=== PATIENT | female | born 1940 | race Caucasian/White ===

== ENCOUNTER → 2019-01-25 | Outpatient (CLI) | payer MEDICARE ==
--- NOTE | 2019-01-25 13:11 | Diagnostic Imaging Report ---
INDICATION: Fall. TIME OF EXAM: 12:49 p.m. FINDINGS: Multiple views of the left shoulder demonstrate degenerative changes at the glenohumeral joint. Glenohumeral and acromioclavicular alignment is normal. Acromiohumeral space is normal. No fracture or dislocation is seen. IMPRESSION: Degenerative changes. No acute bony abnormality is detected. Dictated by: Dictated on workstation # [id number]
== END ==
LOC: RAD FS 12:42
PROVIDERS: ATTEND Nurse Practitioner
DX: S40.012A Contusion of left shoulder, initial encounter (principal); M24.512 Contracture, left shoulder; M19.012 Primary osteoarthritis, left shoulder; M75.122 Complete rotator cuff tear or rupture of left shoulder, not specified as traumatic; W19.XXXA Unspecified fall, initial encounter
CPT/HCPCS: 73030

== ENCOUNTER 2019-06-02 16:20 | Emergency (ER) | payer MEDICARE ==
[~2019-06-02] VITALS: Ht 162.6 cm; Wt 72.6 kg
--- OUTSIDE RECORDS SUMMARY | 2019-06-02 16:26 | XMS REPORT | Encounter Summary ---
Author Author [facility] Organization [facility] Address Unknown Phone Unavailable Care Team Providers Care Formula Technician Name Role Phone Gladys Matthews Unavailable Unavailable Jeff Palma MD PCP Encounter Details Care Team Description Date Type Department Wellington Helton DO [id number] [place] [address] [phone] 05/15/2019 Anesthesia [facility] [address] [facility] [id number] [place] [address] Anesthesia Record Responsible Anesthesiologist Anesthesia Start Time Anesthesia Stop Time Procedure Name Wellington Helton DO 05/15/19 1130 05/15/19 1141 CARDIOVERSION, EXTERNAL Date Time Event Comment 1108 AN Equip Check 2018 1130 Anes Start 1131 An Start Data 1131 Start Supplemental O2 1131 Anesthesia Ready 1138 Quick Note CV at 200J 1141 an stop data 1141 Handoff to RN I completed my SBAR handoff to the receiving nurse. 1141 An Stop 1253 Meds Name Total lidocaine (2%) 200 mg/10mL Injection 60 mg syringe propofol (DIPRIVAN) 200 mg/ 20 mL 40 mg injection (VIAL) sodium chloride 0.9 % infusion (500 100 mL mL bag) * Name O2 * No blood administrations on file. No LDAs on file. documented in this encounter Social History Date Tobacco Use Types Packs/Day Years Used Never Smoker Smokeless Tobacco: Never Used Drinks/Week oz/Week Comments Alcohol Use occasionally Yes Sex Assigned at Date Recorded Not on file Industry Job Start Date Occupation Not on file Not on file Not on file Travel End Travel History Travel Start No recent travel history available. documented as of this encounter Functional Status Date of Assessment Functional Status Response 02/22/2019 Does the patient have a hearing impairment: No 02/22/2019 Does the patient have a visual impairment: Yes documented as of this encounter OR Notes * Anesthesia Postprocedure Evaluation - Wellington Helton DO - 05/15/2019 12:53 PM CDT Post-Anesthesia Evaluation Name: Zee Fam : 1940 Age: 78 y.o. Sex : female Procedure Date: 05/15/2019 Procedure: * No procedures listed * Surgeon: * No surgeons listed * Post-Anesthesia Vitals BP: 121/52 (05/15 1207) Pulse: 48 (05/15 1207) Respirations: 23 PER MINUTE (05/15 1207) SpO2: 98 % (05/15 1207) O2 Delivery: None (Room Air) (05/15 1207) Post Anesthesia Evaluation Note Evaluation location: pre/post Patient participation: recovered; patient participated in evaluation Level of consciousness: alert Pain score: 3 Pain management: adequate Hydration: normovolemia Temperature: 36.0C - 38.4C Airway patency: adequate Perioperative Events Post-op nausea and vomiting: no PONV Postoperative Status Cardiovascular status: hemodynamically stable Respiratory status: spontaneous ventilation Perioperative Events Perioperative Event: No Emergency Case Activation: No * Anesthesia Preprocedure Evaluation - Tosin Mujica CRNA - 05/15/2019 11:10 AM CDT Anesthesia Pre-Procedure Evaluation Name: Zee Fam : 1940 Age: 78 y.o. Sex : female Procedure Date: Procedure: FARA/DCCV Physical Assessment Vital Signs (last filed in past 24 hours): Patient History No Known Allergies Current Medications Medication Directions albuterol (PROAIR HFA) 90 mcg/actuation inhaler Inhale two puffs by mouth into t he lungs every 6 hours as needed for Wheezing or Shortness of Breath. Shake well before use. allopurinol (ZYLOPRIM) 300 mg tablet Take 1 tablet by mouth daily. ALPRAZolam (XANAX) 0.25 mg tablet Take 0.25 mg by mouth at bedtime as needed for Anxiety. amiodarone (CORDARONE) 200 mg tablet Take one tablet by mouth daily. Take with f ood. amoxicillin/K clavulanate (AUGMENTIN) 875/125 mg tablet Take one tablet by mouth every 12 hours for 7 days. Take with food. busPIRone (BUSPAR) 5 mg tablet Take one tablet by mouth daily. ELIQUIS 5 mg tablet Take one tablet by mouth twice daily. ezetimibe (ZETIA) 10 mg tablet Take 1 Tab by mouth daily. furosemide (LASIX) 40 mg tablet Take one tablet by mouth every morning. loratadine (CLARITIN) 10 mg tablet Take 10 mg by mouth every morning. losartan-hydrochlorothiazide (HYZAAR) 100-25 mg tablet Take 1 tablet by mouth da abiodun. montelukast (SINGULAIR) 10 mg tablet Take 10 mg by mouth at bedtime daily. omeprazole DR(+) (PRILOSEC) 20 mg capsule Take 20 mg by mouth daily before break fast. potassium chloride SR (K-DUR) 10 mEq tablet Take one tablet by mouth daily. Take with a meal and a full glass of water. rosuvastatin (CRESTOR) 20 mg tablet Take 1 Tab by mouth daily. Review of Systems/Medical History Patient summary reviewed Nursing notes reviewed PONV Screening: Female gender and Non-smoker No history of anesthetic complications No family history of anesthetic complications Airway - negative Pulmonary Asthma (pt states was recently prescribed albuterol but has not started) No recent URI Shortness of breath Cardiovascular Recent diagnostic studies: ECG, echocardiogram and stress test 12/18/18 - 2-D + DOPPLER ECHOCARDIOGRAM 1. No regional wall motion abnormalities are seen. Overall LV systolic function appears normal. The estimated left ventricular ejection fraction is 60%. 2. Right ventricular contractility appears normal. 3. Moderate left atrial enlargement. 4. Moderate mitral valve regurgitation. Mild tricuspid valve regurgitation. 5. Aortic valve sclerosis without stenosis. 6. No pericardial effusion is seen. 08/31/16 - PV CAROTID ARTERY DUPLEX SCAN 1. Mild atheromatous plaque is seen in bilateral common and internal carotid art eries. 2. No hemodynamically significant (>50%) stenosis is seen in common and internal carotid arteries bilaterally 3. There is normal antegrade flow in both vertebral arteries. 4. No evidence of proximal subclavian stenosis. 08/31/16 - Procedure: GATED D-SPECT REGADENOSON THALLIUM MPI STRESS TEST SUMMARY/OPINION: This study is probably normal with no evidence of significan t myocardial ischemia. Left ventricular systolic function is normal. There are n o high risk prognostic indicators present. The pharmacologic ECG portion of the study is negative for ischemia. Resting and pharmacologic stress-mediated hyper tension is observed (178 mm Hg and 206 mm Hg systolic, respectively). There are no prior studies available for comparison. 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 Abdominal Findings: Comments: deferred Neurological Findings: Alert and oriented x 3 Constitutional findings: Negative Diagnostic Tests Hematology: Lab Results Component Value Date HGB 13.1 05/08/2019 HCT 40.3 05/08/2019 PLTCT 272 05/08/2019 WBC 7.9 05/08/2019 NEUT 80 05/08/2019 ANC 6.30 05/08/2019 ALC 0.80 05/08/2019 FER 9 05/08/2019 AMC 0.70 05/08/2019 EOSA 1 05/08/2019 ABC 0.00 05/08/2019 MCV 92.2 05/08/2019 MCH 29.9 05/08/2019 MCHC 32.5 05/08/2019 MPV 10.6 05/08/2019 RDW 15.5 05/08/2019 General Chemistry: Lab Results Component Value Date NA 136 05/08/2019 K 3.7 05/08/2019 CL 102 05/08/2019 CO2 24 05/08/2019 GAP 10 05/08/2019 BUN 16 05/08/2019 CR 1.08 05/08/2019 GLU 114 05/08/2019 CA 9.6 05/08/2019 ALBUMIN 3.7 05/08/2019 MG 2.4 04/27/2019 TOTBILI 1.0 05/08/2019 Coagulation: No results found for: PT, PTT, INR Anesthesia Plan ASA score: 3 Plan: MAC Induction method: intravenous NPO status: acceptable Informed Consent Anesthetic plan and risks discussed with patient. Use of blood products discussed with patient Plan discussed with: anesthesiologist and GARMENT TAG STRINGER. documented in this encounter Plan of Treatment Not on filedocumented as of this encounter Visit Diagnoses Not on filedocumented in this encounter Administered Medications Action Date Dose Rate Site Medication Order MAR Action 05/15/2019 11:35 AM CDT 60 mg lidocaine (PF) injection Given INTRA-PROCEDURE MED, Starting Tue05/15/19 at 1135, Until Tue05/15/19 at 1141, Anesthesia Intra-op 05/15/2019 11:37 AM CDT 20 mg propofol (DIPRIVAN) injection Given INTRA-PROCEDURE MED, Starting 05/15/19 at 1135, Until Tu05/15/19 at 1141, Anesthesia Intra-op 20 mg Given 05/15/2019 11:35 AM CDT 05/15/2019 11:09 AM CDT sodium chloride 0.9 % infusion Given - New INTRA-PROCEDURE MED(CONT), Starting Tue Bag 05/15/19 at 1109, Until Tue05/15/19 at 1141, Anesthesia Intra-op documented in this encounter
--- OUTSIDE RECORDS SUMMARY | 2019-06-02 16:26 | XMS REPORT | Clinical Summary ---
Author Author [facility] Organization [facility] Address Unknown Phone Unavailable Care Team Providers Care Director Of Event Marketing Name Role Phone Gladys Matthews Unavailable Unavailable Jeff Palma MD PCP Source Comments Some departments are not documenting in the electronic medical record. If you d o not see the information that you expected, contact Release of Information in [facility] Records Information Management department at [phone] for further assistan ce in locating additional records.[facility] Allergies No Known Allergies Medications End Date Status Medication Sig Dispensed Refills Start Date Active omeprazole DR(+) Take 20 mg by 0 (PRILOSEC) 20 mg capsule mouth daily before breakfast. Active montelukast (SINGULAIR) Take 10 mg by 0 10 mg tablet mouth at bedtime daily. Active rosuvastatin (CRESTOR) 20 Take 1 Tab by 0 mg tablet mouth daily. 6 Active ezetimibe (ZETIA) 10 mg Take 1 Tab by 90 Tab 1 tablet mouth daily. 6 Active ALPRAZolam (XANAX) 0.25 Take 0.25 mg 0 mg tablet by mouth at bedtime as needed for Anxiety. Active furosemide (LASIX) 40 mg Take one 90 tablet 3 tablet tablet by 9 mouth every morning. Active ELIQUIS 5 mg tablet Take one 60 tablet 6 tablet by 9 mouth twice daily. Active losartan-hydrochlorothiaz Take 1 tablet 3 christine (HYZAAR) 100-25 mg by mouth 9 tablet daily. Active allopurinol (ZYLOPRIM) Take 1 tablet 0 300 mg tablet by mouth 9 daily. Active potassium chloride SR Take one 90 tablet 3 (K-DUR) 10 mEq tablet by 9 tabletIndications: mouth daily. Hypokalemia Take with a meal and a full glass of water. Active albuterol (PROAIR HFA) 90 Inhale two 6.7 g 1 mcg/actuation inhaler puffs by 9 mouth into the lungs every 6 hours as needed for Wheezing or Shortness of Breath. Shake well before use. Active amiodarone (CORDARONE) Take two 180 tablet 0 200 mg tablet tablets by 9 mouth daily. Take with food. 05/15/2019 Discontinued busPIRone (BUSPAR) 5 mg Take one 30 tablet 1 tablet tablet by 9 mouth daily. 05/31/2019 Discontinued amiodarone (CORDARONE) Take one 90 tablet 1 200 mg tablet tablet by 9 mouth daily. Take with food. 05/14/2019 Discontinued metoprolol XL (TOPROL XL) Take one 180 tablet 1 25 mg extended release tablet by 9 tablet mouth twice daily. 05/15/2019 Discontinued loratadine (CLARITIN) 10 Take 10 mg by 0 mg tablet mouth every morning. 05/11/2019 Discontinued albuterol (PROAIR HFA) 90 Inhale two 1 Inhaler 11 mcg/actuation puffs by 9 inhalerIndications: Mild mouth into intermittent asthma the lungs without complication every 6 hours as needed for Wheezing or Shortness of Breath (cough). Shake well before use. 05/15/2019 amoxicillin/K clavulanate Take one 14 tablet 0 (AUGMENTIN) 875/125 mg tablet by 9 tablet mouth every 12 hours for 7 days. Take with food. 05/31/2019 Discontinued amiodarone (CORDARONE) TAKE 1 TABLET 90 tablet 1 200 mg tablet BY MOUTH ONCE 9 DAILY WITH FOOD Active Problems Problem Noted Date CKD (chronic kidney disease) stage 3, GFR 30-59 ml/min 05/04/2019 LPRD (laryngopharyngeal reflux disease) 04/27/2019 Overview: Plan: Continue omeprazole 20 mg daily Chronic fatigue 04/27/2019 Overview: Having worsening chronic fatigue. No systemic signs or symptoms. Is depressed. Physical exam normal. PLAN - check CBC, CMP, TSH, Vit D, B12 - offered medication for mood, declines for now - consider sleep study if above unremarkable \\ B12 deficiency 04/27/2019 Chronic cough 04/27/2019 Atrial fibrillation 01/12/2019 Overview: 1. 01/02 echo: No regional wall motion abnormalities are seen. Overall LV systolic function appears normal. The estimated left ventricular ejection fraction is 60%. 2. Right ventricular contractility appears normal. 3. Moderate left atrial enlargement. 4. Moderate mitral valve regurgitation. Mild tricuspid valve regurgitation. 5. Aortic valve sclerosis without stenosis. No pericardial effusion is seen. Plan: Continue follow-up with cardiology Continue Eliquis Continue beta-alyce L ast Assessment & Plan: Unfortunately, she remains in atrial fibrillation today. Mrs. Fam was initially quite surprised that she felt good and thought she was in sinus rhythm. We again discussed treatment options. I am unsure whether she has any symptoms associated with her atrial fibrillation. We discussed the fact that amiodarone has some side effects associated with long-term use. If she were to stay in AF, I would discontinue amiodarone. She has reluctantly agreed to undergo cardioversion once. We are going to keep her on the same dose of amiodarone for now. I would hold her beta-blockers prior to cardioversion. When she has been cardioverted, we can consider dropping her amiodarone dose to 100 mg a day. She is happy with this plan. Asthma 01/12/2019 Overview: controlled Plan: Continue Albuterol 2 puffs every 6 hours as needed Late onset Alzheimer's disease without behavioral disturbance 11/27/2018 Overview: Seen by Dr. Irvin Abnormal signs: Memory dysfunction and Executive dysfunction Localization: Bihemispheral, cortices and Mesial temporal structures Diagnosis: Alzheimer's disease Differential diagnosis: Inflammatory disorders, Vascular disorders, Metabolic disorders and Other degenerative causes Recommended starting Aricept if able to decrease Metoprolol. Continue follow-up with neurology 05/2019: Neuropsychological testing: Summary and Conclusions: The patient is an 78-year-old female previously diagnosed with Alzheimer's disease who was referred for neuropsychological evaluation to gauge level of cognitive functioning to assist in treatment planning. During the interview, the patient reported difficulty remembering appointments/details of appointments and occasional word substitution, but noted her peers have similar issues. Her daughter added that the patient has had problems with misplacing items. The patient reported rapid onset of cognitive symptoms shortly after her daughter's in February 2017 with stability over time. Her daughter reported gradual onset of symptoms about a year ago with gradual decline and indicated symptoms have been more prominent in the past 6 months. Performance on cognitive testing was indicative of grossly intact cognitive functioning and is not consistent with the presence of a neurodegenerative disorder. It is most likely that observed cognitive changes are related to high level of stress as well as normal age-related cognitive decline. Psychologically, the patient denied clinically relevant symptoms of anxiety and depression but did note elevated stress level. 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 She reports anxiety and feeling somewhat down and blue but took the Buspar for just a few days. She felt it helped but did not want to be "dependent" on anything. We discussed the toll that stress and anxiety can take on memory as well as untreated depression. We have tried Zoloft in the past and she would not take it but she did agree to restart the Buspar at 5 mg once a day. Recommended we get formal Neuropsychological testing to help with LTC planning. 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 She needs more assistance with writing the reports. Harder to keep up with the responsibility. She also has untreated anxiety and depression as well as ongoing grief from the loss of her a couple of years ago that could be contributing. Discussed a referral to [facility] and support. She may also be interested in some CBT with sebastián Raygoza. They were both in agreement with a referral. She also expressed some interest in hearing more about Research Studies. Was in agreement with a referral. Plan: Recommend we get the Neuropsychological testing to help with diagnosis and contribution from depression and anxiety. Continue the Buspar 5 mg once a day. Take every day at the same time daily. We will make a referral to the [facility]/SW support program and the Research program. Follow up after the Neuropsychological testing results have been completed and we can review the results as well as a medication check. Bruit 08/09/2016 Shortness of breath 08/09/2016 Essential hypertension 08/06/2016 Overview: 02/09/08 ECHO EF 55 % L ast Assessment & Plan: Blood pressure in the office today is low. She tells me that she is lightheaded when standing quickly. I am not sure if her hypotension is secondary to atrial arrhythmias or decreased intake. I have encouraged her to increase her fluid intake and eat regular meals. Mixed hyperlipidemia 08/06/[address] 08/06/2016 Overview: 08/31/16 PV carotid duplex mild plaque, none >50% 08/31/16 Regadenoson Thallium EF 73 % LVEDV 53 ml Encounters Care Team Description Date Type Specialty Alee Briscoe MD Medication Refill; Medication Refill 05/31/2019 Refill Cardiology Katie Pastor RN Lab Results W/medication Changes 05/16/2019 Telephone Cardiology Wellington Helton DO 05/15/2019 Anesthesia Cardiology Event Alee Briscoe MD 05/15/2019 Hospital Cardiology Encounter Britt Elizabeth, PhD Cognitive change (Primary Dx) 05/15/2019 Office Visit Neuropsychology Ana Maria Gary RN Medication Question 05/14/2019 Telephone Cardiology Gemma Lew RN Pre-Procedure Instructions (LVM for DCCV instructions for 05/15/2019) 05/14/2019 Telephone Cardiology Jeff Palma MD 05/11/2019 Refill Internal Medicine Dorothy Carpio APRN Results 05/10/2019 Telephone Internal Medicine Dorothy Carpio APRN Persistent atrial fibrillation (HCC) (Primary Dx); Confusion; Lethargy; Weakness; Acute low back pain, unspecified back pain laterality, with sciatica presence unspecified; Cystitis 05/08/2019 Office Visit Internal Medicine Linda Hogan half-way current use of amiodarone 05/08/2019 Orders Only Cardiology Alee Briscoe MD Persistent atrial fibrillation (HCC) (Primary Dx) 05/08/2019 Prep for Case Cardiology Katelynn Caballero RN 05/08/2019 Telephone Cardiology Belkis Abdi RN Lab Results 05/07/2019 Telephone Cardiology Belkis Abdi RN 05/07/2019 Telephone Cardiology Alee Briscoe MD 05/04/2019 Hospital Radiology Encounter Ayana Florian MD 05/04/2019 Anesthesia Cardiology Event Alee Briscoe MD 05/04/2019 Hospital Cardiology Encounter Haleigh Ignacio PA-C Cardiac Eval (H&P for DCCV) 05/04/2019 Office Visit Cardiology Giovanna Day RN Pre-Procedure Instructions (Transesophageal Echocardiogram) 05/03/2019 Telephone Cardiology Jeff Palma MD Hypokalemia (Primary Dx) 05/03/2019 Orders Only Internal Medicine Jeff Palma MD Chronic fatigue (Primary Dx); Persistent atrial fibrillation (HCC); Late onset Alzheimer's disease without behavioral disturbance; Mild intermittent asthma without complication; LPRD (laryngopharyngeal reflux disease); B12 deficiency; Chronic cough; Encounter for monitoring proton pump inhibitor therapy; Encounter for monitoring amiodarone therapy 04/27/2019 Office Visit Internal Medicine Geovanna Wren Precertification (Approval) 04/18/2019 Documentation Cardiology Belkis Abdi RN Medication Request 04/18/2019 Telephone Cardiology Alee Briscoe MD Persistent atrial fibrillation (HCC) (Primary Dx) 04/10/2019 Prep for Case Cardiology Geovanna Wren Precertification (Approval) 04/06/2019 Documentation Cardiology Alee Briscoe MD Cardiac Eval (2 month follow up) 03/26/2019 Office Visit Cardiology Alee Briscoe MD Persistent atrial fibrillation (HCC) (Primary Dx) 03/26/2019 Prep for Case Cardiology from Last 3 Months Immunizations Name Administration Dates Next Due Flu Vaccine=>65 YO 08/18/2016, 07/18/2015, 08/09/2014, 09/20/2013, High-Dose (PF) 10/30/2012 Pneumococcal Vaccine 09/13/2016 (23-[facility] Adult) Pneumococcal 05/02/2018 Vaccine(13-[facility] Peds/immunocompromised adult) Typhoid Vaccine, 01/12/2016 unspecified Family History Medical History Relation Name Comments Cancer Father Stroke Maternal Aunt Unknown to Patient Maternal Uncle Stroke Mother High Cholesterol Sister Relation Name Status Comments Father Maternal Aunt Maternal Uncle Mother Sister Alive Social History Date Tobacco Use Types Packs/Day Years Used Never Smoker Smokeless Tobacco: Never Used Tobacco Cessation: Counseling Given: No Drinks/Week oz/Week Comments Alcohol Use occasionally Yes Sex Assigned at Date Recorded Not on file Industry Job Start Date Occupation Not on file Not on file Not on file Travel End Travel History Travel Start No recent travel history available. Last Filed Vital Signs Reading Time Taken Comments Vital Sign 121/52 05/15/2019 12:07 PM CDT Blood Pressure 48 05/15/2019 12:07 PM CDT Pulse 36.8 C (98.2 F) 05/08/2019 1:25 PM CDT Temperature 16 04/27/2019 9:58 AM CDT Respiratory Rate 98% 05/15/2019 12:07 PM CDT Oxygen Saturation - - Inhaled Oxygen Concentration 73 kg (160 lb 15 oz) 05/15/2019 11:10 AM CDT Weight 162.6 cm (5' 4") 05/15/2019 11:10 AM CDT Height 27.62 05/15/2019 11:10 AM CDT Body Mass Index Plan of Treatment Health Maintenance Due Date Last Done Comments PHYSICAL (COMPREHENSIVE) 1945 EXAM OSTEOPOROSIS 2003 SCREENING/MONITORING INFLUENZA VACCINE 08/14/2019 08/18/2016, 07/18/2015, 08/09/2014, Additional history exists DTAP/TDAP VACCINES (1 - 04/27/2029 Postponed from 1956 Tdap) (Insurance/Financial) SHINGLES RECOMBINANT 04/27/2029 Postponed from 1988 VACCINE (1 of 2) (Insurance/Financial) PNEUMONIA (PCV13/PPSV23) Completed 05/02/2018, 09/13/2016 VACCINES Procedures Comments Procedure Name Priority Date/Time Associated Diagnosis CARDIOVERSION, EXTERNAL Routine 05/15/2019 Persistent atrial 11:46 AM CDT fibrillation (HCC) POC POTASSIUM 05/15/2019 11:28 AM CDT ECG-SCAN 05/15/2019 12:00 AM CDT ECG-SCAN 05/15/2019 12:00 AM CDT URINALYSIS, MICROSCOPIC Routine 05/08/2019 Confusion 2:37 PM CDT CULTURE-URINE Routine 05/08/2019 Confusion W/SENSITIVITY 2:37 PM CDT COMPREHENSIVE METABOLIC Routine 05/08/2019 Confusion PANEL 2:17 PM CDT Lethargy Weakness CBC AND DIFF Routine 05/08/2019 Confusion 2:17 PM CDT Lethargy Weakness ECG 12-LEAD Routine 05/08/2019 half-way current use of amiodarone CHEST 2 VIEWS Routine 05/04/2019 Persistent atrial 11:08 AM CDT fibrillation (HCC) 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 FARA W/O CONTRAST Routine 05/04/2019 Persistent atrial 10:04 AM CDT fibrillation (HCC) CARDIOVERSION, EXTERNAL Routine 05/04/2019 Persistent atrial 10:00 AM CDT fibrillation (HCC) POC POTASSIUM 05/04/2019 9:10 AM CDT ECG-SCAN 05/04/2019 12:00 AM CDT ECG-SCAN 05/04/2019 12:00 AM CDT ECG-SCAN 05/04/2019 12:00 AM CDT CBC AND DIFF Routine 04/27/2019 Persistent atrial 11:01 AM CDT fibrillation (HCC) COMPREHENSIVE METABOLIC Routine 04/27/2019 Persistent atrial PANEL 11:01 AM CDT fibrillation (HCC) THYROID STIMULATING Routine 04/27/2019 Persistent atrial HORMONE-TSH 11:01 AM CDT fibrillation (HCC) VITAMIN B12 Routine 04/27/2019 Encounter for monitoring 11:01 AM CDT proton pump inhibitor therapy B12 deficiency 25-OH VITAMIN D (D2 + D3) Routine 04/27/2019 Encounter for monitoring 11:01 AM CDT proton pump inhibitor therapy MAGNESIUM Routine 04/27/2019 Encounter for monitoring 11:01 AM CDT proton pump inhibitor therapy FREE T4 (FREE THYROXINE) Routine 04/27/2019 Encounter for monitoring ONLY 11:01 AM CDT amiodarone therapy ECG-SCAN 03/26/2019 12:00 AM CDT from Last 3 Months Results * CARDIOVERSION, EXTERNAL (05/15/2019 11:46 AM CDT) Specimen Narrative Performed At OTHER OUTSIDE LAB DATE OF PROCEDURE: 05/15/2019 PROCEDURES PERFORMED Direct current synchronized cardioversion (200 joules biphasic current with Medtronic LifePak 20e Biphasic Defibrillator). INDICATIONS The patient is a78 y.o. year old patient withsymptomatic atrial fibrillation. She has been on adequate anticoagulation since her last FARA/CV. ANESTHESIA MAC with propofol (supervised by Anesthesiology Staff) INFORMED CONSENT The planned procedure including conscious sedation was explained at length with patient. This included a detailed description of the procedure, procedure rationale, risks, benefits, & available alternatives. Ample time was allowed for feedback. Patient's questions were addressed and answered. Pt verbalized understanding and wished to proceed. Written informed consent was signed by the patient and was placed in the patient's chart as part of their permanent medical record. PROCEDURAL DETAILS Anesthesiology staff physician was present and supervised sedation & anesthesia.Heart rate, blood pressure, pulse oximetry, telemetry monitoring, and level of consciousness were monitored by myself, anesthesiology, and nursing staff. Cardioverter pads were placed with the anterior pad in the right parasternal position & the posterior pad in the left parasternal position. After adequate sedation, a synchronized 200 joules biphasic current was delivered to the patient with subsequent conversion to sinus rhythm.This was confirmed on 12 lead ECG. There were no procedural complications. Post-procedure, the patient was neurologically intact and hemodynamically stable. Aftercare and follow-up instructions were provided to the patient. CONCLUSIONS 1. Successful direct current cardioversion from symptomatic atrial fibrillation to sinus rhythm. Performing Organization Address City/State/Zipcode Phone Number OTHER OUTSIDE LAB * POC POTASSIUM (05/15/2019 11:28 AM CDT) Only the most recent of 2 results within the time period is included. Potassium-POC 3.4 (L) 3.5 - 5.1 MMOL/L [facility] Specimen Performing Organization Address City/State/Zipcode Phone Number [facility] [address] [place] [address] * ECG-SCAN (05/15/2019 12:00 AM CDT) Narrative Performed At Ordered by an unspecified provider. * ECG-SCAN (05/15/2019 12:00 AM CDT) Narrative Performed At Ordered by an unspecified provider. * URINALYSIS, MICROSCOPIC (05/08/2019 2:37 PM CDT) WBCs,UA PACKED 0 - 2 /HPF [facility] RBCs,UA 0-2 0 - 3 /HPF [facility] MucousUA TRACE [facility] Bacteria,UA MODERATE (A) NEG-NEG [facility] Squamous 2-5 0 - 5 [facility] Epithelial Cells Hyaline Cast 2-5 [facility] Specimen Urine - Urine Performing Organization Address City/State/Zipcode Phone Number [facility] [address] [place] [address] * CULTURE-URINE W/SENSITIVITY (05/08/2019 2:37 PM CDT) Battery Name URINE CULTURE [facility] Specimen URINE [facility] Description Special NONE [facility] Requests Culture >100,000 organisms/ml [facility] ESCHERICHIA COLI (A) Report Status FINAL [facility] 05/10/2019 Organism ID >100,000 organisms/ml [facility] ESCHERICHIA COLI Specimen Urine - Urine Antibiotic Method Susceptibility Organism Ampicillin SADIA (MCG/ML) INTERPRETATION <=4 SUSCEPTIBLE: Susceptible >100,000 organisms/ml escherichia coli Amoxicil/Clav Acid SADIA (MCG/ML) INTERPRETATION <=4/2 SUSCEPTIBLE: Susceptible >100,000 organisms/ml escherichia coli Levofloxacin SADIA (MCG/ML) INTERPRETATION <=1 SUSCEPTIBLE: Susceptible >100,000 organisms/ml escherichia coli Nitrofurantoin SADIA (MCG/ML) INTERPRETATION <=16 SUSCEPTIBLE: Susceptible >100,000 organisms/ml escherichia coli Gentamicin SADIA (MCG/ML) INTERPRETATION <=2 SUSCEPTIBLE: Susceptible >100,000 organisms/ml escherichia coli Trimethsulfa SADIA (MCG/ML) INTERPRETATION <=0.5/9.5 SUSCEPTIBLE: Susceptible >100,000 organisms/ml escherichia coli Piperacil/Tazobactam SADIA (MCG/ML) INTERPRETATION <=2/4 SUSCEPTIBLE: Susceptible >100,000 organisms/ml escherichia coli Tetracycline SADIA (MCG/ML) INTERPRETATION <=2 SUSCEPTIBLE: Susceptible >100,000 organisms/ml escherichia coli Cefepime SADIA (MCG/ML) INTERPRETATION <=1 SUSCEPTIBLE: Susceptible >100,000 organisms/ml escherichia coli Ertapenem SADIA (MCG/ML) INTERPRETATION <=0.25 SUSCEPTIBLE: Susceptible >100,000 organisms/ml escherichia coli Ceftriaxone SADIA (MCG/ML) INTERPRETATION <=1 SUSCEPTIBLE: Susceptible >100,000 organisms/ml escherichia coli Method SADIA (MCG/ML) INTERPRETATION SADIA (MCG/ML) INTERPRETATION >100,000 organisms/ml escherichia coli Performing Organization Address City/[facility]/Zipcode Phone Number [facility] [address] [place] [address] * CBC AND DIFF (05/08/2019 2:17 PM CDT) Only the most recent of 2 results within the time period is included. White Blood 7.9 4.5 - 11.0 K/UL [facility] Cells RBC 4.37 4.0 - 5.0 M/UL [facility] Hemoglobin 13.1 12.0 - 15.0 GM/DL [facility] Hematocrit 40.3 36 - 45 % [facility] MCV 92.2 80 - 100 FL [facility] MCH 29.9 26 - 34 PG [facility] MCHC 32.5 32.0 - 36.0 G/DL [facility] RDW 15.5 (H) 11 - 15 % [facility] Platelet Count 272 150 - 400 K/UL [facility] MPV 10.6 7 - 11 FL [facility] Neutrophils 80 (H) 41 - 77 % [facility] Lymphocytes 10 (L) 24 - 44 % [facility] Monocytes 9 4 - 12 % [facility] Eosinophils 1 0 - 5 % [facility] Basophils 0 0 - 2 % [facility] Absolute 6.30 1.8 - 7.0 K/UL [facility] Neutrophil Count Absolute Lymph 0.80 (L) 1.0 - 4.8 K/UL [facility] Count Absolute 0.70 0 - 0.80 K/UL [facility] Monocyte Count Absolute 0.10 0 - 0.45 K/UL [facility] Eosinophil Count Absolute 0.00 0 - 0.20 K/UL [facility] Basophil Count Specimen Blood Performing Organization Address City/[facility]/Zipcode Phone Number [facility] [address] [place] [address] * COMPREHENSIVE METABOLIC PANEL (05/08/2019 2:17 PM CDT) Only the most recent of 2 results within the time period is included. Sodium 136 (L) 137 - 147 MMOL/L [facility] Potassium 3.7 3.5 - 5.1 MMOL/L [facility] Chloride 102 98 - 110 MMOL/L [facility] Glucose 114 (H) 70 - 100 MG/DL [facility] Blood Urea 16 7 - 25 MG/DL [facility] Nitrogen Creatinine 1.08 (H) 0.4 - 1.00 MG/DL [facility] Calcium 9.6 8.5 - 10.6 MG/DL [facility] Total Protein 6.6 6.0 - 8.0 G/DL [facility] Total Bilirubin 1.0 0.3 - 1.2 MG/DL [facility] Albumin 3.7 3.5 - 5.0 G/DL [facility] Alk Phosphatase 66 25 - 110 U/L [facility] AST (SGOT) 12 7 - 40 U/L [facility] CO2 24 21 - 30 MMOL/L [facility] ALT (SGPT) 8 7 - 56 U/L [facility] Anion Gap 10 3 - 12 [facility] eGFR Non 49 (L) >60 mL/min [facility] Comment: [place] The eGFR is not validated for use in drug dosing adjustments.Continue to use estimated creatinine clearance per dosing reference text.Please contact the Clinical Pharmacist for questions. eGFR 59 (L) >60 mL/min [facility] [place] Comment: The eGFR is not validated for use in drug dosing adjustments.Continue to use estimated creatinine clearance per dosing reference text.Please contact the Clinical Pharmacist for questions. Specimen Blood Performing Organization Address City/State/Zipcode Phone Number [facility] [address] [place] [address] * ECG 12-LEAD (05/08/2019) Narrative Performed At Performing Organization Address City/State/Zipcode Phone Number [facility] CLINIC * CHEST 2 VIEWS (05/04/2019 11:08 AM CDT) Specimen Impressions Performed At No acute cardiopulmonary abnormality. [facility] Approved by Andrea Capps D.O. on 05/04/2019 11:42 AM By my electronic signature, I attest that I have personally reviewed the images for this examination and formulated the interpretations and opinions expressed in this report Finalized by Chauncey Hooker M.D. on 05/04/2019 11:50 AM. Dictated by Andrea Capps D.O. on 05/04/2019 11:25 AM. Narrative Performed At CHEST 2 VIEWS [facility] RES[facility] Clinical Indication: Female, 78 years old. Persistent atrial fibrillation. Amiodarone use Comparison: None Findings: The cardiac silhouette is within normal limits of size. There is no pulmonary vascular congestion. No pneumothorax, consolidating pneumonia or pleural effusion is identified. Surgical clips overlie the right axilla. Procedure Note Interface, Radiant Results - 05/04/2019 11:53 AM CDT CHEST 2 VIEWS Clinical Indication: Female, 78 years old. Persistent atrial fibrillation. Amiodarone use Comparison: None Findings: The cardiac silhouette is within normal limits of size. There is no pulmonary vascular congestion. No pneumothorax, consolidating pneumonia or pleural effusion is identified. Surgical clips overlie the right axilla. IMPRESSION No acute cardiopulmonary abnormality. Approved by Andrea Capps D.O. on 05/04/2019 11:42 AM By my electronic signature, I attest that I have personally reviewed the images for this examination and formulated the interpretations and opinions expressed in this report Finalized by Chauncey Hooker M.D. on 05/04/2019 11:50 AM. Dictated by Andrea Capps D.O. on 05/04/2019 11:25 AM. Performing Organization Address City/State/Zipcode Phone Number [facility] RAD RESULTS * TRANSESOPHAGEAL ECHOCARDIOGRAM (05/04/2019 10:04 AM CDT) BSA 1.84 m2 OTHER OUTSIDE LAB Referring Jeff Palma M.D. OTHER OUTSIDE Provider LAB CV ECHO DOUG Waite R.N. OTHER OUTSIDE PRIMARY PRODUCTS INSPECTORS LAB Cardiology Siemens [id number] OTHER OUTSIDE Ultrasound LAB Machine ECHO EF 65 % OTHER OUTSIDE LAB Specimen Narrative Performed At OTHER OUTSIDE LAB 1.Markedly dilated left atrium.No thrombus. 2.Markedly dilated right atrium.No thrombus. Performing Organization Address City/State/Zipcode Phone Number OTHER OUTSIDE LAB * CARDIOVERSION, EXTERNAL (05/04/2019 10:00 AM CDT) Specimen Narrative Performed At OTHER OUTSIDE LAB PROCEDURE NOTE Procedure:DC cardioversion. Indication:Persistent atrial fibrillation. Consent:Discussed procedure, including goals, risks, and alternative with patient and daughter.Signed consent form in chart. Anesthesia:MAC w/ IV propofol per Anesthesiology. Tricot Knitting Machine Operator:Pedro Marsh M.D. Findings:Chronically anticoagulated with apixaban but may have missed dose(s) within past 3 weeks.Transesophageal echocardiogram performed immediately before procedure confirmed absence of left and right atrial thrombus.Single, 125 J, synchronized, biphasic, DC shock delivered from left parasternal patch to right posterior patch.Sinus bradycardia restored with heart rate=50 and normal atrioventricular conduction. Frequent, premature atrial complexes. Complications:Transient hypotension post cardioversion treated with discontinuation of propofol, ephedrine 15 mg IV, and IV NS 700 ml wide open. Pedro Marsh M.D. [phone] Performing Organization Address [facility] Phone Number OTHER OUTSIDE LAB * ECG-SCAN (05/04/2019 12:00 AM CDT) Narrative Performed At Ordered by an unspecified provider. * ECG-SCAN (05/04/2019 12:00 AM CDT) Narrative Performed At Ordered by an unspecified provider. * ECG-SCAN (05/04/2019 12:00 AM CDT) Narrative Performed At Ordered by an unspecified provider. * 25-OH VITAMIN D (D2 + D3) (04/27/2019 11:01 AM CDT) Vitamin 15.8 (L) 30 - 80 NG/ML MAIN LAB D(25-OH)Total Specimen Blood Performing Organization Address [facility] Phone Number MAIN LAB [address] [place] [address] * THYROID STIMULATING HORMONE-TSH (04/27/2019 11:01 AM CDT) TSH 0.670 0.35 - 5.00 MCU/ML MAIN LAB Specimen Blood Performing Organization Address [facility] Phone Number MAIN LAB [address] [place] [address] * FREE T4 (FREE THYROXINE) ONLY (04/27/2019 11:01 AM CDT) T4-Free 1.6 0.6 - 1.6 NG/DL [facility] MAIN LAB Specimen Blood Performing Organization Address [facility] Phone Number MAIN LAB [address] [place] [address] * MAGNESIUM (04/27/2019 11:01 AM CDT) Magnesium 2.4 1.6 - 2.6 mg/dL MAIN LAB Specimen Blood Performing Organization Address City/[facility]/Zipcode Phone Number MAIN LAB [address] [place] [address] * VITAMIN B12 (04/27/2019 11:01 AM CDT) Vitamin B12 221 180 - 914 PG/ML MAIN LAB Specimen Blood Performing Organization Address City/[facility]/Zipcode Phone Number MAIN LAB [address] [place] [address] * ECG-SCAN (03/26/2019 12:00 AM CDT) Narrative Performed At Ordered by an unspecified provider. from Last 3 Months Insurance Type Payer Benefit Subscriber ID Effective Phone Address Plan / Dates Group Medicare MEDICARE MEDICARE xxxxxxxxxxx 2003-P PART A AND resent B Medicare BCBS LAURA BCBS xxxxxxxxxxxx 2015-P SUPPLEMENT resent Advance Directives Patient Tag Maker Explanation Type Date Recorded Advance 10/28/2018 1:39 PM Directive/DPOA Zee Fam [email or web address] Advance 04/15/2019 9:26 AM Directive/DPOA
--- OUTSIDE RECORDS SUMMARY | 2019-06-02 16:26 | XMS REPORT | Encounter Summary ---
Author Author [facility] Organization [facility] Address Unknown Phone Unavailable Care Team Providers Care Gallery Intern Name Role Phone Gladys Matthews Unavailable Unavailable Jeff Palma MD PCP Reason for Visit * Reason Comments Lab Results W/medication Changes Encounter Details Care Team Description Date Type Department Katie Pastor RN Lab Results W/medication Changes 05/16/2019 Telephone [facility] [address] [place] [address] Social History Date Tobacco Use Types Packs/Day [...] impairment: Yes documented as of this encounter Miscellaneous Notes * Telephone Encounter - Katie Pastor RN - 05/16/2019 3:43 PM CDT LMTC. Ludmila RN ----- Message from Alee Briscoe MD sent at 05/15/2019 6:52 PM CDT ----- Yes please, go to 20 ----- Message ----- From: Katie Pastor RN Sent: 05/15/2019 5:10 PM To: Alee Briscoe MD Do you want to increase K; she takes 10 meq daily. documented in this encounter Plan of Treatment Not on filedocumented as of this encounter Visit Diagnoses Not on filedocumented in this encounter
--- OUTSIDE RECORDS SUMMARY | 2019-06-02 16:26 | XMS REPORT | Encounter Summary ---
Author Author [facility] Organization [facility] Address Unknown Phone Unavailable Care Team Providers Care Spray Maker Name Role Phone Gladys Matthews Unavailable Unavailable Jeff Palma MD PCP Reason for Visit * Reason Comments Medication Refill Medication Refill Encounter Details Care Team Description Date Type Department Alee Briscoe MD [address] [facility] [place] [address] [phone] Medication Refill; Medication Refill 05/31/2019 Refill [facility] [address] [place] [address] [address] [place] [address] Social History Date Tobacco Use Types Packs/Day [...] as of this encounter Miscellaneous Notes * Addendum Note - Bill Caballero RN - 05/31/2019 5:04 PM CDT Addended by: BILL CABALLERO on: 05/31/2019 05:04 PM Modules accepted: Orders documented in this encounter Plan of Treatment Not on filedocumented as of this encounter Visit Diagnoses Not on filedocumented in this encounter
--- OUTSIDE RECORDS SUMMARY | 2019-06-02 16:27 | XMS REPORT | Encounter Summary ---
Author Author [facility] Organization [facility] Address Unknown Phone Unavailable Care Team Providers Care Green Energy Marketing Analyst Name Role Phone Gladys Matthews Unavailable Unavailable Jeff Palma MD PCP Reason for Visit * Reason Comments Medication Refill Encounter Details Care Team Description [place] [address] [place] [address] 05/11/2019 Refill [facility] [address] [place], [place] [address] Social History Date Tobacco Use Types Packs/Day [...] impairment: Yes documented as of this encounter Plan of Treatment Not on filedocumented as of this encounter Visit Diagnoses Not on filedocumented in this encounter
--- OUTSIDE RECORDS SUMMARY | 2019-06-02 16:27 | XMS REPORT | Encounter Summary ---
Author Author [facility] Organization [facility] Address Unknown Phone Unavailable Care Team Providers Care Supervisor Malted Milk Name Role Phone Gladys Matthews Unavailable Unavailable Jeff Palma MD PCP Encounter Details Care Team Description Date Type Department Belkis Abdi RN 05/07/2019 Telephone [facility] [address] [place] [address] Social History Date Tobacco Use Types Packs/Day [...] encounter Miscellaneous Notes * Telephone Encounter - Belkis Abdi RN - 05/07/2019 8:34 AM CDT Attempted to return call to pt/dtr. LVM recommending they contact PCP office. This does not sound cardiac in nature. She has a referral for neuropsych on 05/15 for late onset Alzheimers. She did have anesthesia on Tuesday for the DCCV and this could have exacerbated some confusi on, etc. FARA did not reveal clots and she is on Eliquis. If they do not call PCP I recommended ER for acute changes although they are edvin ewhat improving. * Telephone Encounter - Belkis Abdi RN - 05/07/2019 8:30 AM CDT ----- Message from Zee Fam sent at 05/06/2019 10:33 PM CDT ----- Regarding: Visit Follow-Up Question Contact: Mom (Eliana Fam) had her successful cardio conversion on Saturday May 04, 2019. S he came home with me to [place], and was fine the rest of the evening. We went o ut to eat & she took a short shopping trip to [place]. She was coherent and clear with no problems walking. Tuesday morning at 6am she woke me up moaning loudly the right side of her lower back (hip area & tailbone) were killing her. She stated she hadn't slept all night. She asked me for a Xanax to help her go to sleep. Mom was confused (having conversations with people who weren't in the room, talking incoherently about topics I didn't recognize, chilling off & on, moaning loudly that she was in extreme pain). I laid with her for two hours listening to her "talk constantly" but her eyes were closed. I rubbed some of my CBD oil on her hip & gave her 2 Tylenol. She finally fell peacefully asleep & slept through the day & night off and on, but the confusion was still on going when she woke and insisted I stay with her. Tuesday morning she woke up & was more clear, but still very shaky on her feet. The confusion was better but still present. I was able to get her up, showered & she walked downstairs with me, and spent most of the day sleeping. The confusion worsened again, chills, pain returned about 6pm when I took her upstairs to bed. Walking up the stairs wore her out. She says it feels like she has the flu, but she has no fever, or other symptoms of flu. She & I are very concerned about these symptoms. Please let us know how to proceed with her care. Thank you Hermila & Eliana Fam documented in this encounter Plan of Treatment Not on filedocumented as of this encounter Visit Diagnoses Not on filedocumented in this encounter
--- OUTSIDE RECORDS SUMMARY | 2019-06-02 16:27 | XMS REPORT | Encounter Summary ---
Author Author [facility] Organization [facility] Address Unknown Phone Unavailable Care Team Providers Care Windows Administrator Name Role Phone Gladys Matthews Unavailable Unavailable Jeff Palma MD PCP Encounter Details Care Team Description Date Type Department [facility] current use of amiodarone 05/08/2019 Orders Only [facility] [address] [place] [address] Social History Date Tobacco Use Types Packs/Day [...] Not on filedocumented as of this encounter Procedures Comments Procedure Name Priority Date/Time Associated Diagnosis ECG 12-LEAD Routine 05/08/2019 meterman current use of amiodarone documented in this encounter Results * ECG 12-LEAD (05/08/2019) Narrative Performed At Performing Organization Address City/State/Zipcode Phone Number [facility] documented in this encounter Visit Diagnoses Diagnosis meterman current use of amiodarone documented in this encounter
--- OUTSIDE RECORDS SUMMARY | 2019-06-02 16:27 | XMS REPORT | Encounter Summary ---
Author Author [facility] Organization [facility] Address Unknown Phone Unavailable Care Team Providers Care Vba Programmer Name Role Phone Gladys Matthews Unavailable Unavailable Jeff Palma MD PCP Reason for Visit * Reason Comments Results Encounter Details Care Team Description Date Type Department Dorothy Carpio APRN [address] [place] [address] Results 05/10/2019 Telephone [facility] [address] [place], [place] [address] Social History Date Tobacco Use Types Packs/Day [...] encounter Miscellaneous Notes * Telephone Encounter - Linda [facility] - 05/10/2019 1:57 PM CDT ----- Message from Dorothy Carpio APRN sent at 05/10/2019 12:13 PM CDT ----- Labs stable. Urine culture + for infection due to E. Coli. This should respond to the Augment in. Please follow up if not improving. [facility] but she has been staying with her daughter , called and advised Hermila of the lab results, she understood and will advise pattie perez documented in this encounter Plan of Treatment Not on filedocumented as of this encounter Visit Diagnoses Not on filedocumented in this encounter
--- OUTSIDE RECORDS SUMMARY | 2019-06-02 16:27 | XMS REPORT | Encounter Summary ---
Author Author [facility] Organization [facility] Address Unknown Phone Unavailable Care Team Providers Care Cpht Name Role Phone Gladys Matthews Unavailable Unavailable Jeff Palma MD PCP Encounter Details Care Team Description Date Type Department Bill Caballero RN 05/08/2019 Telephone [facility] [address] [facility] [place] [address] Social History Date Tobacco Use Types Packs/Day [...] Addendum Note - Bill Caballero RN - 05/08/2019 6:37 PM CDT Addended by: BILL CABALLERO on: 05/08/2019 06:37 PM Modules accepted: Orders * Telephone Encounter - Bill Caballero RN - 05/08/2019 6:18 PM CDT Followed up with BULK SYSTEM OPERATOR regarding OV with PCP. Increase Amio to 400mg daily. Decrease Eliquis to 2.5mg BID. DCCV. F/u a few weeks following DCCV. - if HR remains elevated, may need to restart Toprol. Plan to hold am of proce dure. Followed up with patient. Regarding recommendations. She was agreeable with the plan. * Telephone Encounter - Bill Caballero RN - 05/08/2019 12:47 PM CDT Per BULK SYSTEM OPERATOR: - Recommend to increase Amiodarone to 400mg daily - Decrease Eliquis to 2.5mg BID, due to age and Cr. Followed up with patient's daughter, Hermila. She reports that Hermila had to come home to help her mom. She reports that her D OE and weakness are worse today. Recommended for patient to go to the ER. Patient started crying in the backgrou nd. Spoke with patient. She reports that "about one hour" after getting OOB, she di dn't feel well. She felt very tired and her HR on her pulse ox was 140bpm. She is crying stating she "can't continue like this". She is hard to redirect d uring conversation. She reports PETERS, fatigue, weakness, shakiness and lightheaded after her shower. She reports a cough, but this is not new, she is taking an inhaler for it. She has not taken any Lasix since 05/05, because she did not have any since she was staying at her daughters. She does have some at home today, but felt too weak to take today. She denies CP, SOA at rest, Leg swelling, abdominal swelling. She has not weigh ed herself since her DCCV. Due to patient's symptoms, again recommended for patient to go to the nearest ER . Patient declined. Expressed concern that at her OV with PCP office today, th at nothing could be done for her AF today. Of note, she has not eaten anything today, but has had water to drink. She verbalizes understanding and states she would like to go to PCP office today as planned. Updated DYNAMIC BALANCER of assessment and concerns. (no medication changes updated in O2 at this time). * Telephone Encounter - Bill Caballero RN - 05/08/2019 7:55 AM CDT Followed up with patient. She reports yesterday that she felt like she was back in AF. This morning, her pulse is 88 - 100. Today, she reports she "feels good". She reports her mind is straight, she is n ot fatigued. She does not have any discomfort. She reports she feels close to normal. She states yesterday she did not feel very well. Per BULK SYSTEM OPERATOR note: We discussed the fact that amiodarone has some side effects associated with oysterman use. If she were to stay in AF, I would discontinue amiodarone. She has reluctantly agreed to undergo cardioversion once. We are going to keep her on t he same dose of amiodarone for now. I would hold her beta-blockers prior to car dioversion. When she has been cardioverted, we can consider dropping her amioda jannet dose to 100 mg a day. Followed up with patient regarding concerns of confusion and "flu-like" symptoms over the weekend. Patient reports she thinks it was related to the anesthesia. She has been feeling better the past two days. She has a f/u OV scheduled at PCP office today. Followed up with K, she is now taking her KCL regularly. Will route to [facility] for review. ----- Message ----- From: Zee Fam Sent: 05/07/2019 8:10 PM To: Cvm Nurse Triage [facility] Subject: Visit Follow-Up Question my heart rate went up today -117 according to my pulse monitor, & listening through my stethoscope I am no longer in regular rhythm. I am still up in [place] at my daughter's. Would it be possible for me to see you this week? Thank you Eliana Fam [phone] cell my daughter Osman cell [phone] documented in this encounter Plan of Treatment Order Schedule Name Type Priority Associated Diagnoses Expected: 05/08/2019 (Approximate), Expires: 05/08/2020 BASIC METABOLIC PANEL Lab Routine Persistent atrial fibrillation (HCC) Expected: 05/08/2019 (Approximate), Expires: 05/08/2020 MAGNESIUM Lab Routine Persistent atrial fibrillation (HCC) documented as of this encounter Visit Diagnoses Diagnosis Persistent atrial fibrillation (HCC) - Primary Atrial fibrillation documented in this encounter
--- OUTSIDE RECORDS SUMMARY | 2019-06-02 16:27 | XMS REPORT | Encounter Summary ---
Author Author [facility] Organization [facility] Address Unknown Phone Unavailable Care Team Providers Care Foam Dispenser Name Role Phone Gladys Matthews Unavailable Unavailable Jeff Palma MD PCP Encounter Details Care Team Description Date Type Department Alee Briscoe MD [address] [address] [phone] 05/15/2019 Hospital [facility] Encounter [facility] [address] [address] Social History Date Tobacco Use Types Packs/Day Years Used Never Smoker Smokeless Tobacco: Never Used Drinks/Week oz/Week Comments Alcohol Use occasionally Yes Sex Assigned at Date Recorded Not on file Industry Job Start Date Occupation Not on file Not on file Not on file Travel End Travel History Travel Start No recent travel history available. documented as of this encounter Last Filed Vital Signs Reading Time Taken Comments Vital Sign 121/52 05/15/2019 12:07 PM CDT Blood Pressure 48 05/15/2019 12:07 PM CDT Pulse - - Temperature - - Respiratory Rate 98% 05/15/2019 12:07 PM CDT Oxygen Saturation - - Inhaled Oxygen Concentration 73 kg (160 lb 15 oz) 05/15/2019 11:10 AM CDT Weight 162.6 cm (5' 4") 05/15/2019 11:10 AM CDT Height 27.62 05/15/2019 11:10 AM CDT Body Mass Index documented in this encounter Functional Status Date of Assessment Functional Status Response 02/22/2019 Does the patient have a hearing impairment: No 02/22/2019 Does the patient have a visual impairment: Yes documented as of this encounter Discharge Instructions * Patient Instructions* Swetha Lang RN - 05/15/2019 12:03 PM CDT CARDIOLOGY PROCEDURES POST SEDATION INSTRUCTIONS Patient Name: Zee Fam Date: 05/15/2019 Please follow the instructions listed below: 1. Resume diet as prescribed when gag reflex is present. This typically occurs within one hour. The following day you may experience a minor sore throat. 2. Please have someone accompany you, as YOU SHOULD NOT drive or operate machine ry for at least 12-24 hours following the procedure. There may be some residual effects from the sedatives during the procedure. Do not drive a vehicle for up to 24 hours after receiving sedation. Do not operate heavy or potentially harmful equipment Do not make legally binding decisions Do not drink alcohol for up to 24 hours Do not communicate through social media for 24 hours. 3. Other instructions: 4. If you have question or concerns about this procedure, please contact the Car diology office at , and ask to speak to one of the nurses. Current Medications List: albuterol (PROAIR HFA) 90 mcg/actuation inhaler Inhale two puffs by mouth in to the lungs every 6 hours as needed for Wheezing or Shortness of Breath. Shake well before use. allopurinol (ZYLOPRIM) 300 mg tablet Take 1 tablet by mouth daily. ALPRAZolam (XANAX) 0.25 mg tablet Take 0.25 mg by mouth at bedtime as needed for Anxiety. amiodarone (CORDARONE) 200 mg tablet Take one tablet by mouth daily. Take wi th food. amoxicillin/K clavulanate (AUGMENTIN) 875/125 mg tablet Take one tablet by m outh every 12 hours for 7 days. Take with food. ELIQUIS 5 mg tablet Take one tablet by mouth twice daily. ezetimibe (ZETIA) 10 mg tablet Take 1 Tab by mouth daily. furosemide (LASIX) 40 mg tablet Take one tablet by mouth every morning. losartan-hydrochlorothiazide (HYZAAR) 100-25 mg tablet Take 1 tablet by mout h daily. montelukast (SINGULAIR) 10 mg tablet Take 10 mg by mouth at bedtime daily. omeprazole DR(+) (PRILOSEC) 20 mg capsule Take 20 mg by mouth daily before b reakfast. potassium chloride SR (K-DUR) 10 mEq tablet Take one tablet by mouth daily. Take with a meal and a full glass of water. rosuvastatin (CRESTOR) 20 mg tablet Take 1 Tab by mouth daily. Instructions Given To: Patient and daughter Instructions Given By: Swetha Lang RN documented in this encounter Medications at Time of Discharge Start Date End Date Medication Sig Dispensed Refills 05/11/2019 albuterol (PROAIR HFA) 90 Inhale two 6.7 g 1 mcg/actuation inhaler puffs by mouth into the lungs every 6 hours as needed for Wheezing or Shortness of Breath. Shake well before use. 01/14/2019 allopurinol (ZYLOPRIM) Take 1 tablet 0 300 mg tablet by mouth daily. ALPRAZolam (XANAX) 0.25 Take 0.25 mg 0 mg tablet by mouth at bedtime as needed for Anxiety. 04/18/2019 ELIQUIS 5 mg tablet Take one 60 tablet 6 tablet by mouth twice daily. 09/02/2016 ezetimibe (ZETIA) 10 mg Take 1 Tab by 90 Tab 1 tablet mouth daily. 01/18/2019 furosemide (LASIX) 40 mg Take one 90 tablet 3 tablet tablet by mouth every morning. 04/18/2019 losartan-hydrochlorothiaz Take 1 tablet 3 christine (HYZAAR) 100-25 mg by mouth tablet daily. montelukast (SINGULAIR) Take 10 mg by 0 10 mg tablet mouth at bedtime daily. omeprazole DR(+) Take 20 mg by 0 (PRILOSEC) 20 mg capsule mouth daily before breakfast. 05/03/2019 potassium chloride SR Take one 90 tablet 3 (K-DUR) 10 mEq tablet by tabletIndications: mouth daily. Hypokalemia Take with a meal and a full glass of water. 08/09/2016 rosuvastatin (CRESTOR) 20 Take 1 Tab by 0 mg tablet mouth daily. 01/12/2019 05/31/2019 amiodarone (CORDARONE) Take one 90 tablet 1 200 mg tablet tablet by mouth daily. Take with food. documented as of this encounter Plan of Treatment Not on filedocumented as of this encounter Procedures Comments Procedure Name Priority Date/Time Associated Diagnosis CARDIOVERSION, EXTERNAL Routine 05/15/2019 Persistent atrial 11:46 AM CDT fibrillation (HCC) POC POTASSIUM 05/15/2019 11:28 AM CDT ECG-SCAN 05/15/2019 12:00 AM CDT ECG-SCAN 05/15/2019 12:00 AM CDT documented in this encounter Results * CARDIOVERSION, EXTERNAL (05/15/2019 11:46 AM [...] * POC POTASSIUM (05/15/2019 11:28 AM CDT) Potassium-POC 3.4 (L) 3.5 - 5.1 MMOL/L MAIN LAB Specimen Performing Organization Address City/State/Zipcode Phone Number MAIN LAB [address] [place] [address] * ECG-SCAN (05/15/2019 12:00 AM CDT) Narrative Performed At Ordered by an unspecified provider. * ECG-SCAN (05/15/2019 12:00 AM CDT) Narrative Performed At Ordered by an unspecified provider. documented in this encounter Visit Diagnoses Diagnosis Persistent atrial fibrillation (HCC) Atrial fibrillation documented in this encounter
--- OUTSIDE RECORDS SUMMARY | 2019-06-02 16:27 | XMS REPORT | Encounter Summary ---
Author Author [facility] Organization [facility] Address Unknown Phone Unavailable Care Team Providers Care Fork Lift Technician Name Role Phone Gladys Matthews Unavailable Unavailable Jeff Palma MD PCP Reason for Visit * Reason Comments Medication Question Encounter Details Care Team Description Date Type Department Ana Maria Gary RN Medication Question 05/14/2019 Telephone [facility] [address] [facility] [place] [address] Social History Date Tobacco Use Types Packs/Day [...] encounter Miscellaneous Notes * Telephone Encounter - Ana Maria Gary RN - 05/14/2019 1:54 PM CDT Patient calling asking to ask if she should restart Toprolol XL 25mg BID because "I was on it for years." Patient states her HR has been running 70-80s. She is scheduled for DCCV tomorrow. Patient advised to monitor HR regularly and to notify the office of HR >100 bpm. The patient stated understanding and is in agreement. * Telephone Encounter - Ana Maria Gary RN - 05/14/2019 1:44 PM CDT ----- Message from Alpa Trevino sent at 05/14/2019 1:02 PM CDT ----- Regarding: COMMANDING OFFICER MOTORIZED SQUAD-Asked for Maggie, Procedure questions Patient would like Maggie to call her back at [phone] documented in this encounter Plan of Treatment Not on filedocumented as of this encounter Visit Diagnoses Not on filedocumented in this encounter
--- OUTSIDE RECORDS SUMMARY | 2019-06-02 16:27 | XMS REPORT | Encounter Summary ---
Author Author [facility] Address Unknown Phone Unavailable Care Team Providers Care Medical Asst Name Role Phone Gladys Matthews Unavailable Unavailable Jeff Palma MD PCP Reason for Visit * Reason Comments Pre-Procedure LVM for DCCV instructions for 05/15/2019 Instructions Encounter Details Care Team Description Date Type Department Gemma Lew RN Pre-Procedure Instructions (LVM for DCCV instructions for 05/15/2019) 05/14/2019 Telephone [facility] [address] [address] Social History Date Tobacco Use Types Packs/Day [...] encounter Miscellaneous Notes * Telephone Encounter - Gemma Lew RN - 05/14/2019 11:10 AM CDT LVM for patient regarding DCCV for tomorrow 05/15/2019. Instructed patient to arri ve to the Cardiovascular Medicine clinic at 10:15a.m. Told her to bring a company truck driver and to have nothing to eat or drink after midnight except for any morning medic ations with a sip of water. Instructed patient to hold her diuretic medications. Left callback number for any further instructions or questions. documented in this encounter Plan of Treatment Not on filedocumented as of this encounter Visit Diagnoses Not on filedocumented in this encounter
--- OUTSIDE RECORDS SUMMARY | 2019-06-02 16:27 | XMS REPORT | Encounter Summary ---
Author Author [facility] Organization [facility] Address Unknown Phone Unavailable Care Team Providers Care Dial Brusher Name Role Phone Gladys Matthews Unavailable Unavailable Jeff Palma MD PCP Reason for Visit * Reason Comments Lab Results Encounter Details Care Team Description Date Type Department Belkis Abdi electric powerline examiner Results 05/07/2019 Telephone [facility] [address] [place] [address] Social History Date Tobacco Use Types Packs/Day [...] Encounter - Belkis Abdi RN - 05/07/2019 1:16 PM CDT Attempted to call pt regarding low K+ and see if she started her KCl last week a s instructed. No answer. LVM requesting CB to discuss results and follow up. VM also recommend ed getting repeat lab in 1-2 weeks max documented in this encounter Plan of Treatment Not on filedocumented as of this encounter Visit Diagnoses Not on filedocumented in this encounter
--- OUTSIDE RECORDS SUMMARY | 2019-06-02 16:27 | XMS REPORT | Encounter Summary ---
Author Author [facility] Organization [facility] Address Unknown Phone Unavailable Care Team Providers Care Rn Angiography Name Role Phone Gladys Matthews Unavailable Unavailable Jeff Palma MD PCP Reason for Visit * Reason Comments Dementia * Consult, Test & Treat (Routine) Referred By Contact Referred To Contact Status Reason Specialty Diagnoses / Procedures Samanta Barahona, [employer] CONSULTANT [address] [facility] [address] [facility] [address] [place] [address] Fwn Neuropsych Cl [address] [place] [address] No Auth Needed Specialty Services Neuropsychology Diagnoses Required Late onset Alzheimer's disease without behavioral disturbance Encounter Details Care Team Description Date Type Department Britt Elizabeth, PhD [address] [facility] [address] [facility] [address] [place] [address] Cognitive change (Primary Dx) 05/15/2019 Office Visit [facility] [address] [place] [address] Social History Date Tobacco Use Types Packs/Day [...] impairment: Yes documented as of this encounter Progress Notes * Mateo Swan - 05/15/2019 8:00 AM CDT Total Phytochemistry Professor time was 107 minutes. * Britt Elizabeth, PhD - 05/15/2019 8:00 AM CDT Neuropsychological Evaluation Name: Zee Fam Date of (age): 1940 (78 y.o.) Date of Service: 05/15/2019 Referring Provider: ELKE Eatno Reason for Referral: The patient is an 78-year-old female previously diagnosed w ith Alzheimer's disease who was referred for neuropsychological evaluation to kai elizondo of cognitive functioning to assist in treatment planning. Chief Complaint: Dementia Reported Symptoms: During the interview, the patient reported difficulty remembe ring appointments/details of appointments and occasional word substitution, but noted her peers have similar issues. Her daughter added that the patient has had problems with misplacing items. ADL/IADL: The patient and her daughter reported that the daughter took over augusta gement of finances and organization of medications when the patient was under a great deal of stress (no issues prior to that). The patient indicated no problem s in completing other tasks of daily living. Her daughter raised concern about s ome decisions such as hiring someone to help with cleaning and the number of amaya nts the patient purchases. Duration/Course: The patient reported rapid onset of cognitive symptoms shortly after her daughter's in February 2017 with stability over time. Her daughter reported gradual onset of symptoms about a year ago with gradual decline and ind icated symptoms have been more prominent in the past 6 months. Medical History: Medical diagnoses: Asthma 01/12/2019 Atrial fibrillation (HCC) 01/12/2019 CKD (chronic kidney disease) stage 3, GFR 30-59 ml/min (HCC) 05/04/2019 Hypertension Surgical History/Hospitalizations: The patient reported history of breast cancer in 1993 treated with radiation and lumpectomy, hysterectomy, and 2 colon resect ions. Psychological Functioning: The patient reported intermittent problems with anxie ty for much of her life and noted some depression follow the deaths of her husba nd in March 2015 and daughter in February 2017. She also reported moving around that time which further increased stress. Finally, she noted some current worry about her health. She indicated she has been seeing a therapist and taking Xanax prn (about once a week). She denied current or past suicidal ideation. Substance Use: denied history of substance use disorder Sleep: The patient reported sleeping 4-5 hours per night with 1 hour nap in the afternoon about 1/week but indicated this is not new and she feels rested. Family History Problem Relation Age of Onset Stroke Mother Cancer Father High Cholesterol Sister Stroke Maternal Aunt Unknown to Patient Maternal Uncle Relevant Studies: MMSE scores: September 2018 was , December 2018 was and February 2019 was . MRI brain from October 2018 reportedly showed mild white matter disease and age appropriate atrophy. Lab Results Component Value Date/Time NA 136 (L) 05/08/2019 02:17 PM K 3.7 05/08/2019 02:17 PM CL 102 05/08/2019 02:17 PM CO2 24 05/08/2019 02:17 PM GAP 10 05/08/2019 02:17 PM BUN 16 05/08/2019 02:17 PM CR 1.08 (H) 05/08/2019 02:17 PM GLU 114 (H) 05/08/2019 02:17 PM CA 9.6 05/08/2019 02:17 PM ALBUMIN 3.7 05/08/2019 02:17 PM TOTPROT 6.6 05/08/2019 02:17 PM ALKPHOS 66 05/08/2019 02:17 PM AST 12 05/08/2019 02:17 PM ALT 8 05/08/2019 02:17 PM TOTBILI 1.0 05/08/2019 02:17 PM GFR 49 (L) 05/08/2019 02:17 PM GFRAA 59 (L) 05/08/2019 02:17 PM Lab Results Component Value Date/Time TSH 0.670 04/27/2019 11:01 AM VITB12 221 04/27/2019 11:01 AM Medications: albuterol (PROAIR HFA) 90 mcg/actuation inhaler Inhale [...] tablet Take 1 Tab by mouth daily. 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 Grooming and dress was appropriate. Ambulation was grossly within normal limits. No abnormal movements were noted. The patient was alert. Speech was within norm al limits for volume, rate, and prosody. No problems with comprehension were not ed. Thought processes were grossly logical and goal directed. The patient was ab le to provide detailed information about history and presenting concern that was corroborated by her daughter and records. The patient was pleasant and cooperat heike. Affect was mood congruent. No abnormal behaviors were noted during testing that were thought to impact performance. Test List: Velez Depression Inventory - 2, Brief Visuospatial Memory Test - [facility] ed, Callibrated Ideational Fluency Assessment, CNNS [place] Naming Test, [place] Sleepiness Scale, Grooved Pegboard, Hamilton Adult Reading Test, Hamilton Verbal L earning Test - Revised, Judgement of Line Orientation, Modified [place] Card S orting Test, Performance Validity Testing, Cameron Osterrieth Complex Figure Test, [place] Perceptual Comparison Test, State Trait Anxiety Inventory, Omer Making Test, WAIS-III Digit Span, WMS-IV Logical Memory Test Results: Motor: The patient completed a measure of fine motor speed and coordination with performance being low average for the dominant left hand below expectations for the right hand. Cognitive: Performance vaility testing showed adequate engagement during the erika ting process. Performance on cognitive testing showed intact abilities in the a reas of visuospatial functioning, attention/working memory, processing speed, ex ecutive functioning, memory, and language abilities. Performance on one visual memory task was below expectations but this is attributed to normal intraindivid ual variability. Self-report Inventories: The patient completed self-report inventories related t o depression, anxiety, and excessive daytime sleepiness with all scores falling within normal limits. Summary and Conclusions: The patient is an 78-year-old female previously diagnosed with Alzheimer's disea se who was referred for neuropsychological evaluation to gauge level of cognitiv e functioning to assist in treatment planning. During the interview, the patient reported difficulty remembering appointments/details of appointments and occasi onal word substitution, but noted her peers have similar issues. Her daughter ad ded that the patient has had problems with misplacing items. The patient reporte d rapid onset of cognitive symptoms shortly after her daughter's in February 2017 with stability over time. Her daughter reported gradual onset of symptoms a bout a year ago with gradual decline and indicated symptoms have been more promi nent in the past 6 months. Performance on cognitive testing was indicative of grossly intact cognitive func tioning and is not consistent with the presence of a neurodegenerative disorder. It is most likely that observed cognitive changes are related to high level of stress as well as normal age-related cognitive decline. Psychologically, the pa olaf denied clinically relevant symptoms of anxiety and depression but did note elevated stress level. Recommendations: The patient is encouraged to continue to see her therapist as needed to aid i n managing stress. The following compensatory strategies may be useful if not already employed: using lists, a calendar, and other reminders to decrease reliance on memory, michael ing notes and checking with others to ensure that she has correctly identified t he main points when discussing important information, limiting distractions in t he environment while completing cognitively taxing tasks, breaking large tasks i nto smaller pieces, taking frequent breaks while working, and increasing organiz ation and structure both physically (e.g., having a specific place to put import ant items) and in daily routine. The patient is encouraged to engage in pleasant activities, particularly thos e involving physical exercise (as recommended by her physicians) and social comp onents as this has been linked with improved physical, emotional, and cognitive wellbeing. If further cognitive decline is noticed, a re-evaluation in 12-24 months may be useful. The current evaluation would serve as a baseline. Thank-you for the referral of this patient. Please contact me at for further information as needed. Documentation time: Total time for this evaluation included 107 minutes of neuro psychological test administration and scoring by internal medicine veterinary technician, two or more tests, any method; 26 minutes of neuropsychological test administration and scoring by neuropsychologist; 32 minutes of neuropsychologist time in interview/neurobehavi oral status examination, and 93 minutes of neuropsychological testing evaluation services by neuropsychologist time including integration patient data, interpre tation of standardized test results and clinical data, clinical decision-making, treatment planning and report and interactive feedback to the patient, family m ember(s) or caregiver(s). TEST RESULTS TABLE: (provided for professional use for interpretation, please see summary and im pressions sections) Grooved Pegboard+++ Raw T-score Percentile Dominant 139 40 16 Nondominant 193 31 3 MSVT Raw IR [address] 100 RAW MATERIAL PLANNER 100 PA 90 FR 55 SE[place]OUR Estimated IQ Raw=12 SS=94 34th percentile SOPHIA Raw=21 ss=10 50th percentile ROCFT+++ Raw T-score Percentile Copy 24.5 39 14 Time 218 52 58 WAIS-III Digit Span+++ Raw T-score Percentile Forward 5 39 14 Backward 5 52 58 RDS 9 TMT+++ Raw Score T-score Percentile A 37 56 73 B 124 44 27 Salthouse+++ Raw=45 T=41 18th percentile HVLT R+++ Raw Score T-score Percentile Trial 1 4 Trial 2 6 Trial 3 8 Total 18 37 10 Delay 8 49 46 Retention 100 60 84 Recognition Discrimination Index 8 36 8 WMS-IV Raw Score Scaled Score Percentile Logical Memory I 26 9 37 Logical Memory II 15 10 50 Logical Memory Recognition 20 - >75 BVMT R+++ Raw Score T-score Percentile Trial 1 2 Trial 2 2 Trial 3 3 Total 7 34 5 Delay 1 22 <1 Retention 33 22 <1 Recognition Discrimination Index 4 33 4 BNT 30 item+++ Raw=27 T=48 42nd percentile CIFA+++ Raw T-score Percentile Animals 11 35 7 Supermarket 16 37 10 S 11 42 21 P 7 35 7 M-WCST+++ Raw T-score Percentile Number of Categories 5 43 24 Perseverative Errors 2 50 50 Total Errors 9 44 27 Percentage Perseverative Errors 22 53 62 BDI 2 Raw=6 Minimal STAI Raw Percentile State 38 76 Trait 31 51 ESS Raw=7 Normal ++ corrected for age and education +++ corrected for age, education, gender, and race documented in this encounter Plan of Treatment Order Schedule Name Type Priority Associated Diagnoses Ordered: 02/22/2019 AMB REFERRAL TO Outpatient Routine Late onset Alzheimer's NEUROPSYCHOLOGY Referral disease without behavioral disturbance documented as of this encounter Visit Diagnoses Diagnosis Cognitive change - Primary Other signs and symptoms involving cognition documented in this encounter
--- OUTSIDE RECORDS SUMMARY | 2019-06-02 16:27 | XMS REPORT | Encounter Summary ---
Author Author [facility] Organization [facility] Address Unknown Phone Unavailable Care Team Providers Care Animal Damage Control Agent Name Role Phone Gladys Matthews Unavailable Unavailable Jeff Palma MD PCP Encounter Details Care Team Description Date Type Department Alee Briscoe MD [address] [place], [place] [id number] [place] [address] [phone] Persistent atrial fibrillation (HCC) (Primary Dx) 05/08/2019 Prep for Case [facility] [address] [place] [address] Social History Date Tobacco Use Types Packs/Day [...] Not on filedocumented as of this encounter Results * CARDIOVERSION, EXTERNAL (05/15/2019 [...] Address City/State/Zipcode Phone Number OTHER OUTSIDE LAB documented in this encounter Visit Diagnoses Diagnosis Persistent atrial fibrillation (HCC) - Primary Atrial fibrillation documented in this encounter
--- OUTSIDE RECORDS SUMMARY | 2019-06-02 16:27 | XMS REPORT | Encounter Summary ---
Author Author [facility] Organization [facility] Address Unknown Phone Unavailable Care Team Providers Care Quitline Counselor Name Role Phone Gladys Matthews Unavailable Unavailable Jeff Palma MD PCP Reason for Visit * Reason Comments Fatigue had cardio version on tuesday, on tuesday was in pain in right side and confused and talking to people who were not there, tuesday some confussion and fatigued, today more just very fatigued just does not feel right Encounter Details Care Team Description Date Type Department Dorothy Carpio APRN [address] [place] [address] Persistent atrial fibrillation (HCC) (Primary Dx); Confusion; Lethargy; Weakness; Acute low back pain, unspecified back pain laterality, with sciatica presence unspecified; Cystitis 05/08/2019 Office Visit The [facility] [address] [place] [address] Social History Date Tobacco Use [...] Signs Reading Time Taken Comments Vital Sign 141/75 05/08/2019 1:25 PM CDT Blood Pressure 118 05/08/2019 1:25 PM CDT Pulse 36.8 C (98.2 F) 05/08/2019 1:25 PM CDT Temperature - - Respiratory Rate 98% 05/08/2019 1:25 PM CDT Oxygen Saturation - - Inhaled Oxygen Concentration 73 kg (161 lb) 05/08/2019 1:25 PM CDT Weight 162.6 cm (5' 4") 05/08/2019 1:25 PM CDT Height 27.64 05/08/2019 1:25 PM CDT Body Mass Index documented in this encounter Functional Status Date of Assessment Functional Status Response 02/22/2019 Does the patient have a hearing impairment: No 02/22/2019 Does the patient have a visual impairment: Yes documented as of this encounter Progress Notes * Dorothy Carpio, BRANNON - 05/08/2019 1:30 PM CDT Date of Service: 05/08/2019 Zee Fam is a 78 y.o. female. : 1940 Subjective: History of Present Illness Chief Complaint Patient presents with Fatigue had cardio version on tuesday, on tuesday was in pain in right side and confus ed and talking to people who were not there, tuesday some confussion and fatigue d, today more just very fatigued just does not feel right Zee is here today for evaluation of confusion, PETERS and weakness. Recently unde rwent a cardioversion with Dr. Briscoe on Tuesday05/04/19. She was DC to her [facility] that evening in stable condition. She went to dinner and was able to do some shopping at [employer]. She woke up on Tuesday morning confused. She w as moaning and clenching her lower back and was hallucinating. Her daughter obse rved her closely for the next couple of days and the confusion and lethargy seem ed to get better. She was attributing her LBP to yard work she had done prior to her cardioversion. She denies abdominal pain, urinary frequency, urgency or dys uria. She has felt feverish, chills and "flu like". She spoke with crop nutrition scientist Maggie Caballero and passed along this information plus the fact she was more dyspn eic on exertion and thought she was back in AF. Based on Zee's complaints, JONATHAN Serrano encouraged to be seen in the ER but pt refused. Today in clinic she reports PETERS, fatigue, weakness, shakiness and feeling lightheaded. She has a chronic co ugh for which she uses an inhaler. She has not taken her lasix since 05/05/19- f eels too faint to take it. She feels less confused today. Right lower back just above her right SI joint is still hurting. Today she is very fatigued and "just doesn't feel right". She denies chest pain. Constitutional: energy level low. Weight stable. No fever. No chills. + Fatigu e and weakness. Eyes: No vision problems, no drainage. Ears/Nose/Mouth/Throat: No hearing difficulties. No congestion. No oral ulcer s. No sore throat. No difficulty swallowing. CV: No chest pain. + palpitations. Resp: No shortness of breath at rest. She is SOB with exertion. + Chronic cough. GI: No abdominal pain. Bowels normal, with no hematochezia or melena. : no dysuria. No urinary frequency. No significant incontinence. MS: +Right low back pain. SKIN: No rash. NEURO: No tingling, numbness, weakness, or other complaints. + MCI- questionabl e late onset alzheimer's. PSYCH: Mood fair, + depression- has always been very independent and now doesn't feel good. Lost and daughter within the last 4 years. + anxiety. Sleeps is okay. Objective: albuterol (PROAIR HFA) 90 mcg/actuation inhaler Inhale two puffs by mouth in to the lungs every 6 hours as needed for Wheezing or Shortness of Breath (cough) . Shake well before use. allopurinol (ZYLOPRIM) 300 [...] Take 1 tablet by mout h daily. metoprolol XL (TOPROL XL) 25 mg extended release tablet Take one tablet by m outh twice daily. montelukast (SINGULAIR) 10 mg tablet Take 10 mg by mouth at bedtime daily. omeprazole DR(+) (PRILOSEC) 20 mg capsule Take 20 mg by mouth daily before b reakfast. potassium chloride SR (K-DUR) 10 mEq tablet Take one tablet by mouth daily. Take with a meal and a full glass of water. rosuvastatin (CRESTOR) 20 mg tablet Take 1 Tab by mouth daily. Vitals: 05/08/19 1325 BP: 141/75 Pulse: 118 Temp: 36.8 C (98.2 F) TempSrc: Oral SpO2: 98% Weight: 73 kg (161 lb) Height: 162.6 cm (64") Body mass index is 27.64 kg/m. Constitutional: Alert, no distress. Eyes: PERRLA, EOMI. Conjunctiva are non-icteric and are no injected. CV: Heart exam shows tachy irregularly irregular rhythm rate 115-120 c/w AF, no murmur, no S3, no S4. Carotid pulses are 2/4 and equal bilat, with no carotid b ruits. Good radial pulses bilat.No significant LE edema. RESP: Lungs are clear to auscultation bilat, with no rales, rhonchi, or wheezing . GI: Normal bowel sounds. Abdomen is soft, nontender. No hepatosplenomegaly, no mass. MS: no joint swelling or erythema.Right low back pain to palpation just above th e right SI joint. SKIN: No rash. NEURO: CN's 2-12 intact; strength is equal bilat. A/Ox 4. PSYCH: Good eye contact, normal affect. LYMPH: No significant LAD in neck. Assessment and Plan: Zee was seen today for fatigue. Diagnoses and all orders for this visit: Persistent atrial fibrillation (HCC) - MN ECG ROUTINE ECG W/LEAST 12 LDS W/I&R Confusion - Cancel: URINALYSIS DIPSTICK; Future - CULTURE-URINE W/SENSITIVITY; Future - URINALYSIS, MICROSCOPIC; Future - CBC AND DIFF; Future - COMPREHENSIVE METABOLIC PANEL; Future - POC URINE DIPSTICK AUTO READ Lethargy - CBC AND DIFF; Future - COMPREHENSIVE METABOLIC PANEL; Future - POC URINE DIPSTICK AUTO READ Weakness - CBC AND DIFF; Future - COMPREHENSIVE METABOLIC PANEL; Future - POC URINE DIPSTICK AUTO READ Acute low back pain, unspecified back pain laterality, with sciatica presence un specified - Cancel: URINALYSIS DIPSTICK; Future - POC URINE DIPSTICK AUTO READ Cystitis Other orders - amoxicillin/K clavulanate (AUGMENTIN) 875/125 mg tablet; Take one tablet b y mouth every 12 hours for 7 days. Take with food. Acute cystitis. UA today + for leukocytes, nitrites, ketones, bilirubin, protein . Micro and C&S pending. Treat empirically with Augmentin 1 tab po bid x 7 days. Push fluids and rest. AF- she's back in AF. Rate is slightly elevated and I'm sure it's higher when sh e's exerting herself which increase her dizziness and dyspnea. Cardiology will b e in contact with patient regarding plan of care including instructions to incre ase her amiodarone to 400 mg. Follow up with PCP as previously scheduled or sooner if needed. Time spent: 55 min; greater than 50% of time was spent in counseling/coordinati on of care review of recent records, coordination of care with cardiology team- see above. documented in this encounter Plan of Treatment Date/Time Name Type Priority Associated Diagnoses 05/08/2019 POC URINE DIPSTICK AUTO Point of Care Routine Confusion READ Testing Lethargy Weakness Acute low back pain, unspecified back pain laterality, with sciatica presence unspecified Order Schedule Name Type Priority Associated Diagnoses Ordered: 05/08/2019 MN ECG ROUTINE ECG MN Charge Routine Persistent atrial W/LEAST 12 LDS W/I&R fibrillation (HCC) documented as of this encounter Procedures Comments Procedure Name Priority Date/Time Associated Diagnosis URINALYSIS, MICROSCOPIC Routine 05/08/2019 Confusion 2:37 PM CDT CULTURE-URINE Routine 05/08/2019 Confusion W/SENSITIVITY 2:37 PM CDT CBC AND DIFF Routine 05/08/2019 Confusion 2:17 PM CDT Lethargy Weakness COMPREHENSIVE METABOLIC Routine 05/08/2019 Confusion PANEL 2:17 PM CDT Lethargy Weakness documented in this encounter Results * URINALYSIS, MICROSCOPIC (05/08/2019 2:37 PM CDT) WBCs,UA PACKED 0 - 2 /HPF [facility] RBCs,UA 0-2 0 - 3 /HPF [facility] MucousUA TRACE [facility] Bacteria,UA MODERATE (A) NEG-NEG [facility] Squamous 2-5 0 - 5 [facility] Epithelial Cells Hyaline Cast 2-5 MAIN LAB Specimen Urine - Urine Performing Organization Address City/State/Zipcode Phone Number MAIN LAB [address] [place] [address] * CULTURE-URINE W/SENSITIVITY (05/08/2019 2:37 PM CDT) Battery Name URINE CULTURE [facility] Specimen URINE MAIN LAB Description Special NONE MAIN LAB Requests Culture >100,000 organisms/ml [facility] ESCHERICHIA COLI (A) Report Status FINAL MAIN LAB 05/10/2019 Organism ID >100,000 organisms/ml [facility] ESCHERICHIA COLI Specimen Urine - Urine [...] >100,000 organisms/ml escherichia coli Performing Organization Address [facility] Phone Number [facility] [address] [place] [address] * COMPREHENSIVE METABOLIC PANEL (05/08/2019 2:17 PM CDT) Sodium 136 (L) 137 - 147 MMOL/L [...] (L) >60 mL/min [facility] Comment: [place] The eGFR is not validated for use in drug dosing adjustments.Continue to use estimated creatinine clearance per dosing reference text.Please contact the Clinical Pharmacist for questions. eGFR 59 (L) >60 mL/min [facility] [place] Comment: The eGFR is not validated for use in drug dosing adjustments.Continue to use estimated creatinine clearance per dosing reference text.Please contact the Clinical Pharmacist for questions. Specimen Blood Performing Organization Address [facility]/Zipcode Phone Number [facility] [address] [place] [address] * CBC AND DIFF (05/08/2019 2:17 PM CDT) White Blood 7.9 4.5 - 11.0 K/UL [...] Basophil Count Specimen Blood Performing Organization Address City/State/Zipcode Phone Number [facility] [address] [place] [address] documented in this encounter Visit Diagnoses Diagnosis Persistent atrial fibrillation (HCC) - Primary Atrial fibrillation Confusion Unspecified psychosis Lethargy Other malaise and fatigue Weakness Other malaise and fatigue Acute low back pain, unspecified back pain laterality, with sciatica presence unspecified Cystitis Cystitis, unspecified documented in this encounter
--- OUTSIDE RECORDS SUMMARY | 2019-06-02 16:28 | XMS REPORT | Encounter Summary ---
Author Author [facility] Address Unknown Phone Unavailable Care Team Providers Care Stationary Plant Operators Name Role Phone Gladys Matthews Unavailable Unavailable Jeff Palma MD PCP Reason for Visit * Reason Comments Cardiac Eval H&P for DCCV Encounter Details Care Team Description Date Type Department Haleigh Ignacio PA-C [address] [facility] [place], [place] [id number] Cardiac Eval (H&P for DCCV) 05/04/2019 Office Visit [facility] [address] [facility] [place] [address] Social History Date Tobacco Use Types Packs/Day [...] Signs Reading Time Taken Comments Vital Sign 144/92 05/04/2019 8:30 AM CDT Blood Pressure 81 05/04/2019 8:30 AM CDT Pulse - - Temperature - - Respiratory Rate 97% 05/04/2019 8:30 AM CDT Oxygen Saturation - - Inhaled Oxygen Concentration 74.8 kg (165 lb) 05/04/2019 8:30 AM CDT Weight 162.6 cm (5' 4") 05/04/2019 8:30 AM CDT Height 28.32 05/04/2019 8:30 AM CDT Body Mass Index documented in this encounter Functional Status Date of Assessment Functional Status Response 02/22/2019 Does the patient have a hearing impairment: No 02/22/2019 Does the patient have a visual impairment: Yes documented as of this encounter Progress Notes * Haleigh Ignacio PA-C - 05/04/2019 8:30 AM CDT Date of Service: 05/04/2019 Zee Fam is a 78 y.o. female. HPI I had the pleasure of meeting Zee Fam today for an updated H&P prior to her FARA cardioversion on May 04, 2019. Zee is a 78-year-old female who is followed by Dr. Briscoe in the cardiology clinic with past medical history of hypertension, dyslipidemia, Alzheimer's dise ase, CKD stage III and persistent atrial fibrillation. Unfortunately she remain s in atrial fibrillation with controlled ventricular rate despite amiodarone. S he continues with Eliquis 5 mg twice daily. Her ischemic evaluation in August 2016 with a regadenoson myocardial perfusion stress test was negative for evidence of ischemia. Her latest echo Doppler in December 2018 showed overall normal LV function with an EF of 60%, no regional wall motion abnormality seen, moderate left atrial enl argement, moderate mitral valve regurgitation, mild tricuspid valve regurgitatio n, aortic valve sclerosis without stenosis. She was seen by her PCP on 04/27/19 with increased fatigue. Labs were obtained wi th low Vit. B 12 she was started on Vit B12. Her BMP showed a sodium of 142, potassium 3.2, BUN 43 and a creatinine 1.64. Sh arturo was given Rx for KCL 40 meq daily. She was in [place] 3 weeks ago after her [id number] at the massive h eart attack. She endorses missing 1 dose of her Eliquis. Vitals: 05/04/19 0830 BP: (!) 144/92 Pulse: 81 SpO2: 97% Weight: 74.8 kg (165 lb) Height: 1.626 m (5' 4") Body mass index is 28.32 kg/m. Past Medical History Patient Active Problem List Diagnosis Date Noted CKD (chronic kidney disease) stage 3, GFR 30-59 ml/min ([facility]) 05/04/2019 LPRD (laryngopharyngeal reflux disease) 04/27/2019 Chronic fatigue 04/27/2019 B12 deficiency 04/27/2019 Chronic cough 04/27/2019 Atrial fibrillation ([facility]) 01/12/2019. 01/02 echo: No regional wall motion abnormalities are seen. Overall LV syst olic function appears normal. The estimated left ventricular ejection fraction i s 60%. 2. Right ventricular contractility appears normal. 3. Moderate left atrial enlargement. 4. Moderate mitral valve regurgitation. Mild tricuspid valve regurgitation. 5. Aortic valve sclerosis without stenosis. No pericardial effusion is seen. Asthma 01/12/2019 Late onset Alzheimer's disease without behavioral disturbance 11/27/[address] Irvin Abnormal signs: Memory dysfunction and Executive dysfunction Localization: Bihemispheral, cortices and Mesial temporal structures Diagnosis: Alzheimer's disease Differential diagnosis: Inflammatory disorders, Vascular disorders, Metabolic di sorders and Other degenerative causes Recommended starting Aricept if able to decrease Metoprolol. Bruit 08/09/2016 Shortness of breath 08/09/2016 Essential hypertension 08/06/2016 02/09/08 ECHO EF 55 % Mixed hyperlipidemia 08/06/[address] 08/06/2016 08/31/16 PV carotid duplex mild plaque, none >50% 08/31/16 Regadenoson Thallium EF 73 % LVEDV 53 ml Review of Systems Constitution: Negative. HENT: Negative. Eyes: Negative. Cardiovascular: Positive for irregular heartbeat. Respiratory: Negative. Endocrine: Negative. Hematologic/Lymphatic: Negative. Skin: Negative. Musculoskeletal: Negative. Gastrointestinal: Negative. Genitourinary: Negative. Neurological: Negative. Psychiatric/Behavioral: The patient is nervous/anxious. Allergic/Immunologic: Negative. Physical Exam General Appearance: no acute distress Skin: warm & intact HEENT: unremarkable Neck Veins: neck veins are flat & not distended Carotid Arteries: no bruits Chest Inspection: chest is normal in appearance Auscultation/Percussion: lungs clear to auscultation, no rales, rhonchi, or whee zing Cardiac Rhythm: regular rhythm & normal rate Cardiac Auscultation: Normal S1 & S2, no S3 or S4, no rub Murmurs: no cardiac murmurs Extremities: no lower extremity edema; 2+ symmetric distal pulses Abdominal Exam: soft, non-tender, no masses, bowel sounds normal Liver & Spleen: no organomegaly Neurologic Exam: oriented to time, place and person; no focal neurologic deficit s Psychiatric: Normal mood and affect. Behavior is normal. Judgment and thought c ontent normal. Cardiovascular Studies Preliminary ECG shows atrial fibrillation with controlled rate of 81. No signif icant ST changes or T wave inversions. Borderline QT interval of 502 ms. Problems Addressed Today Encounter Diagnoses Name Primary? 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 Persistent atrial fibrillation, on amiodarone and oral anticoagulation. 2. Essential hypertension 3. CKD 4. Hypokalemia. She remains n.p.o. for her transesophageal echocardiogram and cardioversion toda y. I discuss the risk and benefits regarding FARA with potential perforation, b leeding and benefits of excluding thrombus prior to her DCCV. She has agreed to proceed. We will up to obtain a [id number]-iq-[id number] potassium since her level on the was 3.2. She does not recall if she picked up her potassium supplements p er from her PCP. She will follow-up with Dr. Briscoe in the electrophysiology clinic for continu ed rhythm management. Thank you for allowing me to participate in Sarwat's care. Please feel free to c ontact me if I can be of further assistance. Haleigh Ignacio PA-c Current Medications (including today's revisions) albuterol (PROAIR HFA) 90 mcg/actuation inhaler Inhale [...] by mouth daily. Take wi th food. busPIRone (BUSPAR) 5 mg tablet Take [...] tablet Take 1 Tab by mouth daily. documented in this encounter Miscellaneous Notes * Addendum Note - Jaida Robles RN - 05/04/2019 8:30 AM CDT Addended by: JAIDA ROBLES on: 05/29/2019 12:27 PM Modules accepted: Orders documented in this encounter Plan of Treatment Order Schedule Name Type Priority Associated Diagnoses Ordered: 05/04/2019 ECG 12-LEAD ECG Routine Persistent atrial fibrillation (HCC) Ordered: 05/29/2019 ECG 12-LEAD ECG Routine Persistent atrial fibrillation (HCC) documented as of this encounter Procedures Comments Procedure Name Priority Date/Time Associated Diagnosis POC POTASSIUM 05/04/2019 9:10 AM CDT ECG-SCAN 05/04/2019 12:00 AM CDT ECG-SCAN 05/04/2019 12:00 AM CDT documented in this encounter Results * POC POTASSIUM (05/04/2019 9:10 AM CDT) Potassium-POC 3.3 (L) 3.5 - 5.1 MMOL/L [facility] Specimen Performing Organization Address City/State/Zipcode Phone Number MAIN LAB [address] [place] [address] * ECG-SCAN (05/04/2019 12:00 AM CDT) Narrative Performed At Ordered by an unspecified provider. * ECG-SCAN (05/04/2019 12:00 AM CDT) Narrative Performed At Ordered by an unspecified provider. 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
--- OUTSIDE RECORDS SUMMARY | 2019-06-02 16:28 | XMS REPORT | Encounter Summary ---
Author Author [facility] Organization [facility] Address Unknown Phone Unavailable Care Team Providers Care Industrial Real Estate Agent Name Role Phone Gladys Matthews Unavailable Unavailable Jeff Palma MD PCP Encounter Details Care Team Description Date [place] [address] [place], [place] [id number] Hypokalemia (Primary Dx) 05/03/2019 Orders Only [facility] [address] [place], [place] [address] Social History Date Tobacco Use Types Packs/Day [...] as of this encounter Progress Notes * Margie Grayson LPN - 05/03/2019 12:52 PM CDT Orders placed per result note. documented in this encounter Plan of Treatment Order Schedule Name Type Priority Associated Diagnoses Expected: 06/02/2019 (Approximate), Expires: 05/03/2020 BASIC METABOLIC PANEL Lab Routine Hypokalemia documented as of this encounter Visit Diagnoses Diagnosis Hypokalemia - Primary Hypopotassemia documented in this encounter
--- OUTSIDE RECORDS SUMMARY | 2019-06-02 16:28 | XMS REPORT | Encounter Summary ---
Author Author [facility] Organization [facility] Address Unknown Phone Unavailable Care Team Providers Care Escalator Constructor Name Role Phone Gladys Matthews Unavailable Unavailable Jeff Palma MD PCP Encounter Details Care Team Description Date Type Department Alee Briscoe MD [address] [facility] [address] [place] [address] [phone] 05/04/2019 Hospital [facility] Encounter [facility] [address] [id number] Social History Date Tobacco Use Types Packs/Day [...] impairment: Yes documented as of this encounter Medications at Time of Discharge Start Date End Date Medication Sig Dispensed Refills 01/14/2019 allopurinol (ZYLOPRIM) Take 1 tablet 0 [...] Tab by 0 mg tablet mouth daily. 04/27/2019 05/11/2019 albuterol (PROAIR HFA) 90 Inhale two 1 Inhaler 11 mcg/actuation puffs by inhalerIndications: Mild mouth into intermittent asthma the lungs without complication every 6 hours as needed for Wheezing or Shortness of Breath (cough). Shake well before use. 01/12/2019 05/31/2019 amiodarone (CORDARONE) Take one 90 tablet 1 200 mg tablet tablet by mouth daily. Take with food. 11/24/2018 05/15/2019 busPIRone (BUSPAR) 5 mg Take one 30 tablet 1 tablet tablet by mouth daily. 05/15/2019 loratadine (CLARITIN) 10 Take 10 mg by 0 mg tablet mouth every morning. 01/12/2019 05/14/2019 metoprolol XL (TOPROL XL) Take one 180 tablet 1 25 mg extended release tablet by tablet mouth twice daily. 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
--- OUTSIDE RECORDS SUMMARY | 2019-06-02 16:28 | XMS REPORT | Encounter Summary ---
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 Name Role Phone Gladys Matthews Unavailable Unavailable Jeff Palma MD PCP Encounter Details Care Team Description Date Type Department Ayana Florian MD [id number] [place] [address] [phone] 05/04/2019 Anesthesia [facility] [address] [facility] [id number] [place] [address] Anesthesia Record Responsible Anesthesiologist Anesthesia Start Time Anesthesia Stop Time Procedure Name Ayana Florian MD 05/04/19 0922 05/04/19 1006 TRANSESOPHAGEAL ECHOCARDIOGRAM Date Time Event Comment 915 AN Equip Check 2018 920 0922 Anes Start 0923 Start Supplemental O2 0927 Anesthesia Ready 0952 Cardioversionar Synchronized cardioversion at 125J, Sinus bradycardia av 1006 an stop data 1006 Handoff to RN I completed my SBAR handoff to the receiving nurse. 1006 An Stop Meds Name Total lidocaine (2%) 200 mg/10mL Injection 100 mg syringe propofol (DIPRIVAN) 200 mg/ 20 mL 115 mg injection (VIAL) propofol (DIPRIVAN) infusion 141.37 mg ePHEDrine 50 mg/mL 50 mg in sodium 15 mg chloride PF 0.9% 5 mL IV syringe sodium chloride 0.9 % infusion (500 500 mL mL bag) * Name O2 * [...] OR Notes * Anesthesia Postprocedure Evaluation - Ayana Florian MD - 05/04/2019 10:20 AM CDT Post-Anesthesia Evaluation Name: Zee Fam : 1940 Age: 78 y.o. Sex : female Procedure Date: 05/04/2019 Procedure: * No procedures listed * Surgeon: * No surgeons listed * Post-Anesthesia Vitals BP: 111/54 (05/04 1019) Pulse: 61 (05/04 1019) Respirations: 15 PER MINUTE (05/04 101) SpO2: 96 % (05/04 1019) O2 Delivery: None (Room Air) (05/04 101) Height: 162.6 cm (64") (05/04 1004) Post Anesthesia Evaluation Note Evaluation location: Pre/Post Patient participation: recovered; patient participated in evaluation Level of consciousness: alert Pain score: 0 Pain management: adequate Hydration: normovolemia Temperature: 36.0C - 38.4C Airway patency: adequate Perioperative Events Post-op nausea and vomiting: no PONV Postoperative Status Cardiovascular status: hemodynamically stable Respiratory status: spontaneous ventilation Follow-up needed: none Perioperative Events Perioperative Event: No Emergency Case Activation: No * Anesthesia Preprocedure Evaluation - Ayana Florian MD - 05/04/2019 8:55 AM CDT Anesthesia Pre-Procedure Evaluation Name: Zee Fam : 1940 Age: 78 y.o. Sex : female Procedure Date: Procedure: FARA/DCCV Physical Assessment Vital Signs (last filed in past 24 hours): BP: 136/79 (05/04 859) Pulse: 77 (05/04 859) Respirations: 18 PER MINUTE (05/04 859) SpO2: 100 % (05/04 859) O2 Delivery: None (Room Air) (05/04 859) Height: 162.6 cm (64") (05/04 852) Weight: 74.8 kg (165 lb) (05/04 852) Patient History No Known Allergies Current Medications Medication Directions albuterol (PROAIR HFA) 90 mcg/actuation inhaler Inhale two puffs by mouth into t he lungs every 6 hours as needed for Wheezing or Shortness of Breath (cough). Sh christy well before use. allopurinol (ZYLOPRIM) 300 mg tablet Take 1 tablet by mouth daily. ALPRAZolam (XANAX) 0.25 mg tablet Take 0.25 mg by mouth at bedtime as needed for Anxiety. amiodarone (CORDARONE) 200 mg tablet Take one tablet by mouth daily. Take with f ood. busPIRone (BUSPAR) 5 mg tablet Take one [...] Take 1 tablet by mouth da abiodun. metoprolol XL (TOPROL XL) 25 mg extended release tablet Take one tablet by mouth twice daily. montelukast (SINGULAIR) 10 mg tablet [...] Hematology: Lab Results Component Value Date HGB 12.9 04/27/2019 HCT 39.5 04/27/2019 PLTCT 213 04/27/2019 WBC 5.5 04/27/2019 NEUT 61 04/27/2019 ANC 3.40 04/27/2019 ALC 1.50 04/27/2019 FER 8 04/27/2019 AMC 0.40 04/27/2019 EOSA 3 04/27/2019 ABC 0.10 04/27/2019 MCV 92.6 04/27/2019 MCH 30.1 04/27/2019 MCHC 32.5 04/27/2019 MPV 10.4 04/27/2019 RDW 15.1 04/27/2019 General Chemistry: Lab Results Component Value Date NA 142 04/27/2019 K 3.2 04/27/2019 CL 103 04/27/2019 CO2 30 04/27/2019 GAP 9 04/27/2019 BUN 43 04/27/2019 CR 1.64 04/27/2019 GLU 129 04/27/2019 CA 9.8 04/27/2019 ALBUMIN 4.1 04/27/2019 MG 2.4 04/27/2019 TOTBILI 0.5 04/27/2019 Coagulation: No results found for: PT, PTT, INR Anesthesia Plan ASA score: 3 Plan: MAC Induction method: intravenous NPO status: acceptable Informed Consent Anesthetic plan and risks discussed with patient. Plan discussed with: anesthesiologist and SECONDARY TEACHER. documented in this encounter Plan of Treatment Not on filedocumented as of this encounter Visit Diagnoses Not on filedocumented in this encounter Administered Medications Action Date Dose Rate Site Medication Order MAR Action 05/04/2019 10:01 AM CDT 5 mg ePHEDrine 50 mg/mL 50 mg in sodium Bolus chloride PF 0.9% 5 mL IV syringe 5 mL, INTRA-PROCEDURE MED(CONT), Starting Tue05/04/19 at 0957, Until Tue05/04/19 at 1006, Anesthesia Intra-op 10 mg Given - New Bag 05/04/2019 9:57 AM CDT 05/04/2019 9:24 AM CDT 100 mg lidocaine (PF) injection Given INTRA-PROCEDURE MED, Starting Tue05/04/19 at 0924, Until Tue05/04/19 at 1006, Anesthesia Intra-op 05/04/2019 9:42 AM CDT 70 mcg/kg/min 31.4 mL/hr propofol (DIPRIVAN) infusion Dose/Rate 20 mL, Intravenous, INTRA-PROCEDURE Change MED(CONT), Starting Tue05/04/19 at 0928, Until Tue05/04/19 at 1006, Anesthesia Intra-op 60 mcg/kg/min 26.9 mL/hr Dose/Rate Change 05/04/2019 9:35 AM CDT 80 mcg/kg/min 35.9 mL/hr Given - New Bag 05/04/2019 9:28 AM CDT 05/04/2019 9:50 AM CDT 30 mg propofol (DIPRIVAN) injection Given INTRA-PROCEDURE MED, Starting Tue05/04/19 at 0928, Until Tue05/04/19 at 1006, Anesthesia Intra-op 15 mg Given 05/04/2019 9:46 AM CDT 10 mg Given 05/04/2019 9:43 AM CDT 05/04/2019 10:01 AM CDT sodium chloride 0.9 % infusion Given - New INTRA-PROCEDURE MED(CONT), Starting Tue Bag 05/04/19 at 0923, Until Tue05/04/19 at 1006, Anesthesia Intra-op Given - New Bag 05/04/2019 9:23 AM CDT documented in this encounter
--- OUTSIDE RECORDS SUMMARY | 2019-06-02 16:28 | XMS REPORT | Encounter Summary ---
Author Author [facility] Organization [facility] Address Unknown Phone Unavailable Care Team Providers Care Scanning Clerk Name Role Phone Gladys Matthews Unavailable Unavailable Jeff Palma MD PCP Reason for Visit * Reason Comments Pre-Procedure Transesophageal Echocardiogram Instructions Encounter Details Care Team Description Date Type Department Giovanna Day RN Pre-Procedure Instructions (Transesophageal Echocardiogram) 05/03/2019 Telephone The [facility] [address] [place] [address] Social History Date Tobacco Use Types [...] impairment: Yes documented as of this encounter Patient Instructions * Patient Instructions* Giovanna Day RN - 05/03/2019 2:29 PM CDT This is a reminder that you have a scheduled FARA/DCCV on 05/04/19 at 10:00. Please remember to not eat or drink after midnight except for sips of water ONLY with morning medications which should include all heart medications such as: bl ood pressure medications, antiarrhythmic and blood thinners if you normally take those in the morning. Please do not take any diuretics or vitamins. Additionall y, please do not consume any mints or cough drops the day of your procedure. Please arrive 45 minutes before your appointment time in order to be prepared fo r the procedure. You must have a gravel truck driver present or available to escort you home. If you have any questions please feel free to contact your [facility] ([facility]) pr rae nurses at [phone]. documented in this encounter Plan of Treatment Not on filedocumented as of this encounter Visit Diagnoses Not on filedocumented in this encounter
--- OUTSIDE RECORDS SUMMARY | 2019-06-02 16:28 | XMS REPORT | Encounter Summary ---
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 Name Role Phone Gladys Matthews Unavailable Unavailable Jeff Palma MD PCP Reason for Visit * Reason Comments Establish Care Encounter Details Care Team Description [place] [address] [place] [address] Chronic fatigue (Primary Dx); Persistent atrial fibrillation (HCC); Late onset Alzheimer's disease without behavioral disturbance; Mild intermittent asthma without complication; LPRD (laryngopharyngeal reflux disease); B12 deficiency; Chronic cough; Encounter for monitoring proton pump inhibitor therapy; Encounter for monitoring amiodarone therapy 04/27/2019 Office Visit The [facility] [address] [facility] [address] [place] [address] Social History Date Tobacco Use [...] Signs Reading Time Taken Comments Vital Sign 120/80 04/27/2019 9:58 AM CDT Blood Pressure 58 04/27/2019 9:58 AM CDT Pulse 36.4 C (97.5 F) 04/27/2019 9:58 AM CDT Temperature 16 04/27/2019 9:58 AM CDT Respiratory Rate 96% 04/27/2019 9:58 AM CDT Oxygen Saturation - - Inhaled Oxygen Concentration 74.5 kg (164 lb 3.2 oz) 04/27/2019 9:58 AM CDT Weight 160 cm (5' 3") 04/27/2019 9:58 AM CDT Height 29.09 04/27/2019 9:58 AM CDT Body Mass Index documented in this encounter Functional Status Date of Assessment Functional Status Response 02/22/2019 Does the patient have a hearing impairment: No 02/22/2019 Does the patient have a visual impairment: Yes documented as of this encounter Patient Instructions * Patient Instructions* Jeff Palma MD - 04/27/2019 10:15 AM CDT Thank you for coming to see us today. We will contact you with testing results via phone or via Nimbuzz if you signed up for this. If you have issues logging into your SNRLabshart, please look at last page of jacinta perea; otherwise please deactivate account if not using Please Have all records sent to my office. Please fill out forms at front end web designer to reque st records from PCP and each non-[facility] specialist. USE albuterol 2 puffs every 6 hours as needed Let me know if you want to try something for mood If you would like to see our dietitian for FREE, please schedule at front end web designer o r call office to schedule If you would like to see our social media marketing specialist (Mirlande) for FREE, please schedule at front end web designer or call office to schedule Please schedule appointment at front end web designer to come back in 6 months for annual w ellness/physical and as needed. --If you desire, please call to make lab appointment or have us send orders to l ab to your choice for follow up labs up to 7 days prior to upcoming appointment so we can discuss results during appointment --For your physical, you may come up to 7 days prior to your physical for fastin g labs or please ask my nurse to fax labs to lab of your choice. Please call for lab appointment beforehand if coming to my office for labs --For your physical, if you are on Medicare, you may do your health risk assessm ent on [employer] 1 week ahead of time to expediate visit. Please call my nurse, Margie, between appointments with any issues - at or [phone] (press option 4, then option 2) Please call my nurse if you are having any issues scheduling your appointment . Please let nurse know or message me on Nimbuzz if any results are unclear; FOR REFILLS Please call my nurse, Glen, at or message on MyCh art on weekdays and at least 3 days prior to running out of prescription (5 days for controlled substances) If I am not available to see you, can schedule appoittment with COLEEN De La Cruz Also, [facility] has 5 Urgent Cares - Conspire/urgentcare. Please try to arrive early for your appointments to help facilitate your visi t IF you are late to your appointment, we reserve the right to ask you to brandon edule your appointment or wait in fairness to the other patients scheduled that day. NOTE: MyChart messages sent or phone calls on weekends, on holidays and after 4PM on week, will NOT be seen until the following business day. If you have an urgent matter outside of business hours, please ask for the on-call physician by calling If you had to wait on me today, my sincerest apologies. My goal in every clini c is to run right on time; however, on occasion, I get behind in clinic due to u nexpected issues with patients. Take care! Dr. Gaitan documented in this encounter Progress Notes * Jeff Palma MD - 04/27/2019 10:15 AM CDT Blood counts normal Vitamin D level low. Start taking vitamin D3 2000 IUs daily gokk-ovo-brjehkw Vitamin B12 level low. Start taking vitamin B12/cyanocobalamin 1000 mcg daily o onm-ooz-opkvcek Thyroid levels normal Potassium levels low. Recommend taking KCL 40 meq daily kidney function shows elevation in creatinine. Do not have levels to compare w hether this is new or not. At this point await records from previous PCP. Make sure to keep well-hydrated Recheck BMP in 1 month I released results, interpretation, and recommendations on [employer]. Can you please order KCl 40 mEq daily, #90, 1 refill and BMP to be drawn in 1 mo nth DX hypokalemia? Thanks * Jeff Palma MD - 04/27/2019 10:15 AM CDT Date of Service: 04/27/2019 Zee Fam is a 78 y.o. female. : 1940 Subjective: History of Present Illness 78 y.o. female with history of Alzheimer's, A. fib, HTN, HLD, asthma, GERD Has history of Alzheimer's. Symptoms are controlled. Follows with neurology. Co mpliant with medication. Has history of A. fib. Follows cardiology. No chest pain or shortness of breat h palpitations or lightheadedness. On Eliquis for anticoagulation. compliant wi th his medications. No abnormal bleeding Has history of hypertension. Blood pressures at home are normal. Is compliant with medication. No lightheadedness dizziness. Has history of hyperlipidemia. Is compliant with statin. No muscle aches muscl e weakness on statin. We did discuss her mood. Has just been depressed over her health issues as she has generally been healthy as of late. No thoughts of hurting self or others. Appetite is fair. Concentration okay. Is more sluggish. Medical History: Diagnosis Date Asthma 01/12/2019 Atrial fibrillation (HCC) 01/12/2019 CKD (chronic kidney disease) stage 3, GFR 30-59 ml/min ([facility]) 05/04/2019 No past surgical history on file. Family History Problem Relation Age of Onset Stroke Mother Cancer Father High Cholesterol Sister Stroke Maternal Aunt Unknown to Patient Maternal Uncle Social History Socioeconomic History Marital status: Spouse name: Not on file Number of children: Not on file Years of education: Not on file Highest education level: Not on file Occupational History Not on file Tobacco Use Smoking status: Never Smoker Smokeless tobacco: Never Used Substance and Sexual Activity Alcohol use: Yes Comment: occasionally Drug use: No Sexual activity: Not on file Other Topics Concern Not on file Social History Narrative Not on file Review of Systems Constitution: Positive for malaise/fatigue. Negative for chills and fever. Cardiovascular: Negative for chest pain, dyspnea on exertion, irregular heartbea t, near-syncope, palpitations and syncope. Respiratory: Negative for cough, shortness of breath and wheezing. Musculoskeletal: Negative for muscle weakness and myalgias. Gastrointestinal: Negative for abdominal pain, constipation and diarrhea. Neurological: Negative for dizziness, headaches and light-headedness. Psychiatric/Behavioral: Positive for depression. Negative for altered mental sta tus, suicidal ideas and thoughts of violence. The patient does not have insomnia . Objective: albuterol (PROAIR HFA) 90 mcg/actuation inhaler [...] Take 1 Tab by mouth daily. Vitals: 04/27/19 0958 BP: 120/80 Pulse: 58 Resp: 16 Temp: 36.4 C (97.5 F) TempSrc: Oral SpO2: 96% Weight: 74.5 kg (164 lb 3.2 oz) Height: 160 cm (63") Body mass index is 29.09 kg/m. Physical Exam Constitutional: She is oriented to person, place, and time. She appears well-dev eloped and well-nourished. HENT: Head: Normocephalic and atraumatic. Neck: Normal range of motion. Neck supple. No thyromegaly present. Cardiovascular: Normal rate, regular rhythm and normal heart sounds. Exam reveal s no gallop and no friction rub. No murmur heard. Pulmonary/Chest: Effort normal and breath sounds normal. No respiratory distress . She has no wheezes. She has no rales. Abdominal: Soft. Bowel sounds are normal. There is no tenderness. Neurological: She is alert and oriented to person, place, and time. Psychiatric: Her speech is normal and behavior is normal. Thought content normal . She exhibits a depressed mood. She expresses no homicidal and no suicidal idea tion. She expresses no suicidal plans and no homicidal plans. Nursing note and vitals reviewed. Assessment and Plan: Problem Lprd (Laryngopharyngeal Reflux Disease) Plan: Continue omeprazole 20 mg daily Chronic Fatigue Having worsening chronic fatigue. No systemic signs or symptoms. Is depressed. Physical exam normal. PLAN - check CBC, CMP, TSH, Vit D, B12 - offered medication for mood, declines for now - consider sleep study if above unremarkable \\ Atrial Fibrillation (Hcc) 1. 01/02 echo: No regional wall motion abnormalities are seen. Overall LV systo lic function appears normal. The estimated left ventricular ejection fraction is 60%. 2. Right ventricular contractility appears normal. 3. Moderate left atrial enlargement. 4. Moderate mitral valve regurgitation. Mild tricuspid valve regurgitation. 5. Aortic valve sclerosis without stenosis. No pericardial effusion is seen. Plan: Continue follow-up with cardiology Continue Eliquis Continue beta-alyce Asthma controlled Plan: Continue Albuterol 2 puffs every 6 hours as needed Late Onset Alzheimer's Disease Without Behavioral Disturbance Seen by Dr. Irvin Abnormal signs: Memory dysfunction and Executive dysfunction Localization: Bihemispheral, cortices and Mesial temporal structures Diagnosis: Alzheimer's disease Differential diagnosis: Inflammatory disorders, Vascular disorders, Metabolic di sorders and Other degenerative causes Recommended starting Aricept if able to decrease Metoprolol. Continue follow-up with neurology RTC in 6 months for CPX and PRN and as previously scheduled Patient to call if symptoms not improving or if plan of care not working Future Appointments Date Time Provider Department Center 05/15/2019 8:00 AM Spresser, Britt D, PhD NEUROPS Neurology 05/15/2019 11:00 AM [facility] 06/07/2019 8:30 AM Samanta Barahona APRN-MARINE [employer]REMAN FWNEURO Neurology 06/12/2019 1:00 PM Alee Briscoe MD CVMCLOP [facility]VM [facility] 10/30/2019 10:30 AM [facility] Jeff Gaitan MD Internal Medicine, Primary Care Pager: [phone] __ Zee Fam was seen today for establish care. Diagnoses and all orders for this visit: Chronic fatigue Persistent atrial fibrillation (HCC) - CBC AND DIFF; Future; Expected date: 04/27/2019 - COMPREHENSIVE METABOLIC PANEL; Future; Expected date: 04/27/2019 - THYROID STIMULATING HORMONE-TSH; Future; Expected date: 04/27/2019 - THYROID STIMULATING HORMONE-TSH - COMPREHENSIVE METABOLIC PANEL - CBC AND DIFF Late onset Alzheimer's disease without behavioral disturbance Mild intermittent asthma without complication - Discontinue: albuterol (PROAIR HFA) 90 mcg/actuation inhaler; Inhale two p uffs by mouth into the lungs every 6 hours as needed for Wheezing or Shortness o f Breath (cough). Shake well before use. LPRD (laryngopharyngeal reflux disease) B12 deficiency - VITAMIN B12; Future; Expected date: 04/27/2019 - VITAMIN B12 Chronic cough Encounter for monitoring proton pump inhibitor therapy - VITAMIN B12; Future; Expected date: 04/27/2019 - 25-OH VITAMIN D (D2 + D3); Future; Expected date: 04/27/2019 - MAGNESIUM; Future; Expected date: 04/27/2019 - MAGNESIUM - 25-OH VITAMIN D (D2 + D3) - VITAMIN B12 Encounter for monitoring amiodarone therapy - FREE T4 (FREE THYROXINE) ONLY; Future; Expected date: 04/27/2019 - FREE T4 (FREE THYROXINE) ONLY Patient Instructions Thank you for coming to see us today. We will contact you with testing results via phone or via Nimbuzz if you signed up for this. If you have issues logging into your SNRLabshart, please look at last page of jacinta perea; otherwise please deactivate account if not using Please Have all records sent to my office. Please fill out forms at front end web designer to reque st records from PCP and each non-[facility] specialist. USE albuterol 2 puffs every 6 hours as needed Let me know if you want to try something for mood If you would like to see our dietitian for FREE, please schedule at front end web designer o r call office to schedule If you would like to see our social media marketing specialist (Mirlande) for FREE, please schedule at front end web designer or call office to schedule Please schedule appointment at front end web designer to come back in 6 months for annual w ellness/physical and as needed. --If you desire, please call to make lab appointment or have us send orders to cami feldman to your choice for follow up labs up to 7 days prior to upcoming appointment so we can discuss results during appointment --For your physical, you may come up to 7 days prior to your physical for fastin g labs or please ask my nurse to fax labs to lab of your choice. Please call for lab appointment beforehand if coming to my office for labs --For your physical, if you are on Medicare, you may do your health risk assessm ent on [employer] 1 week ahead of time to expediate visit. Please call my nurse, Margie, between appointments with any issues - at or [phone] (press option 4, then option 2) Please call my nurse if you are having any issues scheduling your appointment . Please let nurse know or message me on Nimbuzz if any results are unclear; FOR REFILLS Please call my nurse, Glen, at or message on [employer] art on weekdays and at least 3 days prior to running out of prescription (5 days for controlled substances) If I am not available to see you, can schedule appoittment with COLEEN De La Cruz Also, [facility] has 5 Urgent Cares - Conspire/urgentcare. Please try to arrive early for your appointments to help facilitate your visi t IF you are late to your appointment, we reserve the right to ask you to brandon edule your appointment or wait in fairness to the other patients scheduled that day. NOTE: Loop Trolleyhart messages sent or phone calls on weekends, on holidays and after 4PM on weekdays, will NOT be seen until the following business day. If you have an urgent matter outside of business hours, please ask for the on-call physician by calling If you had to wait on me today, my sincerest apologies. My goal in every clini c is to run right on time; however, on occasion, I get behind in clinic due to u nexpected issues with patients. Take care! Dr. Gaitan documented in this encounter Plan of Treatment Not on filedocumented as of this encounter Procedures Comments Procedure Name Priority Date/Time Associated Diagnosis 25-OH VITAMIN D (D2 + D3) Routine 04/27/2019 Encounter for monitoring 11:01 AM CDT proton pump inhibitor therapy CBC AND DIFF Routine 04/27/2019 Persistent atrial 11:01 AM CDT fibrillation (HCC) THYROID STIMULATING Routine 04/27/2019 Persistent atrial HORMONE-TSH 11:01 AM CDT fibrillation (HCC) FREE T4 (FREE THYROXINE) Routine 04/27/2019 Encounter for monitoring ONLY 11:01 AM CDT amiodarone therapy MAGNESIUM Routine 04/27/2019 Encounter for monitoring 11:01 AM CDT proton pump inhibitor therapy VITAMIN B12 Routine 04/27/2019 Encounter for monitoring 11:01 AM CDT proton pump inhibitor therapy B12 deficiency COMPREHENSIVE METABOLIC Routine 04/27/2019 Persistent atrial PANEL 11:01 AM CDT fibrillation (HCC) documented in this encounter Results * FREE T4 (FREE THYROXINE) ONLY (04/27/2019 11:01 AM CDT) T4-Free 1.6 0.6 - 1.6 NG/DL [facility] Specimen Blood Performing Organization Address City/State/Zipcode Phone Number [facility] [address] [place] [address] * MAGNESIUM (04/27/2019 11:01 AM CDT) Magnesium 2.4 1.6 - 2.6 mg/dL [facility] Specimen Blood Performing Organization Address [facility] Phone Number [facility] [address] [place] [address] * 25-OH VITAMIN D (D2 + D3) (04/27/2019 11:01 AM CDT) Vitamin 15.8 (L) 30 - 80 NG/ML [facility] D(25-OH)Total Specimen Blood Performing Organization Address [facility] Phone Number [facility] [address] [place] [address] * VITAMIN B12 (04/27/2019 11:01 AM CDT) Vitamin B12 221 180 - 914 PG/ML [facility] Specimen Blood Performing Organization Address [facility] Phone Number [facility] [address] [place] [address] * THYROID STIMULATING HORMONE-TSH (04/27/2019 11:01 AM CDT) TSH 0.670 0.35 - 5.00 MCU/ML [facility] Specimen Blood Performing Organization Address [facility] Phone Number [facility] [address] [place] [address] * COMPREHENSIVE METABOLIC PANEL (04/27/2019 11:01 AM CDT) Sodium 142 137 - 147 MMOL/L [facility] Potassium 3.2 (L) 3.5 - 5.1 MMOL/L [facility] Chloride 103 98 - 110 MMOL/L [facility] Glucose 129 (H) 70 - 100 MG/DL [facility] Blood Urea 43 (H) 7 - 25 MG/DL [facility] Nitrogen Creatinine 1.64 (H) 0.4 - 1.00 MG/DL [facility] Calcium 9.8 8.5 - 10.6 MG/DL [facility] Total Protein 6.5 6.0 - 8.0 G/DL [facility] Total Bilirubin 0.5 0.3 - 1.2 MG/DL [facility] Albumin 4.1 3.5 - 5.0 G/DL [facility] Alk Phosphatase 69 25 - 110 U/L [facility] AST (SGOT) 17 7 - 40 U/L [facility] CO2 30 21 - 30 MMOL/L [facility] ALT (SGPT) 12 7 - 56 U/L [facility] Anion Gap 9 3 - 12 [facility] eGFR Non 30 (L) >60 mL/min [facility] Comment: [place] The eGFR is not validated for use in drug dosing adjustments.Continue to use estimated creatinine clearance per dosing reference text.Please contact the Clinical Pharmacist for questions. eGFR 36 (L) >60 mL/min [facility] [place] Comment: The eGFR is not validated for use in drug dosing adjustments.Continue to use estimated creatinine clearance per dosing reference text.Please contact the Clinical Pharmacist for questions. Specimen Blood Performing Organization Address City/State/Zipcode Phone Number [facility] [address] [place] [address] * CBC AND DIFF (04/27/2019 11:01 AM CDT) White Blood 5.5 4.5 - 11.0 K/UL [facility] Cells RBC 4.27 4.0 - 5.0 M/UL [facility] Hemoglobin 12.9 12.0 - 15.0 GM/DL [facility] Hematocrit 39.5 36 - 45 % [facility] MCV 92.6 80 - 100 FL [facility] MCH 30.1 26 - 34 PG [facility] MCHC 32.5 32.0 - 36.0 G/DL [facility] RDW 15.1 (H) 11 - 15 % [facility] Platelet Count 213 150 - 400 K/UL [facility] MPV 10.4 7 - 11 FL [facility] Neutrophils 61 41 - 77 % [facility] Lymphocytes 27 24 - 44 % [facility] Monocytes 8 4 - 12 % [facility] Eosinophils 3 0 - 5 % [facility] Basophils 1 0 - 2 % [facility] Absolute 3.40 1.8 - 7.0 K/UL [facility] Neutrophil Count Absolute Lymph 1.50 1.0 - 4.8 K/UL [facility] Count Absolute 0.40 0 - 0.80 K/UL [facility] Monocyte Count Absolute 0.10 0 - 0.45 K/UL [facility] Eosinophil Count Absolute 0.10 0 - 0.20 K/UL [facility] Basophil Count Specimen Blood Performing Organization Address City/State/Zipcode Phone Number [facility] [address] [place] [address] documented in this encounter Visit Diagnoses Diagnosis Chronic fatigue - Primary Other malaise and fatigue Persistent atrial fibrillation (HCC) Atrial fibrillation Late onset Alzheimer's disease without behavioral disturbance Mild intermittent asthma without complication Unspecified asthma LPRD (laryngopharyngeal reflux disease) Other diseases of larynx B12 deficiency Other B-complex deficiencies Chronic cough Cough Encounter for monitoring proton pump inhibitor therapy Encounter for therapeutic drug monitoring Encounter for monitoring amiodarone therapy Encounter for therapeutic drug monitoring documented in this encounter
--- OUTSIDE RECORDS SUMMARY | 2019-06-02 16:28 | XMS REPORT | Encounter Summary ---
Author Author [facility] Organization [facility] Address Unknown Phone Unavailable Care Team Providers Care Construction Equipment Mechanic Helper Name Role Phone Gladys Matthews Unavailable Unavailable Grabiel Suresh MD PCP Reason for Visit * Reason Comments Precertification Approval Encounter Details Care Team Description Date Type Department Geovanna Wren Precertification (Approval) 04/18/2019 Documentation The [facility] [address] [facility] [place] [address] Social History Date Tobacco Use Types Packs/Day [...] as of this encounter Progress Notes * Geovanna Wren - 04/18/2019 2:44 PM CDT Medicare (Primary) No pre-certification is required documented in this encounter Plan of Treatment Not on filedocumented as of this encounter Visit Diagnoses Not on filedocumented in this encounter
--- OUTSIDE RECORDS SUMMARY | 2019-06-02 16:28 | XMS REPORT | Encounter Summary ---
Author Author [facility] Organization [facility] Address Unknown Phone Unavailable Care Team Providers Care Hat Brim And Crown Laminating Operator Name Role Phone ByronGladys Unavailable Unavailable Jeff Palma MD PCP Reason for Referral * Test (Routine) Referred By Contact Referred To Contact Status Reason Specialty Diagnoses / Procedures Alee Briscoe MD [address] [place] [id number] [facility] [address] [place] [id number] No Auth Needed Cardiology Diagnoses Persistent atrial fibrillation (HCC) P rocedures TRANSESOPHAGEAL ECHOCARDIOGRAM [place] ECHO TRANSESOPHAG R-T 2D W/PRB IMG ACQUISJ I&R * Test (Routine) Referred By Contact Referred To Contact Status Reason Specialty Diagnoses / Procedures Alee Briscoe MD [address] [place] [id number] [facility] [address] [place] [id number] No Auth Needed Cardiology Diagnoses Persistent atrial fibrillation (HCC) P rocedures TRANSESOPHAGEAL ECHOCARDIOGRAM MN ECHO TRANSESOPHAG R-T 2D W/PRB IMG ACQUISJ I&R Reason for Visit * Test (Routine) Referred By Contact Referred To Contact Status Reason Specialty Diagnoses / Procedures Alee Briscoe MD [address] [place] [address] Cvm g [facility] [address] [address] No Auth Needed Cardiology Diagnoses Persistent atrial fibrillation (HCC) P rocedures TRANSESOPHAGEAL ECHOCARDIOGRAM MN ECHO TRANSESOPHAG R-T 2D W/PRB IMG ACQUISJ I&R Encounter Details Care Team Description Date Type Department Alee Briscoe MD [address] [address] [phone] 05/04/2019 [facility] [address] [address] Social History Date Tobacco Use Types Packs/Day [...] Signs Reading Time Taken Comments Vital Sign 111/54 05/04/2019 10:19 AM CDT Blood Pressure 61 05/04/2019 10:19 AM CDT Pulse - - Temperature - - Respiratory Rate 96% 05/04/2019 10:19 AM CDT Oxygen Saturation - - Inhaled Oxygen Concentration 74.8 kg (164 lb 14.5 oz) 05/04/2019 10:04 AM CDT Weight 162.6 cm (5' 4") 05/04/2019 10:04 AM CDT Height 28.31 05/04/2019 10:04 AM CDT Body Mass Index documented in this encounter Functional Status Date of Assessment Functional Status Response 02/22/2019 Does the patient have a hearing impairment: No 02/22/2019 Does the patient have a visual impairment: Yes documented as of this encounter Discharge Instructions * Patient Instructions* Ravindra Knapp RN - 05/04/2019 10:21 AM CDT CARDIOLOGY PROCEDURES POST SEDATION INSTRUCTIONS Patient Name: Zee Fam Date: 05/04/2019 Please follow the instructions listed below: 1. [...] through social media for 24 hours. 3. If you have question or concerns about [...] Tab by mouth daily. Instructions Given To: patient and daughter Instructions Given By: Ravindra Kanpp RN documented in this encounter Medications at [...] twice daily. documented as of this encounter Progress Notes * Ravindra Knapp RN - 05/04/2019 8:57 AM CDT Pre-Operative Assessment for FARA or Cardioversion Date of Service: 05/04/2019 Zee Fam is a 78 y.o. y.o. female. : 1940 Procedure to be performed: FARA and Cardioversion Expected Procedure Date: 05/04/19 Indication: a-fib Patient appears alert and oriented: Yes NPO: for greater than 8 hours Inpatient IV status: None Isolation status: None Last FARA date: None Last Cardioversion date: None Anticoagulation Results Anticoagulant: apixaban (Eliquis) Missed dose: Yes Last MAC INR Flow Sheet Entry: Last recorded Lab results: No results found for: INR No results found for: PTT Allergies No Known Allergies Vitals Estimated body mass index is 28.32 kg/m as calculated from the following: Height as of this encounter: 1.626 m (5' 4"). Weight as of this encounter: 74.8 kg (165 lb). Diagnostic Tests White Blood Cells Date Value Ref Range Status 04/27/2019 5.5 4.5 - 11.0 K/UL Final Hemoglobin Date Value Ref Range Status 04/27/2019 12.9 12.0 - 15.0 GM/DL Final Hematocrit Date Value Ref Range Status 04/27/2019 39.5 36 - 45 % Final Platelet Count Date Value Ref Range Status 04/27/2019 213 150 - 400 K/UL Final Sodium Date Value Ref Range Status 04/27/2019 142 137 - 147 MMOL/L Final Potassium Date Value Ref Range Status 04/27/2019 3.2 (L) 3.5 - 5.1 MMOL/L Final Magnesium Date Value Ref Range Status 04/27/2019 2.4 1.6 - 2.6 mg/dL Final Blood Urea Nitrogen Date Value Ref Range Status 04/27/2019 43 (H) 7 - 25 MG/DL Final Creatinine Date Value Ref Range Status 04/27/2019 1.64 (H) 0.4 - 1.00 MG/DL Final Glucose Date Value Ref Range Status 04/27/2019 129 (H) 70 - 100 MG/DL Final Blood Cultures Resulted Micro Last 72 Hrs No results found Echo procedures within the past 30 days: No results found. Device Information on File No results found for: GENERATOR, EPDEVTYP Current Medications Current Outpatient Medications on File Prior to Encounter Medication Sig Dispense Refill albuterol (PROAIR HFA) 90 mcg/actuation inhaler Inhale two puffs by mouth in to the lungs every 6 hours as needed for Wheezing or Shortness of Breath (cough) . Shake well before use. 1 Inhaler 11 allopurinol (ZYLOPRIM) 300 mg tablet Take 1 tablet by mouth daily. ALPRAZolam (XANAX) 0.25 mg tablet Take 0.25 mg by mouth at bedtime as needed for Anxiety. amiodarone (CORDARONE) 200 mg tablet Take one tablet by mouth daily. Take wi th food. 90 tablet 1 busPIRone (BUSPAR) 5 mg tablet Take one tablet by mouth daily. 30 tablet 1 ELIQUIS 5 mg tablet Take one tablet by mouth twice daily. 60 tablet 6 ezetimibe (ZETIA) 10 mg tablet Take 1 Tab by mouth daily. 90 Tab 1 furosemide (LASIX) 40 mg tablet Take one tablet by mouth every morning. 90 t ablet 3 loratadine (CLARITIN) 10 mg tablet Take 10 mg by mouth every morning. losartan-hydrochlorothiazide (HYZAAR) 100-25 mg tablet Take 1 tablet by mout h daily. 3 metoprolol XL (TOPROL XL) 25 mg extended release tablet Take one tablet by m outh twice daily. 180 tablet 1 montelukast (SINGULAIR) 10 mg tablet Take 10 mg by mouth at bedtime daily. omeprazole DR(+) (PRILOSEC) 20 mg capsule Take 20 mg by mouth daily before b reakfast. potassium chloride SR (K-DUR) 10 mEq tablet Take one tablet by mouth daily. Take with a meal and a full glass of water. 90 tablet 3 rosuvastatin (CRESTOR) 20 mg tablet Take 1 Tab by mouth daily. No current facility-administered medications on file prior to encounter. Past Medical History Medical History: Diagnosis Date Asthma 01/12/2019 Atrial fibrillation (HCC) 01/12/2019 Past Surgical History No past surgical history on file. Social History Social History Tobacco Use Smoking status: Never Smoker Smokeless tobacco: Never Used Substance Use Topics Alcohol use: Yes Comment: occasionally Drug use: No Additional Comments: None Probe Assessment (only for FARA procedures): Positive for: GERD and Hx. Chest surgery/radiation Sedation Assessment: Positive for: COPD / Asthma and ETOH social drinker * Ravindra Knapp RN - 05/04/2019 8:57 AM CDT Care Plan Care Category & Patient Outcome Goal Met Treatment/ Interventions Plan of the Day RN Name Cardiovascular Hemodynamic stability and adequate peripheral perfusion. Yes Refer to patient's chart. Monitor VS per sedation standard. Monitor ECG continu ously. Assess/maintain IV patency. Ravindra Knapp RN Respiratory Patent airway, ease of respiration, and adequate oxygenation. Yes Refer to patient's chart. Maintain open airway. Assess respirations. Monitor O2 saturations. Titrate O2 to keep sat>=95% or baseline. Ravindra Knapp RN Psychological/Emotional/Spiritual [place] with procedure with support in place. Spiritual needs are addressed. Yes Refer to patient's chart. Provide adequate and thorough instructions. Provide a caring and supportive environment. Communicate patients concerns with othe r members of the health team. Ravindra Knapp RN Pain Patients pain goal met. Yes Refer to patient's chart. Prepare patient for potentially uncomfortable procedu re. Observe for verbal/nonverbal complaints of pain. Assess pain. Provide com fort measures. Ravindra Knapp RN Safety/Fall Risk Free from injury, security maintained. Yes High Risk Refer to patient's chart. Follow nursing standard of practice for high risks fall patients. Ravindra Knapp RN Knowledge Base Verbalize understanding of procedure/information provided. Yes Refer to patient's chart. Describe the procedure along with what symptoms to ex pect. Evaluate patients understanding of procedure. Encourage patient to as k questions. Provide additional information as needed. Ravindra Knapp RN documented in this encounter H&P Notes * Pedro Marsh MD - 05/04/2019 9:25 AM CDT Pre-Operative Assessment for FARA or Cardioversion Date of Service: 05/04/2019 Zee Fam is a 78 y.o. y.o. female. : 1940 History and Physical Exam I reviewed H&P from 05/04/2019 . No changes noted. Assessment I reviewed: nurse pre-procedure assessment (including past medical history, allergies, med ications, labs) I assessed the patient's airways and noted: no abnormalities mallampati: I (soft palate, uvula, fauces, tonsillar pillars visible) I requested Anesthesia consult I discussed risks and alternatives of this type of sedation and the procedure with the patient with family/significant other Physical Status Classification ([place] [employer]esthesiologists): ASA III (A patient with a severe systemic disease that limits activity, but is n ot incapacitating) Sedation/Medication Plan Sedation plan per Anesthesiology documented in this encounter Plan of Treatment Not on filedocumented as of this encounter Procedures Comments Procedure Name Priority Date/Time Associated Diagnosis FARA W/O CONTRAST Routine 05/04/2019 Persistent atrial 10:04 AM CDT fibrillation (HCC) CARDIOVERSION, EXTERNAL Routine 05/04/2019 Persistent atrial 10:00 AM CDT fibrillation (HCC) ECG-SCAN 05/04/2019 12:00 AM CDT documented in this encounter Results * TRANSESOPHAGEAL ECHOCARDIOGRAM (05/04/2019 10:04 AM CDT) BSA 1.84 m2 OTHER OUTSIDE LAB Referring Jeff Palma M.D. OTHER OUTSIDE Provider LAB CV ECHO DOUG Waite R.N. OTHER OUTSIDE DICER OPERATOR LAB Cardiology Siemens [id number] OTHER OUTSIDE Ultrasound LAB Machine ECHO EF [...] chart. Anesthesia:MAC w/ IV propofol per Anesthesiology. Director Executive Communications:Pedro Marsh M.D. Findings:Chronically anticoagulated with apixaban but [...] 700 ml wide open. Pedro Marsh M.D. [phone] Performing Organization Address City/State/Zipcode Phone Number OTHER OUTSIDE LAB * ECG-SCAN (05/04/2019 12:00 AM CDT) Narrative Performed At Ordered by an unspecified provider. documented in this encounter Visit Diagnoses Diagnosis Persistent atrial fibrillation (HCC) Atrial fibrillation documented in this encounter
--- OUTSIDE RECORDS SUMMARY | 2019-06-02 16:29 | XMS REPORT | Encounter Summary ---
Author Author [facility] Organization [facility] Address Unknown Phone Unavailable Care Team Providers Care Claims Coordinator Name Role Phone Gladys Matthews Unavailable Unavailable Grabiel Suresh MD PCP Reason for Visit * Reason Comments Medication Change Request Encounter Details Care Team Description Date Type Department Sade Fitzpatrick RN Medication Change Request 01/24/2019 Telephone [facility] [address] [place], [place] [address] Social History Date Tobacco Use Types Packs/Day [...] Status Date of Assessment Functional Status Response 11/24/2018 Does the patient have a hearing impairment: No 11/24/2018 Does the patient have a visual impairment: Yes documented as of this encounter Miscellaneous Notes * Telephone Encounter - Sade Fitzpatrick RN - 01/24/2019 11:55 AM CDT Regarding: FW: Prescription Question Contact: Lets see if she can get [id number] / HCTZ 25. Might check with the pharmacy to see if they have it and if not see what they recommend. ----- Message ----- From: Sade Fitzpatrick RN Sent: 01/24/2019 9:33 AM To: Georgina Vazquez MD Subject: FW: Prescription Question Alternative prescription? Thanks ----- Message ----- From: Sade Fitzpatrick RN Sent: 01/24/2019 8:50 AM To: Sade Fitzpatrick, RN Subject: FW: Prescription Question ----- Message ----- From: Zee Fam Sent: 01/23/2019 10:39 PM To: Wolf Nurse Balbir Zapata Subject: Prescription Question ----- Message from Benny Mychart, Generic sent at 01/23/2019 10:39 PM CDT ----- My pharmacy notified me that one of my hypertension medications is no longer robert ilable for me to take, because there is a recall on the medication--Olestartan-H ydroChlorothiazide 40-25. Please send my replacement prescription to the [facility] in [place]. Thank you, Eliana Fam documented in this encounter Plan of Treatment Not on filedocumented as of this encounter Visit Diagnoses Not on filedocumented in this encounter
--- OUTSIDE RECORDS SUMMARY | 2019-06-02 16:29 | XMS REPORT | Encounter Summary ---
Author Author [facility] Organization [facility] Address Unknown Phone Unavailable Care Team Providers Care Cash Accounting Clerk Name Role Phone Gladys Matthews Unavailable Unavailable Grabiel Suresh MD PCP Reason for Visit * Reason Comments Results PFTs Encounter Details Care Team Description Date Type Department Alpa Trevino Results (PFTs) 01/16/2019 Telephone [facility] [address] [place] [address] Social History Date Tobacco Use [...] encounter Miscellaneous Notes * Telephone Encounter - Alpa Trevino - 01/16/2019 11:44 AM OUTGOING INSPECTOR Left message on secure voicemail with instructions for pt to call back re: resul ts of PFTs. ----- Message from Belkis Abdi RN sent at 01/16/2019 9:22 AM OUTGOING INSPECTOR ----- Regarding: Can you let pt know PFT normal? Thank you! ----- Message ----- From: Alee Briscoe MD Sent: 01/15/2019 3:48 PM To: Belkis Abdi RN Let her know PFT's normal, thanks. OING INSPECTOR documented in this encounter Plan of Treatment Not on filedocumented as of this encounter Visit Diagnoses Not on filedocumented in this encounter
--- OUTSIDE RECORDS SUMMARY | 2019-06-02 16:29 | XMS REPORT | Encounter Summary ---
Author Author [facility] Organization [facility] Address Unknown Phone Unavailable Care Team Providers Care Shore Working Supervisor Name Role Phone Gladys Matthews Unavailable Unavailable Grabiel Suresh MD PCP Reason for Referral * Consult, Test & Treat (Routine) Referred By Contact Referred To Contact Status Reason Specialty Diagnoses / Procedures Samanta Barahona APRN-NP [address] [place] [address] [facility] Neurology [address] [phone] Closed Specialty Services Neurology Diagnoses Required Late onset Alzheimer's disease without behavioral disturbance Scheduling Instructions Fax Order to [phone], Research Dept. * Consult, Test & Treat (Routine) Referred By Contact Referred To Contact Status Reason Specialty Diagnoses / Procedures Samanta Barahona APRN-NP [address] [place] [address] [facility] Neuropsych Cl [address] [place] [address] No Auth Needed Specialty Services Neuropsychology Diagnoses Required Late onset Alzheimer's disease without behavioral disturbance Reason for Visit * Reason Comments Memory Loss Follow up Encounter Details Care Team Description Date Type Department Samanta Barahona APRN-NP [address] [place] [address] [phone] Late onset Alzheimer's disease without behavioral disturbance (Primary Dx) 02/22/2019 Office Visit [facility] [address] [facility] [address] [place] [phone] Social History Date Tobacco Use Types Packs/Day [...] Signs Reading Time Taken Comments Vital Sign 117/80 02/22/2019 8:42 AM CDT Blood Pressure 73 02/22/2019 8:42 AM CDT Pulse - - Temperature - - Respiratory Rate - - Oxygen Saturation - - Inhaled Oxygen Concentration 75.3 kg (166 lb) 02/22/2019 8:42 AM CDT Weight - - Height 29.41 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 Continue the Buspar 5 mg once a day. Take every day at the same time daily. We will make a referral to the [facility]/SW support program and the Research pr rosario. Follow up after the Neuropsychological testing results have been completed and w e can review the results as well as a medication check. documented in this encounter Progress Notes * Samanta Barahona APRN-NP - 02/22/2019 8:30 AM CDT Date of Service: 02/22/2019 Subjective: Zee Fam is a 78 y.o. female. History is given by her daughter. History of Present Illness Since her last visit on 11/24/18 her memory has had a slight decline. Her anxiety and behavior can still be a challenge. Her daughter now dose most of her bookkeeping. 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 Her vocabulary is wor se. Her daughter is taking more and more responsibility for her but she does no t seem to recognize it. She used the Buspar for a couple of days. She said it h elped but did not want to be dependent on something so she stopped it. We have t ried Aricept in the past, it made her feel bad, she had some bradycardia and is now being treated for Atrial Fib so does not want to retry anything like that. She is doing PT in [place] for deconditioning. She had a fall in the yard and could not get up and her PCP recommended PT. She thinks it is helping. Plans to start going to the gym to get more exercise.She has been very sedentary over the winter. Her daughter visits about once a week and helps set up her medications. She is still driving and they are not too concerned about that. She is able to d derek to to visit her daughter. She does some activities with friends. She does have a bit more anxiety, especially at night or if she is out of her no rmal, familiar routine. Daughter does report some caregiver stress and has been in contact with Samanta CARREON for some support. They also both see a counselor and this help a little. Review of Systems Constitutional: Positive for activity change. HENT: Negative. Eyes: Negative. Respiratory: Negative. Cardiovascular: Afib, recently seen by Cardiology Gastrointestinal: Negative. Genitourinary: Negative. Musculoskeletal: Negative. Neurological: Negative. Psychiatric/Behavioral: Positive for behavioral problems, confusion, decreased c oncentration, dysphoric mood and sleep disturbance (hours of sleep may vary. Sle eps about 6 hrs a night. ). Negative for hallucinations. The patient is nervous/ anxious. Objective: albuterol (PROAIR HFA) 90 mcg/actuation inhaler Inhale 2 Puffs by mouth into the lungs every 6 hours as needed for Wheezing or Shortness of Breath. Shake we ll before use. ALPRAZolam (XANAX) 0.25 mg tablet Take 0.25 mg by mouth at bedtime as needed for Anxiety. amiodarone (CORDARONE) 200 mg tablet Take one tablet by mouth daily. Take wi th food. busPIRone (BUSPAR) 5 mg tablet Take one tablet by mouth daily. ELIQUIS 5 mg tablet Take 5 mg by mouth twice daily. ezetimibe (ZETIA) 10 mg tablet Take 1 Tab by mouth daily. furosemide (LASIX) 40 mg tablet Take one tablet by mouth every morning. loratadine (CLARITIN) 10 mg tablet Take 10 mg by mouth every morning. losartan-hydrochlorothiazide (HYZAAR) 100-25 mg tablet Take one tablet by mo uth every morning. metoprolol XL (TOPROL XL) 25 mg extended release tablet Take one tablet by m outh twice daily. montelukast (SINGULAIR) 10 mg tablet Take 10 mg by mouth at bedtime daily. omeprazole DR(+) (PRILOSEC) 20 mg capsule Take 20 mg by mouth daily before b reakfast. rosuvastatin (CRESTOR) 20 mg tablet Take 1 Tab by mouth daily. Vitals: 02/22/19 0842 BP: 117/80 Pulse: 73 Weight: 75.3 kg (166 lb) Body mass index is 29.41 kg/m. Physical Exam I have personally reviewed the medication list and am making recommendations as listed in the plan below. Her daughter helps manages medication at home for Zee Fam. The following medications have been identified as potential high risk medication s: Xanax, she rarely uses. Neurological and Physical Examination: Mental status: She scored 9/10 on MMSE for orientation. Alert, oriented to na me, pleasant, cooperative, well-dressed and groomed. She is in no apparent distr ess. She names and repeats well. She has good insight into her cognitive deficit s. She gets tearful at times. Missed 1 for date and 1 on delayed recall. Cranial nerves: Pupils are equal and reactive to light. Extraocular movements are full. Tongue and palate are midline. All other cranial nerves intact. Motor: 5/5 strength in the upper and lower extremities with no cogwheel rigidit y. Reflexes: Reflexes are 2 in the arms and at the knees. Coordination: No dysmetria on [id number]-ji-[id number] testing. Gait: Normal casual gait with normal arm swing, stride length and turns. Neurobehavioral Testing: Mini-Mental Status Examination: (At last visit, the MMSE score was 28/30. ) PHQ Depression Scale: PHQ-2 Score: 1 (02/22/2019 8:45 AM) . See below for any recommendations. Dementia Stage: CDR=Mild Assessment and Plan: Problem Late Onset Alzheimer's Disease Without Behavioral Disturbance Seen by Dr. Irvin Abnormal signs: Memory dysfunction and Executive dysfunction Localization: Bihemispheral, cortices and Mesial temporal structures Diagnosis: Alzheimer's disease Differential diagnosis: Inflammatory disorders, Vascular disorders, Metabolic di sorders and Other degenerative causes Recommended starting Aricept if able to decrease Metoprolol. 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 She reports anxiety and feeling so mewhat down and blue but took the Buspar for just a few days. She felt it helped but did not want to be "dependent" on anything. We discussed the toll that stre ss and anxiety can take on memory as well as untreated depression. We have tried Zoloft in the past and she would not take it but she did agree to restart the B uspar at 5 mg once a day. Recommended we get formal Neuropsychological testing to help with LTC planning. 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 Harder to keep up with the responsibility. She also has untreated anxie ty and depression as well as ongoing grief [...] Neuropsychological testing to help with diagnosis and contr ibution from depression and anxiety. Continue the Buspar 5 mg once a day. Take every day at the same time daily. We will make a referral to the [facility]/SW support program and the Research pr rosario. Follow up after the Neuropsychological testing results have been completed and w e can review the results as well as a medication check. Total Visit time: 50 minutes Counseling time: 35 minutes Regarding: Care planning, medications, test results and disease progression documented in this encounter Plan of Treatment Order Schedule Name Type Priority Associated Diagnoses Ordered: 02/22/2019 AMB REFERRAL TO Outpatient Routine Late onset Alzheimer's NEUROPSYCHOLOGY Referral disease without behavioral disturbance Ordered: 02/22/2019 AMB REFERRAL TO [facility] Outpatient Routine Late onset Alzheimer's RESEARCH Referral disease without behavioral disturbance documented as of this encounter Visit Diagnoses Diagnosis Late onset Alzheimer's disease without behavioral disturbance - Primary * Assessment & Plan Note - Samanta Barahona APRN-NP - 02/22/2019 3:33 PM CDT Associated Problem(s): Late onset Alzheimer's disease without behavioral disturb ance Since the last visit she has had a slight change in 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 She reports anxiety and feeling so mewhat down and blue but took the Buspar for just a few days. She felt it helped but did not want to be "dependent" on anything. We discussed the toll that stre ss and anxiety can take on memory as well as untreated depression. We have tried Zoloft in the past and she would not take it but she did agree to restart the B uspar at 5 mg once a day. Recommended we get formal Neuropsychological testing to help with LTC planning. 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 Harder to keep up with the responsibility. She also has untreated anxie ty and depression as well as ongoing grief [...] Neuropsychological testing to help with diagnosis and contr ibution from depression and anxiety. Continue the Buspar 5 mg once a day. Take every day at the same time daily. We will make a referral to the [facility]/SW support program and the Research pr rosario. Follow up after the Neuropsychological testing results have been completed and w e can review the results as well as a medication check. documented in this encounter
--- OUTSIDE RECORDS SUMMARY | 2019-06-02 16:29 | XMS REPORT | Encounter Summary ---
Author Author [facility] Organization 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 Name Role Phone Gladys Matthews Unavailable Unavailable Grabiel Suresh MD PCP Reason for Referral * Consult, Test & Treat (Routine) Referred By Contact Referred To Contact Status Reason Specialty Diagnoses / Procedures Alee Briscoe MD [address] [place] [address] New Request Procedures REQUEST FOR CARDIOLOGY APPOINTMENT Reason for Visit * Reason Comments Cardiac Eval 2 month follow up * Consult, Test & Treat (Routine) Referred By Contact Referred To Contact Status Reason Specialty Diagnoses / Procedures Alee Briscoe MD [address] [place] [id number] New Request Procedures REQUEST FOR CARDIOLOGY APPOINTMENT Encounter Details Care Team Description Date Type Department Alee Briscoe MD [address] [place] [id number] Cardiac Eval (2 month follow up) 03/26/2019 Office Visit [facility] [address] [id number] Social History Date Tobacco Use Types Packs/Day [...] Signs Reading Time Taken Comments Vital Sign 118/60 03/26/2019 10:32 AM CDT Blood Pressure 76 03/26/2019 10:32 AM CDT Pulse - - Temperature - - Respiratory Rate - - Oxygen Saturation - - Inhaled Oxygen Concentration 74.2 kg (163 lb 9.6 oz) 03/26/2019 10:32 AM CDT Weight 160 cm (5' 3") 03/26/2019 10:32 AM CDT Height 28.98 03/26/2019 10:32 AM CDT Body Mass Index documented in this encounter Functional Status Date of Assessment Functional Status Response 02/22/2019 Does the patient have a hearing impairment: No 02/22/2019 Does the patient have a visual impairment: Yes documented as of this encounter Patient Instructions * Patient Instructions* Belkis Abdi RN - 03/26/2019 10:30 AM CDT Cardioversion scheduled on 04/11 at 11 AM - my chart sent with instructions Please schedule an appointment with Dr. Briscoe in 8 weeks . To schedule an appointment call [phone]. In order to provide you the best care possible we ask that you follow up as ana glasgow: For non-urgent questions please contact us through your [employer] account. For all medication refills please contact your pharmacy or send a request [facility]. For all questions that may need to be addressed urgently please call the nursing triage voicemail at [phone] Tuesday - Tuesday 8-5 only. Please leave a detai led message with your name, date of , and reason for your call. Please allow ~ 10 business days for the results of any testing to be reviewed. Natalie rasmussen call our office if you have not heard from a nurse within this time frame. documented in this encounter Progress Notes * Alee Briscoe MD - 03/26/2019 10:30 AM CDT Date of Service: 03/26/2019 Zee Fam is a 78 y.o. female. HPI Zee Fam presents to my office today in electrophysiology follow-up for histo ry of atrial arrhythmias. As you know, she is an unfortunate 78-year-old female with a past medical history of hypertension, hyperlipidemia, late onset Alzheim er's disease, and persistent atrial fibrillation who was last seen in the office by me 2 months ago. At that time, the patient was still getting used to the fa ct that she was having atrial fibrillation. She was quite tearful in the office . I had cared for her who also had A. fib before he with a stroke. We discussed treatment options and she did not want to go forward with a cardioversion. Therefore, she was started on low-dose amiodarone. Zee returns to my office today accompanied by her daughter. She tells me that she is feeling good. She does not believe that she is in atrial fibrillation a nymore. Unfortunately, her twelve-lead EKG shows persistent A. fib with a somew hat controlled heart rate in the mid 70s. When I told Zee this, she was quite crushed. She was tearful in the office that the arrhythmia remained. Patient denies any chest pain, shortness of breath, dizziness, or syncope. Vitals: 03/26/19 1032 BP: 118/60 Pulse: 76 Weight: 74.2 kg (163 lb 9.6 oz) Height: 1.6 m (5' 3") Body mass index is 28.98 kg/m. Past Medical History Patient Active Problem List Diagnosis Date Noted Atrial fibrillation (HCC) 01/12/201901/02 echo: No regional wall motion abnormalities are [...] Negative. Eyes: Negative. Cardiovascular: Positive for irregular heartbeat and palpitations. Respiratory: Positive for cough and shortness of breath. Endocrine: Negative. Hematologic/Lymphatic: Negative. Skin: Positive for itching. Musculoskeletal: Positive for arthritis, falls, gout and joint pain. Gastrointestinal: Positive for change in bowel habit and bowel incontinence. Genitourinary: Negative. Neurological: Negative. Psychiatric/Behavioral: Positive for depression and memory loss. The patient is nervous/anxious. Allergic/Immunologic: Positive for environmental allergies. Physical Exam GEN: well developed, well nourished, in no acute distress HEENT: unremarkable, no JVD CHEST: clear to auscultation bilaterally CV: Irregularly irreg rhythm, nml rate; nml S1 & S2, no S3 or S4; no rub; no murmurs ABD: soft, nontender, non-distended, positive bowel sounds EXT: no clubbing, cyanosis, or edema, 1+ distal pulses NEURO: alert and oriented x3, no focal deficits Cardiovascular Studies 12 lead EKG: Atrial fibrillation, ventricular rate 76 bpm, QTc 491 msec Problems Addressed Today Encounter Diagnoses Name Primary? Persistent atrial fibrillation (HCC) Yes Assessment and Plan Atrial fibrillation (HCC) Unfortunately, she remains in atrial fibrillation today. Mrs. Fam was initial ly quite surprised that she felt good and thought she was in sinus rhythm. We again discussed treatment options. I am unsure whether she has any symptoms associated with her atrial fibrillation. 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 If she were to stay in AF, I would discontinue amiodarone. She has reluctantly agreed to undergo cardiove rsion once. We are going to keep her on the same dose of amiodarone for now. I would hold her beta-blockers prior to cardioversion. When she has been cardiov erted, we can consider dropping her amiodarone dose to 100 mg a day. She is hap py with this plan. We will keep you up to date with results of procedures as they occur. Current Medications (including today's revisions) albuterol (PROAIR [...] Take 10 mg by mouth every morning. metoprolol XL (TOPROL XL) 25 mg extended release tablet Take one tablet by m outh twice daily. montelukast (SINGULAIR) 10 mg tablet Take 10 mg by mouth at bedtime daily. omeprazole DR(+) (PRILOSEC) 20 mg capsule Take 20 mg by mouth daily before b reakfast. rosuvastatin (CRESTOR) 20 mg tablet Take 1 Tab by mouth daily. documented in this encounter Plan of Treatment Order Schedule Name Type Priority Associated Diagnoses Ordered: 03/26/2019 ECG 12-LEAD ECG Routine Persistent atrial fibrillation (HCC) documented as of this encounter Procedures Comments Procedure Name Priority Date/Time Associated Diagnosis ECG-SCAN 03/26/2019 12:00 AM CDT documented in this encounter Results * ECG-SCAN (03/26/2019 12:00 AM CDT) Narrative Performed At Ordered by an unspecified provider. documented in this encounter Visit Diagnoses Diagnosis Persistent atrial fibrillation (HCC) - Primary Atrial fibrillation * Assessment & Plan Note - Alee Briscoe MD - 03/26/2019 2:52 PM CDT Associated Problem(s): Atrial fibrillation (HCC) Unfortunately, she remains in atrial fibrillation today. Mrs. Fam was initial ly quite surprised that she felt good and thought she was in sinus rhythm. We again discussed treatment options. I am unsure whether she has any symptoms associated with her atrial fibrillation. 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 If she were to stay in AF, I would discontinue amiodarone. She has reluctantly agreed to undergo cardiove rsion once. We are going to keep her on the same dose of amiodarone for now. I would hold her beta-blockers prior to cardioversion. When she has been cardiov erted, we can consider dropping her amiodarone dose to 100 mg a day. She is hap py with this plan. documented in this encounter
--- OUTSIDE RECORDS SUMMARY | 2019-06-02 16:29 | XMS REPORT | Encounter Summary ---
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
--- OUTSIDE RECORDS SUMMARY | 2019-06-02 16:29 | XMS REPORT | Encounter Summary ---
Author Author [facility] Organization [facility] Address Unknown Phone Unavailable Care Team Providers Care Clinical Study Manager Name Role Phone Gladys Matthews Unavailable Unavailable Grabiel Suresh MD PCP Jeff Palma MD PCP Encounter Details Care Team Description Date Type Department Alee Briscoe MD [address] [facility] [place], [place] [id number] Persistent atrial fibrillation (HCC) (Primary Dx) 03/26/[address] [facility] [address] [employer] [place] [address] Social History Date Tobacco Use Types Packs/Day [...] of this encounter Results * CARDIOVERSION, EXTERNAL (05/04/2019 10:00 AM CDT) Specimen Narrative Performed At OTHER OUTSIDE LAB PROCEDURE NOTE Procedure:DC cardioversion. Indication:Persistent atrial fibrillation. Consent:Discussed procedure, including goals, risks, and alternative with patient and daughter.Signed consent form in chart. Anesthesia:MAC w/ IV propofol per Anesthesiology. Cotton Farmer:Pedro Marsh M.D. Findings:Chronically anticoagulated with apixaban but [...] 700 ml wide open. Pedro Marsh M.D. [phone] [facility] Organization Address City/State/Zipcode Phone Number OTHER OUTSIDE LAB documented in this encounter Visit Diagnoses Diagnosis Persistent atrial fibrillation (HCC) - Primary Atrial fibrillation documented in this encounter
--- OUTSIDE RECORDS SUMMARY | 2019-06-02 16:29 | XMS REPORT | Encounter Summary ---
Author Author [facility] Organization [facility] Address Unknown Phone Unavailable Care Team Providers Care Physician Interventional Cardiologist Name Role Phone Gladys Matthews Unavailable Unavailable Grabiel Suresh MD PCP Jeff Palma MD PCP Reason for Referral * Test (Routine) Referred By Contact Referred To Contact Status Reason Specialty Diagnoses / Procedures Alee Briscoe MD [address] [address] [facility] [address] [address] No Auth Needed Cardiology Diagnoses Persistent atrial fibrillation (HCC) P rocedures TRANSESOPHAGEAL ECHOCARDIOGRAM CT ECHO TRANSESOPHAG R-T 2D W/PRB IMG ACQUISJ I&R Encounter Details Care Team Description Date Type Department Alee Briscoe MD [address] [address] [phone] Persistent atrial fibrillation (HCC) (Primary Dx) 04/10/2019 Prep for Case [facility] [address] [place] [address] Social History Date Tobacco Use Types Packs/Day [...] filedocumented as of this encounter Results * TRANSESOPHAGEAL ECHOCARDIOGRAM (05/04/2019 10:04 AM CDT) BSA 1.84 m2 OTHER OUTSIDE LAB Referring Jeff Palma M.D. OTHER OUTSIDE Provider LAB CV ECHO DOUG Waite R.N. OTHER OUTSIDE JAVA LEAD ENGINEER LAB Cardiology [employer] [id number] OTHER OUTSIDE Ultrasound LAB Machine ECHO EF [...]
--- OUTSIDE RECORDS SUMMARY | 2019-06-02 16:29 | XMS REPORT | Encounter Summary ---
Author Author [facility] Organization [facility] Address Unknown Phone Unavailable Care Team Providers Care Rewinder Operator Helper Name Role Phone Gladys Matthews Unavailable Unavailable Grabiel Suresh MD PCP Reason for Referral * Consult, Test & Treat (Routine) Referred By Contact Referred To Contact Status Reason Specialty Diagnoses / Procedures Alee Briscoe MD [address] [place] [id number] New Request Procedures REQUEST FOR CARDIOLOGY APPOINTMENT * (Routine) Referred By Contact Referred To Contact Status Reason Specialty Diagnoses / Procedures Georgina Vazquez MD [address] [place] [address] [id number] New Request Procedures REQUEST FOR CARDIOLOGY APPOINTMENT Reason for Visit * Reason Comments Atrial fibrillation Referred by [facility] New To Provider * (Routine) Referred By Contact Referred To Contact Status Reason Specialty Diagnoses / Procedures Georgina Vazquez MD [address] [place] [address] [id number] New Request Procedures REQUEST FOR CARDIOLOGY APPOINTMENT Encounter Details Care Team Description Date Type Department Georgina Vazquez MD [address] [place] [address]015 [phone] Alee Briscoe MD [address] [place] [address] [id number] [phone] Atrial fibrillation (Referred by [facility] ); New To Provider 01/12/2019 Office Visit [facility] [address] [place] [address] Social History Date Tobacco Use Types Packs/Day [...] Signs Reading Time Taken Comments Vital Sign 82/58 01/12/2019 1:59 PM SLAG EXPANDER Blood Pressure 90 01/12/2019 1:59 PM SLAG EXPANDER Pulse - - Temperature - - Respiratory Rate - - Oxygen Saturation - - Inhaled Oxygen Concentration 74.6 kg (164 lb 8 oz) 01/12/2019 1:59 PM SLAG EXPANDER Weight 160 cm (5' 3") 01/12/2019 1:59 PM SLAG EXPANDER Height 29.14 01/12/2019 1:59 PM SLAG EXPANDER Body Mass Index documented in this encounter Functional Status Date of Assessment Functional Status Response 11/24/2018 Does the patient have a hearing impairment: No 11/24/2018 Does the patient have a visual impairment: Yes documented as of this encounter Patient Instructions * Patient Instructions* Katelynn Caballero RN - 01/12/2019 2:00 PM SLAG EXPANDER Your PFT are scheduled for 01/15 at 1100 at . - If you need to reschedule this appointment, please call [phone] Please start Amiodarone 200mg daily. - You will decrease your Metoprolol XL to 25mg twice daily. Please obtain an EKG in two weeks (order provided) Please schedule an appointment with Dr. Briscoe in 6 weeks. To schedule an appointment call [phone]. In order to provide you the best care possible we ask that you follow up as ana glasgow: For non-urgent questions please contact us through your [employer] account. For all medication refills please contact your pharmacy or send a request arielle Sanz. For all questions that may need to be addressed urgently please call the nursing triage voicemail at [phone] Tuesday - Tuesday 8-5 only. Please leave a detai led message with your name, date of , and reason for your call. Please allow ~ 10 business days for the results of any testing to be reviewed. Natalie rasmussen call our office if you have not heard from a nurse within this time frame. EXPANDER documented in this encounter Progress Notes * Alee Briscoe MD - 01/12/2019 2:00 PM SLAG EXPANDER Date of Service: 01/12/2019 Zee Fam is a 78 y.o. female. HPI Zee Fam presents to my office today in initial electrophysiology evaluation for atrial arrhythmias. As you know, she is an unfortunate 78-year-old female w ith a past medical history of hypertension, hyperlipidemia, newly diagnosed late onset Alzheimer's disease, and newly diagnosed atrial fibrillation who is in my office today in initial evaluation. Patient is previously been seen by my srini eague Dr. Georgina Vazquez. Dr. Vazquez last saw Mrs. Fam in the office in of this year. At that time, he noted her newly diagnosed persistent atrial fi brillation. He asked her to follow-up with electrophysiology. Zee is in my office today accompanied by her daughter. She is quite tearful i n the office. Apparently, I cared for her before his untimely 4 y ears ago. He underwent atrial fibrillation ablation and pacemaker implant by me . Zee tells me that she has been under a lot of stress over the last 4 years. Her in 2014 and approximately 1 year later, her older daughter di ed of a heart arrhythmia problem. In retrospect, she believes that she has had atrial fibrillation for about 4-5 years. She would feel her heart beat irregula rly and start and stutter. She was not necessarily surprised that she was in at rial fibrillation. She is also had some episodes of near syncope that lasts jus t a few seconds and then go away on its own. She was initially told that she wa s in atrial fibrillation but was reluctant to accept this diagnosis. She saw Dr Rashawn Vazquez in the office who reassured her that this was atrial fibrillation. Th e patient was started on anticoagulation and her medications were adjusted. Mrs. Fam is also been diagnosed with late onset Alzheimer's. She was initiall y prescribed Aricept but self discontinued it after she noted her heart rate was slow. She does not believe that she has Alzheimer's disease. In terms of her atrial arrhythmias, Mrs. Fam complains of some nonspecific fat igue and lightheadedness. Her daughter tells me that Zee used to be fairly ac tive but now just sits around all day. Zee believes she might be short of naeem ath on exertion. Again, she is tearful in the office stating she cannot believe that she has atrial fibrillation. She is here today to discuss treatment optio ns. Vitals: 01/12/19 1359 BP: (!) 82/58 Pulse: 90 Weight: 74.6 kg (164 lb 8 oz) Height: 1.6 m (5' 3") Body mass index is 29.14 kg/m. Past Medical History Patient Active Problem List Diagnosis Date Noted Atrial fibrillation (HCC) 01/12/2019. 01/02 echo: No regional wall motion [...] HENT: Negative. Eyes: Negative. Cardiovascular: Positive for dyspnea on exertion, irregular heartbeat and near-s yncope. Respiratory: Positive for shortness of breath. Endocrine: Negative. Hematologic/Lymphatic: Negative. Skin: Negative. Musculoskeletal: Positive for arthritis and gout. Gastrointestinal: Negative. Genitourinary: Negative. Neurological: Positive for excessive daytime sleepiness and loss of balance. Psychiatric/Behavioral: Positive for depression and memory loss. The patient has insomnia. Allergic/Immunologic: Negative. Physical Exam General Appearance: well developed, well nourished in no acute distress Skin: warm, moist, no ulcers HEENT: extraocular movements intact, oropharynx clear Neck Veins: neck veins are flat, neck veins are not distended Carotid Arteries: normal carotid upstroke bilaterally, no bruits Chest Inspection: chest is normal in appearance Auscultation/Percussion: lungs clear to auscultation, no rales, rhonchi, or whee zing Cardiac Rhythm: regular rhythm and normal rate Cardiac Auscultation: Normal S1 & S2, no S3 or S4, no rub Murmurs: no cardiac murmurs Extremities: no lower extremity edema; 2+ symmetric distal pulses Abdominal Exam: soft, non-tender, no masses, bowel sounds normal Liver & Spleen: no organomegaly Neurologic Exam: neurological assessment grossly intact Cardiovascular Studies 12 lead EKG: Atrial fibrillation, ventricular rate 90 bpm, QT 392 msec Problems Addressed Today Encounter Diagnoses Name Primary? Atrial fibrillation, unspecified type (HCC) Yes long-term current use of amiodarone Asthma, unspecified asthma severity, unspecified whether complicated, unspec ified whether persistent Essential hypertension Late onset Alzheimer's disease without behavioral disturbance Assessment and Plan Atrial fibrillation (HCC) She is currently in atrial fibrillation with a controlled ventricular response. Mrs. Fam is tearful in the office today telling me she cannot believe that she is in A. fib. I am not quite sure what brought on this strong emotional react ion other than the fact that both her and daughter had A. fib before the y . We talked about options for further treatment. We discussed cardioversion versu s keeping her in atrial fibrillation and concentrating on rate control. I am st ill not sure whether she is symptomatic with her A. fib. Mrs. Fam is very aga inst cardioversion. In her opinion, it never works. We talked about starting h er on an antiarrhythmic medication that might convert her back to sinus rhythm. After long discussion, I have decided to initiate amiodarone 200 mg a day. We will decrease her metoprolol to 25 mg twice daily. I would like to see how she does over the next few weeks. We will repeated EKG to see if she converted. Mr paris Fam is happy with this plan. She would like to be on antiarrhythmics at [facility] a few months before making a decision as to whether she would like to go for love with cardioversion. She tells me she has been taking her anticoagulants faithfully over the last tue. Therefore, we will start her amiodarone today. I strongly advised her not to miss any eliquis doses. Essential hypertension Blood pressure in the office today is low. She tells me that she is lightheaded when standing quickly. I am not sure if her hypotension is secondary to atrial arrhythmias or decreased intake. I have encouraged her to increase her fluid i ntake and eat regular meals. Late onset Alzheimer's disease without behavioral disturbance She has been diagnosed with Alzheimer's disease which is quite troubling for Eliana barakat. She is tearful in the office and tells me she will not take medications for this disorder. She believes that it is causing significant bradycardia. I enc ouraged her to discuss this further with her primary care doctor. I believe there is a significant anxiety/depression component to her symptoms. We briefly discussed the idea of her speaking with a counselor. I told her that if she did not have a change in her nonspecific symptoms with resumption of sin us rhythm, then this is most likely depression. I have asked the patient to follow up with me in 6 weeks. Current Medications (including today's revisions) albuterol (PROAIR HFA) 90 mcg/actuation inhaler Inhale 2 Puffs by mouth into the lungs every 6 hours as needed for Wheezing or Shortness of Breath. Shake we ll before use. ALPRAZolam (XANAX) 0.25 mg tablet Take 0.25 mg by mouth at bedtime as needed for Anxiety. amiodarone (CORDARONE) 200 mg tablet Take one tablet by mouth daily. Take th food. busPIRone (BUSPAR) 5 mg tablet Take one tablet by mouth daily. ELIQUIS 5 mg tablet Take 5 mg by mouth twice daily. ezetimibe (ZETIA) 10 mg tablet Take 1 Tab by mouth daily. furosemide (LASIX) 40 mg tablet Take 40 mg by mouth every morning. loratadine (CLARITIN) 10 mg tablet Take 10 mg by mouth every morning. metoprolol XL (TOPROL XL) 25 mg extended release tablet Take one tablet by m outh twice daily. montelukast (SINGULAIR) 10 mg tablet Take 10 mg by mouth at bedtime daily. olmesartan(+) (BENICAR) 40 mg tablet Take 40 mg by mouth daily. omeprazole DR(+) (PRILOSEC) 20 mg capsule Take 20 mg by mouth daily before b reakfast. rosuvastatin (CRESTOR) 20 mg tablet Take 1 Tab by mouth daily. EXPANDER documented in this encounter Plan of Treatment Order Schedule Name Type Priority Associated Diagnoses Ordered: 01/12/2019 ECG 12-LEAD ECG Routine vermin exterminator current use of amiodarone Ordered: 01/12/2019 PFT COMPLETE PULM PFT Routine Atrial fibrillation, FUNCTION unspecified type (HCC) documented as of this encounter Procedures Comments Procedure Name Priority Date/Time Associated Diagnosis ECG-SCAN 01/12/2019 12:00 AM SLAG EXPANDER ECG/QRS Routine 01/12/2019 documented in this encounter Results * ECG 12-LEAD (05/08/2019) Narrative Performed At Performing Organization Address City/State/Zipcode Phone Number IN CLINIC * ECG-SCAN (01/12/2019 12:00 AM SLAG EXPANDER) Narrative Performed At Ordered by an unspecified provider. * ECG/QRS (01/12/2019) QRS DURATION 82 OTHER OUTSIDE LAB Performing Organization Address City/State/Zipcode Phone Number OTHER OUTSIDE LAB documented in this encounter Visit Diagnoses Diagnosis Atrial fibrillation, unspecified type (HCC) - Primary vermin exterminator current use of amiodarone Asthma, unspecified asthma severity, unspecified whether complicated, unspecified whether persistent Essential hypertension Unspecified essential hypertension Late onset Alzheimer's disease without behavioral disturbance * Assessment & Plan Note - Alee Briscoe MD - 01/12/2019 3:58 PM SLAG EXPANDER Associated Problem(s): Late onset Alzheimer's disease without behavioral disturb martye She has been diagnosed with Alzheimer's disease which is quite troubling for Pat sy. She is tearful in the office and tells me she will not take medications for this disorder. She believes that it is causing significant bradycardia. I enc ouraged her to discuss this further with her primary care doctor. EXPANDER * Assessment & Plan Note - Alee Briscoe MD - 01/12/2019 3:57 PM SLAG EXPANDER Associated Problem(s): Essential hypertension Blood pressure in the office today is low. She tells me that she is lightheaded when standing quickly. I am not sure if her hypotension is secondary to atrial arrhythmias or decreased intake. I have encouraged her to increase her fluid i ntake and eat regular meals. EXPANDER * Assessment & Plan Note - Alee Briscoe MD - 01/12/2019 3:54 PM SLAG EXPANDER Associated Problem(s): Atrial fibrillation (HCC) She is currently in atrial fibrillation with a controlled ventricular response. Mrs. Fam is tearful in the office today telling me she cannot believe that she is in A. fib. I am not quite sure what brought on this strong emotional react ion other than the fact that both her and daughter had A. fib before the y . We talked about options for further treatment. We discussed cardioversion versu s keeping her in atrial fibrillation and concentrating on rate control. I am st ill not sure whether she is symptomatic with her A. fib. Mrs. Fma is very aga inst cardioversion. In her opinion, it never works. We talked about starting h er on an antiarrhythmic medication that might convert her back to sinus rhythm. After long discussion, I have decided to initiate amiodarone 200 mg a day. We will decrease her metoprolol to 25 mg twice daily. I would like to see how she does over the next few weeks. We will repeated EKG to see if she converted. Mr paris Fam is happy with this plan. She would like to be on antiarrhythmics at [facility] a few months before making a decision as to whether she would like to go for love with cardioversion. She tells me she has been taking her anticoagulants faithfully over the last tue. Therefore, we will start her amiodarone today. I strongly advised her not to miss any eliquis doses. EXPANDER documented in this encounter
--- OUTSIDE RECORDS SUMMARY | 2019-06-02 16:29 | XMS REPORT | Encounter Summary ---
Author Author [facility] Organization [facility] Address Unknown Phone Unavailable Care Team Providers Care Carpet Installer Helper Name Role Phone Gladys Matthews Unavailable Unavailable Grabiel Suresh MD PCP Encounter Details Care Team Description Date Type Department Alee Briscoe MD [address] [place], [place] [address] [place] [address] [phone] 01/15/2019 Hospital [facility] [address] [facility] [address] [place] [address] Social History Date Tobacco Use Types Packs/Day [...] mouth at bedtime as needed for Anxiety. 09/02/2016 ezetimibe (ZETIA) 10 mg Take 1 Tab by 90 Tab 1 tablet mouth daily. montelukast (SINGULAIR) Take 10 mg by 0 10 mg tablet mouth at bedtime daily. omeprazole DR(+) Take 20 mg by 0 (PRILOSEC) 20 mg capsule mouth daily before breakfast. 08/09/2016 rosuvastatin (CRESTOR) 20 Take 1 Tab by 0 mg tablet mouth daily. 04/27/2019 albuterol (PROAIR HFA) 90 Inhale 2 0 mcg/actuation inhaler Puffs by mouth into the lungs every 6 hours as needed for Wheezing or Shortness of Breath. Shake well before use. 01/12/2019 05/31/2019 amiodarone (CORDARONE) Take one 90 tablet 1 200 mg tablet tablet by mouth daily. Take with food. 11/24/2018 05/15/2019 busPIRone (BUSPAR) 5 mg Take one 30 tablet 1 tablet tablet by mouth daily. 11/23/2018 04/18/2019 ELIQUIS 5 mg tablet Take 5 mg by 0 mouth twice daily. 01/18/2019 furosemide (LASIX) 40 mg Take 40 mg by 0 tablet mouth every morning. 03/26/2019 loratadine (CLARITIN) 10 Take 10 mg by 0 mg tablet mouth every morning. 01/12/2019 05/14/2019 metoprolol XL (TOPROL XL) Take one 180 tablet 1 25 mg extended release tablet by tablet mouth twice daily. 01/24/2019 olmesartan(+) (BENICAR) Take 40 mg by 0 40 mg tablet mouth daily. documented as of this encounter Plan of Treatment Not on filedocumented as of this encounter Procedures Comments Procedure Name Priority Date/Time Associated Diagnosis PFT COMPLETE PULM Routine 01/15/2019 Atrial fibrillation, FUNCTION 11:40 AM EQUINE BREEDER unspecified type (HCC) documented in this encounter Results * PFT COMPLETE PULM FUNCTION (01/15/2019 11:40 AM EQUINE BREEDER) FVC-Pre 2.30 L [facility] FVC-%Pred-pre 102 % [facility] FEV1-Pre 1.85 L [facility] FEV1-%Pred-Pre 111 % [facility] FEV1/FVC-Pre 80 % [facility] [id number] 64 % [facility] [id number] 1.66 L/sec [facility] PIO3123-%Pred-P 134 % [facility] re RVPleth-Pre 2.32 L [facility] RVPleth-%Pred-P 103 % [facility] re TLCPleth-Pre 4.61 L [facility] TLCPleth-%Pred- 100 % [facility] Pre DLCOunc-Pre 14.68 ml/min/mmHg [facility] DLCOunc-%Pred-P 80 % [facility] re DLCOunc-#SD -0.932 ml/min/mmHg [facility] DLVA-Pred 4.27 ml/min/mmHg/L [facility] DLVA-Pre 3.89 ml/min/mmHg/L [facility] DLVA-%Pred-Pre 91 % [facility] DLVA-SD 0.80 ml/min/mmHg/L [facility] DLVA-LLN 2.67 ml/min/mmHg/L [facility] DLVA-ULN 5.87 ml/min/mmHg/L [facility] DLVA-#SD -0.478 ml/min/mmHg/L [facility] [id number] 79 % [facility] Specimen Narrative Performed At Performing Organization Address City/State/Zipcode Phone Number [facility] [address] [place] [address] documented in this encounter Visit Diagnoses Diagnosis Atrial fibrillation, unspecified type (HCC) - Primary documented in this encounter
--- OUTSIDE RECORDS SUMMARY | 2019-06-02 16:29 | XMS REPORT | Encounter Summary ---
Author Author [facility] Organization [facility] Address Unknown Phone Unavailable Care Team Providers Care Operations Business Partner Name Role Phone Gladys Matthews Unavailable Unavailable Grabiel Suresh MD PCP Reason for Visit * Reason Comments Medication Request Encounter Details Care Team Description Date Type Department Belkis Abdi RN Medication Request 04/18/2019 Telephone [facility] [address] [place] [address] Social History Date Tobacco Use Types Packs/Day [...] Telephone Encounter - Belkis Abdi RN - 04/18/2019 11:58 AM CDT Returned call to patient to verify what pharmacy to send to. I have sent to [facility] per her request and instructed her to go pick it up and take it RONNY today a nd get the second dose in today as well. If she were to miss any doses we would need to possibly reschedule her procedure if she did not want a FARA. Pt verbalized understanding. 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 Said that she went to fill her blood thinner and no refills. Did not say what pharmacy and no ph # or on caller ED. VM from patient on triage line at 11am. Said that this is Urgent request as she is out of her Eliquis 5mg, needs to take one this am. Said that Dr. Rodriguez will not fill. Call back at # [phone]. documented in this encounter Plan of Treatment Not on filedocumented as of this encounter Visit Diagnoses Not on filedocumented in this encounter
--- OUTSIDE RECORDS SUMMARY | 2019-06-02 16:29 | XMS REPORT | Encounter Summary ---
Author Author [facility] Organization [facility] Address Unknown Phone Unavailable Care Team Providers Care Tank Operator Name Role Phone Gladys Matthews Unavailable Unavailable Grabiel Suresh MD PCP Reason for Visit * Reason Comments Precertification Approval Encounter Details Care Team Description Date Type Department Geovanna Wren Precertification (Approval) 04/06/2019 Documentation [facility] [address] [facility] [place] [address] Social History Date Tobacco Use Types Packs/Day [...] encounter Progress Notes * Geovanna Wren - 04/06/2019 8:54 AM CDT Medicare (PrimarY0 No pre-certification is required documented in this encounter Plan of Treatment Not on filedocumented as of this encounter Visit Diagnoses Not on filedocumented in this encounter
--- OUTSIDE RECORDS SUMMARY | 2019-06-02 16:30 | XMS REPORT | Encounter Summary ---
Author Author [facility] Organization [facility] Address Unknown Phone Unavailable Care Team Providers Care Business Process Associate Name Role Phone Gladys Matthews Unavailable Unavailable Grabiel Suresh MD PCP Encounter Details Care Team Description Date Type Department Sidra Raygoza LSCSW 12/15/2018 Patient [facility] [address] [facility] [address] [facility] [address] [place] [phone] Social History Date Tobacco Use Types [...]
--- OUTSIDE RECORDS SUMMARY | 2019-06-02 16:30 | XMS REPORT | Encounter Summary ---
Author Author [facility] Organization [facility] Address Unknown Phone Unavailable Care Team Providers Care Customer Relations Consultant Name Role Phone Gladys Matthews Unavailable Unavailable Grabiel Suresh MD PCP Encounter Details Care Team Description Date Type Department Sidra Raygoza LSCSW 12/14/2018 Patient [facility] [address] [facility] [address] [facility] [address] [place] [phone] Social History Date Tobacco Use Types [...]
--- OUTSIDE RECORDS SUMMARY | 2019-06-02 16:30 | XMS REPORT | Encounter Summary ---
Author Author [facility] Organization [facility] Address Unknown Phone Unavailable Care Team Providers Care Geothermal Plant Manager Name Role Phone Gladys Matthews Unavailable Unavailable Grabiel Suersh MD PCP Reason for Visit * Reason Comments Memory Loss Encounter Details Care Team Description Date Type Department Sidra Raygoza LSCSW 12/20/[address] [place] [phone] Social History Date Tobacco Use Types [...] as of this encounter Progress Notes * Sidra Raygoza LSCSW - 12/20/2018 11:59 PM IRRIGATION SYSTEM INSTALLER Talked with daughter. Describes current stressors. Zee lives alone, moving f rom her 'dream home' to the [facility] June 2018. Multiple losses in recent ye ars including traumatic of in 2014, sudden of daughter in in addition to move in 2018 and diagnosis. Some family still lives in [place] including a brother and sister and there are friends that she regularly se es. Zee doesn't cook - typically orders out. Hermila reports that Zee does accept diagnosis. Had been aware something was "wrong with my brain". Has lost 4 cell phones and several wallets in last year. They utilize [employer] for remind ers. Hermila is looking ahead and concerned about her getting lost. Discussed dallin hnology options for wandering risk reduction. Zee also has a computer systems manager that she trusts. Daughter goes down 1x a month to help. 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 Described as a person that always had to have things her way - would not let things go. Had never irma ed alone prior to of . Regularly sees a therapist in [place] to work on grief issues. Discussed support groups - including those for individuals in early stage. Tonya birmingham indicates her mother would be interested. Daughter will talk with Zee a nd schedule time to meet and discuss early stage resources. Next Steps: 1) Meet with Zee at time she is in town. 2) Send daughter support group list and technology information sheet. Time: 4:00 to 4:51pm 51 minutes. GATION SYSTEM INSTALLER documented in this encounter Plan of Treatment Not on filedocumented as of this encounter Visit Diagnoses Not on filedocumented in this encounter
--- OUTSIDE RECORDS SUMMARY | 2019-06-02 16:30 | XMS REPORT | Encounter Summary ---
Author Author [facility] Organization [facility] Address Unknown Phone Unavailable Care Team Providers Care Value Advisor Name Role Phone Gladys Matthews Unavailable Unavailable Cleo May MD PCP Reason for Referral * Test (Routine) Referred By Contact Referred To Contact Status Reason Specialty Diagnoses / Procedures Georgina Vazquez MD [address] [place] [id number] [facility] Echo/Pv [address] [place] [address] No Auth Needed Cardiology Diagnoses Shortness of breath Essential hypertension Abnormal screening cardiac CT Atrial fibrillation, unspecified type (HCC) P rocedures 2-D + DOPPLER ECHOCARDIOGRAM DE ECHO TTHRC R-T 2D W/WOM-MODE COMPL SPEC&COLR D * (Routine) Referred By Contact Referred To Contact Status Reason Specialty Diagnoses / Procedures Georgina Vazquez MD [address] [place] [id number] New Request Procedures REQUEST FOR CARDIOLOGY APPOINTMENT Reason for Visit * Reason Comments Cardiac Eval NEW ON SET A-FIB Encounter Details Care Team Description Date Type Department Georgina Vazquez MD [address] [place] [address] [phone] Cardiac Eval (NEW ON SET A-FIB) 12/11/2018 Office Visit [facility] [address] [place], [place] [id number] Social History Date Tobacco Use Types Packs/Day [...] Signs Reading Time Taken Comments Vital Sign 90/60 12/11/2018 1:37 PM USER EXPERIENCE ARCHITECT Blood Pressure 99 12/11/2018 1:37 PM USER EXPERIENCE ARCHITECT Pulse - - Temperature - - Respiratory Rate 98% 12/11/2018 1:37 PM USER EXPERIENCE ARCHITECT Oxygen Saturation - - Inhaled Oxygen Concentration 74.7 kg (164 lb 11.2 oz) 12/11/2018 1:37 PM USER EXPERIENCE ARCHITECT Weight 160 cm (5' 3") 12/11/2018 1:37 PM USER EXPERIENCE ARCHITECT Height 29.18 12/11/2018 1:37 PM USER EXPERIENCE ARCHITECT Body Mass Index documented in this encounter Functional Status Date of Assessment Functional Status Response 11/24/2018 Does the patient have a hearing impairment: No 11/24/2018 Does the patient have a visual impairment: Yes documented as of this encounter Patient Instructions * Patient Instructions* Sade Fitzpatrick RN - 12/11/2018 1:30 PM USER EXPERIENCE ARCHITECT Increase your metoprolol to 50 mg twice daily EXPERIENCE ARCHITECT documented in this encounter Progress Notes * Georgina Vazquez MD - 12/11/2018 1:30 PM USER EXPERIENCE ARCHITECT Date of Service: 12/11/2018 Zee Fam is a 77 y.o. female. HPI I saw Zee Fam today along with her daughter. Zee is now 77 years of age. We have seen her over the last 2 or 3 years because of a high calcium score and a bad family history of heart disease, but her tests have all been okay. Duke lopez she has been found to be in atrial fibrillation and she has probably had edvin e intermittent bouts over the years, but she has now been on Eliquis 5 mg twice a day for about a month. She has also had an evaluation for memory issues and s he is felt to have early Alzheimer's at this point, although she really seems to function pretty well. She is not having any chest pain and her breathing is okay. She has had no sync opal episodes. She is tolerating her current medicines well. ([id number]) Vitals: 12/11/18 1337 BP: 90/60 Pulse: 99 SpO2: 98% Weight: 74.7 kg (164 lb 11.2 oz) Height: 1.6 m (5' 3") Body mass index is 29.18 kg/m. Past Medical History Patient Active Problem List Diagnosis Date Noted Late onset Alzheimer's disease without behavioral disturbance [...] ml Review of Systems Constitution: Negative. HENT: Positive for hearing loss. Eyes: Negative. Cardiovascular: Positive for irregular heartbeat and palpitations. Respiratory: Positive for cough. Endocrine: Negative. Skin: Negative. Musculoskeletal: Positive for joint pain. Gastrointestinal: Negative. Genitourinary: Negative. Neurological: Negative. Psychiatric/Behavioral: Positive for memory loss. The patient is nervous/anxious . Allergic/Immunologic: Negative. All other systems reviewed and are negative. Physical Exam General Appearance: no acute distress Skin: warm, moist, no ulcers HEENT: EOMI, mucus membranes moist and intact Neck Veins: neck veins are flat, neck veins are not distended Carotid Arteries: normal carotid upstroke bilaterally, no bruits Chest Inspection: chest is normal in appearance Auscultation/Percussion: lungs clear to auscultation, no rales, rhonchi, or whee zing Cardiac Rhythm: irregular rhythm and normal rate Cardiac Auscultation: Normal S1 & S2, no S3 or S4, no rub Murmurs: no cardiac murmurs Extremities: no lower extremity edema; 2+ symmetric distal pulses Abdominal Exam: soft, non-tender, no masses, bowel sounds normal Liver & Spleen: no organomegaly Neurologic Exam: neurological assessment grossly intact Cardiovascular Studies Problems Addressed Today Encounter Diagnoses Name Primary? Atrial fibrillation, unspecified type (HCC) Yes Shortness of breath Essential hypertension Abnormal screening cardiac CT Assessment and Plan Her blood pressure is actually a little low at 90/60. Her pulse rate is irregul ar at about 99. Her O2 saturation is 98% on room air. Her weight is down to 16 4 pounds, and she has lost almost 80 pounds with the aid of [employer]. Ky morris has reached her goal weight at this point. Our plan is to have her stop her Norvasc. I want her to see Dr. Briscoe who woodruff s done an ablation on her in the past for atrial fibrillation. Then we are going to be sure she continues on the Toprol-XL 50 mg twice a day. Then whe n she is back to see Dr. Briscoe, I want to get an echo Doppler study. It may be best to just leave her in atrial fibrillation and control her rate, although I want to see what Dr. Briscoe's thoughts would be. I did not hear a carotid b ruit today, although we have heard one in the past. She has had her carotids ch ecked and there has been no significant disease present. ([id number]) Current Medications (including today's revisions) albuterol (PROAIR HFA) 90 mcg/actuation inhaler Inhale 2 Puffs by mouth into the lungs every 6 hours as needed for Wheezing or Shortness of Breath. Shake we ll before use. ALPRAZolam (XANAX) 0.25 mg tablet Take 0.25 mg by mouth at bedtime as needed for Anxiety. aspirin 81 mg chewable tablet Chew 81 mg by mouth daily. Take with food. busPIRone (BUSPAR) 5 mg tablet Take one tablet by mouth daily. docusate (COLACE) 100 mg capsule Take 100 mg by mouth twice daily. ELIQUIS 5 mg tablet Take 5 mg by mouth twice daily. ezetimibe (ZETIA) 10 mg tablet Take 1 Tab by mouth daily. furosemide (LASIX) 40 mg tablet Take 40 mg by mouth every morning. loratadine (CLARITIN) 10 mg tablet Take 10 mg by mouth every morning. metoprolol XL (TOPROL XL) 50 mg extended release tablet Take one tablet by m outh twice daily. montelukast (SINGULAIR) 10 mg tablet Take 10 mg by mouth at bedtime daily. olmesartan(+) (BENICAR) 40 mg tablet Take 40 mg by mouth daily. omeprazole DR(+) (PRILOSEC) 20 mg capsule Take 20 mg by mouth daily before b reakfast. rosuvastatin (CRESTOR) 20 mg tablet Take 1 Tab by mouth daily. EXPERIENCE ARCHITECT documented in this encounter Plan of Treatment Order Schedule Name Type Priority Associated Diagnoses Ordered: 12/11/2018 ECG 12-LEAD ECG Routine Shortness of breath Essential hypertension Abnormal screening cardiac CT documented as of this encounter Procedures Comments Procedure Name Priority Date/Time Associated Diagnosis ECG-SCAN 12/11/2018 12:00 AM USER EXPERIENCE ARCHITECT ECG/QRS Routine 12/11/2018 documented in this encounter Results * 2-D + DOPPLER ECHOCARDIOGRAM (12/18/2018 2:15 PM USER EXPERIENCE ARCHITECT) LVOT diameter 2.13 cm OTHER OUTSIDE LAB IVS 1.0 0.6 - 0.9 cm OTHER OUTSIDE LAB LVIDD 3.89 3.8 - 5.2 cm OTHER OUTSIDE LAB LVIDS 2.61 2.2 - 3.5 cm OTHER OUTSIDE LAB PW 0.9 0.6 - 0.9 cm OTHER OUTSIDE LAB TDI e' 0.11 m/s OTHER OUTSIDE LAB LVOT peak glen 0.70 m/s OTHER OUTSIDE LAB LVOT peak VTI 14.30 cm OTHER OUTSIDE LAB Right 2.61 1.9 - 3.5 cm OTHER OUTSIDE Ventricular Mid LAB Diameter LA size 5.63 2.7 - 3.8 cm OTHER OUTSIDE LAB LA volume 76.33 22 - 52 mL OTHER OUTSIDE LAB Right Atrial 9.91 <18 cm2 OTHER OUTSIDE Area LAB Right Atrial 4.75 2.2 - 2.8 cm OTHER OUTSIDE Major Dimension LAB and a peak 5.50 mmHg OTHER OUTSIDE gradient of LAB AV peak 1.17 m/s OTHER OUTSIDE velocity LAB Mr max glen 4.08 m/s OTHER OUTSIDE LAB MV Peak E Glen 1.27 m/s OTHER OUTSIDE PW LAB Right 2.66 2.5 - 4.1 cm OTHER OUTSIDE Ventricular LAB Basal Diameter Right Heart 2.13 >1.7 cm OTHER OUTSIDE Systolic Mmode LAB TAPSE Sinus 3.02 2.7 - 3.3 cm OTHER OUTSIDE LAB BSA 1.82 m2 OTHER OUTSIDE LAB Referring DR. CLEO MAY OTHER OUTSIDE Provider LAB FS 32.90 28 - 44 % OTHER OUTSIDE LAB EF 55.94 % OTHER OUTSIDE LAB LV mass 113.12 66 - 150 g OTHER OUTSIDE LAB RWT 0.46 <=0.42 OTHER OUTSIDE LAB AV index 0.60 OTHER OUTSIDE ([place]) LAB MV 74.88 % OTHER OUTSIDE regurgitation LAB fraction MV vena 0.32 cm OTHER OUTSIDE contracta LAB LVOT area 3.56 cm2 OTHER OUTSIDE LAB LVOT stroke 50.95 cm3 OTHER OUTSIDE volume LAB E/E' ratio 11.55 OTHER OUTSIDE LAB MV Comp SV 48.49 cm3 OTHER OUTSIDE LAB MV Comp 2.1 cm OTHER OUTSIDE diameter LAB MV Comp area 3.46 cm2 OTHER OUTSIDE LAB MV Comp VTI 14 cm OTHER OUTSIDE LAB MV Incomp 3.2 cm OTHER OUTSIDE diameter LAB MV Incomp area 8.04 cm2 OTHER OUTSIDE LAB MV Incomp VTI 24 cm OTHER OUTSIDE LAB MV Incomp SV 193.02 cm3 OTHER OUTSIDE LAB MV regurgitant 144.53 cc OTHER OUTSIDE volume LAB Left Atrium 41.94 16 - 34 OTHER OUTSIDE Index LAB Cardiology Siemens [id number] OTHER OUTSIDE Ultrasound LAB Machine Left Ventricle 62.15 44 - 88 g/m2 OTHER OUTSIDE Mass Index LAB Vn Nyquist 0.34 m/s OTHER OUTSIDE LAB Radius 0.6 cm OTHER OUTSIDE LAB TV rest 25 mmHg OTHER OUTSIDE pulmonary LAB artery pressure Right Heart 0.101 m/s OTHER OUTSIDE Systolic TDI S' LAB MR LEANNE RIVERA 0.19 cm2 OTHER OUTSIDE LAB ECHO EF 60 % OTHER OUTSIDE LAB Specimen Narrative Performed At OTHER OUTSIDE LAB 1. No regional wall motion abnormalities are seen. Overall LV systolic function appears normal. The estimated left ventricular ejection fraction is 60%. 2. Right ventricular contractility appears normal. 3. Moderate left atrial enlargement. 4. Moderate mitral valve regurgitation.Mild tricuspid valve regurgitation. 5. Aortic valve sclerosis without stenosis. 6. No pericardial effusion is seen. Performing Organization Address City/State/Zipcode Phone Number OTHER OUTSIDE LAB * ECG-SCAN (12/11/2018 12:00 AM USER EXPERIENCE ARCHITECT) Narrative Performed At Ordered by an unspecified provider. * ECG/QRS (12/11/2018) QRS DURATION 82 OTHER OUTSIDE LAB Performing Organization Address City/State/Zipcode Phone Number OTHER OUTSIDE LAB documented in this encounter Visit Diagnoses Diagnosis Atrial fibrillation, unspecified type (HCC) - Primary Shortness of breath Essential hypertension Unspecified essential hypertension Abnormal screening cardiac CT Nonspecific (abnormal) findings on radiological and other examination of other intrathoracic organs documented in this encounter
--- OUTSIDE RECORDS SUMMARY | 2019-06-02 16:30 | XMS REPORT | Encounter Summary ---
Author Author [facility] Organization [facility] Address Unknown Phone Unavailable Care Team Providers Care Bilingual Speech Therapist Name Role Phone Gladys Matthews Unavailable Unavailable Grabiel Suresh MD PCP Reason for Visit * Reason Comments Echo Results Encounter Details Care Team Description Date Type Department Sade Fitzpatrick RN Echo Results 12/18/2018 Telephone The [facility] [address] [place], [place] [address] Social History Date Tobacco Use Types Packs/Day [...] Telephone Encounter - Sade Fitzpatrick RN - 12/19/2018 10:18 AM RDA Patient given results and recommendations below. * Telephone Encounter - Sade Fitzpatrick RN - 12/18/2018 3:21 PM RDA Left message on machine to call back for results * Telephone Encounter - Sade Fitzpatrick RN - 12/18/2018 3:19 PM RDA ----- Message from Georgina Vazquez MD sent at 12/18/2018 3:01 PM RDA ----- Can you let her know her echo is ok.heart muscle good. There is moderate mitral leakage but not bad enough to consider surgery. Stay on same program til she see s Briscoe. ----- Message ----- From: Jordi Grigsby MD Sent: 12/18/2018 2:46 PM To: Georgina Vazquez MD documented in this encounter Plan of Treatment Not on filedocumented as of this encounter Visit Diagnoses Not on filedocumented in this encounter
--- OUTSIDE RECORDS SUMMARY | 2019-06-02 16:30 | XMS REPORT | Encounter Summary ---
Author Author [facility] Organization [facility] Address Unknown Phone Unavailable Care Team Providers Care Valve Fitter Name Role Phone Gladys Matthews Unavailable Unavailable Grabiel Suresh MD PCP Reason for Visit * Reason Comments Appointment Request New onset atrial fib Encounter Details Care Team Description Date Type Department Swetha Leroy RN Appointment Request (New onset atrial fib) 12/13/2018 Telephone [facility] [address] [facility] [address] [place] [address] Social History Date Tobacco Use [...] encounter Miscellaneous Notes * Telephone Encounter - Swetha Leroy RN - 12/13/2018 9:33 AM SUPERVISOR BLOOMING MILL Patient called yesterday with same issue she is calling about today. Message se nt to nurse with yesterday's call. She is upset that she has not gotten a call back. She saw [facility] on Tuesday. Diagnosed with new-onset atrial fib and was instr ucted to see EP physician. She did not look at appointment date until she got h ome and it was for 2 months out. She understood that K wanted her seen RONNY a nd she is concerned. She would like a call back today at . [employer]ISOR BLOOMING MILL documented in this encounter Plan of Treatment Not on filedocumented as of this encounter Visit Diagnoses Not on filedocumented in this encounter
--- OUTSIDE RECORDS SUMMARY | 2019-06-02 16:30 | XMS REPORT ---
Author Author CLEO MAY Organization [facility] Address [address] [facility] [place] [address] Care Team Providers Care Underwear Hemmer Name Role Phone CLEO MAY Unavailable PROBLEMS Type Condition ICD9-CM Code [id number] Code Onset Dates Condition Status SNOMED Code Problem DDD (degenerative disc disease), lumbar M51.36 May, 0 82413621 Problem Left sided sciatica M54.32 May, 0 50181958 Problem B12 deficiency E53.8 Aug, 0 81380634 Problem Type 2 diabetes mellitus without complication E11.9 Jul, 0 905145067 Problem Personal history of malignant neoplasm of breast Z85.3 0 086243797 Problem Essential hypertension I10 0 84899370 Problem Pure hypercholesterolemia E78.00 0 178147103 Problem Trochanteric bursitis, left hip M70.62 May, 0 [id number] Problem Trochanteric bursitis, left hip 726.5 May, 0 [id number] Problem Inguinal hernia without mention of obstruction or gangrene, unilateral or unspecified, (not specified as recurrent) K40.90 0 857623387 Problem Left sided sciatica 724.3 May, 0 47482591 Problem Paroxysmal atrial fibrillation I48.0 Active 460940021 Problem Spondylolisthesis at L4-L5 level M43.16 May, 0 177587988 Problem Dementia in other diseases classified elsewhere without behavioral disturbance F02.80 Active 725233049 Problem 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 Jul, 0 12220307 Problem Reactive depression (situational) 300.4 04 Jul, 2015 0 35146452 Problem Alzheimer''s disease with late onset G30.1 Active 82429228 Problem Gait instability R26.81 Active 979569533 Problem Type 2 diabetes mellitus without complication, without long-term current use of insulin E11.9 Active 256284618 ALLERGIES Substance Reaction Event Type Date Status [facility] unknown Drug Allergy Jan, Active ENCOUNTERS Encounter Location Date [facility] [address] [address] Feb, [facility] [address] [address] Jan, [facility] [address] [address] Jan, Paroxysmal atrial fibrillation I48.0 ; B12 deficiency E53.8 and Essential hypertension I10 [facility] [address] [address] Jan, Paroxysmal atrial fibrillation I48.0 ; B12 deficiency E53.8 ; Essential hypertension I10 ; Pure hypercholesterolemia E78.00 ; Alzheimer''s disease with late onset G30.1 ; Dementia in other diseases classified elsewhere without behavioral disturbance F02.80 ; Type 2 diabetes mellitus without complication, without long-term current use of insulin E11.9 and Gait instability R26.81 [place] [address] [place] [address] Nov, [place] [address] [place] [id number] [place] [address] Oct, [place] [address] [place] [id number] [place] [phone] Sep, [facility] [address] [place] [address] Aug, [place] [address] [place] [id number] [place] [phone] Aug, [place] [address] [place] [phone] Jan, IMMUNIZATIONS No Known Immunizations SOCIAL HISTORY Never Assessed REASON FOR VISIT Establish Care PLAN OF CARE Activity Details Follow Up 3 Months Reason:fu with labs prior VITAL SIGNS Height 64.33213651365520 in 2019-01-22 Weight 170lb lbs 2019-01-22 BMI 29.16 kg/m2 2019-01-22 Blood pressure systolic 130 mmHg 2019-01-22 Blood pressure diastolic 72 mmHg 2019-01-22 MEDICATIONS Medication Instructions Dosage Frequency Start Date End Date Duration Status Albuterol Sulfate Hfa 90 McG/Actuation Aerosol Inhaler Jan, Active Amiodarone HCl 200 MG Orally Once a day 1 tablet 24h 30 day(s) Active Crestor 20 MG Orally Once a day 1 tablet 24h 30 day(s) Active Zetia 10 MG Orally Once a day 1 tablet 24h 30 day(s) Active BusPIRone HCl 5 MG Orally Three times a day 1 tablet 8h Active Symbicort 160-4.5 MCG/ACT Inhalation Twice a day 2 puffs 12h Active Mobic 15 MG Orally Once a day 1 tablet 24h 30 day(s) Active Omeprazole 20 MG Orally Once a day 1 capsule 24h 30 day(s) Active Allopurinol 300 MG Orally Once a day 1 tablet 24h 30 day(s) Active Eliquis 5 MG as directed Active Lasix 40 MG Orally Once a day 1 tablet 24h 30 day(s) Active Sertraline HCl 25 MG Oct, Active Psyllium Fiber 0.52 GM Orally Three times a day 2 capsules with 8 ounces of liquid 8h 30 day(s) Active Donepezil HCl 5 MG Sep, Active Albuterol Sulfate HFA 108 (90 Base) MCG/ACT Inhalation every 6 hrs 2 puffs as needed 6h Active Benicar 40 MG Orally Once a day 1 tablet 24h 30 day(s) Active Olmesartan 40 Mg-Hydrochlorothiazide 25 Mg Tablet Sep, Active Toprol XL 25 MG Orally 2 times a day 1 tablet 12h 30 day(s) Active Betamethasone Sod Phos & Acet 6 (3-3) MG/ML Jun, Active Xanax 0.25 MG Orally at bedtime 1 tablet Active Singulair 10 MG Orally Once a day 1 tablet 24h 30 day(s) Active RESULTS No Results PROCEDURES Procedure Date Ordered Result Body Site [facility] VISIT NEW PATIENT January 22, 2019 INSTRUCTIONS MEDICATIONS ADMINISTERED No Known Medications MEDICAL (GENERAL) HISTORY Type Description Date Medical History malignant neoplasm of breast Medical History trochanteric bursitis, left hip Medical History spondylolisthesis at l4-l5 level Medical History degenerative disc diseae, lumbar Medical History late onset of alzheimers Medical History Type 2 diabetes mellitus Medical History Hypertension Medical History Hypercholesteremia Medical History B12 deficiency Medical History Reactive depression Medical History Left sided sciatica Surgical History breast cancer Surgical History colon resection x2 Surgical History cardiac cath Surgical History hysterectomy Hospitalization History surgeries
--- OUTSIDE RECORDS SUMMARY | 2019-06-02 16:30 | XMS REPORT | Encounter Summary ---
Author Author [facility] Organization [facility] Address Unknown Phone Unavailable Care Team Providers Care Field Software Engineer Name Role Phone ByronGladys Unavailable Unavailable Cleo May MD PCP Reason for Referral * Test (Routine) Referred By Contact Referred To Contact Status Reason Specialty Diagnoses / Procedures Georgina Vazquez MD [address] [place] [id number] [facility] [facility]/Pv [address] [place] [address] No Auth Needed Cardiology Diagnoses Shortness of breath Essential hypertension Abnormal screening cardiac CT Atrial fibrillation, unspecified type (HCC) P rocedures 2-D + DOPPLER ECHOCARDIOGRAM DE ECHO TTHRC R-T 2D W/WOM-MODE COMPL SPEC&COLR D * Test (Routine) Referred By Contact Referred To Contact Status Reason Specialty Diagnoses / Procedures Georgina Vazquez MD [address] [place] [id number] [facility] [address] [place] [address] No Auth Needed Cardiology Diagnoses Shortness of breath Essential hypertension Abnormal screening cardiac CT Atrial fibrillation, unspecified type (HCC) P rocedures 2-D + DOPPLER ECHOCARDIOGRAM DE ECHO TTHRC R-T 2D W/WOM-MODE COMPL SPEC&COLR D Reason for Visit * Test (Routine) Referred By Contact Referred To Contact Status Reason Specialty Diagnoses / Procedures Georgina Vazquez MD [address] [address] [facility] [address] [place] [address] No Auth Needed Cardiology Diagnoses Shortness of breath Essential hypertension Abnormal screening cardiac CT Atrial fibrillation, unspecified type (HCC) P rocedures 2-D + DOPPLER ECHOCARDIOGRAM DE ECHO TTHRC R-T 2D W/WOM-MODE COMPL SPEC&COLR D Encounter Details Care Team Description Date Type Department Georgina Vazquez MD [address] [address] [phone] 12/18/2018 [facility] [address] [place] [address] Social History Date Tobacco Use Types Packs/Day [...] Signs Reading Time Taken Comments Vital Sign 132/81 12/18/2018 2:16 PM ENGINE CLEANER Blood Pressure - - Pulse - - Temperature - - Respiratory Rate - - Oxygen Saturation - - Inhaled Oxygen Concentration 74.4 kg (164 lb) 12/18/2018 2:16 PM ENGINE CLEANER Weight 160 cm (5' 3") 12/18/2018 2:16 PM ENGINE CLEANER Height 29.05 12/18/2018 2:16 PM ENGINE CLEANER Body Mass Index documented in this encounter Functional Status Date of Assessment Functional Status Response 11/24/2018 Does the patient have a hearing impairment: No 11/24/2018 Does the patient have a visual impairment: Yes documented as of this encounter Medications at Time of Discharge Start Date End Date Medication Sig Dispensed Refills ALPRAZolam (XANAX) 0.25 Take 0.25 mg 0 [...] of Breath. Shake well before use. 01/12/2019 aspirin 81 mg chewable Chew 81 mg by 0 tablet mouth daily. Take with food. 11/24/2018 05/15/2019 busPIRone (BUSPAR) 5 mg Take one 30 tablet 1 tablet tablet by mouth daily. 01/12/2019 docusate (COLACE) 100 mg Take 100 mg 0 capsule by mouth twice daily. 11/23/2018 04/18/2019 ELIQUIS 5 mg tablet Take 5 mg by 0 mouth twice daily. 01/18/2019 furosemide (LASIX) 40 mg Take 40 mg by 0 tablet mouth every morning. 03/26/2019 loratadine (CLARITIN) 10 Take 10 mg by 0 mg tablet mouth every morning. 12/11/2018 01/12/2019 metoprolol XL (TOPROL XL) Take one 180 tablet 3 50 mg extended release tablet by tablet mouth twice daily. 01/24/2019 olmesartan(+) (BENICAR) Take 40 mg by 0 40 mg tablet mouth daily. documented as of this encounter Plan of Treatment Not on filedocumented as of this encounter Procedures Comments Procedure Name Priority Date/Time Associated Diagnosis 2-D + DOPPLER Routine 12/18/2018 Shortness of breath ECHOCARDIOGRAM 2:15 PM ENGINE CLEANER Essential hypertension Abnormal screening cardiac CT Atrial fibrillation, unspecified type (HCC) documented in this encounter Results * 2-D + DOPPLER ECHOCARDIOGRAM (12/18/2018 2:15 PM ENGINE CLEANER) LVOT diameter 2.13 cm OTHER OUTSIDE LAB [...] OUTSIDE LAB AV index 0.60 OTHER OUTSIDE ([place]) LAB MV 74.88 % OTHER OUTSIDE regurgitation [...] 34 OTHER OUTSIDE Index LAB Cardiology Siemens [id number] OTHER OUTSIDE Ultrasound LAB Machine Left Ventricle [...] documented in this encounter Visit Diagnoses Diagnosis Shortness of breath Essential hypertension Unspecified essential hypertension Abnormal screening cardiac CT Nonspecific (abnormal) findings on radiological and other examination of other intrathoracic organs Atrial fibrillation, unspecified type (HCC) documented in this encounter
--- OUTSIDE RECORDS SUMMARY | 2019-06-02 16:31 | XMS REPORT | Continuity of Care Document ---
Author Organization Unknown Address Unknown Allergies There is no data. Medications There is no data. Problems Date Dx Coded Attending Type Code Diagnosis Diagnosed By 06/04/2015 PACO, BOBAN N Ot 272.0 06/04/2015 PACO, BOBAN N Ot 311 06/04/2015 PACO, BOBAN N Ot 356.9 06/04/2015 PACO, BOBAN N Ot 401.9 06/04/2015 PACO, BOBAN N Ot V13.89 06/04/2015 PACO, BOBAN N Ot V58.69 06/04/2015 PACO, BOBAN N Ot V67.1 06/12/2015 PACO, BOBAN N Ot 272.0 06/12/2015 PACO, BOBAN N Ot 311 06/12/2015 PACO, BOBAN N Ot 356.9 06/12/2015 PACO, BOBAN N Ot 401.9 06/12/2015 PACO, BOBAN N Ot V13.89 06/12/2015 PACO, BOBAN N Ot V58.69 06/12/2015 PACO, BOBAN N Ot V67.1 05/11/2016 Ot 786.2 COUGH 05/11/2016 Ot V10.3 HX OF BREAST MALIGNANCY 05/11/2016 Ot V58.66 LONG-TERM (CURRENT) USE OF ASPIRIN 05/11/2016 Ot V58.69 OTH MED,LT,CURRENT USE 05/11/2016 Ot V67.1 RADIOTHERAPY FOLLOW- UP 05/11/2016 Ot 311 DEPRESSIVE DISORDER NEC 05/11/2016 Ot 782.3 EDEMA 05/11/2016 Ot 785.1 PALPITATIONS 05/11/2016 Ot V10.3 HX OF BREAST MALIGNANCY 05/11/2016 Ot V15.88 HISTORY OF FALL 05/11/2016 Ot V58.69 OTH MED,LT,CURRENT USE 05/11/2016 Ot V67.1 RADIOTHERAPY FOLLOW- UP 05/11/2016 Ot 250.00 DIAB KAYLEIGH WO COMPL, TYPE II OR UNSPEC TY 05/11/2016 Ot 311 DEPRESSIVE DISORDER NEC 05/11/2016 Ot 356.9 IDIO PERIPH NEURPTHY NOS 05/11/2016 Ot V10.3 HX OF BREAST MALIGNANCY 05/11/2016 Ot V58.66 LONG-TERM (CURRENT) USE OF ASPIRIN 05/11/2016 Ot V58.69 OTH MED,LT,CURRENT USE 05/11/2016 Ot V67.1 RADIOTHERAPY FOLLOW- UP 05/11/2016 Ot V10.3 HX OF BREAST MALIGNANCY 05/11/2016 Ot V67.1 RADIOTHERAPY FOLLOW- UP 05/11/2016 PACOANGELA N Ot 311 DEPRESSIVE DISORDER NEC 05/11/2016 PACO ANGELA N Ot 356.9 IDIO PERIPH NEURPTHY NOS 05/11/2016 PACOANGELA Ot 786.2 COUGH 05/11/2016 PACOANGELA N Ot V13.89 PERSONAL HISTORY OF OTHER SPECIFIED DISE 05/11/2016 PACOANGELA N Ot V58.66 LONG-TERM (CURRENT) USE OF ASPIRIN 05/11/2016 PACOANGELA N Ot V58.69 OTH MED,LT,CURRENT USE 05/11/2016 PACOANGELA N Ot V67.1 RADIOTHERAPY FOLLOW-UP 05/11/2016 ANGELA ANTONIO N Ot V10.3 HX OF BREAST MALIGNANCY 05/11/2016 ANGELA ANTONIO N Ot V58.66 LONG-TERM (CURRENT) USE OF ASPIRIN 05/11/2016 PACO MAXIMOJAIRO N Ot V58.69 OTH MED,LT,CURRENT USE 05/11/2016 ANGELA ANTONIO N Ot V67.1 RADIOTHERAPY FOLLOW-UP 05/11/2016 ANGELA ANTONIO N Ot 272.0 PURE HYPERCHOLESTEROLEM 05/11/2016 ANGELA ANTONIO N Ot 311 DEPRESSIVE DISORDER NEC 05/11/2016 PACOANGELA N Ot 356.9 IDIO PERIPH NEURPTHY NOS 05/11/2016 ANGELA ANTONIO N Ot 401.9 HYPERTENSION NOS 05/11/2016 PACO BOBJAIRO N Ot V13.89 PERSONAL HISTORY OF OTHER SPECIFIED DISE 05/11/2016 PACOANGELA N Ot V58.69 OTH MED,LT,CURRENT USE 05/11/2016 ANGELA ANTONIO N Ot V67.1 RADIOTHERAPY FOLLOW-UP 06/02/2016 ANGELA ANTONIO Danny Ot 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9 IDIO PERIPH NEURPTHY NOS 01/25/2019 PACO MAXIMOJAIRO Danny Ot 401.9 HYPERTENSION NOS 01/25/2019 ANGELA ANTONIO Danny Ot V13.89 PERSONAL HISTORY OF OTHER SPECIFIED DISE 01/25/2019 ANGELA ANTONIO Danny Ot V58.69 OTH MED,LT,CURRENT USE 01/25/2019 ANGELA ANTONIO Danny Ot V67.1 RADIOTHERAPY FOLLOW-UP 01/25/2019 ANGELA ANTONIO Danny Ot 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 01/26/2019 STEVE MORRIS Ot M19.012 PRIMARY OSTEOARTHRITIS, LEFT SHOULDER 01/26/2019 STEVE MORRIS Ot M24.512 CONTRACTURE, LEFT SHOULDER 01/26/2019 STEVE MORRIS Ot M75.122 COMPLETE ROTATR-CUFF TEAR/RUPTR OF LEFT 01/26/2019 STEVE MORRIS Ot S40.012A CONTUSION OF LEFT SHOULDER, INITIAL ENCO 01/26/2019 STEVE MORRIS Ot W19.XXXA UNSPECIFIED FALL, INITIAL ENCOUNTER 02/19/2019 STEVE MORRIS Ot M19.012 PRIMARY OSTEOARTHRITIS, LEFT SHOULDER 02/19/2019 STEVE MORRIS Ot M24.512 CONTRACTURE, LEFT SHOULDER 02/19/2019 STEVE MORRIS Ot M75.122 COMPLETE ROTATR-CUFF TEAR/RUPTR OF LEFT 02/19/2019 STEVE MORRIS Ot S40.012A CONTUSION OF LEFT SHOULDER, INITIAL ENCO 02/19/2019 STEVE MORRIS Ot W19.XXXA UNSPECIFIED FALL, INITIAL ENCOUNTER 03/12/2019 STEVE MORRIS Ot M19.012 PRIMARY OSTEOARTHRITIS, LEFT SHOULDER 03/12/2019 STEVE MORRIS Ot M24.512 CONTRACTURE, LEFT SHOULDER 03/12/2019 ALEXANDRA STEVE SAUCEDA Ot M75.122 COMPLETE ROTATR-CUFF TEAR/RUPTR OF LEFT 03/12/2019 STEVE MORRIS Ot S40.012A CONTUSION OF LEFT SHOULDER, INITIAL ENCO 03/12/2019 STEVE MORRIS Ot W19.XXXA UNSPECIFIED FALL, INITIAL ENCOUNTER 03/15/2019 STEVE MORRIS Ot M19.012 PRIMARY OSTEOARTHRITIS, LEFT SHOULDER 03/15/2019 STEVE MORRIS Ot M24.512 CONTRACTURE, LEFT SHOULDER 03/15/2019 STEVE MORRIS Ot M75.122 COMPLETE ROTATR-CUFF TEAR/RUPTR OF LEFT 03/15/2019 STEVE MORRIS Ot S40.012A CONTUSION OF LEFT SHOULDER, INITIAL ENCO 03/15/2019 STEVE MORRIS Ot W19.XXXA UNSPECIFIED FALL, INITIAL ENCOUNTER Procedures There is no data. Results Test Result Range VITAMIN B12 - 01/31/19 08:59 VITAMIN B12 409 pg/mL 200-1100 LIPID PANEL - 01/31/19 08:59 CHOLESTEROL, TOTAL 165 mg/dL <200 HDL CHOLESTEROL 55 mg/dL >50 TRIGLYCERIDES 115 mg/dL <150 LDL-CHOLESTEROL 89 mg/dL (calc) NRG CHOL/HDLC RATIO 3.0 (calc) <5.0 NON HDL CHOLESTEROL 110 mg/dL (calc) <130 MICROALBUMIN/CREATININE RATIO, URINE - 01/31/19 08:59 CREATININE, RANDOM URINE 34 mg/dL 20-275 MICROALBUMIN 1.2 mg/dL See Note: MICROALBUMIN/CREATININE RATIO, RANDOM URINE 35 mcg/mg creat <30 CMP - 01/31/19 08:59 GLUCOSE 111 mg/dL 65-99 UREA NITROGEN (BUN) 15 mg/dL 7-25 CREATININE 1.00 mg/dL 0.60-0.88 eGFR NON-AFR. [facility] 53 mL/min/1.73m2 > OR=60 eGFR 62 mL/min/1.73m2 > OR=60 BUN/CREATININE RATIO 15 (calc) 6-22 SODIUM 143 mmol/L 135-146 POTASSIUM 3.7 mmol/L 3.5-5.3 CHLORIDE 106 mmol/L 98-110 CARBON DIOXIDE 31 mmol/L 20-32 CALCIUM 9.2 mg/dL 8.6-10.4 PROTEIN, TOTAL 5.9 g/dL 6.1-8.1 ALBUMIN 4.0 g/dL 3.6-5.1 GLOBULIN 1.9 g/dL (calc) 1.9-3.7 ALBUMIN/GLOBULIN RATIO 2.1 (calc) 1.0-2.5 BILIRUBIN, TOTAL 0.7 mg/dL 0.2-1.2 ALKALINE PHOSPHATASE 79 U/L 33-130 AST 11 U/L 10-35 ALT 9 U/L 6-29 CBC - 01/31/19 08:59 WHITE BLOOD CELL COUNT 6.3 Thousand/uL 3.8-10.8 RED BLOOD CELL COUNT 4.14 Million/uL 3.80-5.10 HEMOGLOBIN 12.3 g/dL 11.7-15.5 HEMATOCRIT 38.8 % 35.0-45.0 MCV 93.7 fL 80.0-100.0 MCH 29.7 pg 27.0-33.0 MCHC 31.7 g/dL 32.0-36.0 RDW 13.1 % 11.0-15.0 PLATELET COUNT 284 Thousand/uL 140-400 MPV 10.7 fL 7.5-12.5 ABSOLUTE NEUTROPHILS 4612 cells/uL 4365-5924 ABSOLUTE LYMPHOCYTES 1065 cells/uL 850-3900 ABSOLUTE MONOCYTES 485 cells/uL 200-950 ABSOLUTE EOSINOPHILS 88 cells/uL 15-500 ABSOLUTE BASOPHILS 50 cells/uL 0-200 NEUTROPHILS 73.2 % NRG LYMPHOCYTES 16.9 % NRG MONOCYTES 7.7 % NRG EOSINOPHILS 1.4 % NRG BASOPHILS 0.8 % NRG Encounters ACCT No. Visit Date/Time Discharge Status Pt. Type Provider Facility Loc./Unit Complaint [id number] 01/31/2019 09:40:00 01/31/2019 23:59:59 [facility] Outpatient [facility] [id number] 01/31/2019 09:40:00 Document Registration [id number] 01/25/2019 12:42:00 01/25/2019 23:59:59 CLS Outpatient STEVE MORRIS SOHAIL [facility] ICD-718.41;AOU38-K76.512;GIZ82-T37.122;ICD-906.3 [id number] 12/19/2018 12:00:00 12/19/2018 23:59:59 CLS Preadmit STEVE RANDALL MD Via [facility] HTN [id number] 06/07/2017 15:37:00 06/07/2017 23:59:59 CLS Preadmit AGNELA ANTONIO [facility] [id number] 06/01/2016 10:40:00 06/01/2016 23:59:59 CLS Outpatient PACO BOBAN N [facility] [id number] 05/13/2015 10:40:00 05/13/2015 23:59:59 CLS Outpatient PACO BOBAN N [facility] [id number] 06/04/2014 11:07:00 06/04/2014 23:59:59 CLS Outpatient PACO BOBAN N [facility] [id number] 05/22/2013 11:09:00 05/22/2013 23:59:59 CLS Outpatient PACO BOBAN N [facility] [id number] 12/26/2012 14:14:00 Document Registration [id number] 08/15/2012 14:28:00 Document Registration [id number] 06/13/2012 13:41:00 Document Registration [id number] 05/04/2011 15:24:00 Document Registration
--- NOTE | 2019-06-02 16:41 | ED Head Injury ---
General Chief Complaint: Trauma EMS/Air Arrival Activat Stated Complaint: FALL/HIT HEAD/ON BLOOD THINNERS Nursing Triage Note: SEE TRAUMA ASSESSMENT Source: patient Exam Limitations: no limitations History of Present Illness Date Seen by Provider: Jun 02, 2019 Time Seen by Provider: 16:38 Initial Comments To ER by private vehicle with reports of a fall at [place] [place], struck the right side of her forehead. No loss of consciousness, no nausea no confusion no neck pain. She does have a localized headache over the area of contusion which is the right lateral eyebrow. Tetanus is not been updated and there is a small laceration to the site. She believes has been over 5 years since she's had a tetanus shot. She also reports that she is on Eliquis for atrial fibrillation Location Injury Occurred: [place] Occurred: just prior to arrival Severity: moderate Location: frontal Method of Injury: direct blow, fell Loss of Consciousness: no loss of consciousness Associated Systoms: Headaches; No Nausea/Vomiting Allergies and Home Medications Allergies Coded Allergies: No Known Drug Allergies (Unverified , 06/02/19) Patient Home Medication List Home Medication List Reviewed: Yes Review of Systems Review of Systems Constitutional: see HPI Eyes: No Symptoms Reported Ears, Nose, Mouth, Throat: no symptoms reported Respiratory: no symptoms reported Cardiovascular: no symptoms reported Genitourinary: no symptoms reported Musculoskeletal: no symptoms reported Skin: no symptoms reported Psychiatric/Neurological: See HPI, Headache Endocrine: No Symptoms Reported Hematologic/Lymphatic: No Symptoms Reported Past Dcmgwbo-Wpwhrv-Bsnfgf Hx Patient Social History Alcohol Use: Denies Use Recreational Drug Use: No Smoking Status: Never a Smoker Recent Foreign Travel: No Contact w/Someone Who Travel: No Recent Infectious Disease Expo: No Physical Abuse: No Sexual Abuse: No Mistreated: No Fear: No Past Medical History Surgeries: Yes (CARDIAC ABLATION, COLON RESECTION) Adenoidectomy, Appendectomy, Breast, Hysterectomy, Tonsillectomy Respiratory: No Cardiac: Yes Atrial Fibrillation Neurological: No Genitourinary: No Gastrointestinal: No Musculoskeletal: No Endocrine: Yes Diabetes, Non-Insulin dep HEENT: No Cancer: Yes Breast Psychosocial: Yes Anxiety Integumentary: No Physical Exam Vital Signs Vital Signs - First Documented 06/02/19 16:26 Temp 96.2 Pulse 63 Resp 18 B/P (MAP) 200/87 (124) Pulse Ox 99 O2 Delivery Room Air Capillary Refill : Less Than 3 Seconds Height, Weight, BMI Height: 5'4.00" Weight: 160lbs. oz. 72.982508jc; BMI Method:Stated General Appearance: WD/WN, no apparent distress HEENT: PERRL/EOMI, normal ENT inspection, TMs normal, other (there is a hematoma to the lateral aspect of the right eyebrow with an associated 0.5 cm laceration with no active bleeding) Neck: non-tender, full range of motion; No tender lateral, No tender midline Respiratory: no respiratory distress, no accessory muscle use Progress/Results/Core Measures Results/Orders My Orders Orders - AIDAN ROSALES APRN Ct Head/Cervical Spine Wo (06/02/19 16:22) Vital Signs/I&O 06/02/19 06/02/19 16:26 16:41 Temp 96.2 96.2 Pulse 63 63 Resp 18 18 B/P (MAP) 200/87 (124) 200/87 (124) Pulse Ox 99 99 O2 Delivery Room Air Blood Pressure Mean: 124 Diagnostic Imaging Diagonstic Imaging: CT Comments NAME: DUY ROB [facility] REC#: [id number] PT STATUS: REG ER : 1940 PHYSICIAN: AIDAN ROSALES APRN ADMIT DATE: 06/02/19/ER Draft Date of Exam:06/02/19 CT HEAD/CERVICAL SPINE WO PROCEDURE: CT head and CT cervical spine without contrast. TECHNIQUE: Multiple contiguous axial images were obtained through the brain and cervical spine without the use of intravenous contrast. Sagittal and coronal reformations through the cervical spine were then performed. Auto Exposure Controls were utilized during the CT exam to meet ALARA standards for radiation dose reduction. INDICATION: Traumatic head/neck injury sustained during fall. Patient hit right side of forehead. COMPARISON: None FINDINGS - CT BRAIN: BRAIN: No parenchymal hemorrhage, midline shift or mass effect. Fitzpatrick-white matter differentiation is intact. No acute infarct. No white matter lesions. Ventricles, sulci and basilar cisterns are normal. EXTRA-AXIAL SPACES: No subdural or epidural collections. ORBITS AND PARANASAL SINUSES: Visualized orbits and globes are intact. Visualized paranasal sinuses and mastoid air cells are clear. CALVARIUM AND SOFT TISSUES: The calvarium is intact. No fractures or suspicious bony lesions. The extracranial soft tissues are unremarkable. FINDINGS - CT CERVICAL SPINE: SPINE: No fracture. No acute osseous abnormalities. There is normal cervical lordosis. No subluxation. There is mild multilevel degenerative loss of disc height with endplate osteophytes. No locked or perched facet. SOFT TISSUES AND LUNG APICES: No prevertebral soft tissue abnormality is demonstrated. There is suggestion of a 2.0 x 1.8 cm low-attenuation nodule in the left thyroid lobe. Clear lung apices. IMPRESSION: - CT BRAIN: No acute intracranial pathology. IMPRESSION: - CT CERVICAL SPINE: 1. Mild degenerative change of the cervical spine, without evidence of acute fracture or subluxation. 2. Low-attenuation left thyroid lobe nodule. This can be further evaluated with dedicated thyroid ultrasound on a nonemergent basis, as clinically indicated. Dictated on workstation # [id number] Dict: 06/02/19 1657 Trans: 06/02/19 1704 KB [id number] Interpreted by: ALYSSA UMANA DO Electronically signed by: Departure Communication (Admissions) NAME: DUY ROB [facility] REC#: [id number] PT STATUS: REG ER : 1940 PHYSICIAN: AIDAN ROSALES APRN ADMIT DATE: 06/02/19/ER Draft Date of Exam:06/02/19 CT HEAD/CERVICAL SPINE WO PROCEDURE: CT head and CT cervical spine without contrast. TECHNIQUE: Multiple contiguous axial images were obtained through the brain and cervical spine without the use of intravenous contrast. Sagittal and coronal reformations through the cervical spine were then performed. Auto Exposure Controls were utilized during the CT exam to meet ALARA standards for radiation dose reduction. INDICATION: Traumatic head/neck injury sustained during fall. Patient hit right side of forehead. COMPARISON: None FINDINGS - CT BRAIN: BRAIN: No parenchymal hemorrhage, midline shift or mass effect. Fitzpatrick-white matter differentiation is intact. No acute infarct. No white matter lesions. Ventricles, sulci and basilar cisterns are normal. EXTRA-AXIAL SPACES: No subdural or epidural collections. ORBITS AND PARANASAL SINUSES: Visualized orbits and globes are intact. Visualized paranasal sinuses and mastoid air cells are clear. CALVARIUM AND SOFT TISSUES: The calvarium is intact. No fractures or suspicious bony lesions. The extracranial soft tissues are unremarkable. FINDINGS - CT CERVICAL SPINE: SPINE: No fracture. No acute osseous abnormalities. There is normal cervical lordosis. No subluxation. There is mild multilevel degenerative loss of disc height with endplate osteophytes. No locked or perched facet. SOFT TISSUES AND LUNG APICES: No prevertebral soft tissue abnormality is demonstrated. There is suggestion of a 2.0 x 1.8 cm low-attenuation nodule in the left thyroid lobe. Clear lung apices. IMPRESSION: - CT BRAIN: No acute intracranial pathology. IMPRESSION: - CT CERVICAL SPINE: 1. Mild degenerative change of the cervical spine, without evidence of acute fracture or subluxation. 2. Low-attenuation left thyroid lobe nodule. This can be further evaluated with dedicated thyroid ultrasound on a nonemergent basis, as clinically indicated. Dictated on workstation # [id number] Dict: 06/02/19 1657 Trans: 06/02/19 1704 KB [id number] Interpreted by: ALYSSA UMANA DO Electronically signed by: Impression Primary Impression: Forehead contusion Qualified Codes: S00.83XA - Contusion of other part of head, initial encounter Disposition: 01 HOME, SELF-CARE Condition: Stable Departure-Patient Inst. Decision time for Depature: 17:07 Referrals: NO,LOCAL PHYSICIAN (PCP/Family) Primary Care Physician Patient Instructions: Head Injury Observation (DC) Add. Discharge Instructions: 1. Follow-up with your primary care doctor to evaluate the thyroid nodule 2. Return to ER for any concerns such as vomiting, severe headache, confusion or any other concerning symptoms. This would warrant a repeat CT scan. All discharge instructions reviewed with patient and/or family. Voiced understanding. AIDAN ROSALES APRN Jun 02, 2019 16:40
[2019-06-02] MEDS ORDERED: LOSA1TAB23 (16:48)
[2019-06-02] MEDS ORDERED: APIX5TAB (16:48)
[2019-06-02] MEDS ORDERED: MELO15TA39 (16:48)
[2019-06-02] MEDS ORDERED: AMIO200T4 (16:48)
[2019-06-02] MEDS ORDERED: ALBUTEROL (16:48)
[2019-06-02] MEDS ORDERED: ALLO300T2 (16:48)
--- NOTE | 2019-06-02 17:04 | Diagnostic Imaging Report ---
PROCEDURE: CT head and CT cervical spine without contrast. TECHNIQUE: Multiple contiguous axial images were obtained through the brain and cervical spine without the use of intravenous contrast. Sagittal and coronal reformations through the cervical spine were then performed. Auto Exposure Controls were utilized during the CT exam to meet ALARA standards for radiation dose reduction. INDICATION: Traumatic head/neck injury sustained during fall. Patient hit right side of forehead. COMPARISON: None FINDINGS - CT BRAIN: BRAIN: No parenchymal hemorrhage, midline shift or mass effect. Fitzpatrick-white matter differentiation is intact. No acute infarct. No white matter lesions. Ventricles, sulci and basilar cisterns are normal. EXTRA-AXIAL SPACES: No subdural or epidural collections. ORBITS AND PARANASAL SINUSES: Visualized orbits and globes are intact. Visualized paranasal sinuses and mastoid air cells are clear. CALVARIUM AND SOFT TISSUES: The calvarium is intact. No fractures or suspicious bony lesions. The extracranial soft tissues are unremarkable. FINDINGS - CT CERVICAL SPINE: SPINE: No fracture. No acute osseous abnormalities. There is normal cervical lordosis. No subluxation. There is mild multilevel degenerative loss of disc height with endplate osteophytes. No locked or perched facet. SOFT TISSUES AND LUNG APICES: No prevertebral soft tissue abnormality is demonstrated. There is suggestion of a 2.0 x 1.8 cm low-attenuation nodule in the left thyroid lobe. Clear lung apices. IMPRESSION: - CT BRAIN: No acute intracranial pathology. IMPRESSION: - CT CERVICAL SPINE: Mild degenerative change of the cervical spine, without evidence of acute fracture or subluxation. Low-attenuation left thyroid lobe nodule. This can be further evaluated with dedicated thyroid ultrasound on a nonemergent basis, as clinically indicated. Dictated by: Dictated on workstation # [id number]
[2019-06-02] MEDS ORDERED: TETANUS,DIPTH,PERTUSS P/F (BOOSTRIX) 0.5 ML VIAL IM ONE (17:30)
[2019-06-02 17:46] VITALS: BP 154/80
== END 2019-06-02 17:46 | disposition home or self-care (01) ==
LOC: EDUNIT# 16:20 → ER 16:21
DX: S01.111A Laceration without foreign body of right eyelid and periocular area, initial encounter (principal); S00.83XA Contusion of other part of head, initial encounter; I48.91 Unspecified atrial fibrillation; E11.9 Type 2 diabetes mellitus without complications; F41.9 Anxiety disorder, unspecified; Z85.3 Personal history of malignant neoplasm of breast; Z79.01 Long term (current) use of anticoagulants; Z90.49 Acquired absence of other specified parts of digestive tract; Z90.710 Acquired absence of both cervix and uterus; Z90.89 Acquired absence of other organs; W01.198A Fall on same level from slipping, tripping and stumbling with subsequent striking against other object, initial encounter; Y92.009 Unspecified place in unspecified non-institutional (private) residence as the place of occurrence of the external cause
CPT/HCPCS: 70450; 72125; 90471; 90715

== ENCOUNTER 2019-07-30 07:44 | Emergency (ER) | payer MEDICARE ==
[~2019-07-30] VITALS: Ht 162.6 cm; Wt 69.1 kg
[~2019-07-30 07:44] MED LIST: ALBUTEROL; ALLO300T2; AMIO200T4; APIX5TAB; LOSA1TAB23; MELO15TA39
--- NOTE | 2019-07-30 08:34 | Diagnostic Imaging Report ---
PROCEDURE: CT head and CT cervical spine without contrast. TECHNIQUE: Multiple contiguous axial images were obtained through the brain and cervical spine without the use of intravenous contrast. Sagittal and coronal reformations through the cervical spine were then performed. Auto Exposure Controls were utilized during the CT exam to meet ALARA standards for radiation dose reduction. INDICATION: Fall, hitting the back of the head. COMPARISON: 06/02/2019. FINDINGS: CT HEAD: The ventricles and sulci are stable in appearance. No sulcal effacement or midline shift is detected. No acute intra-axial or extra-axial hemorrhage is detected. The cisterns are patent. The visualized paranasal sinuses are clear. IMPRESSION: No acute intracranial process is detected. CT CERVICAL SPINE: The curvature and alignment of the cervical spine are normal. No fracture or subluxation is seen. There is generalized degenerative disc disease with variable disc space narrowing and marginal spurring. The prevertebral tissues are normal. The odontoid is intact. The previously noted low attenuation left thyroid nodule is similar to the prior exam. IMPRESSION: No acute bony abnormality is detected. Dictated by: Dictated on workstation # [id number]
[2019-07-30] MEDS ORDERED: HYDROcodone/APAP 5 MG/325 MG (LORTAB) TAB ONE (08:38)
--- NOTE | 2019-07-30 08:40 | NUR ---
Notified Dr Hightower of pt c/o headache.
[2019-07-30] MEDS ORDERED: HYDR-4226 PO (08:44)
[2019-07-30] MEDS ORDERED: ONDA4TAB11 PO (08:44)
--- NOTE | 2019-07-30 08:44 | ED General ---
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 She denies LOC, dizziness, vision changes, etc. She reports a headache rated 3/10, states she is taking an anticoagulant. Nursing Sepsis Screen: No Definite Risk History of Present Illness Date Seen by Provider: Jul 30, 2019 Time Seen by Provider: 08:41 Initial Comments Patient presenting to the emergency department for evaluation of head injury status post mechanical fall. She says she picked her dog up and the dog was slipping out of her hands and she somehow stumbled backwards and hit her head on the frame of her bed. She says she is having a slight headache but denies any neck chest abdomen back or other extremity pain and denies any unilateral weakness numbness or tingling. Chief initially said the headache wasn't bad but it became slightly worse and is asking for something for pain. She does not need anything for nausea. She is on Eliquis for atrial fibrillation. There is no open wounds or abrasions and she is in no obvious distress with normal vital signs. Allergies and Home Medications Allergies Coded Allergies: amiodarone (Verified Adverse Reaction, Intermediate, TREMORS, 07/30/19) Patient Home Medication List Home Medication List Reviewed: Yes Review of Systems Review of Systems Constitutional: no symptoms reported EENTM: no symptoms reported Respiratory: no symptoms reported Cardiovascular: no symptoms reported Gastrointestinal: no symptoms reported Musculoskeletal: no symptoms reported Skin: no symptoms reported Psychiatric/Neurological: Headache All Other Systems Reviewed Negative Unless Noted: Yes Past Gtmigju-Duyofb-Rfbxzw Hx Patient Social History Recent Foreign Travel: No Contact w/Someone Who Travel: No Recent Infectious Disease Expo: No Past Medical History Surgeries: Yes (CARDIAC ABLATION, COLON RESECTION) Adenoidectomy, Appendectomy, Breast, Hysterectomy, Tonsillectomy Respiratory: No Cardiac: Yes Atrial Fibrillation Neurological: No Genitourinary: No Gastrointestinal: No Musculoskeletal: No Endocrine: Yes Diabetes, Non-Insulin dep HEENT: No Cancer: Yes Breast Psychosocial: Yes Anxiety Integumentary: No Physical Exam Vital Signs Vital Signs - First Documented 07/30/19 08:14 Temp 37.1 Pulse 59 Resp 18 B/P (MAP) 198/62 (107) Pulse Ox 99 O2 Delivery Room Air Capillary Refill : Less Than 3 Seconds Height, Weight, BMI Height: 5'4.00" Weight: 160lbs. oz. 72.059969iw; 26.00 BMI Method:Stated General Appearance: No Apparent Distress, WD/WN Eyes: Bilateral Eye PERRL, Bilateral Eye EOMI HEENT: PERRL/EOMI Neck: Non Tender, Supple Respiratory: Lungs Clear, No Respiratory Distress Cardiovascular: Regular Rate, Rhythm Gastrointestinal: Non Tender, Soft Extremity: Normal Capillary Refill, Normal Inspection Neurologic/Psychiatric: Alert, Oriented x3 Progress/Results/Core Measures Suspected Sepsis Recent Fever Within 48 Hours: No Infection Criteria Present: None New/Unexplained Altered Menta: No Sepsis Screen: No Definite Risk SIRS Temperature: Pulse: 59 Respiratory Rate: 18 Blood Pressure 198 /62 Mean: 107 Results/Orders My Orders Orders - AGUEDA MCDOWELL DO Ct Head/Cervical Spine Wo (07/30/19 08:04) Vital Signs/I&O 07/30/19 08:14 Temp 37.1 Pulse 59 Resp 18 B/P (MAP) 198/62 (107) Pulse Ox 99 O2 Delivery Room Air Capillary Refill : Less Than 3 Seconds Blood Pressure Mean: 107 Progress Note : Progress Note Patient with negative imaging and normal neurologic exam and her pain is controlled. She'll be discharged in stable condition told to follow primary care provider within 2 days and come back to the ED sooner with worsening pain neurologic changes or other general concerns. Patient aware and agreeable with plan for discharge and verbalized understanding of the need for follow-up and strict ED return precautions discussed as above. Departure Impression Primary Impression: CHI (closed head injury) Disposition: 01 HOME, SELF-CARE Condition: Stable Departure-Patient Inst. Referrals: CLEO MAY MD (PCP/Family) Primary Care Physician Patient Instructions: Concussion in Adults Scripts Ondansetron (Ondansetron Odt) 4 Mg Tab.rapdis 4 MG PO Q6H PRN for NAUSEA/VOMITING-1ST LINE, #10 TAB Prov: AGUEDA MCDOWELL DO 07/30/19 Hydrocodone/Acetaminophen ([place] 5-325 Tablet) 1 Each Tablet 1 TAB PO Q6H for Pain MDD 10 TABS for 7 Days, #10 TAB Prov: AGUEDA MCDOWELL DO 07/30/19 AGUEDA MCDOWELL DO Jul 30, 2019 08:44
[2019-07-30] MEDS ORDERED: HYDROcodone/APAP 5 MG/325 MG (LORTAB) TAB PO ONE (08:45)
[2019-07-30] MEDS ORDERED: ACETAMINOPHEN 500 MG TAB (TYLENOL) PO ONE (09:00)
[2019-07-30 09:05] VITALS: BP 190/61
== END 2019-07-30 09:06 | disposition home or self-care (01) ==
LOC: EDUNIT# 07:44 → ER FS 07:45
DX: S09.90XA Unspecified injury of head, initial encounter (principal); I48.91 Unspecified atrial fibrillation; E11.9 Type 2 diabetes mellitus without complications; F41.9 Anxiety disorder, unspecified; Z85.3 Personal history of malignant neoplasm of breast; Z79.01 Long term (current) use of anticoagulants; Z88.8 Allergy status to other drugs, medicaments and biological substances; Z90.49 Acquired absence of other specified parts of digestive tract; Z90.710 Acquired absence of both cervix and uterus; Z90.89 Acquired absence of other organs; W01.198A Fall on same level from slipping, tripping and stumbling with subsequent striking against other object, initial encounter
CPT/HCPCS: 70450; 72125

== ENCOUNTER 2019-11-21 16:17 | Emergency (ER) | payer MEDICARE ==
[~2019-11-21] VITALS: Ht 162.5 cm; Wt 64.5 kg
[~2019-11-21 16:17] MED LIST changes: +HYDR-4226 PO; +ONDA4TAB11 PO
--- NOTE | 2019-11-21 16:28 | ED General ---
General Stated Complaint: FLU LIKE SYMPTOMS History of Present Illness Date Seen by Provider: Nov 21, 2019 Time Seen by Provider: 16:28 Initial Comments Patient presenting to emergency department for evaluation of multiple symptoms including cough congestion and shortness of breath generalized weakness and fatigue. Cough is mostly nonproductive and she denies any fevers and chills however she was febrile here at 100.4. She says the shortness of breath is mostly when she is up walking around. She has a history of asthma and has been using her inhaler without much improvement. Patient has been unable to get around and reportedly family has been staying with her as she has been extremely weak. She denies any specific pain nausea vomiting diarrhea or other systemic symptoms. She appears not feel well but is nontoxic with normal vital signs Except hypertension noted. Allergies and Home Medications Allergies Coded Allergies: amiodarone (Verified Adverse Reaction, Intermediate, TREMORS, 07/30/19) Home Medications Hydrocodone/Acetaminophen 1 Each Tablet, 1 TAB PO Q6H Prescribed by: AGUEDA MCDOWELL on 07/30/19 0844 Ondansetron 4 Mg Tab.rapdis, 4 MG PO Q6H PRN for NAUSEA/VOMITING-1ST LINE Prescribed by: AGUEDA MCDOWELL on 07/30/19 0844 Patient Home Medication List Home Medication List Reviewed: Yes Review of Systems Review of Systems Constitutional: dizziness, weakness EENTM: nose congestion Respiratory: cough, short of breath Cardiovascular: no symptoms reported Gastrointestinal: no symptoms reported Genitourinary: no symptoms reported Musculoskeletal: no symptoms reported Skin: no symptoms reported Psychiatric/Neurological: No Symptoms Reported All Other Systems Reviewed Negative Unless Noted: Yes Past Zccmqse-Icsfwz-Pjzshj Hx Patient Social History 2nd Hand Smoke Exposure: No Recent Foreign Travel: No Contact w/Someone Who Travel: No Recent Hopitalizations: No Seasonal Allergies Seasonal Allergies: No Past Medical History Surgeries: Yes (CARDIAC ABLATION, COLON RESECTION) Adenoidectomy, Appendectomy, Breast, Hysterectomy, Tonsillectomy Respiratory: No Cardiac: Yes Atrial Fibrillation, Hypertension Neurological: No Genitourinary: No Gastrointestinal: Yes Diverticulosis Musculoskeletal: No Endocrine: Yes Diabetes, Non-Insulin dep HEENT: No Cancer: Yes Breast Psychosocial: Yes Anxiety Integumentary: No Physical Exam Vital Signs Vital Signs - First Documented 11/21/19 16:25 Temp 38.0 Pulse 83 Resp 21 B/P (MAP) 213/82 (125) Pulse Ox 95 O2 Delivery Room Air Capillary Refill : Height, Weight, BMI Height: 5'4.00" Weight: 160lbs. oz. 72.499358nn; 26.00 BMI Method:Stated General Appearance: No Apparent Distress, WD/WN HEENT: PERRL/EOMI Neck: Supple Respiratory: Decreased Breath Sounds, Wheezing Cardiovascular: Regular Rate, Rhythm Gastrointestinal: Non Tender, Soft Back: Normal Inspection Extremity: Normal Capillary Refill, No Pedal Edema Neurologic/Psychiatric: Alert, Oriented x3 Skin: Warm/Dry Focused Exam Lactate Level 11/21/19 16:35: Lactic Acid Level 1.42 Lactic Acid Level Laboratory Tests Test 11/21/19 16:35 Lactic Acid Level 1.42 MMOL/L (0.50-2.00) Progress/Results/Core Measures Suspected Sepsis SIRS Temperature: Pulse: Respiratory Rate: Laboratory Tests 11/21/19 16:35: White Blood Count 5.5 Blood Pressure / Mean: 11/21/19 16:35: Lactic Acid Level 1.42 Laboratory Tests 11/21/19 16:35: Creatinine 0.84, INR Comment 1.4, Platelet Count 159, Total Bilirubin 1.4H Results/Orders Lab Results Laboratory Tests Test 11/21/19 16:35 Range/Units White Blood Count 5.5 4.3-11.0 10^3/uL Red Blood Count 4.93 4.35-5.85 10^6/uL Hemoglobin 13.9 11.5-16.0 G/DL Hematocrit 43 35-52 % Mean Corpuscular Volume 87 80-99 FL Mean Corpuscular Hemoglobin 28 25-34 PG Mean Corpuscular Hemoglobin Concent 33 32-36 G/DL Red Cell Distribution Width 15.0 H 10.0-14.5 % Platelet Count 159 130-400 10^3/uL Mean Platelet Volume 11.6 H 7.4-10.4 FL Neutrophils (%) (Auto) 69 42-75 % Lymphocytes (%) (Auto) 17 12-44 % Monocytes (%) (Auto) 12 0-12 % Eosinophils (%) (Auto) 1 0-10 % Basophils (%) (Auto) 1 0-10 % Neutrophils # (Auto) 3.8 1.8-7.8 X 10^3 Lymphocytes # (Auto) 1.0 1.0-4.0 X 10^3 Monocytes # (Auto) 0.7 0.0-1.0 X 10^3 Eosinophils # (Auto) 0.0 0.0-0.3 10^3/uL Basophils # (Auto) 0.0 0.0-0.1 10^3/uL Prothrombin Time 17.3 H 12.2-14.7 SEC INR Comment 1.4 0.8-1.4 Activated Partial Thromboplast Time 34 24-35 SEC Sodium Level 136 135-145 MMOL/L Potassium Level 3.8 3.6-5.0 MMOL/L Chloride Level 98 98-107 MMOL/L Carbon Dioxide Level 23 21-32 MMOL/L Anion Gap 15 H 5-14 MMOL/L Blood Urea Nitrogen 11 7-18 MG/DL Creatinine 0.84 0.60-1.30 MG/DL Estimat Glomerular Filtration Rate > 60 BUN/Creatinine Ratio 13 Glucose Level 106 H 70-105 MG/DL Lactic Acid Level 1.42 0.50-2.00 MMOL/L Calcium Level 9.1 8.5-10.1 MG/DL Corrected Calcium 9.0 8.5-10.1 MG/DL Magnesium Level 1.6 1.6-2.4 MG/DL Total Bilirubin 1.4 H 0.1-1.0 MG/DL Aspartate Amino Transf (AST/SGOT) 18 5-34 U/L Alanine Aminotransferase (ALT/SGPT) 9 0-55 U/L Alkaline Phosphatase 98 40-136 U/L Troponin I < 0.30 <0.30 NG/ML Pro-B-Type Natriuretic Peptide 3838.0 H <75.0 PG/ML Total Protein 6.7 6.4-8.2 GM/DL Albumin 4.1 3.2-4.5 GM/DL Micro Results Microbiology 11/21/19 Influenza Types A,B Antigen (SADIA) - Final, Complete My Orders Orders - AGUEDA MCDOWELL DO Cbc With Automated Diff (11/21/19 16:35) Comprehensive Metabolic Panel (11/21/19 16:35) Blood Culture (11/21/19 16:35) Lactic Acid Analyzer (11/21/19 16:35) Magnesium (11/21/19 16:35) Influenza A And B Antigens (11/21/19 16:35) Probnp Fs (11/21/19 16:35) Troponin I Fs (11/21/19 16:35) Ua Culture If Indicated (11/21/19 16:35) Chest 1 View Ap/Pa Only (11/21/19 16:35) Ekg Tracing (11/21/19 16:35) Partial Thromboplastin Time (11/21/19 16:35) Protime With Inr (11/21/19 16:35) Ns Iv 1000 Ml (Sodium Chloride 0.9%) (11/21/19 16:45) Albuterol/Ipra Inhalation Soln (Duoneb I (11/21/19 16:45) Methylprednisolone Sod Succ (Solu-Medrol (11/21/19 16:45) Svn Small Volume Nebulizer (11/21/19 16:35) Medications Given in ED Current Medications Medications Dose Ordered Sig/Sandra Route Start Time Stop Time Status Last Admin Dose Admin Albuterol/ Ipratropium 3 ml ONCE ONCE INH 11/21/19 16:45 11/21/19 16:46 DC 11/21/19 17:01 3 ML Methylprednisolone Sodium Succinate 125 mg ONCE ONCE IVP 11/21/19 16:45 11/21/19 16:46 DC 11/21/19 17:01 125 MG Vital Signs/I&O 11/21/19 11/21/19 16:25 16:48 Temp 38.0 Pulse 83 Resp 21 B/P (MAP) 213/82 (125) Pulse Ox 95 O2 Delivery Room Air Room Air Capillary Refill : Progress Note : Progress Note Patient with symptoms most likely indicative of a upper respiratory infection with bronchospasm. Will check chest x-ray flu swab a sick labs treat with DuoNeb and Solu-Medrol IV fluids and reassess. Patient says that her breathing is better after the above treatment. Her brother who is present with patient feels that she is too ill to go home. I discussed with patient and brother her results and disposition planning. Patient says that she does not want to be admitted to the hospital. Based off workup she has no signs of pneumonia influenza and her CBC and BMP are completely normal however her BNP is elevated I have no prior comparison. I do not see any signs of overt CHF as she has no peripheral edema in her chest x-ray shows no pulmonary edema however she does have cardiomegaly and venous congestion. I told them that I could admit her for her upper respiratory infection and have her further treated at [facility]. Patient refused stating that she did not want to go the hospital and she is feeling better. Patient will be discharged in stable condition with normal vital signs. I will prescribe her Zithromax Tessalon and prednisone and told her to use her albuterol every 4 hours. Patient and brother aware and agreeable with plan for discharge and verbalized understanding of the need for short-term follow-up and strict ED return precautions discussed including worsening pain shortness of breath or other general concerns. Departure Impression Primary Impression: Upper respiratory infection Qualified Codes: J06.9 - Acute upper respiratory infection, unspecified Additional Impressions: Cough Fever Wheezing Elevated brain natriuretic peptide (BNP) level Disposition: 01 HOME, SELF-CARE Condition: Stable Departure-Patient Inst. Referrals: CLEO MAY MD (PCP/Family) Primary Care Physician Patient Instructions: Viral Upper Respiratory Infection, Adult (DC) Add. Discharge Instructions: Albuterol every 4 hours. Drink plenty of fluids. Follow with PCP in 2 days and come back with any new or worsening symptoms. Thank you! Scripts Azithromycin (Zithromax) 250 Mg Tablet 250 MG PO UD, #6 TAB TAKE 2 TABLETS TODAY, THEN TAKE 1 TABLET DAILY FOR 4 MORE DAYS Prov: AGUEDA MCDOWELL DO 11/21/19 Benzonatate (TESSALON PERLES) 100 Mg Capsule 100 MG PO TID PRN for COUGH, #14 CAP Prov: AGUEDA MCDOWELL DO 11/21/19 Prednisone (Prednisone) 20 Mg Tab 40 MG PO DAILY, #8 TAB 0 Refills Prov: AGUEDA MCDOWELL DO 11/21/19 AGUEDA MCDOWELL DO Nov 21, 2019 16:28
[2019-11-21] MEDS ORDERED: methylPREDNISolone 125 MG (Solu-MEDROL) VIAL IVP ONE (16:45)
[2019-11-21] MEDS ORDERED: RT-ALBUTEROL/IPRATROPIUM 3 ML (DUONEB) VIAL INH ONE (16:45)
[2019-11-21] MEDS ORDERED: NS IV 1000 ML 1,000 ML IV SCH (16:45)
[2019-11-21 16:51] LABS: HEMATOCRIT 43 % (35-52); HEMOGLOBIN 13.9 G/DL (11.5-16.0); LYMPHOCYTES % (AUTO) 17 % (12-44); MEAN CORPUSCULAR HEMOGLOBIN 28 PG (25-34); MEAN CORPUSCULAR HGB CONC 33 G/DL (32-36); MEAN CORPUSCULAR VOLUME 87 FL (80-99); MEAN PLATELET VOLUME 11.6 FL (7.4-10.4); MONOCYTES % (AUTO) 12 % (0-12); NEUTROPHILS % (AUTO) 69 % (42-75); PLATELET COUNT 159 10^3/uL (130-400); WHITE BLOOD COUNT 5.5 10^3/uL (4.3-11.0)
[2019-11-21 16:52] LABS: BASOPHILS % (AUTO) 1 % (0-10); EOSINOPHILS % (AUTO) 1 % (0-10); MONOCYTES # (AUTO) 0.7 X 10^3 (0.0-1.0); NEUTROPHILS # (AUTO) 3.8 X 10^3 (1.8-7.8)
--- NOTE | 2019-11-21 17:03 | Diagnostic Imaging Report ---
INDICATION: Cough and weakness. EXAMINATION: Single view of the chest was obtained. COMPARISON: No prior examination available for comparison. FINDINGS: There is cardiomegaly. There is minimal venous congestion. Mediastinum is unremarkable. There is no pleural effusion, pneumothorax or pneumonia. IMPRESSION: Cardiomegaly and minimal central pulmonary venous congestion. Dictated by: Dictated on workstation # [id number]
[2019-11-21 17:12] LABS: INR 1.4 (0.8-1.4); PROTHROMBIN TIME PATIENT 17.3 SEC (12.2-14.7)
[2019-11-21 17:21] LABS: CHLORIDE 98 MMOL/L (98-107); POTASSIUM 3.8 MMOL/L (3.6-5.0); SODIUM 136 MMOL/L (135-145)
[2019-11-21 17:22] LABS: ALANINE AMINOTRANSFERASE 9 U/L (0-55); ALBUMIN 4.1 GM/DL (3.2-4.5); ALKALINE PHOSPHATASE 98 U/L (40-136); BILIRUBIN,TOTAL 1.4 MG/DL (0.1-1.0); BUN/CREATININE RATIO 13; CALCIUM 9.1 MG/DL (8.5-10.1); CARBON DIOXIDE 23 MMOL/L (21-32); CREATININE SERUM 0.84 MG/DL (0.60-1.30); GFR ESTIMATED > 60; GLUCOSE 106 MG/DL (70-105); MAGNESIUM 1.6 MG/DL (1.6-2.4); TOTAL PROTEIN 6.7 GM/DL (6.4-8.2)
[2019-11-21] MEDS ORDERED: AZIT250T PO (17:35)
[2019-11-21] MEDS ORDERED: BENZ100C18 PO (17:35)
[2019-11-21] MEDS ORDERED: PRD20T PO (17:35)
[2019-11-21] MEDS ORDERED: ALBU2.5V4 INH (17:43)
[2019-11-21] MEDS ORDERED: RT-ALBUINH IH (17:43)
[2019-11-21 17:45] VITALS: BP 187/95
== END 2019-11-21 17:45 | disposition home or self-care (01) ==
LOC: EDUNIT# 16:17 → ER FS 16:18
DX: J06.9 Acute upper respiratory infection, unspecified (principal); R79.89 Other specified abnormal findings of blood chemistry; J45.909 Unspecified asthma, uncomplicated; I10 Essential (primary) hypertension; I48.91 Unspecified atrial fibrillation; E11.9 Type 2 diabetes mellitus without complications; F41.9 Anxiety disorder, unspecified; Z85.3 Personal history of malignant neoplasm of breast; Z87.19 Personal history of other diseases of the digestive system; Z88.8 Allergy status to other drugs, medicaments and biological substances; Z90.49 Acquired absence of other specified parts of digestive tract; Z90.89 Acquired absence of other organs; Z90.710 Acquired absence of both cervix and uterus
CPT/HCPCS: 36415; 71045; 80053; 83605; 83735; 83880; 84484; 85025; 85610; 85730; 87040; 87804; 93005; 96361; 96374

== ENCOUNTER 2020-05-28 08:12 | Emergency (ER) | payer MEDICARE ==
[~2020-05-28] VITALS: Ht 160 cm; Wt 59.5 kg
[~2020-05-28 08:12] MED LIST changes: +ALBU2.5V4 INH; +AZIT250T PO; +BENZ100C18 PO; +PRD20T PO; +RT-ALBUINH IH
--- NOTE | 2020-05-28 08:30 | NUR ---
To waiting to room to speak with pt's ride and discuss the no visitor policy of the waiting room. Pt requests RN to have friend call her dgt Hermila in [place] and update her of in ER but doing fine. Pt wants to go to dgt's house eventually this week and stay till her new upcoming cardiology appt at [facility] early in the week.
--- OUTSIDE RECORDS SUMMARY | 2020-05-28 08:31 | XMS REPORT | Encounter Summary ---
Author Author [facility] Organization [facility] Address Unknown Phone Unavailable Care Team Providers Care Nursing Home Manager Name Role Phone Gladys Matthews Unavailable Unavailable Jeff Palma MD PCP Reason for Visit * Reason Comments Results Encounter Details Care Team Description [place] [id number] [place], [place] [id number] Results 11/29/2019 Telephone Internal Medicine [id number] [facility] [address] [place], [place] [id number] Social History Date Tobacco Use Types Packs/Day Years Used Never Smoker Smokeless Tobacco: Never Used Drinks/Week oz/Week Comments Alcohol Use occasionally Yes Sex Assigned at Date Recorded Female Industry Job Start Date Occupation Not on file Not on file Not on file Travel End Travel History Travel Start No recent travel history available. documented as of this encounter Functional Status Date of Assessment Functional Status Response 10/01/2019 Does the patient have a hearing impairment: No 10/01/2019 Does the patient have a visual impairment: Yes 10/01/2019 Does the patient have impaired ambulation: No 10/01/2019 Does the patient have an activity of daily living No (ADL) impairment: 10/01/2019 Does the patient have an instrumental activity of No daily living (IADL) impairment: Date of Assessment Cognitive Status Response 10/01/2019 Does the patient have a cognitive impairment: No documented as of this encounter Miscellaneous Notes * Telephone Encounter - Ofelia Medrano RN - 11/29/2019 3:53 PM 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 She returned call from [place] and stated she wanted to sta rt oral meds and complete B12 injections but does not want to start prolia injec tions. Patient was called back and m left requesting pharmacy to call medicati on into. Will await call back. S RIBBON MACHINE OPERATOR documented in this encounter Plan of Treatment Not on filedocumented as of this encounter Goals Goal Patient Associated Recent Progress Patient-Stat Aut hor Goal Type Problems ed? GOAL General No Tammie Causey, RN Note: Cont to live in my condo documented as of this encounter Visit Diagnoses Not on filedocumented in this encounter
--- OUTSIDE RECORDS SUMMARY | 2020-05-28 08:31 | XMS REPORT | Encounter Summary ---
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 Electrical Prospecting Name Role Phone Gladys Matthews Unavailable Unavailable Jeff Palma MD PCP Encounter Details Care Team Description [place] [id number] [place] [address] MGUS (monoclonal gammopathy of unknown s ignificance) (Primary Dx); Anemia, unspecified type; CKD (chronic kidney disease) stage 3, GFR 30-59 ml/min ([facility]) 04/03/2020 Orders Only Internal Medicine [address] [place], [place] [id number] Social History Date Tobacco Use Types Packs/Day Years Used Never Smoker Smokeless Tobacco: Never Used Drinks/Week oz/Week Comments Alcohol Use occasionally Yes Sex Assigned at Date Recorded Female Industry Job Start Date Occupation Not on file Not on file Not on file Travel End Travel History Travel Start No recent travel history available. Date Recorded COVID-19 Exposure Response 04/03/2020 10:03 AM CDT In the last month, have you been in contact with No / Unsure someone who was confirmed or suspected to have Coronavirus / COVID-19? documented as of this encounter Functional Status [...] impairment: No documented as of this encounter Plan of Treatment Order Schedule Name Type Priority Associated Diag noses Ordered: 04/03/2020 IRON + BINDING CAPACITY + Lab Specimen MGUS (monoclonal %SAT+ FERRITIN in Lab gammopathy of unkno wn significance) Anemia, unspecified type CKD (chronic kidney disease) stage 3, GFR 30-59 ml/min (HCC) Ordered: 04/03/2020 ELECTROPHORESIS-SERUM Lab Specimen MGUS (mo noclonal PROTEIN in Lab gammopathy of unkno wn significance) Anemia, unspecified type CKD (chronic kidney disease) stage 3, GFR 30-59 ml/min (HCC) Ordered: 04/03/2020 IMMUNOFIXATION, SERUM Lab Specimen MGUS (mo noclonal (IFES) in Lab gammopathy of unkno wn significance) Anemia, unspecified type CKD (chronic kidney disease) stage 3, GFR 30-59 ml/min (HCC) Ordered: 04/03/2020 FOLATE, SERUM Lab Specimen MGUS (monoclona l in Lab gammopathy of unknown significance) Anemia, unspecified type CKD (chronic kidney disease) stage 3, GFR 30-59 ml/min (HCC) Ordered: 04/03/2020 PARATHYROID HORMONE Lab Specimen MGUS (mono clonal in Lab gammopathy of unknown significance) Anemia, unspecified type CKD (chronic kidney disease) stage 3, GFR 30-59 ml/min (HCC) documented as of this encounter Goals Goal Patient Associated Recent Progress Patient-Stat Aut hor Goal Type Problems ed? GOAL General No Tammie Causey, RN Note: Cont to live in my condo documented as of this encounter Visit Diagnoses Diagnosis MGUS (monoclonal gammopathy of unknown significance) Monoclonal paraproteinemia Anemia, unspecified type CKD (chronic kidney disease) stage 3, G FR 30-59 ml/min (HCC) Chronic kidney disease, Stage III (mode rate) documented in this encounter
--- OUTSIDE RECORDS SUMMARY | 2020-05-28 08:31 | XMS REPORT | Clinical Summary ---
Author Author [facility] Organization [facility] Address Unknown Phone Unavailable Care Team Providers Care Rubber Curer Name Role Phone Gladys Matthews Unavailable Unavailable Jeff Palma MD PCP Source Comments Some departments are not documenting in the electronic medical record. If you d o not see the information that you expected, contact Release of Information in [facility] Health Information Management department at [phone] for further assistan ce in locating additional records.[facility] Allergies Comments Active Allergy Reactions Severity Noted Date Loss of appetite ,swollen fingers , Loss of appetite ,swollen fingers, tremors, loss of balance, toxic type reactions per family Amiodarone SEE COMMENTS High 06/22/2019 Edema Amlodipine EDEMA Medium 05/02/2013 Medications End Date Status Medication Sig Dispensed Refills Start Date Active albuterol (VENTOLIN HFA) Inhale two 6.7 g 3 0 90 mcg/actuation inhaler puffs by 9 mouth into the lungs every 6 hours as needed for Wheezing or Shortness of Breath. Shake well before use. Active fish oil- omega 3-DHA/EPA Take 1 0 300/1,000 mg capsule capsule by mouth daily. Active Syringe with Needle To be used 30 each 0 (Disp) 3 mL 25 gauge x 1" with B12 0 syrgIndications: B12 injections deficiency administered every 2 weeks. Active cyanocobalamin (RUBRAMIN) Inject 1 mL 3 mL 1 1,000 mcg/mL injection into the 0 muscle every 14 days. Active vitamins, B complex as directed 0 (VITAMINS B COMPLEX) tab Active omeprazole DR (PRILOSEC) 0 20 mg capsule 0 Active losartan (COZAAR) 50 mg Take one 90 tablet 1 tablet tablet by 0 mouth daily. Active SYMBICORT 160-4.5 Inhale two 30.6 g 11 04/03/20 2 mcg/actuation inhalation puffs by 0 mouth into the lungs twice daily. Active citalopram (CELEXA) 20 mg Take one 90 tablet 1 tablet tablet by 0 mouth every morning. Active furosemide (LASIX) 40 mg TAKE 1 TABLET 90 tablet 1 tablet BY MOUTH ONCE 0 DAILY IN THE MORNING Active ALPRAZolam (XANAX) 0.25 Take one 45 tablet 2 mg tablet tablet to two 0 tablets by mouth daily as needed for Anxiety. 05/19/2020 Discontinued (Reorder) ALPRAZolam (XANAX) 0.25 Take one-half 30 tablet 2 mg tablet tablet to one 0 tablet by mouth daily as needed for Anxiety. Active Problems Problem Noted Date MGUS (monoclonal gammopathy of unknown significance) 09/30/2019 Overview: 09/05/2019 CBC unremarkable with hemogl obin 14, W5.6, platelets 279, differential normal, B12 289 normal, se d rate 3 low, C-reactive protein 0.84 normal, CMP mostly normal with cre atinine 1.07, calcium 9.9 normal, transaminases and alk phos normal, TSH slightly low at 0.30, serum kappa light chain 2.55 slightly elevated abov e ULN of 1.94, lambda light chain normal 2, serum kappa lambda light kodak n ratio 1.28 normal, vitamin D 14.3 low, serum protein electrophoresis with an M protein of 0.08, serum immunofixation positive for lambda ligh t chain 10/01/2019 first [facility] oncology visit explained to patient what monoclonal proteins and also what immunoglobulins are. Doubt that patient has underlying neoplastic disor emeka but to be careful since patient has had weight loss that is partially u nexplained will check urine protein electrophoresis, urine immunofixation e lectro pheresis, urine free light chain ratio and skeletal survey and bet a-2 microglobulin. Also will check quantitative IgG, IgA, IgM. Will talk with patient what test results. Of unrevealing may consider CT chest abdom en pelvis to look for lymphadenopathy or cancer causing extre me fatigue and weight loss. If symptoms persist and these tests are un revealing may consider bone marrow biopsy though since patient's hemoglobi n, white count and differential platelet counts are normal this is not really likely to be an explanation for difficulties. If we do a bone yosef ow biopsy we will need to check amyloid stains. 10/01/2019 urine immunofixation-no para protein seen, beta-2 light chain 5.2 elevated, quantitative IgG 753 very low end of normal, IgA 130 normal, IgM 37 1.1 normal, 10/02/2019 [facility] skeletal survey. No foca l lesions. No fractures. Mild diffuse osteoporosis. Grade 1 degenera tive spondylolisthesis at L4-L5 and L5-S1 with facet osteoarthritis lower l umbar spine. Diffuse idiopathic skeletal hyperostosis. Marked C5-C6 di sc degeneration. 10/09/2019 Please tell the daughter the patient that the test look good. She should have repeat serum protein letter pheresis and serum free light chain ratio test probably in 6 months. If this test significantly increases over time she should probably see us again. She did have her family doctor due to severe comfortable or I can see her in 6 months with those test in a week ahead of time. L et me know what she would like to do. At this time I think your knee ve ry little chance we would find anything significant on a bone marrow b iopsy. If she wishes to proceed with this we could but I would probably lean away from that. This most likely represents a MGUS. There is a very small but real chance this could progress in the future. I doubt that it well. Let me know when she wishes to see me again or have her family doctor see her.,,,, pt wishes to come back in 6 months to see Heme/on c 04/18/2020 reviewed recent lab including those from [facility]. She had elevation of both serum kappa serum sherwood bda light chains but the ratio was normal. Our repeat here shows that the y are back to normal range. It might been related to her hospitalizati on. Patient will see us again in about 1 year with repeat serum and urin e paraproteins including free light chains and protein electrophoresis and immunofixation. She will call if questions. L ast Assessment & Plan: Monitored today and my assessment is th at the current treatment is appropriate. Intraductal carcinoma in situ of right breast 2018 Last Assessment & Plan: s/p lumpectomy Unexplained weight loss 09/05/2019 Overview: Up-to-date on cancer screening. See work-up for fatigue, muscle weaknes s positive for MGUS. Hematology did not think causing issues CT chest abdomen pelvis unremarkable ex cept for small renal lesion Plan: Treat depression Continue to monitor MGUS Continue to follow renal lesion L ast Assessment & Plan: She continues to have weight loss despi te regular meals. Mrs. Fam tells me that she simply has no appetite. Sh arturo is going to be undergoing CT of the chest and abdomen later today for f urther work-up. She does have a history of MGUS. Tremor of both hands 09/05/2019 Overview: With activity/extension Plan: Get thyroid studies, B12 Refer to neurology L ast Assessment & Plan: Her tremors have improved significantly . Her biggest complaint to me today is some gait instability. She does not know if it is due to muscle weakness from weight loss. We are j carlos g to keep her off of amiodarone for now. I would expect any effects from a miodarone would be out of her system in the next month. Parkinson disease 09/05/2019 Overview: Does have muscle weakness, fatigue, I s pent weight loss. Negative/normal CBC, CMP, TSH, ESR, CRP , EDA, CPK, anti-Oswmya 1, SCL 70 antibody. SPEP and immunofixation cons istent with MGUS. Hematology did not think contributing 04/03/2020 -seen by neurology, diagnosed with lower body parkinsonism Plan Continue follow-up with neurology Reactive depression 07/25/2019 Overview: Secondary to health problems, recent lo ss of and daughter 10/30/2019 -feels "weird" on 10 mg julian y but she does not take it regularly. Would prefer to be on 5 mg daily 04/03/2020 -was started on citalopram in stead of Lexapro while in [place]. Plan: Increase citalopram to 20 mg daily L ast Assessment & Plan: Her mood is overall better today. Eliana has been started on low-dose Lexapro and admits that it is helping. She is not crying as much. I encouraged her to continue her medications. Symptomatic bradycardia 06/21/2019 CKD (chronic kidney disease) stage 3, GFR 30-59 ml/mi n 05/04/2019 Overview: Plan: -Avoid nephrotoxins and renally dose me dications -Keep adequately hydrated LPRD (laryngopharyngeal reflux disease) 04/27/2019 Overview: Plan: Continue omeprazole 20 mg daily Chronic fatigue 04/27/2019 Overview: Having worsening chronic fatigue. No sy stemic signs or symptoms. Is depressed. Physical exam normal. 09/05/2019 -getting worse with unexplai randolph weight loss and tremors and muscle weakness. Depression partially treated 11/02/2019 -negative/normal CBC, CMP, c hest x-ray, a.m. cortisol. Work-up positive for MGUS Plan: Get CT AP and chest Replace vitamin D Replace vitamin B12 -Work-up muscle weakness \\ B12 deficiency 04/27/2019 Overview: Levels did not improve with oral replac ement Status post injections Check levels Atrial fibrillation 01/12/2019 Overview: 1. 01/02 echo: No regional wall motion abnormalities are seen. Overall LV systolic function appears normal. The e stimated left ventricular ejection fraction is 60%. 2. Right ventricular contractility appe ars normal. 3. Moderate left atrial enlargement. 4. Moderate mitral valve regurgitation. Mild tricuspid valve regurgitation. 5. Aortic valve sclerosis without steno sis. No pericardial effusion is seen. Plan: Continue follow-up with cardiology L ast Assessment & Plan: She has maintained sinus rhythm off of amiodarone. Mrs. Fam really does not want to start another antiarrhythmi c drug, particularly because of her previous experiences with other antiarr hythmic medications. I think this is reasonable. If she does have recurr ence of her atrial arrhythmias, then we could consider starting her on fleca inide. She remains on anticoagulation. She re ports a history of falls in the past. We talked about the relative ris ks of anticoagulation including the risk of bleeding with falls. Mrs. Martinez hansen tells me she is very careful and will not fall again. I asked her to ca ll me if she has any other falls. At that time, we will revisit the optio n of watchman and anticoagulation. Asthma 01/12/2019 Overview: controlled Plan: Continue Albuterol 2 puffs every 6 hour s as needed Continue Singulair 10 mg daily Start Symbicort 160 4.5 MCG 2 puffs twice daily Bruit 08/09/2016 Shortness of breath 08/09/2016 Essential hypertension 08/06/2016 Overview: Formatting of this note might be differ ent from the original. 02/09/08 ECHO EF 55 % Hypertension Management: Medication adherent: all of the time Treatment goal: 130/80 Outside blood pressures being performed : Yes BP Readings from Last 3 Encounters: 04/03/20 132/61 11/29/19 118/74 10/30/19 145/43 She denies significant light-headedness . Imp: Hypertension controlled Plan: Discussed hypertension and reviewed charmaine ls. Limit salt to 1.5-2 g daily DC metoprolol Resume losartan 50 mg daily Last Assessment & Plan: Her blood pressure in the office today is mildly elevated. She thinks it's due to stress. We are going to continu e to monitor this closely. Mixed hyperlipidemia 08/06/2016 Overview: Formatting of this note might be differ ent from the original. Hyperlipidemia Management LDL goal < 90. Diet adherence:most of the time Medication adherence:On none Side effects to medications? No Lab Results Component Value Date/Time CHOL 210 (H) 10/30/2019 11:51 AM TRIG 116 10/30/2019 11:51 AM HDL 52 10/30/2019 11:51 AM LDL 147 (H) 10/30/2019 11:51 AM VLDL 23 10/30/2019 11:51 AM NONHDLCHOL 158 10/30/2019 11:51 AM ALT 8 04/03/2020 10:12 AM CK 22 09/08/2019 10:07 AM VITD25 46.6 04/03/2020 10:12 AM Imp: Hyperlipidemia good Plan: Discussed labs and reviewed goals for L DL, HDL, triglycerides. Discussed exercise management and diet with emphasis on vegetables, fruit and lean meat. 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 Irvin Abnormal signs: Memory dysfunction and Executive dysfunction Localization: Bihemispheral, cortices a nd Mesial temporal structures Diagnosis: Alzheimer's disease Differential diagnosis: Inflammatory di sorders, Vascular disorders, Metabolic disorders and Other degenerat heike causes Recommended starting Aricept if able to decrease Metoprolol. Continue follow-up with neurology 05/2019: Neuropsychological testing: Summary and Conclusions: The patient is an 78-year-old female pr eviously diagnosed with Alzheimer's disease who was referred for neuropsych ological evaluation to gauge level of cognitive functioning to assist in t reatment planning. During the interview, the patient reported difficu lty remembering appointments/details of appointments and occasional word sub stitution, but noted her peers have similar issues. Her daughter added that the patient has had problems with misplacing items. The patient reported rapid onset of cognitive symptoms shortly after her daughter's in [place] 2017 with stability over time. Her daughter reported gradual onset of symptoms about a year ago with gradual decline and indicated symptoms have been more prominent in the past 6 months. Performance on cognitive testing was in dicative of grossly intact cognitive functioning and is not consistent with the presence of a neurodegenerative disorder. It is most likely that obser jerrell cognitive changes are related to high level of stress as well as normal age-related cognitive decline. Psychologically, the patient denied cli nically relevant symptoms of anxiety and depression but did note elevated st ress level. 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 She reports anxiety and feeling somewhat down and blue but took the Buspar for just a few days. She felt it helped but did not want to be " dependent" on anything. We discussed the toll that stress and anxiety can ta ke on memory as well as untreated depression. We have tried Zoloft in the past and she would not take it but she did agree to restart the Buspar at 5 mg once a day. Recommended we get formal Neuropsycholo gical testing to help with LTC planning. 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 She needs more assistance with writing the reports. Ramos rder to keep up with the responsibility. She also has untreated anxiety and depression as well as ongoing grief from the loss of her husb and a couple of years ago that could be contributing. Discussed a referral to [facility] and [facility] support. She may also be interested in some CBT with sebastián Jacobs kishor. They were both in agreement with a referral. She also expressed some interest in hea ring more about Research Studies. Was in agreement with a referral. Plan: Recommend we get the Neuropsychological testing to help with diagnosis and contribution from depression and anxiet y. Continue the Buspar 5 mg once a day. Ta ke every day at the same time daily. We will make a referral to the Junior ce/SW support program and the Research program. Follow up after the Neuropsychological testing results have been completed and we can review the results as well a s a medication check. 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; Mixed hyperlipidemia; Essential hypertension; Atrial fibrillation, unspecified type (HCC); Mild intermittent asthma without complication; B12 deficiency; CKD (chronic kidney disease) stage 3, GFR 30-59 ml/min (HCC); Reactive depression; MGUS (monoclonal gammopathy of unknown significance); Parkinsonism, unspecified Parkinsonism type (HCC); LPRD (laryngopharyngeal reflux disease); Unexplained weight loss; Parkinson disease (HCC) 04/03/2020 Office Visit Internal Medicine Jeff Palma MD 04/03/2020 Hospital Lab Encounter Jeff Palma MD MGUS (monoclonal gammopathy of unknown s ignificance) (Primary Dx); Anemia, unspecified type; CKD (chronic kidney disease) stage 3, GFR 30-59 ml/min (HCC) 04/03/2020 Orders Only Internal Medicine 04/03/2020 Travel Sidra Raygoza LSMitra 03/07/2020 Clinical Neurology Support from Last 3 Months Immunizations Name Administration Dates Next Due Flu Vaccine =>65 YO 10/30/2019, 08/09/2018, 03/2016, 07/18/2015, High-Dose (PF) 08/09/2014, 09/20/2013, , 11/30/2011, 08/14/2010, 11/13/2009, 07/31/2009 Flu vaccine, inj 08/09/2018 unspecified (Historical) Pneumococcal Vaccine 12/27/2019, 09/13/2016 (23-[facility] Adult) Pneumococcal 05/02/2018 Vaccine(13-[facility] Peds/immunocompromised adult) Td Vaccine 01/12/2016, 11/14/2002 Tdap Vaccine 06/02/2019 Typhoid Vaccine, 01/12/2016 unspecified Family History Medical History Relation Name Comments Tremor Brother Tremor Daughter Cancer Father Stroke Maternal Aunt Unknown to Patient Maternal Uncle Stroke Mother High Cholesterol Sister Relation Name Status Comments Brother Daughter Father Maternal Aunt Maternal Uncle Mother Sister Alive Social History Date Tobacco Use Types Packs/Day Years Used Never Smoker Smokeless Tobacco: Never Used Tobacco Cessation: Counseling Given: No Drinks/Week oz/Week Comments Alcohol Use occasionally Yes Sex Assigned at Date Recorded Female 04/17/2020 2:00 PM CDT Industry Job Start Date Occupation Not on file Not on file Not on file Travel End Travel History Travel Start No recent travel history available. Last Filed Vital Signs Reading Time Taken Comments Vital Sign 132/61 04/03/2020 11:30 AM CDT Blood Pressure 73 04/03/2020 11:30 AM CDT Pulse 36.3 C (97.4 F) 04/18/2020 8:44 AM CDT per pt at home Temperature 16 04/03/2020 11:30 AM CDT Respiratory Rate 100% 04/03/2020 11:30 AM CDT Oxygen Saturation - - Inhaled Oxygen Concentration 59.6 kg (131 lb 8 oz) 04/18/2020 8:44 AM CDT per pt at home Weight 162.6 cm (5' 4") 04/18/2020 8:44 AM CDT Height 22.57 04/18/2020 8:44 AM CDT Body Mass Index Plan of Treatment Health Maintenance Due Date Last Done Comments INFLUENZA VACCINE 08/14/2020 10/30/2019, 08/09/2018, 08/09/2018, Additional history exists MEDICARE ANNUAL WELLNESS 10/30/2020 10/30/2019, VISIT 10/30/2019 PHYSICAL (COMPREHENSIVE) 10/30/2020 10/30/2019 EXAM SHINGLES RECOMBINANT 04/27/2029 Postponed from (Insurance/Financial) VACCINE (1 of 2) DTAP/TDAP VACCINES (2 - 06/02/2029 06/02/2019, Td) 01/12/2016, 11/14/2002 OSTEOPOROSIS Completed 10/30/2019 SCREENING/MONITORING PNEUMONIA (PPSV23) Completed 12/27/2019, VACCINE 05/02/2018, 09/13/2016 Goals Goal Patient Associated Recent Progress Patient-Stat Aut hor Goal Type Problems ed? GOAL General No Tammie Causey RN Note: Cont to live in my condo Procedures Comments Procedure Name Priority Date/Time Associated Diag nosis HC KAPPA QNT FLC(KLFLC) Routine 04/03/2020 MGUS ( monoclonal 10:32 AM CDT gammopathy of unknown significance) HC ELECTROPHORESIS-SERUM Routine 04/03/2020 MGUS (monoclonal 10:32 AM CDT gammopathy of unknown significance) HC *FREE T4 (REFLEX) Routine 04/03/2020 Essential hypertension 10:12 AM CDT HC URIC ACID Add on 04/03/2020 CKD (chronic ki dney 10:12 AM CDT disease) stage 3, GFR 30-59 ml/min (HCC) HC PTH Add on 04/03/2020 MGUS (monoclona l 10:12 AM CDT gammopathy of unknown significance) 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) CKD (chronic kidney disease) stage 3, GFR 30-59 ml/min (HCC) HC IRON BINDING CAPACITY Add on 04/03/2020 MGUS (monoclonal + %SAT 10:12 AM CDT gammopathy of unkno wn significance) Anemia, unspecified CKD (chronic kidney disease) stage 3, GFR 30-59 ml/min (HCC) HC IMMUNO FIX SERUM Add on 04/03/2020 MGUS (mono clonal (IFES) 10:12 AM CDT gammopathy of unkno wn significance) Anemia, unspecified CKD (chronic kidney disease) stage 3, GFR 30-59 ml/min (HCC) HC FOLATE, SERUM Add on 04/03/2020 MGUS (monoclo nal 10:12 AM CDT gammopathy of unknown significance) Anemia, unspecified CKD (chronic kidney disease) stage 3, GFR 30-59 ml/min (HCC) HC COMPREHENSIVE Routine 04/03/2020 Essential hyp ertension METABOLIC PANEL 10:12 AM CDT HC CBC W/ AUTOMATED DIFF Routine 04/03/2020 Essen tial hypertension 10:12 AM CDT HC VITAMIN B12 Routine 04/03/2020 B12 deficiency 10:12 AM CDT HC TSH SCREEN Routine 04/03/2020 Essential hyper tension 10:12 AM CDT HC 25-OH VITAMIN D Routine 04/03/2020 CKD (chroni c kidney 10:12 AM CDT disease) stage 3, GFR 30-59 ml/min (HCC) from Last 3 Months Results * KAPPA/LAMBDA FREE LIGHT CHAINS (04/03/2020 10:32 AM CDT) [place], FLC 2.67 (H) 0.33 - 1.94 MG/DL [facility] Lambda, FLC 1.97 0.57 - 2.63 MG/DL [facility] [place]/Lambda 1.36 0.26 - 1.65 [facility] FLC Specimen Blood Performing Organization Address [facility]/State[facility] one Number [facility] [address] [place] [address] * ELECTROPHORESIS-SERUM PROTEIN (04/03/2020 10:32 AM CDT) Total 5.4 (L) 6.0 - 8.0 G/DL [facility] Protein-SEP Albumin % 66.2 48 - 68 % [facility] Alpha 1 % 4.7 2 - 6 % [facility] Alpha 2 % 9.7 5 - 15 % [facility] Beta %,Serum 8.7 (L) 9 - 17 % [facility] Gamma % 10.7 9 - 21 % [facility] Interpretation HYPOGAMMAGLOBULINEMIA [facility] - SEP Pathologist INTERPRETED BY JAVI DUDLEY M.D. [facility] Signature By the PATH SIGNATURE ABOVE , I attest that I have personally formulated the final interpretation expressed in this report and that the above diagnosis is based upon my examination of the slides and/or other material indicated in this report. Specimen Blood Performing Organization Address [facility] one Number [facility] [address] [place] [address] * IRON + BINDING CAPACITY + %SAT+ FERRITIN (04/03/2020 10:12 AM CDT) Iron 79 50 - 160 MCG/DL [facility] Iron 253 (L) 270 - 380 MCG/DL [facility] Binding-TIBC % Saturation 31 28 - 42 % [facility] Ferritin 56 10 - 200 NG/ML [facility] Specimen Performing Organization [facility] one Number [facility] [address] [place] [address] * FREE T4-FREE THYROXINE (04/03/2020 10:12 AM CDT) T4-Free 1.2 0.6 - 1.6 NG/DL [facility] Specimen Performing Organization [facility] one Number [facility] [address] [place] [address] * TSH WITH FREE T4 REFLEX (04/03/2020 10:12 AM CDT) TSH 0.33 (L) 0.35 - 5.00 MCU/ML [facility] Specimen Blood Performing Organization [facility] one Number [facility] [address] [place] [address] * PARATHYROID HORMONE (04/03/2020 10:12 AM CDT) PTH Hormone 25.5 10 - 65 PG/ML [facility] Specimen Performing Organization [facility] one Number [facility] [address] [place] [address] * IMMUNOFIXATION, SERUM (IFES) (04/03/2020 10:12 AM CDT) Immuno NO PARAPROTEIN SEEN [facility] Fix-Serum Pathologist INTERPRETED BY JAVI DUDLEY M.D. [facility] Signature By the PATH SIGNATURE ABOVE , I attest that I have personally formulated the final interpretation expressed in this report and that the above diagnosis is based upon my examination of the slides and/or other material indicated in this report. Specimen Performing Organization [facility]/Zipcode Ph one Number MAIN LAB [address] [place] [address] * 25-OH VITAMIN D (D2 + D3) (04/03/2020 10:12 AM CDT) Pathologist [facility] Vitamin 46.6 30 - 80 NG/ML MAIN LAB D(25-OH)Total Specimen Blood Performing Organization Address [facility] Ph one Number MAIN LAB [address] [place] [address] * CBC AND DIFF (04/03/2020 10:12 AM CDT) [facility] White Blood 3.6 (L) 4.5 - 11.0 K/UL [facility] [place] RBC 3.71 (L) 4.0 - 5.0 M/UL [facility] [place] Hemoglobin 11.5 (L) 12.0 - 15.0 GM/DL [facility] [place] Hematocrit 35.6 (L) 36 - 45 % [facility] [place] MCV 96.1 80 - 100 FL [facility] [place] MCH 31.0 26 - 34 PG [facility] [place] MCHC 32.3 32.0 - 36.0 G/DL [facility] [place] RDW 16.5 (H) 11 - 15 % [facility] [place] Platelet Count 185 150 - 400 K/UL [facility] [place] MPV 8.5 7 - 11 FL [facility] [place] Neutrophils 57 41 - 77 % [facility] [place] Lymphocytes 28 24 - 44 % [facility] [place] Monocytes 10 4 - 12 % [facility] [place] Eosinophils 4 0 - 5 % [facility] [place] Basophils 1 0 - 2 % [facility] [place] Absolute 2.10 1.8 - 7.0 K/UL [facility] Neutrophil [place] Count Absolute Lymph 1.00 1.0 - 4.8 K/UL [facility] Count [place] Absolute 0.40 0 - 0.80 K/UL [facility] Monocyte Count [place] Absolute 0.20 0 - 0.45 K/UL [facility] Eosinophil [place] Count Absolute 0.00 0 - 0.20 K/UL [facility] Basophil Count [place] Specimen Blood Performing Organization Address [facility] Ph one Number [facility] [place] [address] [place] [address] * URIC ACID (04/03/2020 10:12 AM CDT) Uric Acid 3.1 2.0 - 7.0 MG/DL [facility] MAIN LAB Specimen Performing Organization Address [facility] Ph one Number [facility] MAIN LAB [address] [place] [address] * FOLATE, SERUM (04/03/2020 10:12 AM CDT) Serum Folate >22.3Comment: NOTE NEW >3.9 NG/ML [facility] MAIN LAB REFERENCE RANGES Specimen Performing Organization Address [facility] Ph one Number [facility] MAIN LAB [address] [place] [address] * VITAMIN B12 (04/03/2020 10:12 AM CDT) Vitamin B12 701 180 - 914 PG/ML [facility] MAIN LAB Specimen Blood Performing Organization Address [facility] one Number [facility]U MAIN LAB [address] [place] [address] * COMPREHENSIVE METABOLIC PANEL (04/03/2020 10:12 AM CDT) Sodium 142 137 - 147 MMOL/L [facility] MAIN LAB Potassium 3.6 3.5 - 5.1 MMOL/L [facility] MAIN LAB Chloride 106 98 - 110 MMOL/L [facility] MAIN LAB Glucose 131 (H) 70 - 100 MG/DL [facility] MAIN LAB Blood Urea 26 (H) 7 - 25 MG/DL [facility] MAIN LAB Nitrogen Creatinine 1.23 (H) 0.4 - 1.00 MG/DL [facility] MAIN LAB Calcium 9.4 8.5 - 10.6 MG/DL [facility] MAIN LAB Total Protein 5.7 (L) 6.0 - 8.0 G/DL [facility] MAIN LAB Total Bilirubin 0.6 0.3 - 1.2 MG/DL [facility] MAIN LAB Albumin 3.7 3.5 - 5.0 G/DL [facility] MAIN LAB Alk Phosphatase 52 25 - 110 U/L [facility] MAIN LAB AST (SGOT) 14 7 - 40 U/L [facility] MAIN LAB CO2 30 21 - 30 MMOL/L [facility] MAIN LAB ALT (SGPT) 8 7 - 56 U/L [facility] MAIN LAB Anion Gap 6 3 - 12 [facility] MAIN LAB eGFR Non 42 (L) >60 mL/min [facility] MAIN LAB Comment: [place] The eGFR is not validated f or use in drug dosing adjustments. Continue to use estimated creatinine clearance per dosing reference text. Please contact the Clinical Pharmacist for questions. eGFR 51 (L) >60 mL/min [facility] MAIN LAB [place] Comment: The eGFR is not validated for use in drug dosing adjustments. Continue to use estimated creatinine clearance per dosing reference text. Please contact the Clinical Pharmacist for questions. Specimen Blood Performing Organization Address City/State/Zipcode Ph one Number [facility] MAIN LAB [address] [place] [address] from Last 3 Months Insurance Type Payer Benefit Subscriber ID Effective Phone Address Plan / Dates Group Medicare MEDICARE MEDICARE xxxxxxxxxxx 2003-P PART A AND resent B Medicare BCBS LAURA BCBS xxxxxxxxxxxx 2015-P SUPPLEMENT resent [id number] [facility] amily (Home) ERNESTO Garcia [phone] Advance Directives Patient Tax Services Professional Explanation Type Date Recorded Zee [email or web address] Advance 04/15/2019 9:26 AM Directive/DPOA Date Inactivated Comments Code Status Date Activated 06/22/2019 5:53 PM Full Code 06/21/2019 7:00 PM Provider has discussed Code Status Yes w/Patient or Family?
--- OUTSIDE RECORDS SUMMARY | 2020-05-28 08:31 | XMS REPORT | Encounter Summary ---
Author Author [facility] Organization [facility] Address Unknown Phone Unavailable Care Team Providers Care Ophthalmologist Retina Specialist Name Role Phone Gladys Matthews Unavailable Unavailable Jeff Palma MD PCP Encounter Details Care Team Description Date Type Department 04/03/2020 Travel Social History Date Tobacco Use Types Packs/Day [...]
--- OUTSIDE RECORDS SUMMARY | 2020-05-28 08:31 | XMS REPORT | Encounter Summary ---
Author Author [facility] Organization [facility] Address Unknown Phone Unavailable Care Team Providers Care Home Extension Agent Name Role Phone Gladys Matthews Unavailable Unavailable Jeff Palma MD PCP Reason for Visit * Reason Comments Medication Refill Encounter Details Care Team Description [place] [address] [place], [place] [id number] 12/12/2019 Refill Internal Medicine [address] [facility] [address] [place], [place] [address] Social History Date Tobacco Use Types Packs/Day [...]
--- OUTSIDE RECORDS SUMMARY | 2020-05-28 08:31 | XMS REPORT | Encounter Summary ---
Author Author [facility] Organization [facility] Address Unknown Phone Unavailable Care Team Providers Care [employer] [place] Name Role Phone Gladys Matthews Unavailable Unavailable Jeff Palma MD PCP Encounter Details Care Team Description [place] [address] [address] 04/03/2020 [facility] [address] [place] [address] Social History Date Tobacco Use Types Packs/Day [...] impairment: No documented as of this encounter Medications at Time of Discharge Start Date End Date Medication Sig Dispensed Refills 06/05/2019 albuterol (VENTOLIN HFA) Inhale two 6.7 g 3 90 mcg/actuation inhaler puffs by mouth into the lungs every 6 hours as needed for Wheezing or Shortness of Breath. Shake well before use. 04/03/2020 citalopram (CELEXA) 20 mg Take one 90 tablet 1 tablet tablet by mouth every morning. 12/12/2019 cyanocobalamin (RUBRAMIN) Inject 1 mL 3 mL 1 1,000 mcg/mL injection into the muscle every 14 days. fish oil- omega 3-DHA/EPA Take 1 0 300/1,000 mg capsule capsule by mouth daily. 04/03/2020 losartan (COZAAR) 50 mg Take one 90 tablet 1 tablet tablet by mouth daily. 03/07/[address] (PRILOSEC) 0 20 mg capsule 04/03/2020 SYMBICORT 160-4.5 Inhale two 30.6 g 11 mcg/actuation inhalation puffs by mouth into the lungs twice daily. 12/04/2019 Syringe with Needle To be used 30 each 0 (Disp) 3 mL 25 gauge x 1" with B12 syrgIndications: B12 injections deficiency administered every 2 weeks. vitamins, B complex as directed 0 (VITAMINS B COMPLEX) tab 04/03/2020 04/06/2020 allopurinoL (ZYLOPRIM) Take one 3 tablet 0 300 mg tablet tablet by mouth daily for 3 days. 04/03/2020 05/19/2020 ALPRAZolam (XANAX) 0.25 Take one-half 30 tablet 2 mg tablet tablet to one tablet by mouth daily as needed for Anxiety. 04/03/2020 04/06/2020 apixaban (ELIQUIS) 2.5 mg Take one 6 tablet 0 tablet tablet by mouth twice daily for 3 days. 04/03/2020 04/06/2020 carbidopa/levodopa Take two 18 tablet 0 (SINEMET) 25/100 mg tablets by tabletIndications: mouth three Parkinsonism, unspecified times daily Parkinsonism type (HCC) for 3 days. 04/03/2020 04/06/2020 donepeziL (ARICEPT) 5 mg Take one 3 tablet 0 tablet tablet by mouth at bedtime daily for 3 days. 04/03/2020 04/06/2020 ezetimibe (ZETIA) 10 mg Take one 3 tablet 0 tablet tablet by mouth daily for 3 days. 04/03/2020 04/06/2020 furosemide (LASIX) 40 mg Take one 3 tablet 0 tablet tablet by mouth every morning for 3 days. 04/03/2020 04/06/2020 montelukast (SINGULAIR) Take one 3 tablet 0 10 mg tablet tablet by mouth at bedtime daily for 3 days. 04/03/2020 04/06/2020 rosuvastatin (CRESTOR) 20 Take one 3 tablet 0 mg tablet tablet by mouth daily for 3 days. documented as of this encounter Progress Notes * Jeff Palma MD - 04/03/2020 10:00 AM CDT Blood counts with slight anemia but nothing terribly concerning Iron studies and folate levels are normal Uric acid normal Immunofixation normal Electrolytes are normal Blood sugar is normal for nonfasting state Kidney function is stable Liver function tests are normal Thyroid function testing is stable with low TSH but normal free T4. Can continu e to monitor Vitamin D level is now normal. Can take vitamin D3 1000 IUs daily [id number] ter to maintain B12 level looks good. Start taking cyanocobalamin 1000 mcg daily [id number] er I released results, interpretation, and recommendations [facility] documented in this encounter Plan of Treatment Not on filedocumented as of this encounter Goals Goal Patient Associated Recent Progress Patient-Stat Aut hor Goal Type Problems ed? GOAL General No Tammie Causey, JONATHAN Note: Cont to live in my condo documented as of this encounter Procedures Comments Procedure Name Priority Date/Time Associated Diag nosis HC KAPPA QNT FLC(KLFLC) Routine 04/03/2020 MGUS ( monoclonal 10:32 AM CDT gammopathy of unknown significance) HC ELECTROPHORESIS-SERUM Routine 04/03/2020 MGUS (monoclonal 10:32 AM CDT gammopathy of unknown significance) HC IRON BINDING CAPACITY Add on 04/03/2020 MGUS (monoclonal + %SAT 10:12 AM CDT gammopathy of unkno wn significance) Anemia, unspecified CKD (chronic kidney disease) stage 3, GFR 30-59 ml/min ([facility]) HC *FREE T4 (REFLEX) Routine 04/03/2020 Essential hypertension 10:12 AM CDT HC TSH SCREEN Routine 04/03/2020 Essential hyper tension 10:12 AM CDT HC PTH Add on 04/03/2020 MGUS (monoclona [...] stage 3, GFR 30-59 ml/min (HCC) HC 25-OH VITAMIN D Routine 04/03/2020 CKD (chroni c kidney 10:12 AM CDT disease) stage 3, GFR 30-59 ml/min (HCC) HC CBC W/ AUTOMATED DIFF Routine 04/03/2020 Essen tial hypertension 10:12 AM CDT HC URIC ACID Add on 04/03/2020 CKD (chronic ki dney 10:12 AM CDT disease) stage 3, GFR 30-59 ml/min (HCC) HC FOLATE, SERUM Add on 04/03/2020 MGUS (monoclo nal 10:12 AM CDT gammopathy of unknown significance) Anemia, unspecified CKD (chronic kidney disease) stage 3, GFR 30-59 ml/min (HCC) HC VITAMIN B12 Routine 04/03/2020 B12 deficiency 10:12 AM CDT HC COMPREHENSIVE Routine 04/03/2020 Essential hyp ertension METABOLIC PANEL 10:12 AM CDT documented in this encounter Results * KAPPA/LAMBDA FREE LIGHT CHAINS (04/03/2020 10:32 AM CDT) [place], FLC 2.67 (H) 0.33 - 1.94 MG/DL [facility] MAIN LAB Lambda, FLC 1.97 0.57 - 2.63 MG/DL [facility] MAIN LAB [place]/Lambda 1.36 0.26 - 1.65 [facility] MAIN LAB FLC Specimen Blood Performing Organization Address [facility] Ph one Number MAIN LAB [address] [place] [address] * ELECTROPHORESIS-SERUM PROTEIN (04/03/2020 10:32 AM CDT) [...] Gamma % 10.7 9 - 21 % MAIN LAB Interpretation HYPOGAMMAGLOBULINEMIA [facility] MAIN LAB - SEP Pathologist INTERPRETED BY JAVI DUDLEY M.D. [facility] Signature By the PATH SIGNATURE ABOVE , I attest that I have personally formulated the final interpretation expressed in this report and that the above diagnosis is based upon my examination of the slides and/or other material indicated in this report. Specimen Blood Performing Organization Address [facility] Ph one Number MAIN LAB [address] [place] [address] * FREE T4-FREE THYROXINE (04/03/2020 10:12 AM CDT) T4-Free 1.2 0.6 - 1.6 NG/DL MAIN LAB Specimen Performing Organization Address [facility] Ph one Number MAIN LAB [address] [place] [address] * URIC ACID (04/03/2020 10:12 AM CDT) Uric Acid 3.1 2.0 - 7.0 MG/DL MAIN LAB Specimen Performing Organization Address [facility] Ph one Number MAIN LAB [address] [place] [address] * PARATHYROID HORMONE (04/03/2020 10:12 AM CDT) PTH Hormone 25.5 10 - 65 PG/ML [facility] MAIN LAB Specimen Performing Organization Address [facility] Ph one Number MAIN LAB [address] [place] [address] * IRON + BINDING CAPACITY + %SAT+ FERRITIN (04/03/2020 10:12 AM CDT) Pathologist [facility] Iron 79 50 - 160 MCG/DL MAIN LAB Iron 253 (L) 270 - 380 MCG/DL MAIN LAB Binding-TIBC % Saturation 31 28 - 42 % MAIN LAB Ferritin 56 10 - 200 NG/ML MAIN LAB Specimen Performing Organization Address [facility] Ph one Number MAIN LAB [address] [place] [address] * IMMUNOFIXATION, SERUM (IFES) (04/03/2020 10:12 AM CDT) Immuno NO PARAPROTEIN SEEN MAIN LAB Fix-Serum Pathologist INTERPRETED BY JAVI DUDLEY M.D. [facility] LAB Signature By the PATH SIGNATURE ABOVE , I attest that I have personally formulated the final interpretation expressed in this report and that the above diagnosis is based upon my examination of the slides and/or other material indicated in this report. Specimen Performing Organization Address [facility] one Number MAIN LAB [address] [place] [address] * FOLATE, SERUM (04/03/2020 10:12 AM CDT) [facility] Serum Folate >22.3Comment: NOTE NEW >3.9 NG/ML [facility] MAIN LAB REFERENCE RANGES Specimen Performing Organization Address [facility] one Number MAIN LAB [address] [place] [address] * COMPREHENSIVE METABOLIC PANEL (04/03/2020 10:12 AM CDT) [facility] Sodium 142 137 - 147 MMOL/L MAIN LAB Potassium 3.6 3.5 - 5.1 MMOL/L MAIN LAB Chloride 106 98 - 110 [...] (L) >60 mL/min [facility] MAIN LAB Comment: [place] The eGFR is not validated f or use in drug dosing adjustments. Continue to use estimated creatinine clearance per dosing reference text. Please contact the Clinical Pharmacist for questions. eGFR 51 (L) >60 mL/min [facility] MAIN LAB [place] Comment: The eGFR is not validated for use in drug dosing adjustments. Continue to use estimated creatinine clearance per dosing reference text. Please contact the Clinical Pharmacist for questions. Specimen Blood Performing Organization Address City/State/Zipcode Ph one Number MAIN LAB [address] [place] [address] * CBC AND DIFF (04/03/2020 10:12 AM CDT) White Blood 3.6 (L) 4.5 - 11.0 K/UL [facility] LAB Cells [place] RBC 3.71 (L) 4.0 - 5.0 M/UL [facility] Hemoglobin 11.5 (L) 12.0 - 15.0 GM/DL [facility] Hematocrit 35.6 (L) 36 - 45 % [facility] [place] MCV 96.1 80 - 100 FL [facility] MCH 31.0 26 - 34 PG [facility] [place] MCHC 32.3 32.0 - 36.0 G/DL [facility] RDW 16.5 (H) 11 - 15 [...] [place] Absolute 2.10 1.8 - 7.0 K/UL [facility] Neutrophil [place] Count Absolute Lymph 1.00 1.0 - 4.8 K/UL [facility] Count [place] Absolute 0.40 0 - 0.80 K/UL [facility] Monocyte Count [place] Absolute 0.20 0 - 0.45 K/UL [facility] Eosinophil [place] Count Absolute 0.00 0 - 0.20 K/UL [facility] LAB Basophil Count [place] Specimen Blood Performing Organization Address [facility] Ph one Number [facility] LAB [place] [address] [address] * VITAMIN B12 (04/03/2020 10:12 AM CDT) Vitamin B12 701 180 - 914 PG/ML [facility] MAIN LAB Specimen Blood Performing Organization Address [facility] one Number MAIN LAB [address] [place] [address] * TSH WITH FREE T4 REFLEX (04/03/2020 10:12 AM CDT) TSH 0.33 (L) 0.35 - 5.00 MCU/ML [facility] MAIN LAB Specimen Blood Performing Organization Address [facility] Ph one Number MAIN LAB [address] [place] [address] * 25-OH VITAMIN D (D2 + D3) (04/03/2020 10:12 AM CDT) Vitamin 46.6 30 - 80 NG/ML [facility] MAIN LAB D(25-OH)Total Specimen Blood Performing Organization Address [facility] one Number MAIN LAB [address] [place] [address] documented in this encounter Visit Diagnoses Diagnosis CKD (chronic kidney disease) stage 3, G FR 30-59 ml/min (HCC) Chronic kidney disease, Stage III (mode rate) Essential hypertension Unspecified essential hypertension B12 deficiency Other B-complex deficiencies MGUS (monoclonal gammopathy of unknown significance) Monoclonal paraproteinemia Anemia, unspecified 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
--- OUTSIDE RECORDS SUMMARY | 2020-05-28 08:31 | XMS REPORT | Encounter Summary ---
Author Author [facility] Organization [facility] Address Unknown Phone Unavailable Care Team Providers Care Conventional Machinist Name Role Phone Gladys Matthews Unavailable Unavailable Jeff Palma MD PCP Reason for Visit * Reason Comments Medication Refill furosemide Encounter Details Care Team Description Date Type Department Georgina Vazquez MD [address] [place] [address] [address] [place] [address] [phone] Medication Refill (furosemide) 04/06/2020 Refill [facility] [address] [place] [address] Social History Date Tobacco Use Types Packs/Day [...]
--- OUTSIDE RECORDS SUMMARY | 2020-05-28 08:31 | XMS REPORT | Encounter Summary ---
Author Author [facility] Organization [facility] Address Unknown Phone Unavailable Care Team Providers Care Laborer Stores Name Role Phone Gladys Matthews Unavailable Unavailable Jeff Palma MD PCP Reason for Visit * Reason Comments Medication Question Encounter Details Care Team Description Date [place] [address] [place], [place] [id number] Medication Question 12/04/2019 Telephone Internal Medicine [address] [facility] [address] [place] [address] Social History Date Tobacco Use Types Packs/Day [...] encounter Miscellaneous Notes * Telephone Encounter - Jeff Palma MD - 12/04/2019 2:43 PM AIR PUMPER Sounds good. Please order cyanocobalamin 1000 mcg every 2 weeks IM. Please als o order needles PUMPER * Telephone Encounter - Ofelia Medrano RN - 12/04/2019 2:38 PM AIR PUMPER Reviewed new medications D2 and D3 with patient. Patient wants to have family petrona mcrae give her the vitamin B12 injections. She asked that the med be ordered t hru the [facility] pharmacy in [place]. I will check with Dr. Palma to see if me d can be ordered at [facility] and administered by family member. Order for injections and administration supplies sent to pharmacy in [place]. VM left for patient. PUMPER documented in this encounter Plan of Treatment Not on filedocumented as of this encounter Goals Goal Patient Associated Recent Progress Patient-Stat Aut hor Goal Type Problems ed? GOAL General No Tammie Causey, RN Note: Cont to live in my condo documented as of this encounter Visit Diagnoses Diagnosis B12 deficiency Other B-complex deficiencies documented in this encounter
--- OUTSIDE RECORDS SUMMARY | 2020-05-28 08:31 | XMS REPORT | Encounter Summary ---
Author Author [facility] Organization [facility] Address Unknown Phone Unavailable Care Team Providers Care Quality Associate Name Role Phone Gladys Matthews Unavailable Unavailable Jeff Palma MD PCP Encounter Details Care Team Description Date [place] [address] [place], [place] [id number] B12 deficiency (Primary Dx) 12/12/2019 Orders Only Internal Medicine [address] [place], [place] [address] Social History Date Tobacco Use Types Packs/Day [...] impairment: No documented as of this encounter Progress Notes * Ofelia Medrano, JONATHAN - 12/12/2019 8:57 AM RUBBER OFF Pharmacy called and said they received script for syringes but not injections. Resent. ER OFF documented in this encounter Plan of Treatment [...]
--- OUTSIDE RECORDS SUMMARY | 2020-05-28 08:31 | XMS REPORT | Encounter Summary ---
[facility] Address Unknown Phone Unavailable Care Team Providers Care Montessori Preschool Teacher Name Role Phone Gladys Matthews Unavailable Unavailable Jeff Palma MD PCP Reason for Visit * Reason Comments Follow Up TELEHEALTH Encounter Details Care Team Description Date [place] [address] [place] [id number] MGUS (monoclonal gammopathy of unknown s ignificance) (Primary Dx) 04/18/2020 Office Visit [facility] [address] [place] [id number] Social History Date Tobacco Use Types Packs/Day Years Used Never Smoker Smokeless Tobacco: Never Used Drinks/Week oz/Week Comments Alcohol Use occasionally Yes Sex Assigned at Date Recorded Female 04/17/2020 2:00 PM CDT Industry Job Start Date Occupation Not on file Not on file Not on file Travel End Travel History Travel Start No recent travel history available. Date Recorded COVID-19 Exposure Response 04/18/2020 10:07 AM CDT In the last month, have you been in contact with No / Unsure someone who was confirmed or suspected to have Coronavirus / COVID-19? documented as of this encounter Last Filed Vital Signs Reading Time Taken Comments Vital Sign - - Blood Pressure - - Pulse 36.3 C (97.4 F) 04/18/2020 8:44 AM CDT per pt at home Temperature - - Respiratory Rate - - Oxygen Saturation - - Inhaled Oxygen Concentration 59.6 kg (131 lb 8 oz) 04/18/2020 8:44 AM CDT per pt at home Weight 162.6 cm (5' 4") 04/18/2020 8:44 AM CDT Height 22.57 04/18/2020 8:44 AM CDT Body Mass Index documented in this encounter Functional Status Date of Assessment Functional Status Response 04/18/2020 Does the patient have a hearing impairment: No 04/18/2020 Does the patient have a visual impairment: Yes 04/18/2020 Does the patient have impaired ambulation: Yes 04/18/2020 Does the patient have an activity of daily living No (ADL) impairment: 04/18/2020 Does the patient have an instrumental activity of No daily living (IADL) impairment: Date of Assessment Cognitive Status Response 04/18/2020 Does the patient have a cognitive impairment: No documented as of this encounter Progress Notes * Miguelito Baltazar MD - 04/18/2020 9:00 AM CDT Name: Zee Fam : 1940 AGE: 79 y.o. DATE OF SERVICE: 04/18/2020 Subjective: Reason for Visit: Follow Up (TELEHEALTH) Zee Fam is a 79 y.o. female. Cancer Staging No matching staging information was found for the patient. 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 Zee was referred by Dr. Jeff Gaitan. Zee appears to have been started on ami odarone in January 2019 and I believe this was last prescribed in May 2019. She has had fatigue weight loss tremors and perhaps some neuropathy. The medication has been held though they are checking some blood levels and is not yet out of her system. As part of her evaluation Dr. Broderick delgadillo did a number of blood tests including a serum protein electrophoresis on September 05, 2019. This raised the question of a monoclonal protein with a quantity of 0.08. A serum immunofixatio n that same date was positive for lambda light chain. Interestingly enough the serum kappa light chain was slightly elevated at 2.55 though the ratio of kappa to lambda was not elevated. The patient also had a low vitamin D. That same da te her hemoglobin was 14, white count 5.6 normal differential, platelet count of 279, B12 was 289, sed rate and C-reactive protein were normal range and the qi christina is mostly normal except for creatinine of 1.07. I also note that her alice cium was normal at 8 and her alk phos was normal.The patient ended up having uri ne immunofixation that was normal. A skeletal survey was normal. The patient is evaluated today using telemedicine technology. Her daughter was present on the video conference call. The patient also had a recent repeat serum protein electrophoresis in April 2020 that was normal. She had been up in [place] in the hospital and had elevation of b oth free lambda and free kappa light chains with a ratio being normal. These we re recent repeated and a normal range. 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 I believe she worked at a number of locations in the [facility] including in several offices. Her daughter who is with her is a adjunct teacher. The patient does have a history of breast cancer and act ually mentioned to Dr. Kaye. I admit Dr. Kaye when I was in training. Unfortunately he was a plant controller or HOUSETRAILER [employer]IC[employer] doctor who had a history of Hodgkin's and ended up dying from complications from herpes zoster. In addition to the abnormal lab test the patient also has a diagnosis of asthma, atrial fibrillation, B12 deficiency, chronic kidney disease stage III, degenera tive disc disease, essential hypertension, right-sided ductal carcinoma in situ from 1994, reflux disease, hyperlipidemia, symptomatic bradycardia, tremors, and unexplained weight loss. We will make plans for the urine test and skeletal jenkins rvey and blood test as mentioned above. The patient's past medical, surgical, social, and family histories were reviewed with the patient at this visit. I also reviewed the recent laboratory, patholog y, and radiological studies since the last visit. Since her very small protein is intermittent my guess is that this is a very sma ll monoclonal protein that will be picked up periodically with her blood test. I suggested we see her again in 1 year with repeat serum and urine blood test. I am doubtful that this will have much clinical significance but we could be cur ious to see what measures in 1 year. If she has questions she will call us befo re that time. Review of Systems Constitutional: Positive for fatigue. Negative for chills and fever. HENT: Negative for nosebleeds. Eyes: Negative for pain and visual disturbance. Respiratory: Negative for cough and shortness of breath. Cardiovascular: Negative for chest pain and leg swelling. Gastrointestinal: Negative for abdominal pain. Genitourinary: Negative for hematuria. Musculoskeletal: Negative for joint swelling and neck pain. Skin: Negative for rash. Neurological: Negative for dizziness and weakness. Hematological: Negative for adenopathy. Psychiatric/Behavioral: Negative for confusion. All other systems reviewed and are negative. Objective: albuterol (VENTOLIN HFA) 90 mcg/actuation inhaler Inhale two puffs by mouth into the lungs every 6 hours as needed for Wheezing or Shortness of Breath. Fidencio e well before use. ALPRAZolam (XANAX) 0.25 mg tablet Take one-half tablet to one tablet by mout h daily as needed for Anxiety. citalopram (CELEXA) 20 mg tablet Take one tablet by mouth every morning. cyanocobalamin (RUBRAMIN) 1,000 mcg/mL injection Inject 1 mL into the muscle every 14 days. fish oil- omega 3-DHA/EPA 300/1,000 mg capsule Take 1 capsule by mouth daily . furosemide (LASIX) 40 mg tablet TAKE 1 TABLET BY MOUTH ONCE DAILY IN THE [facility] [place] [facility] losartan (COZAAR) 50 mg tablet Take one tablet by mouth daily. omeprazole DR (PRILOSEC) 20 mg capsule SYMBICORT 160-4.5 mcg/actuation inhalation Inhale two puffs by mouth into th e lungs twice daily. Syringe with Needle (Disp) 3 mL 25 gauge x 1" syrg To be used with B12 injec tions administered every 2 weeks. vitamins, B complex (VITAMINS B COMPLEX) tab as directed Vitals: 04/18/20 0844 Temp: 36.3 C (97.4 F) TempSrc: Temporal Weight: 59.6 kg (131 lb 8 oz) PainSc: Zero Body mass index is 22.57 kg/m. Medical History: Diagnosis Date Asthma 01/12/2019 Atrial fibrillation (HCC) 01/12/2019 CKD (chronic kidney disease) stage 3, GFR 30-59 ml/min (HCC) 05/04/2019 HLD (hyperlipidemia) HTN (hypertension) MGUS (monoclonal gammopathy of unknown significance) Vitamin B12 deficiency Vitamin D deficiency Surgical History: Procedure Laterality Date COLECTOMY x2 HYSTERECTOMY LUMPECTOMY Social History Tobacco Use Smoking status: Never Smoker Smokeless tobacco: Never Used Substance Use Topics Alcohol use: Yes Comment: occasionally Drug use: No Family History Problem Relation Age of Onset Stroke Mother Cancer Father High Cholesterol Sister Stroke Maternal Aunt Unknown to Patient Maternal Uncle Tremor Brother Tremor Daughter Pain Score: Zero Fatigue Scale: 0-None Pain Addressed: Patient declines intervention Patient Evaluated for a Clinical Trial: No treatment clinical trial available fo r this patient. Eastern Cooperative Oncology Group performance status is 1, Restricted in physic ally strenuous activity but ambulatory and able to carry out work of a light or sedentary nature, e.g., light house work, office work. Physical Exam Vitals signs reviewed. Constitutional: Appearance: She is well-developed. She is not ill-appearing. HENT: Head: Normocephalic and atraumatic. Right Ear: External ear normal. Left Ear: External ear normal. Eyes: Conjunctiva/sclera: Conjunctivae normal. Neck: Musculoskeletal: Normal range of motion. Pulmonary: Effort: Pulmonary effort is normal. No respiratory distress. Breath sounds: No rhonchi. Musculoskeletal: Normal range of motion. Lymphadenopathy: Cervical: No cervical adenopathy. Skin: Coloration: Skin is not jaundiced. Findings: No rash. Neurological: Mental Status: She is alert and oriented to person, place, and time. Psychiatric: Mood and Affect: Mood normal. Behavior: Behavior normal. Thought Content: Thought content normal. Judgment: Judgment normal. Assessment and Plan: Patient Active Problem List Diagnosis Date Noted MGUS (monoclonal gammopathy of unknown significance) 09/30/2019 Priority: Medium 09/05/2019 CBC unremarkable with hemoglobin 14, W5.6, platelets 279, different ial normal, B12 289 normal, sed rate 3 low, C-reactive protein 0.84 normal, CMP mostly normal with creatinine 1.07, calcium 9.9 normal, transaminases and alk ph os normal, TSH slightly low at 0.30, serum kappa light chain 2.55 slightly eleva brittanie above ULN of 1.94, lambda light chain normal 2, serum kappa lambda light jered in ratio 1.28 normal, vitamin D 14.3 low, serum protein electrophoresis with an M protein of 0.08, serum immunofixation positive for lambda light chain 10/01/2019 first [facility] oncology visit explained to patient what monoclonal proteins and also what immunoglobulins are. Doubt that patient has u nderlying neoplastic disorder but to be careful since patient has had weight los s that is partially unexplained will check urine protein electrophoresis, urine immunofixation electro pheresis, urine free light chain ratio and skeletal surve y and beta-2 microglobulin. Also will check quantitative IgG, IgA, IgM. Will t alk with patient what test results. Of unrevealing may consider CT chest abdome n pelvis to look for lymphadenopathy or cancer causing extreme fatigue and weigh t loss. If symptoms persist and these tests are unrevealing may consider bone m arrow biopsy though since patient's hemoglobin, white count and differential amaya telet counts are normal this is not really likely to be an explanation for diffi culties. If we do a bone marrow biopsy we will need to check amyloid stains. 10/01/2019 urine immunofixation-no paraprotein seen, beta-2 light chain 5.2 elev ated, quantitative IgG 753 very low end of normal, IgA 130 normal, IgM 37 1.1 no rmal, 10/02/2019 [facility] skeletal survey. No focal lesions. No fractures. Mild diffuse o steoporosis. Grade 1 degenerative spondylolisthesis at L4-L5 and L5-S1 with fac et osteoarthritis lower lumbar spine. Diffuse idiopathic skeletal hyperostosis. Marked C5-C6 disc degeneration. 10/09/2019 Please tell the daughter the patient that the test look good. She s hould have repeat serum protein letter pheresis and serum free light chain ratio test probably in 6 months. If this test significantly increases over time she should probably see us again. She did have her family doctor due to severe co mfortable or I can see her in 6 months with those test in a week ahead of time. Let me know what she would like to do. At this time I think your knee very l ittle chance we would find anything significant on a bone marrow biopsy. If sh e wishes to proceed with this we could but I would probably lean away from that. This most likely represents a MGUS. There is a very small but real chance t his could progress in the future. I doubt that it well. Let me know when she wishes to see me again or have her family doctor see her.,,,, pt wishes to come back in 6 months to see Heme/onc 04/18/2020 reviewed recent lab including those from [facility]. She had elevat ion of both serum kappa serum lambda light chains but the ratio was normal. Our repeat here shows that they are back to normal range. It might been related to her hospitalization. Patient will see us again in about 1 year with repeat ser um and urine paraproteins including free light chains and protein electrophoresi s and immunofixation. She will call if questions. Intraductal carcinoma in situ of right breast 09/05/2019 Unexplained weight loss 09/05/2019 Up-to-date on cancer screening. See work-up for fatigue, muscle weaknesspositive for MGUS. Hematology di d not think causing issues CT chest abdomen pelvis unremarkable except for small renal lesion Plan: Treat depression Continue to monitor MGUS Continue to follow renal lesion Tremor of both hands 09/05/2019 With activity/extension Plan: Get thyroid studies, B12 Refer to neurology Parkinson disease (HCC) 09/05/2019 Does have muscle weakness, fatigue, I spent weight loss. Negative/normal CBC, CMP, TSH, ESR, CRP, EDA, CPK, anti-Sowmya 1, SCL 70 antibody. SPEP and immunofixation consistent with MGUS. Hematology did not think contribu adolphblayne 04/03/2020 -seen by neurology, diagnosed with lower body parkinsonism Plan Continue follow-up with neurology Reactive depression 07/25/2019 Secondary to health problems, recent loss of and daughter 10/30/2019 -feels "weird" on 10 mg daily but she does not take it regularly. Wo uld prefer to be on 5 mg daily 04/03/2020 -was started on citalopram instead of Lexapro while in [place]. Plan: Increase citalopram to 20 mg daily Symptomatic bradycardia 06/21/2019 CKD (chronic kidney disease) stage 3, GFR 30-59 ml/min ([facility]) 05/04/2019 Plan: -Avoid nephrotoxins and renally dose medications -Keep adequately hydrated LPRD (laryngopharyngeal reflux disease) 04/27/2019 Plan: Continue omeprazole 20 mg daily Chronic fatigue 04/27/2019 Having worsening chronic fatigue. No systemic signs or symptoms. Is depressed . Physical exam normal. 09/05/2019 -getting worse with unexplained weight loss and tremors and muscle we akness. Depression partially treated 11/02/2019 -negative/normal CBC, CMP, chest x-ray, a.m. cortisol. Work-up posi tive for MGUS Plan: Get CT AP and chest Replace vitamin D Replace vitamin B12 -Work-up muscle weakness \\ B12 deficiency 04/27/2019 Levels did not improve with oral replacement Status post injections Check levels Atrial fibrillation (HCC) 01/12/2019 1. 2/19 echo: No regional wall motion abnormalities are seen. Overall LV syst olic function appears normal. The estimated left ventricular ejection fraction i s 60%. 2. Right ventricular contractility appears normal. 3. Moderate left atrial enlargement. 4. Moderate mitral valve regurgitation. Mild tricuspid valve regurgitation. 5. Aortic valve sclerosis without stenosis. No pericardial effusion is seen. Plan: Continue follow-up with cardiology Asthma 01/12/2019 controlled Plan: Continue Albuterol 2 puffs every 6 hours as needed Continue Singulair 10 mg daily Start Symbicort 1604.5 MCG 2 puffs twice daily Bruit 08/09/2016 Shortness of breath 08/09/2016 Essential hypertension 08/06/2016 02/09/08 ECHO EF 55 % Hypertension Management: Medication adherent: all of the time Treatment goal: 130/80 Outside blood pressures being performed: Yes BP Readings from Last 3 Encounters: 04/03/20 132/61 11/29/19 118/74 10/30/19 145/43 She denies significant light-headedness. Imp: Hypertension controlled Plan: Discussed hypertension and reviewed goals. Limit salt to 1.5-2 g daily DC metoprolol Resume losartan 50 mg daily Mixed hyperlipidemia 08/06/2016 Hyperlipidemia Management LDL goal < 90. Diet [...] Plan: Discussed labs and reviewed goals for LDL, HDL, triglycerides. Discussed exercise management and diet with emphasis on vegetables, fruit and le an meat. Referred to dietitian Statin was held but did not help weakness Declined statins at this time Abnormal screening cardiac CT 08/06/2016 08/31/16 PV carotid duplex mild plaque, none >50% 08/31/16 Regadenoson Thallium EF 73 % LVEDV 53 ml DDD (degenerative disc disease), lumbar 06/09/2016 This note was created with partial dictation using a [employer] dictation system, pl ease notify us if you notice any errors of omissions or content. documented in this encounter Plan of Treatment Order Schedule Name Type Priority Associated Diag noses Expected: 04/17/2021 (Approximate), Expi res: 04/18/2022 IMMUNOFIXATION, SERUM Lab Routine MGUS (mo noclonal (IFES) gammopathy of unknown significance) Expected: 04/17/2021 (Approximate), Expi res: 04/18/2022 ELECTROPHORESIS-UR RAN Lab Routine MGUS (m onoclonal gammopathy of unknown significance) Expected: 04/17/2021 (Approximate), Expi res: 04/18/2022 IMMUNOFIXATION URINE Lab Routine MGUS (mon oclonal RANDOM gammopathy of unknown significance) Expected: 04/17/2021 (Approximate), Expi res: 04/18/2022 KAPPA/LAMBDA FREE LIGHT Lab Routine MGUS ( monoclonal CHAINS gammopathy of unknown significance) Expected: 04/17/2021 (Approximate), Expi res: 04/18/2022 CBC AND DIFF Lab Routine MGUS (monoclona l gammopathy of unknown significance) Expected: 04/17/2021 (Approximate), Expi res: 04/18/2022 COMPREHENSIVE METABOLIC Lab Routine MGUS ( monoclonal PANEL gammopathy of unknown significance) Expected: 04/18/2021 (Approximate), Expi res: 10/18/2021 ELECTROPHORESIS-SERUM Lab Routine MGUS (mo noclonal PROTEIN gammopathy of unknown significance) Expected: 04/18/2021 (Approximate), Expi res: 10/18/2021 MISCELLANEOUS LAB TEST Lab Routine MGUS (m onoclonal gammopathy of unknown significance) documented as of this encounter Goals Goal Patient Associated Recent Progress Patient-Stat Aut hor Goal Type Problems ed? GOAL General No Tammie Causey RN Note: Cont to live in my condo documented as of this encounter Visit Diagnoses Diagnosis MGUS (monoclonal gammopathy of unknown significance) Monoclonal paraproteinemia documented in this encounter
--- OUTSIDE RECORDS SUMMARY | 2020-05-28 08:31 | XMS REPORT | Encounter Summary ---
Author [facility] Address Unknown Phone Unavailable Care Team Providers Care Cyber Instructor Name Role Phone Gladys Matthews Unavailable Unavailable Jeff Palma MD PCP Encounter Details Care Team Description Date Type Department 04/18/2020 Travel Social History Date Tobacco Use Types [...]
--- OUTSIDE RECORDS SUMMARY | 2020-05-28 08:31 | XMS REPORT | Encounter Summary ---
Author Author [facility] Organization [facility] Address Unknown Phone Unavailable Care Team Providers Care [place] Worker Name Role Phone Gladys Matthews Unavailable Unavailable Jeff Palma MD PCP Reason for Referral * Consult, Test & Treat (Routine) Referred By Contact Referred To Contact Status Reason Specialty Diagnoses / [place] [address] [place] [address] Closed Specialty Services Diagnoses Required Symptomatic bradycardia Muscle weakness of proximal extremity Chronic fatigue Scheduling Instructions Eval an Treat Fax plan of care to: Jeff Palma at [phone] Encounter Details Care Team Description [place] [address] [place], [place] [id number] Symptomatic bradycardia (Primary Dx); Muscle weakness of proximal extremity; Chronic fatigue 12/19/2019 Orders Only Internal Medicine [address] [place], [place] [address] Social History Date Tobacco Use Types Packs/Day [...] Name Type Priority Associated Diag noses Ordered: 12/19/2019 AMB REFERRAL TO PHYSICAL Outpatient Routine Sympt omatic bradycardia THERAPY Referral Muscle weakness of proximal extremity Chronic fatigue documented as of this encounter Goals Goal Patient Associated Recent Progress Patient-Stat Aut hor Goal Type Problems ed? GOAL General No Tammie Causey, RN Note: Cont to live in my condo documented as of this encounter Visit Diagnoses Diagnosis Symptomatic bradycardia Other specified cardiac dysrhythmias Muscle weakness of proximal extremity Chronic fatigue Other malaise and fatigue documented in this encounter
--- OUTSIDE RECORDS SUMMARY | 2020-05-28 08:31 | XMS REPORT | Encounter Summary ---
Author Author [facility] Organization [facility] Address Unknown Phone Unavailable Care Team Providers Care Dental Office Coordinator Name Role Phone Gladys Matthews Unavailable Unavailable Jeff Palma MD PCP Reason for Visit * Reason Comments Care Coordination Encounter Details Care Team Description Date Type Department Sidra Raygoza LSCSW 03/07/[address] [place] [id number] Social History Date Tobacco Use Types [...] Progress Notes * Sidra Raygoza LSCSW - 03/07/2020 2:30 PM CDT Talked with daughter, Hermila. Psychosocial update: Hermila reports that Eliana is currently in assisted living post hospitalization. S he had a fall, wasn't taking medication, not eating. Has done well in assisted living. Now taking medication prescribed for Alzheimer's', Parkinson's and de pression. Hermila reports with consistent use of the anti depressant she is much b magen. Reports all family have noticed significant improvement in mood. She will be dismissed from the assisted living soon and daughter is making arrangeme nts for her to transition home. One of Eliana's sisters will be staying with her for the first month and Hermila is arranging paid assist with to help insure she t akes medication as prescribed and has meals. This manager social responsibility asked to talk w juan j Monroy, but currently unavailable. Hermila suggests contacting her early next we ek. Daughter and Eliana will have a care plan meeting on Tuesday at 11 to discuss facility recommendations for her return home. Assessment: Eliana is reported to be much better now medication compliant and with adequate nut rition. Challenge will be in sustaining structure and supports in the home envi ronment. Next Steps: Will contact Pat early next week. Reminded daughter of this manager social responsibility's co ntact information should questions/concerns arise. documented in this encounter Plan of Treatment Not on filedocumented as of this encounter Goals Goal Patient Associated Recent Progress Patient-Stat Aut hor Goal Type Problems ed? GOAL General No Tammie Causey, RN Note: Cont to live in my condo documented as of this encounter Visit Diagnoses Not on filedocumented in this encounter
--- OUTSIDE RECORDS SUMMARY | 2020-05-28 08:31 | XMS REPORT | Encounter Summary ---
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; Mixed hyperlipidemia; Essential hypertension; Atrial fibrillation, unspecified type (HCC); Mild intermittent asthma without complication; B12 deficiency; CKD (chronic kidney disease) stage 3, GFR 30-59 ml/min ([facility]); Reactive depression; MGUS (monoclonal gammopathy of unknown significance); Parkinsonism, unspecified Parkinsonism type ([facility]); LPRD (laryngopharyngeal reflux disease); Unexplained weight loss; Parkinson disease ([facility]) 04/03/2020 Office Visit Internal Medicine [address] [facility] [address] [place] [address] Social History Date Tobacco Use [...] Pressure 73 04/03/2020 11:30 AM CDT Pulse 36.7 C (98.1 F) 04/03/2020 11:30 AM CDT Temperature 16 04/03/2020 11:30 AM CDT Respiratory Rate 100% 04/03/2020 11:30 AM CDT Oxygen Saturation - - Inhaled Oxygen Concentration 59.1 kg (130 lb 6.4 oz) 04/03/2020 11:30 AM CDT Weight 162.6 cm (5' 4") 04/03/2020 11:30 AM CDT Height 22.38 04/03/2020 11:30 AM CDT Body Mass Index documented in [...] impairment: No documented as of this encounter Patient Instructions * Patient Instructions* Jeff Palma MD - 04/03/2020 11:30 AM CDT Thank you for coming to see us today. We will contact you with testing results via phone or via Tinybop if you signed up for this. If you have issues logging into your [employer]hart, please look at bottom right pag e of handout; otherwise please deactivate account if not using Please INCREASE citalopram to 20 mg daily START symbicort 2 puffs twice a day STOP metoprolol START losartan 50 mg daily We have ordered imaging studies for you - imaging of kidneys. Please call if you do not hear in a week or so in regards to your MRI, CT scan, bone density test or nuclear medicine study. If you would like to see our dietitian (Gretchen) for FREE, please schedule at fr ont desk or call office to schedule If you would like to see our social organization professor/Behavioral Health Sales Order Clerk for FREE , please schedule at commercial front load operator or call office to schedule Please schedule appointment at commercial front load operator to come back in 3 months for follow u p (comprenhensive,30 minutes), physical, annual wellness/physical and as needed. --If you desire, you may get labs done up to 7 days prior to physical/upcoming a ppointment (if applicable) so we can discuss results during appointment. Please call for lab appointment beforehand if coming to my office for labs or let us kn ow which lab you want to go to so we can place orders --For your physical, if you are on Medicare, you may do your health risk assessm ent on [employer] 1 week ahead of time to expediate visit. REMEMBER: I need to see you at least once a year to get medications refilled. Please consider scheduling follow-up appointment/physical ahead of time. Please contact my nurse, Ofelia, between appointments with any issues - at or [phone] (press option 4, then option 2) or through [employer] Please call my nurse if you are having any issues scheduling your appointment . Please let my nurse know or message me on Tinybop if any results are unclear; FOR REFILLS Please call your pharmacy. Medications will be refilled on ay. Please allow up to 24 hours for us to refill medication If I am not available to see you, you can schedule appointment with Bill De La Cruz Also, [facility] has 5 Urgent Cares - [email or web address]. Please try to arrive early for your appointments to help facilitate your visi t IF you are late to your appointment, we reserve the right to ask you to brandon edule your appointment or wait in fairness to the other patients scheduled that day. NOTE: Tinybop messages sent, refills, or phone calls on weekends, on holidays and after 4PM on , will NOT be seen until the following business day. If you have an urgent matter outside of business hours, please ask for the on-call physician by calling after hours If you had to wait on me today, my sincerest apologies. My goal in every clinic is to run right on time; however, on occasion, I get behind in clinic due to un expected issues with patients. Take care! Dr. Gaitan For up to date information on the COVID-19 virus, visit the CDC website. https:/ /www.cdc.gov/coronavirus General supportive care during cold and flu season and infection prevention reminders: o Wash hands often with soap and water for at least 20 seconds o Cover your mouth and nose o Social distancing: try to maintain 6 feet between you and other people o Stay home if sick and symptoms mild or manageable? If you must be around people wear a mask If you are having symptoms of a lower respiratory infection (cough, shortnes s of breath) and/or fever AND either traveled in last 30 days (internationally o r to region of exposure) OR known exposure to patient with COVID19: o Call your primary care provider for questions or health needs. Tell your doctor about your recent travel and your symptoms o In a medical emergency, call 911 or go to the nearest emergency room. documented in this encounter Progress Notes * Jeff Palma MD - 04/03/2020 11:30 AM CDT Date of Service: 04/03/2020 Zee Fam (Pat) is a 79 y.o. female. : 1940 Subjective: History of Present Illness 79 y.o. female with lower body parkinsonism, A. fib, HTN, HLD, MGUS, asthma, ARELIS D, CKD, depression, B12 deficiency, vitamin D deficiency Was hospitalized in December in [place] for altered mental status. Found to have h ypercalcemia secondary to hypervitaminosis D. Work-up was negative for malignan t cause of this. Looks like there is confusion with her pills as she is taking ergocalciferol 50,000 IUs daily. Went to rehabilitation and was discharged Since discharge, has been feeling well. Denies having recurrence of presenting s ymptoms. Denies having fever, chills. Denies having abdominal pain, constipat ion, diarrhea. Denies having chest pain, shortness of breath, cough, leg swelli ng. Denies having any urinary frequency or burning with urination. Has history of lower body parkinsonism. Symptoms are controlled. Follows with ne urology. Compliant with medication. Has history of A. fib. Follows cardiology. No chest pain or shortness of breat h palpitations or lightheadedness. On Eliquis for anticoagulation. compliant wi th his medications. No abnormal bleeding Has history of hypertension. Is compliant with medication. No lightheadedness dizziness. Has history of hyperlipidemia. Is compliant with statin. No muscle aches muscl e weakness on statin. Has asthma. Well controlled. No wheezing with exertion and rest and at night, has chronic dry cough but no other cough with exertion and rest and at night, do es have shortness of breath with exertion and but none at rest or at night Has history of MGUS. Denies any fatigue, fever chills night sweats, enlarged ly mph nodes unexplained weight loss easy bruising or bleeding. Has history of GERD. Well-controlled on omeprazole. No trouble swallowing, jered nges in voice, abdominal pain, heartburn, blood in stool or black stool Has history of hypertension. Blood pressures at home are in the low 100s systol ic, HR 70. Is compliant with medication. No lightheadedness dizziness. Has history of CKD.Avoids NSAIDs. Does not drink plenty of water. Does not fo llow with nephrology Has history of depression. Is compliant with medication. No intolerable side e ffects. Mood is better although still down. Is compliant with Lexapro. No tho ughts of hurting self or others. Is trying to be active, volunteering Has history of vitamin B12 deficiency. Is mostly compliant with oral vitamin B1 2 Has history of vitamin D deficiency. Is mostly compliant with vitamin D. Medical History: Diagnosis Date Asthma 01/12/2019 Atrial fibrillation (HCC) 01/12/2019 CKD (chronic kidney disease) stage 3, GFR 30-59 ml/min ([facility]) 05/04/2019 HLD (hyperlipidemia) HTN (hypertension) MGUS (monoclonal gammopathy of unknown significance) Vitamin B12 deficiency Vitamin D deficiency Surgical History: Procedure Laterality Date COLECTOMY x2 HYSTERECTOMY LUMPECTOMY Family History Problem Relation Age of Onset Stroke Mother Cancer Father High Cholesterol Sister Stroke Maternal Aunt Unknown to Patient Maternal Uncle Tremor Brother Tremor Daughter Social History Socioeconomic History Marital status: Spouse [...] Not on file Review of Systems Constitution: Negative for chills and fever. Cardiovascular: Negative for chest pain and dyspnea on exertion. Respiratory: Negative for cough. Gastrointestinal: Negative for abdominal pain, constipation and diarrhea. Genitourinary: Negative for dysuria, frequency and hematuria. Psychiatric/Behavioral: Negative for altered mental status. Objective: albuterol (VENTOLIN HFA) 90 mcg/actuation inhaler [...] BY MOUTH ONCE DAILY IN THE [facility] losartan (COZAAR) 50 mg tablet Take [...] (VITAMINS B COMPLEX) tab as directed Vitals: 04/03/20 1130 BP: 132/61 Pulse: 73 Resp: 16 Temp: 36.7 C (98.1 F) SpO2: 100% Weight: 59.1 kg (130 lb 6.4 oz) Height: 162.6 cm (64") Body mass index is 22.38 kg/m. Physical Exam Vitals signs and nursing note reviewed. Constitutional: Appearance: She is well-developed. HENT: Head: Normocephalic and atraumatic. Cardiovascular: Rate and Rhythm: Normal rate and regular rhythm. Heart sounds: Normal heart sounds. No murmur. No friction rub. No gallop. Pulmonary: Effort: Pulmonary effort is normal. No respiratory distress. Breath sounds: Normal breath sounds. No wheezing or rales. Abdominal: General: Bowel sounds are normal. Palpations: Abdomen is soft. Tenderness: There is no abdominal tenderness. Neurological: Mental Status: She is alert and oriented to person, place, and time. Assessment and Plan: Problem Mgus (Monoclonal Gammopathy of Unknown Significance) 09/05/2019 CBC unremarkable with hemoglobin 14, W5.6, platelets 279, differenti al normal, B12 289 normal, sed rate 3 low, C-reactive protein 0.84 normal, CMP m ostly normal with creatinine 1.07, calcium 9.9 normal, transaminases and alk corona s normal, TSH slightly low at 0.30, serum kappa light chain 2.55 slightly elevat ed above ULN of 1.94, lambda light chain normal 2, serum kappa lambda light kodak n ratio 1.28 normal, vitamin D 14.3 low, serum protein electrophoresis with an M protein of 0.08, serum immunofixation positive for lambda light chain 10/01/2019 first [facility] oncology visit explained to patient what monoclonal [...] on a bone marrow biopsy. If sh arturo wishes to proceed with this we could [...] back in 6 months to see Heme/onc Unexplained Weight Loss Up-to-date on cancer screening. See work-up for fatigue, muscle weaknesspositive for MGUS. Hematology di d not think causing issues CT chest abdomen pelvis unremarkable except for small renal lesion Plan: Treat depression Continue to monitor MGUS Continue to follow renal lesion Parkinson Disease (Hcc) Does have muscle weakness, fatigue, I spent weight loss. Negative/normal CBC, CMP, TSH, ESR, CRP, EDA, CPK, anti-Sowmya 1, SCL 70 antibody. SPEP and immunofixation consistent with MGUS. Hematology did not think taniacachorro kym 04/03/2020 -seen by neurology, diagnosed with lower body parkinsonism Plan Continue follow-up with neurology Reactive Depression Secondary to health problems, recent loss of and daughter 10/30/2019 -feels "weird" on 10 mg daily but she does not take it regularly. Wo uld prefer to be on 5 mg daily 04/03/2020 -was started on citalopram instead of Lexapro while in [place]. Plan: Increase citalopram to 20 mg daily Ckd (Chronic Kidney Disease) Stage 3, Gfr 30-59 Ml/Min ([facility]) Plan: -Avoid nephrotoxins and renally dose medications -Keep adequately hydrated Lprd (Laryngopharyngeal Reflux Disease) Plan: Continue omeprazole 20 mg daily B12 Deficiency Levels did not improve with oral replacement Status post injections Check levels Atrial Fibrillation ([facility]) . 01/02 echo: No regional wall motion abnormalities are seen. Overall LV systo lic function appears normal. The estimated left ventricular ejection fraction is 60%. 2. Right ventricular contractility appears normal. 3. Moderate left atrial enlargement. 4. Moderate mitral valve regurgitation. Mild tricuspid valve regurgitation. 5. Aortic valve sclerosis without stenosis. No pericardial effusion is seen. Plan: Continue follow-up with cardiology Asthma controlled Plan: Continue Albuterol 2 puffs every 6 hours as needed Continue Singulair 10 mg daily Start Symbicort 1604.5 MCG 2 puffs twice daily Essential Hypertension 02/09/08 ECHO EF 55 % Hypertension Management: Medication adherent: all of the time Treatment goal: 130/80 Outside blood pressures being performed: Yes BP Readings from Last 3 Encounters: 04/03/20 132/61 11/29/19 118/74 10/30/19 145/43 She denies significant light-headedness. Imp: Hypertension controlled Plan: Discussed hypertension and reviewed goals. Limit salt to 1.5-2 g daily DC metoprolol Resume losartan 50 mg daily Mixed Hyperlipidemia Hyperlipidemia Management LDL goal < 90. Diet [...] help weakness Declined statins at this time Return in about 3 months (around 07/04/2020) for follow up, comprehensive follow up, 30 minutes, and as needed. Patient to call if symptoms not improving or if plan of care not working Future Appointments Date Time Provider Department Center 04/18/2020 9:00 AM Miguelito Baltazar MD [facility] Exam 07/04/2020 9:30 AM Jeff Palma MD [facility] Jeff Gaitan MD Internal Medicine, Primary Care Pager: [phone] __ Zeeroshni Fam was seen today for follow up. 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 LPRD (laryngopharyngeal reflux disease) Unexplained weight loss Parkinson disease ([facility]) Other orders - losartan (COZAAR) 50 mg tablet; Take one tablet by mouth daily. - apixaban (ELIQUIS) 2.5 mg tablet; Take one tablet by mouth twice daily for 3 days. - rosuvastatin (CRESTOR) 20 mg tablet; Take one tablet by mouth daily for 3 days. - SYMBICORT 160-4.5 mcg/actuation inhalation; Inhale two puffs by mouth into the lungs twice daily. - montelukast (SINGULAIR) 10 mg tablet; Take one tablet by mouth at bedtime daily for 3 days. - Discontinue: furosemide (LASIX) 40 mg tablet; Take one tablet by mouth janny ry morning for 3 days. - ezetimibe (ZETIA) 10 mg tablet; Take one tablet by mouth daily for 3 days. - donepeziL (ARICEPT) 5 mg tablet; Take one tablet by mouth at bedtime daily for 3 days. - citalopram (CELEXA) 20 mg tablet; Take one tablet by mouth every morning. - ALPRAZolam (XANAX) 0.25 mg tablet; Take one-half tablet to one tablet by m outh daily as needed for Anxiety. - allopurinoL (ZYLOPRIM) 300 mg tablet; Take one tablet by mouth daily for 3 days. Patient Instructions Thank you for coming to see us today. We will contact you with testing results via phone or via [employer] if you signed up for this. If you have issues logging into your [employer]hart, please look at bottom right pag e of handout; otherwise please deactivate account if not using Please INCREASE citalopram to 20 mg daily START symbicort 2 puffs twice a day STOP metoprolol START losartan 50 mg daily We have ordered imaging studies for you - imaging of kidneys. Please call if you do not hear in a week or so in regards to your MRI, CT scan, bone density test or nuclear medicine study. If you would like to see our dietitian (Gretchen) for FREE, please schedule at fr ont desk or call office to schedule If you would like to see our social organization professor/Behavioral Health Sales Order Clerk for FREE , please schedule at commercial front load operator or call office to schedule Please schedule appointment at commercial front load operator to come back in 3 months for follow u p (comprenhensive,30 minutes), physical, annual wellness/physical and as needed. --If you desire, you may get labs done up to 7 days prior to physical/upcoming a ppointment (if applicable) so we can discuss results during appointment. Please call for lab appointment beforehand if coming to my office for labs or let us kn ow which lab you want to go to so we can place orders --For your physical, if you are on Medicare, you may do your health risk assessm ent on [employer] 1 week ahead of time to expediate visit. REMEMBER: I need to see you at least once a year to get medications refilled. Please consider scheduling follow-up appointment/physical ahead of time. Please contact my nurse, Ofelia, between appointments with any issues - at or [phone] (press option 4, then option 2) or through [employer] Please call my nurse if you are having any issues scheduling your appointment . Please let my nurse know or message me on [employer] if any results are unclear; FOR REFILLS Please call your pharmacy. Medications will be refilled on weekd ays. Please allow up to 24 hours for us to refill medication If I am not available to see you, you can schedule appointment with Bill De La Cruz Also, [facility] has 5 Urgent Cares - [employer]urgentcare. Please try to arrive early for your appointments to help facilitate your visi t IF you are late to your appointment, we reserve the right to ask you to brandon edule your appointment or wait in fairness to the other patients scheduled that day. NOTE: MyChart messages sent, refills, or phone calls on weekends, on holidays and after 4PM on week, will NOT be seen until the following business day. If you have an urgent matter outside of business hours, please ask for the on-call physician by calling after hours If you had to wait on me today, my sincerest apologies. My goal in every clinic is to run right on time; however, on occasion, I get behind in clinic due to un expected issues with patients. Take care! Dr. Gaitan For up to date information on the COVID-19 virus, visit the CDC website. https:/ /www.cdc.gov/coronavirus General supportive care during cold and flu season and infection prevention reminders: o Wash hands often with soap and water for at least 20 seconds o Cover your mouth and nose o Social distancing: try to maintain 6 feet between you and other people o Stay home if sick and symptoms mild or manageable? If you must be around people wear a mask If you are having symptoms of a lower respiratory infection (cough, shortnes s of breath) and/or fever AND either traveled in last 30 days (internationally o r to region of exposure) OR known exposure to patient with COVID19: o Call your primary care provider for questions or health needs. Tell your doctor about your recent travel and your symptoms o In a medical emergency, call 911 or go to the nearest emergency room. documented in this encounter Plan of Treatment Order Schedule Name Type Priority Associated Diag noses Ordered: 04/03/2020 URIC ACID Lab Specimen CKD (chronic ki dney in Lab disease) stage 3, GFR 30-59 ml/min ([facility]) documented as of this encounter Goals Goal Patient Associated Recent Progress Patient-Stat Aut hor Goal Type Problems ed? 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 Hypercalcemia Mixed hyperlipidemia Essential hypertension Unspecified essential hypertension Atrial fibrillation, unspecified type ( HCC) Mild intermittent asthma without compli cation Unspecified asthma B12 deficiency Other B-complex deficiencies CKD (chronic kidney disease) stage 3, G FR 30-59 ml/min (HCC) Chronic kidney disease, Stage III (mode rate) Reactive depression Dysthymic disorder MGUS (monoclonal gammopathy of unknown significance) Monoclonal paraproteinemia Parkinsonism, unspecified Parkinsonism type ([facility]) LPRD (laryngopharyngeal reflux disease) Other diseases of larynx Unexplained weight loss Loss of weight Parkinson disease ([facility]) Paralysis agitans * Assessment & Plan Note - Jeff Palma MD - 04/13/2020 8:03 AM CDT Associated Problem(s): MGUS (monoclonal gammopathy of unknown significance) Monitored today and my assessment is that the current treatment is appropriate. documented in this encounter
--- OUTSIDE RECORDS SUMMARY | 2020-05-28 08:31 | XMS REPORT | Encounter Summary ---
Author Author [facility] Address Unknown Phone Unavailable Care Team Providers Care Yard Switcher Name Role Phone Gladys Matthews Unavailable Unavailable Jeff Palma MD PCP Reason for Referral * Radiology Services (Routine) Referred By Contact Referred To Contact Status Reason Specialty Diagnoses / [place] [address] [address] [facility] [address] [facility] [address] [address] No Auth Needed Radiology Diagnoses Left kidney mass P rocedures MRI ABD WO/W CONTRAST Encounter Details Care Team Description [place] [address] [id number] Left kidney mass (Primary Dx) 12/04/2019 Orders Only Internal Medicine [address] [place] [id number] Social History Date Tobacco Use Types Packs/Day [...] Name Type Priority Associated Diag noses Expected: 12/04/2019 (Approximate), Expi res: 12/04/2020 MRI ABD WO/W CONTRAST Imaging Routine Left kid zev mass documented as of this encounter Goals Goal Patient Associated Recent Progress Patient-Stat Aut hor Goal Type Problems ed? GOAL General No Tammie Causey, RN Note: Cont to live in my condo documented as of this encounter Visit Diagnoses Diagnosis Left kidney mass Unspecified disorder of kidney and uret er documented in this encounter
--- OUTSIDE RECORDS SUMMARY | 2020-05-28 08:32 | XMS REPORT | Encounter Summary ---
Author Author [facility] Organization [facility] Address Unknown Phone Unavailable Care Team Providers Care Software Asset Manager Name Role Phone Gladys Matthews Unavailable Unavailable Jeff Palma MD PCP Reason for Visit * Reason Comments Paroxysmal Afib 4 month f/u; tremors Encounter Details Care Team Description Date Type Department Alee Briscoe MD [address] [facility] [place], [place] [id number] Paroxysmal Afib (4 month f/u; tremors) 11/29/2019 Office Visit [facility] [address] [facility] [place] [address] Social History Date Tobacco Use Types Packs/Day [...] Signs Reading Time Taken Comments Vital Sign 118/74 11/29/2019 10:24 AM SUPERVISOR PASTRY Blood Pressure 62 11/29/2019 10:24 AM SUPERVISOR PASTRY Pulse - - Temperature - - Respiratory Rate 98% 11/29/2019 10:24 AM SUPERVISOR PASTRY Oxygen Saturation - - Inhaled Oxygen Concentration 62.2 kg (137 lb 3.2 oz) 11/29/2019 10:24 AM SUPERVISOR [employer] Weight 162.6 cm (5' 4") 11/29/2019 10:24 AM SUPERVISOR PASTRY Height 23.55 11/29/2019 10:24 AM SUPERVISOR PASTRY Body Mass Index documented in this encounter [...] this encounter Patient Instructions * Patient Instructions* Mary Mary RN - 11/29/2019 9:45 AM SUPERVISOR PASTRY please schedule an appointment with Dr. Briscoe in 6 months . To schedule an appointment call [phone]. In order to provide you the best care possible we ask that you follow up as ana glasgow: For non-urgent questions please contact us through your [employer] account. For all medication refills please contact your pharmacy or send a request arielle dye [employer]. For all questions that may need to be addressed urgently please call the nursing triage voicemail at [phone] Tuesday - Tuesday 8-5 only. Please leave a detai led message with your name, date of , and reason for your call. Please allow ~ 10 business days for the results of any testing to be reviewed. P valery call our office if you have not heard from a nurse within this time frame. [facility] documented in this encounter Progress Notes * Alee Briscoe MD - 11/29/2019 9:45 AM SUPERVISOR PASTRY Date of Service: 11/29/2019 Zee Fam is a 78 y.o. female. HPI Zee Fam presents to my office today in electrophysiology follow-up for histo ry of atrial arrhythmias. As you know, she is an unfortunate 78-year-old female with a past medical history of hypertension, hyperlipidemia, Alzheimer's jennifer ia, chronic kidney disease, and persistent atrial fibrillation who was last seen in the office by me 3 months ago. At that time, the patient continued to compl ain of significant tremors that was affecting her quality of life. They have im proved slightly. We thought perhaps they were due to amiodarone. I recommended that she stay off of amiodarone. Zee returns to my office today telling me that she is doing okay. Her tremors have pretty much gone away. She is still complaining of some gait instability. She does not know if it is due to amiodarone or simply because she has no stre ngth in her muscles. Her biggest complaint to me today is that she is losing we ight. She is quite fixated on this. She states that she has no energy and no a ppetite. She is down to 137 pounds. She has been working with her copyman and primary care physician. As you know, Zee has MGUS. She is to undergo a chest and abdomen CT later today. Her amiodarone level is less than 0.2. I would not anticipate she is still havi ng side effects from the medication. Fortunately, she remains in sinus rhythm t batool. Vitals: 11/29/19 1024 BP: 118/74 Pulse: 62 SpO2: 98% Weight: 62.2 kg (137 lb 3.2 oz) Height: 1.626 m (5' 4") Body mass index is 23.55 kg/m. 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 See work-up for fatigue, muscle weaknesspositive for MGUS. Hematology di d not think causing issues Plan: Get CT chest abdomen pelvis to further work-up Tremor of both hands 09/05/2019 With activity/extension Plan: Get thyroid studies, B12 Refer to neurology Muscle weakness of proximal extremity 09/05/2019 Does have muscle weakness, fatigue, I spent weight loss. Negative/normal CBC, CMP, TSH, ESR, CRP, EDA, CPK, anti-Sowmya 1, SCL 70 antibody. SPEP and immunofixation consistent with MGUS. Hematology did not think contribu ting Plan Refer to neurology Reactive depression 07/25/2019 Secondary to health problems, recent loss of and daughter 10/30/2019 -feels "weird" on 10 mg daily but she does not take it regularly. Wo uld prefer to be on 5 mg daily Plan: Change Lexapro 5 mg daily. She will try to be more compliant Symptomatic bradycardia 06/21/2019 CKD (chronic kidney disease) stage 3, GFR 30-59 ml/min ([facility]) 05/04/2019 Plan: -Check UA, CMP, vit D, -Avoid nephrotoxins and renally dose medications -Keep [...] -Work-up muscle weakness \\ B12 deficiency 04/27/2019 Chronic cough 04/27/2019 Has chronic cough in the setting of chronic fatigue and unexplained weight los s Get chest x-ray Atrial fibrillation (HCC) 01/12/2019 1. 2 echo: No regional wall motion abnormalities are seen. Overall LV syst olic function appears normal. The estimated left ventricular ejection fraction i s 60%. 2. Right ventricular contractility appears normal. 3. Moderate left atrial enlargement. 4. Moderate mitral valve regurgitation. Mild tricuspid valve regurgitation. 5. Aortic valve sclerosis without stenosis. No pericardial effusion is seen. Plan: Continue follow-up with cardiology Continue Eliquis Asthma 01/12/2019 controlled Plan: Continue Albuterol 2 puffs every 6 hours as needed Continue Singulair 10 mg daily Bruit 08/09/2016 Shortness of breath 08/09/2016 Essential hypertension 08/06/2016 02/09/08 ECHO EF 55 % Hypertension Management: Medication adherent: all of the time Treatment goal: 130/80 Outside blood pressures being performed: Yes BP Readings from Last 3 Encounters: 10/30/19 145/43 10/30/19 147/49 10/01/19 (!) 209/65 She denies significant light-headedness. Imp: Hypertension controlled Plan: Discussed hypertension and reviewed goals. Limit salt to 1.5-2 g daily Continue losartan 50 mg daily Mixed hyperlipidemia 08/06/2016 [...] AM NONHDLCHOL 158 10/30/2019 11:51 AM ALT 12 10/30/2019 11:51 AM CK 22 09/08/2019 10:07 AM VITD25 14.2 (L) 10/30/2019 11:51 AM Imp: Hyperlipidemia good Plan: Discussed labs and reviewed goals for LDL, HDL, triglycerides. Discussed exercise management and diet with emphasis on vegetables, fruit and le an meat. Referred to dietitian Check lipids. Statin was held but did not help weakness Abnormal screening cardiac CT 08/06/2016 08/31/16 PV carotid duplex mild plaque, none >50% 08/31/16 Regadenoson Thallium EF 73 % LVEDV 53 ml DDD (degenerative disc disease), lumbar 06/09/2016 Review of Systems Constitution: Negative. HENT: Negative. Eyes: Negative. Cardiovascular: Negative. Respiratory: Negative. Endocrine: Negative. Hematologic/Lymphatic: Negative. Skin: Negative. Musculoskeletal: Negative. Gastrointestinal: Negative. Genitourinary: Negative. Neurological: Negative. Psychiatric/Behavioral: Negative. Allergic/Immunologic: Negative. Physical Exam General Appearance: elderly, well nourished in no acute distress Skin: [...] cardiac murmurs Extremities: no lower extremity edema; 1+ symmetric distal pulses Abdominal Exam: soft, non-tender, no masses, bowel sounds normal Liver & Spleen: no organomegaly Neurologic Exam: neurological assessment grossly intact Cardiovascular Studies 12 lead EKG: Sinus rhythm, ventricular rate 62 bpm, QTc 451 msec Problems Addressed Today Encounter Diagnoses Name Primary? Atrial fibrillation, unspecified type (HCC) Yes Tremor of both hands Unexplained weight loss Assessment and Plan Atrial fibrillation (HCC) She has maintained sinus rhythm off of amiodarone. Mrs. Fam really does not w ant to start another antiarrhythmic drug, particularly because of her previous e xperiences with other antiarrhythmic medications. I think this is reasonable. If she does have recurrence of her atrial arrhythmias, then we could consider st arting her on flecainide. She remains on anticoagulation. She reports a history of falls in the past. We talked about the relative risks of anticoagulation including the risk of bleedi ng with falls. Mrs. Fam tells me she is very careful and will not fall again. I asked her to call me if she has any other falls. At that time, we will revi sit the option of watchman and anticoagulation. Tremor of both hands Her tremors have improved significantly. Her biggest complaint to me today is s ome gait instability. She does not know if it is due to muscle weakness from we ight loss. We are going to keep her off of amiodarone for now. I would expect any effects from amiodarone would be out of her system in the next month. Unexplained weight loss She continues to have weight loss despite regular meals. Mrs. Fam tells me th at she simply has no appetite. She is going to be undergoing CT of the chest an d abdomen later today for further work-up. She does have a history of MGUS. I have asked the patient to see me back in follow up in 6 months. Current Medications (including today's revisions) albuterol (VENTOLIN HFA) 90 mcg/actuation inhaler Inhale two puffs by mouth into the lungs every 6 hours as needed for Wheezing or Shortness of Breath. Fidencio e well before use. apixaban (ELIQUIS) 2.5 mg tablet Take one tablet by mouth twice daily. carbidopa/levodopa (SINEMET) 25/100 mg tablet Take two tablets by mouth thre e times daily. cholecalciferol (vitamin D3) (VITAMIN D3) 4,000 unit cap Take one capsule by mouth daily. cyanocobalamin 1,000 mcg tablet Take one tablet by mouth daily. ergocalciferol (VITAMIN D-2) 1,250 mcg (50,000 unit) capsule Take one capsul e by mouth every 7 days. For 12 weeks and stay on vitamin D3 2000 IUs daily OTC fish oil- omega 3-DHA/EPA 300/1,000 mg capsule Take 1 capsule by mouth daily . losartan (COZAAR) 50 mg tablet TAKE 1 TABLET BY MOUTH ONCE DAILY vitamins, B complex tab Take 1 tablet by mouth daily. [facility] documented in this encounter Plan of Treatment Order Schedule Name Type Priority Associated Diag noses Ordered: 11/29/2019 ECG 12-LEAD ECG Routine Atrial fibrilla tion, unspecified type (HCC) documented as of this encounter Goals Goal Patient Associated Recent Progress Patient-Stat Aut hor Goal Type Problems ed? GOAL General No Tammie Causey RN Note: Cont to live in my condo documented as of this encounter Procedures Comments Procedure Name Priority Date/Time Associated Diag nosis ECG-SCAN 11/29/2019 12:00 AM SUPERVISOR [employer]STRY documented in this encounter Results * ECG-SCAN (11/29/2019 12:00 AM SUPERVISOR PASTRY) Narrative Performed At This result has an attachment that is n ot available. Ordered by an unspecified provider. documented in this encounter Visit Diagnoses Diagnosis Atrial fibrillation, unspecified type ( HCC) Tremor of both hands Unexplained weight loss Loss of weight * Assessment & Plan Note - Alee Briscoe MD - 11/29/2019 1:45 PM SUPERVISOR [employer]Y Associated Problem(s): Unexplained weight loss She continues to have weight loss despite regular meals. Mrs. Fam tells me th at she simply has no appetite. She is going to be undergoing CT of the chest an d abdomen later today for further work-up. She does have a history of MGUS. RVISOR PASTRY * Assessment & Plan Note - Alee Briscoe MD - 11/29/2019 1:44 PM SUPERVISOR [employer]Y Associated Problem(s): Tremor of both hands Her tremors have improved significantly. Her biggest complaint to me today is s ome gait instability. She does not know if it is due to muscle weakness from we ight loss. We are going to keep her off of amiodarone for now. I would expect any effects from amiodarone would be out of her system in the next month. RVISOR PASTRY * Assessment & Plan Note - Alee Briscoe MD - 11/29/2019 1:43 PM SUPERVISOR PASTRY Associated Problem(s): Atrial fibrillation (HCC) She has maintained sinus rhythm off of amiodarone. Mrs. Fam really does not w ant to start another antiarrhythmic drug, particularly because of her previous e xperiences with other antiarrhythmic medications. I think this is reasonable. If she does have recurrence of her atrial arrhythmias, then we could consider st arting her on flecainide. She remains on anticoagulation. She reports a history of falls in the past. We talked about the relative risks of anticoagulation including the risk of bleedi ng with falls. Mrs. Fam tells me she is very careful and will not fall again. I asked her to call me if she has any other falls. At that time, we will revi sit the option of watchman and anticoagulation. RVISOR PASTRY documented in this encounter
--- OUTSIDE RECORDS SUMMARY | 2020-05-28 08:32 | XMS REPORT | Encounter Summary ---
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 Name Role Phone Gladys Matthews Unavailable Unavailable Jeff Palma MD PCP Reason for Referral * Radiology Services (Routine) Referred By Contact Referred To Contact Status Reason Specialty Diagnoses / [place] [address] [employer] [address] [place] [address] New Request Radiology Diagnoses Chronic fatigue Unexplained weight loss MGUS (monoclonal gammopathy of unknown significance) Chronic cough Muscle weakness of upper extremity Muscle weakness of proximal extremity P rocedures CT CHEST W CONTRAST * Radiology Services (Routine) Referred By Contact Referred To Contact Status Reason Specialty Diagnoses / [place] [address] [place] [address] [address] [place] [address] No Auth Needed Radiology Diagnoses Chronic fatigue Unexplained weight loss MGUS (monoclonal gammopathy of unknown significance) Chronic cough Muscle weakness of upper extremity Muscle weakness of proximal extremity P rocedures CT ABD/PELV W CONTRAST [place] CT THORAX W/CONTRAST MATERIAL Reason for Visit * Radiology Services (Routine) Referred By Contact Referred To Contact Status Reason Specialty Diagnoses / [place] [address] [address] [place] [address] No Auth Needed Radiology Diagnoses Chronic fatigue Unexplained weight loss MGUS (monoclonal gammopathy of unknown significance) Chronic cough Muscle weakness of upper extremity Muscle weakness of proximal extremity P rocedures CT ABD/PELV W CONTRAST [place] CT THORAX W/CONTRAST MATERIAL Encounter Details Care Team Description [place] [address] [place], [place] [id number] 11/29/2019 [facility] [address] [place] [address] Social History Date Tobacco Use Types Packs/Day [...] Shortness of Breath. Shake well before use. fish oil- omega 3-DHA/EPA Take 1 0 300/1,000 mg capsule capsule by mouth daily. 06/22/2019 04/03/2020 apixaban (ELIQUIS) 2.5 mg Take one 60 tablet 3 tablet tablet by mouth twice daily. 10/30/2019 04/03/2020 carbidopa/levodopa Take two 540 tablet 3 (SINEMET) 25/100 mg tablets by tabletIndications: mouth three Parkinsonism, unspecified times daily. Parkinsonism type (HCC) 10/30/2019 04/03/2020 cholecalciferol (vitamin Take one 0 D3) (VITAMIN D3) 4,000 capsule by unit capIndications: mouth daily. Vitamin D deficiency 10/30/2019 04/03/2020 cyanocobalamin 1,000 mcg Take one 0 tabletIndications: B12 tablet by deficiency mouth daily. 11/12/2019 04/03/2020 ergocalciferol (VITAMIN Take one 12 capsule 0 D-2) 1,250 mcg (50,000 capsule by unit) capsule mouth every 7 days. For 12 weeks and stay on vitamin D3 2000 IUs daily OTC 11/08/2019 04/03/2020 losartan (COZAAR) 50 mg TAKE 1 TABLET 90 tablet 1 tablet BY MOUTH ONCE DAILY 02/09/2018 04/03/2020 rosuvastatin (CRESTOR) 20 Take 20 mg by 0 mg tablet mouth daily. 04/03/2020 vitamins, B complex tab Take 1 tablet 0 by mouth daily. documented as of this encounter Progress Notes * Jeff Palma MD - 11/29/2019 11:00 AM ACCESS CONTROL SPECIALIST CT of chest abdomen and pelvis does show areas of mild bronchiectasis and tree-i n-bud opacities. I believe she was treated for an infection during urgent care visit after I last saw her. We will confirm with her Does show known left thyroid nodule. Has been evaluated already There is a 1 cm intermediate density left renal lesion. Likely hemorrhagic cyst but could also be solid renal lesion. Recommended further evaluation for this. At this point will get MRI abdomen and pelvis DX renal mass protocol Otherwise nothing to explain her unintentional weight loss. Continue to treat depression I released results, interpretation, and recommendations [facility] CONTROL SPECIALIST documented in this encounter Plan of Treatment Not on filedocumented as of this encounter Goals Goal Patient Associated Recent Progress Patient-Stat Aut hor Goal Type Problems ed? GOAL General No Tammie Causey RN Note: Cont to live in my condo documented as of this encounter Procedures Comments Procedure Name Priority Date/Time Associated Diag nosis CT ABD/PELV W CONTRAST Routine 11/29/2019 Chronic fatigue 12:37 PM ACCESS CONTROL SPECIALIST Unexplained weight loss MGUS (monoclonal gammopathy of unknown significance) Chronic cough Muscle weakness of upper extremity Muscle weakness of proximal extremity CT CHEST W CONTRAST Routine 11/29/2019 Chronic fa tigue 12:37 PM ACCESS CONTROL SPECIALIST Unexplained weight loss MGUS (monoclonal gammopathy of unknown significance) Chronic cough Muscle weakness of upper extremity Muscle weakness of proximal extremity HC CREATININE, POC 11/29/2019 11:57 AM ACCESS CONTROL SPECIALIST documented in this encounter Results * CT CHEST W CONTRAST (11/29/2019 12:37 PM ACCESS CONTROL SPECIALIST) Specimen Impressions Performed At CHEST: [facility] RESULTS 1. Areas of mild bronchiectasis, tree-i n-bud type opacities, and subcentimeter nodular opacities. This is nonspecific though is suggestive of an atypical pneumonitis such as RYLEE. Follow-up ches t CT in 3-6 months is suggested. 2. Dominant 18 mm left thyroid nodule. Thyroid sonogram is suggested for further evaluation. 3. Enlarged main pulmonary artery that is suggestive of pulmonary hypertension. 4. Cardiomegaly and coronary artery dis ease ABDOMEN AND PELVIS: 1. Small 1 cm intermediate density left renal lesion that is incompletely characterized on this single phase CT. Leading consideration is a hemorrhagic cyst. A solid renal lesion is an additi onal consideration. Follow-up pre and postcontrast CT or MRI (renal mass prot ocol) is suggested for further characterization. 2. Several small hypodense hepatic lesi ons that are too small to characterize, though most likely represent incidental cysts. 3. Small right anterior pelvic wall her kvng. 4. Mild colonic diverticulosis 5. Cholelithiasis Finalized by Mahesh Jimenez M.D. on 0 2:34 PM. Dictated by Mahesh Jimenez M.D. on 11/29/2019 1:50 PM. Narrative Performed At CT CHEST, ABDOMEN AND PELVIS [facility] RESULTS Clinical Indication: Female, 78 years old. Unexplained weight loss. Decrease in appetite. MGUS. Chronic fatigue. Chr onic cough. Muscle weakness of proximal extremity. Technique: Multiple contiguous axial im ages were obtained through the chest, abdomen and pelvis following the admini stration of IV contrast material. Portal venous phase of postcontrast imaging wa s obtained. Post processing coronal and sagittal reconstruction images were mad e from the axial images. IV contrast: Yes Bowel contrast: Yes Comparison: Metastatic skeletal survey October 02, 2019. Otherwise, no relevant prior. CHEST FINDINGS: Lower Neck: 18 mm low-density nodule is present within the left thyroid with at least one additional subcentimeter nodu le. Axilla, Mediastinum and Kaci: Prior rig ht axillary lymph node dissection. Heart and Great Vessels: Mild cardiomeg ric with calcific coronary artery disease. No pericardial effusion. Mild thickening and calcification of the aortic valve. Normal caliber thoracic a pardeep with mild atherosclerosis. Airway, Lungs and Pleura: Enlarged main pulmonary artery up to 35 mm that is suggestive of pulmonary hypertension. M ild central bronchiectasis and bronchial wall thickening as well as areas of min imal mucous plugging, which is greatest within the right middle lobe where ther e is also some mild atelectasis anteriorly. There are tree-in-bud type opacities as well as multiple subcentimeter nodular opacities within both lungs, with greatest involvement of the right upper and lower lobes. No ple ural effusion or pneumothorax. Chest Wall and Osseous Structures: Mild to moderate thoracic spondylosis with mild left convexity curvature. Moderate bilateral glenohumeral joint arthrosis. ABDOMEN AND PELVIS FINDINGS: Liver and Biliary system: The liver is normal in size. There are several small hypodense lesions scattered throughout the liver, the largest of which is in segment 3 measuring 9 mm (series 2 imag e 85). These lesions are too small to characterize, though are most likely be nign such as small cysts. Tiny calcified granulomas layer dependently within the gallbladder. Spleen: Unremarkable. Adrenal Glands and Kidneys: Both adrena l glands are unremarkable. Along the anterior aspect of the right kidney (se merrick 2 image 103) there is a 1 cm intermediate density lesion. Both kidne ys are otherwise unremarkable. Pancreas and Retroperitoneum: Unremarka ble. Aorta and Major Vessels: Normal caliber abdominal aorta with moderate atherosclerosis. Bowel, Mesentery and Peritoneal space: Mild proximal and distal colonic diverticulosis. Bowel loops are all nor mal in caliber. The high density bowel contrast opacifies the majority of the small bowel. No ascites or pneumoperitoneum. Pelvis: Absent uterus. Mildly distended urinary bladder. No pelvic lymphadenopathy. Abdominal wall and Osseous Structures: Small anterior pelvic wall hernia to the right of midline containing nondilated small bowel. Diffuse osteopenia with moderate lumbar spondylosis. Grade 1 an terolisthesis of L4 on L5. Chronic bilateral spondylolysis of L5. Procedure Note Interface, Radiant Results - 11/29/2019 2:37 [address] CHEST, ABDOMEN AND PELVIS Clinical Indication: Female, 78 years old. Unexplained weight loss. Decrease in appetite. MGUS. Chronic fatigue. Chronic cough. Muscle weakness of proximal extremity. Technique: Multiple contiguous axial images were obtained through the chest, abdomen and pelvis following the administration of IV contrast material. Portal venous phase of postcontrast imaging was obtained. Post processing coronal and sagittal reconstruction images were made from the axial images. IV contrast: Yes Bowel contrast: Yes Comparison: Metastatic skeletal survey October 02, 2019. Otherwise, no relevant prior. CHEST FINDINGS: Lower Neck: 18 mm low-density nodule is present within the left thyroid with at least one additional subcentimeter nodule. Axilla, Mediastinum and Kaci: Prior right axillary lymph node dissection. Heart and Great Vessels: Mild cardiomegaly with calcific coronary artery disease. No pericardial effusion. Mild thickening and calcification of the aortic valve. Normal caliber thoracic aorta with mild atherosclerosis. Airway, Lungs and Pleura: Enlarged main pulmonary artery up to 35 mm that is suggestive of pulmonary hypertension. Mild central bronchiectasis and bronchial wall thickening as well as areas of minimal mucous plugging, which is greatest within the right middle lobe where there is also some mild atelectasis anteriorly. There are tree-in-bud type opacities as well as multiple subcentimeter nodular opacities within both lungs, with greatest involvement of the right upper and lower lobes. No pleural effusion or pneumothorax. Chest Wall and Osseous Structures: Mild to moderate thoracic spondylosis with mild left convexity curvature. Moderate bilateral glenohumeral joint arthrosis. ABDOMEN AND PELVIS FINDINGS: Liver and Biliary system: The liver is normal in size. There are several small hypodense lesions scattered throughout the liver, the largest of which is in segment 3 measuring 9 mm (series 2 image 85). These lesions are too small to characterize, though are most likely benign such as small cysts. Tiny calcified granulomas layer dependently within the gallbladder. Spleen: Unremarkable. Adrenal Glands and Kidneys: Both adrenal glands are unremarkable. Along the anterior aspect of the right kidney (series 2 image 103) there is a 1 cm intermediate density lesion. Both kidneys are otherwise unremarkable. Pancreas and Retroperitoneum: Unremarkable. Aorta and Major Vessels: Normal caliber abdominal aorta with moderate atherosclerosis. Bowel, Mesentery and Peritoneal space: Mild proximal and distal colonic diverticulosis. Bowel loops are all normal in caliber. The high density bowel contrast opacifies the majority of the small bowel. No ascites or pneumoperitoneum. Pelvis: Absent uterus. Mildly distended urinary bladder. No pelvic lymphadenopathy. Abdominal wall and Osseous Structures: Small anterior pelvic wall hernia to the right of midline containing nondilated small bowel. Diffuse osteopenia with moderate lumbar spondylosis. Grade 1 anterolisthesis of L4 on L5. Chronic bilateral spondylolysis of L5. IMPRESSION CHEST: 1. Areas of mild bronchiectasis, tree-in -bud type opacities, and subcentimeter nodular opacities. This is nonspecific though is suggestive of an atypical pneumonitis such as RYLEE. Follow-up chest CT in 3-6 months is suggested. 2. Dominant 18 mm left thyroid nodule. T hyroid sonogram is suggested for further evaluation. 3. Enlarged main pulmonary artery that i s suggestive of pulmonary hypertension. 4. Cardiomegaly and coronary artery dise ase ABDOMEN AND PELVIS: 1. Small 1 cm intermediate density left renal lesion that is incompletely characterized on this single phase CT. Leading consideration is a hemorrhagic cyst. A solid renal lesion is an additional consideration. Follow-up pre and postcontrast CT or MRI (renal mass protocol) is suggested for further characterization. 2. Several small hypodense hepatic lesio ns that are too small to characterize, though most likely represent incidental cysts. 3. Small right anterior pelvic wall romulo ia. 4. Mild colonic diverticulosis 5. Cholelithiasis Finalized by Mahesh Jimenez M.D. on 11/29/2019 2:34 PM. Dictated by Mahesh Jimenez M.D. on 11/29/2019 1:50 PM. Performing Organization Address City/State/[facility] Number [facility] * CT ABD/PELV W CONTRAST (11/29/2019 12:37 PM ACCESS CONTROL SPECIALIST) Specimen Impressions Performed At CHEST: [facility] RESULTS 1. Areas of mild bronchiectasis, tree-i n-bud type opacities, and subcentimeter nodular opacities. This is nonspecific though is suggestive of an atypical pneumonitis such as RYLEE. Follow-up ches t CT in 3-6 months is suggested. 2. Dominant 18 mm left thyroid nodule. Thyroid sonogram is suggested for further evaluation. 3. Enlarged main pulmonary artery that is suggestive of pulmonary hypertension. 4. Cardiomegaly and coronary artery dis ease ABDOMEN AND PELVIS: 1. Small 1 cm intermediate density left renal lesion that is incompletely characterized on this single phase CT. Leading consideration is a hemorrhagic cyst. A solid renal lesion is an additi onal consideration. Follow-up pre and postcontrast CT or MRI (renal mass prot ocol) is suggested for further characterization. 2. Several small hypodense hepatic lesi ons that are too small to characterize, though most likely represent incidental cysts. 3. Small right anterior pelvic wall her kvng. 4. Mild colonic diverticulosis 5. Cholelithiasis Finalized by Mahesh Jimenez M.D. on 0 2:34 PM. Dictated by Mahesh Jimenez M.D. on 11/29/2019 1:50 PM. Narrative Performed At CT CHEST, ABDOMEN AND PELVIS [facility] RESULTS Clinical Indication: Female, 78 years old. Unexplained weight loss. Decrease in appetite. MGUS. Chronic fatigue. Chr onic cough. Muscle weakness of proximal extremity. Technique: Multiple contiguous axial im ages were obtained through the chest, abdomen and pelvis following the admini stration of IV contrast material. Portal venous phase of postcontrast imaging wa s obtained. Post processing coronal and sagittal reconstruction images were mad e from the axial images. IV contrast: Yes Bowel contrast: Yes Comparison: Metastatic skeletal survey October 02, 2019. Otherwise, no relevant prior. CHEST FINDINGS: Lower Neck: 18 mm low-density nodule is present within the left thyroid with at least one additional subcentimeter nodu le. Axilla, Mediastinum and Kaci: Prior rig ht axillary lymph node dissection. Heart and Great Vessels: Mild cardiomeg ric with calcific coronary artery disease. No pericardial effusion. Mild thickening and calcification of the aortic valve. Normal caliber thoracic a pardeep with mild atherosclerosis. Airway, Lungs and Pleura: Enlarged main pulmonary artery up to 35 mm that is suggestive of pulmonary hypertension. M ild central bronchiectasis and bronchial wall thickening as well as areas of min imal mucous plugging, which is greatest within the right middle lobe where ther e is also some mild atelectasis anteriorly. There are tree-in-bud type opacities as well as multiple subcentimeter nodular opacities within both lungs, with greatest involvement of the right upper and lower lobes. No ple ural effusion or pneumothorax. Chest Wall and Osseous Structures: Mild to moderate thoracic spondylosis with mild left convexity curvature. Moderate bilateral glenohumeral joint arthrosis. ABDOMEN AND PELVIS FINDINGS: Liver and Biliary system: The liver is normal in size. There are several small hypodense lesions scattered throughout the liver, the largest of which is in segment 3 measuring 9 mm (series 2 imag e 85). These lesions are too small to characterize, though are most likely be nign such as small cysts. Tiny calcified granulomas layer dependently within the gallbladder. Spleen: Unremarkable. Adrenal Glands and Kidneys: Both adrena l glands are unremarkable. Along the anterior aspect of the right kidney (se merrick 2 image 103) there is a 1 cm intermediate density lesion. Both kidne ys are otherwise unremarkable. Pancreas and Retroperitoneum: Unremarka ble. Aorta and Major Vessels: Normal caliber abdominal aorta with moderate atherosclerosis. Bowel, Mesentery and Peritoneal space: Mild proximal and distal colonic diverticulosis. Bowel loops are all nor mal in caliber. The high density bowel contrast opacifies the majority of the small bowel. No ascites or pneumoperitoneum. Pelvis: Absent uterus. Mildly distended urinary bladder. No pelvic lymphadenopathy. Abdominal wall and Osseous Structures: Small anterior pelvic wall hernia to the right of midline containing nondilated small bowel. Diffuse osteopenia with moderate lumbar spondylosis. Grade 1 an terolisthesis of L4 on L5. Chronic bilateral spondylolysis of L5. Procedure Note Interface, Radiant Results - 11/29/2019 2:37 [address] SPECIALIST CT CHEST, ABDOMEN AND PELVIS Clinical Indication: Female, 78 years old. Unexplained weight loss. Decrease in appetite. MGUS. Chronic fatigue. Chronic cough. Muscle weakness of proximal extremity. Technique: Multiple contiguous axial images were obtained through the chest, abdomen and pelvis following the administration of IV contrast material. Portal venous phase of postcontrast imaging was obtained. Post processing coronal and sagittal reconstruction images were made from the axial images. IV contrast: Yes Bowel contrast: Yes Comparison: Metastatic skeletal survey October 02, 2019. Otherwise, no relevant prior. CHEST FINDINGS: Lower Neck: 18 mm low-density nodule is present within the left thyroid with at least one additional subcentimeter nodule. Axilla, Mediastinum and Kaci: Prior right axillary lymph node dissection. Heart and Great Vessels: Mild cardiomegaly with calcific coronary artery disease. No pericardial effusion. Mild thickening and calcification of the aortic valve. Normal caliber thoracic aorta with mild atherosclerosis. Airway, Lungs and Pleura: Enlarged main pulmonary artery up to 35 mm that is suggestive of pulmonary hypertension. Mild central bronchiectasis and bronchial wall thickening as well as areas of minimal mucous plugging, which is greatest within the right middle lobe where there is also some mild atelectasis anteriorly. There are tree-in-bud type opacities as well as multiple subcentimeter nodular opacities within both lungs, with greatest involvement of the right upper and lower lobes. No pleural effusion or pneumothorax. Chest Wall and Osseous Structures: Mild to moderate thoracic spondylosis with mild left convexity curvature. Moderate bilateral glenohumeral joint arthrosis. ABDOMEN AND PELVIS FINDINGS: Liver and Biliary system: The liver is normal in size. There are several small hypodense lesions scattered throughout the liver, the largest of which is in segment 3 measuring 9 mm (series 2 image 85). These lesions are too small to characterize, though are most likely benign such as small cysts. Tiny calcified granulomas layer dependently within the gallbladder. Spleen: Unremarkable. Adrenal Glands and Kidneys: Both adrenal glands are unremarkable. Along the anterior aspect of the right kidney (series 2 image 103) there is a 1 cm intermediate density lesion. Both kidneys are otherwise unremarkable. Pancreas and Retroperitoneum: Unremarkable. Aorta and Major Vessels: Normal caliber abdominal aorta with moderate atherosclerosis. Bowel, Mesentery and Peritoneal space: Mild proximal and distal colonic diverticulosis. Bowel loops are all normal in caliber. The high density bowel contrast opacifies the majority of the small bowel. No ascites or pneumoperitoneum. Pelvis: Absent uterus. Mildly distended urinary bladder. No pelvic lymphadenopathy. Abdominal wall and Osseous Structures: Small anterior pelvic wall hernia to the right of midline containing nondilated small bowel. Diffuse osteopenia with moderate lumbar spondylosis. Grade 1 anterolisthesis of L4 on L5. Chronic bilateral spondylolysis of L5. IMPRESSION CHEST: 1. Areas of mild bronchiectasis, tree-in -bud type opacities, and subcentimeter nodular opacities. This is nonspecific though is suggestive of an atypical pneumonitis such as RYLEE. Follow-up chest CT in 3-6 months is suggested. 2. Dominant 18 mm left thyroid nodule. T hyroid sonogram is suggested for further evaluation. 3. Enlarged main pulmonary artery that i s suggestive of pulmonary hypertension. 4. Cardiomegaly and coronary artery dise ase ABDOMEN AND PELVIS: 1. Small 1 cm intermediate density left renal lesion that is incompletely characterized on this single phase CT. Leading consideration is a hemorrhagic cyst. A solid renal lesion is an additional consideration. Follow-up pre and postcontrast CT or MRI (renal mass protocol) is suggested for further characterization. 2. Several small hypodense hepatic lesio ns that are too small to characterize, though most likely represent incidental cysts. 3. Small right anterior pelvic wall romulo ia. 4. Mild colonic diverticulosis 5. Cholelithiasis Finalized by Mahesh Jimenez M.D. on 11/29/2019 2:34 PM. Dictated by Mahesh Jimenez M.D. on 11/29/2019 1:50 PM. Performing Organization Address City/State/[facility] Ph one Number [facility] RES[facility] * POC CREATININE, RAD (11/29/2019 11:57 AM ACCESS CONTROL SPECIALIST) Creatinine, POC 1.3 (H) 0.4 - 1.00 MG/DL [facility] Specimen Performing Organization Address City/[facility] Ph one Number [facility] [address] [place] [address] documented in this encounter Visit Diagnoses Diagnosis Chronic fatigue Other malaise and fatigue Unexplained weight loss Loss of weight MGUS (monoclonal gammopathy of unknown significance) Monoclonal paraproteinemia Chronic cough Cough Muscle weakness of upper extremity Muscle weakness of proximal extremity documented in this encounter Administered Medications Action Date Dose Rate Site Medication Order MAR Action 11/29/2019 12:45 PM ACCESS CONTROL SPECIALIST 15 mL diatrizoate meglumine & sodium 66-10 % Given (LUCYGASTROTAISHA) oral solution 15 mL 15 mL, Oral, ONCE, 1 dose, Rubina 11/29/19 at 1245 11/29/2019 12:45 PM ACCESS CONTROL SPECIALIST 70 mL iohexol (OMNIPAQUE-350) 350 mg/mL Given injection 70 mL 70 mL, Intravenous, ONCE, 1 dose, Rubina 11/29/19 at 1245, NOTE: This is a HIGH ALERT Medication., 11/29/2019 12:45 PM ACCESS CONTROL SPECIALIST 50 mL sodium chloride PF 0.9% injection 50 mL Given 50 mL, Intravenous, ONCE, 1 dose, Rubina 11/29/19 at 1245, DO NOT SEND this medication unless it is requested. This med is usually available in floor stock., Intra-procedure (IR) documented in this [id number]
--- OUTSIDE RECORDS SUMMARY | 2020-05-28 08:33 | XMS REPORT ---
Author Author Lamppost. content curator [employer] [facility] [employer] [facility] [employer] Address [address] [place] [address] Care Team Providers Care Patient Ambassador Name Role Phone STEVE MORRIS Unavailable Unavailable CLEO MAY Unavailable NO, LOCAL PHYSICIAN PCP Unavailable CLEO MAY PCP ANGELA ANTONIO Unavailable Unavailable LUIZ HENDERSON, NICK Anderson Unavailable Unavailable AIDAN ROSALES APRN Unavailable Unavailable AGUEDA MCDOWELL DO Unavailable Unavailable CLEO MAY PCP CLEO MAY Unavailable Unavailable Unavailable Unavailable Unavailable Unavailable Unavailable Unavailable Unavailable Unavailable Unavailable Unavailable Unavailable Unavailable Unavailable Unavailable Unavailable Allergies Allergy Reported Allergen(s) Allergy Type Date of Reaction(s) Care Facility Classificati Onset Provider on Amiodarone Amiodarone ; Drug Allergy 07-30-2019 ANGELA VENEGAS [facility] Via (18 sources) Translations: [amiodarone amiodarone Ch risti ([id number])] ([id number]) [facility] ([id number]) amLODIPine amLODIPine ; Drug Allergy 01-22-2019 unknown CLEO [facility] (1 source) Translations: [Norvasc] YADIRA darcie [facility] Other Phone: Center of [phone] ([address]) Encounters Encounter Date Encounter Type Encounter Diagnosis Care Provider Facility Start: Patient encounter NA NA [facility]alt 01-24-2020 procedure Center [facility] Start: Patient encounter NA NA [facility] 01-14-2020 procedure [facility] Start: Patient encounter NA [facility] 12-10-2019 procedure [facility] ([id number]) Start: Patient encounter NA NA [facility] 12-03-2019 procedure [facility] ([id number]) Start: Follow-up encounter Deficiency of other CLEO [place]ON [place] 11-28-2019 specified B group MAIN vitamins Start: Telephone encounter CLEO RUVALCABASEKrystle [place] 11-28-2019 MAIN Start: Telephone encounter CLEO RUVALCABASEKrystle [facility] 11-22-2019 Start: Emergency department CLEO Larson n [address] 11-21-2019 patient visit Work Phone: [place] [phone] End: 11-21-2019 Start: Emergency department AGUEDA MCDOWELL DO [facility] [address] 11-21-2019 patient visit [facility] End: 11-21-2019 Start: Patient encounter AGUEDA MCDOWELL [facility] 11-21-2019 procedure [facility] ([id number]) Start: Emergency department AGUEDA MCDOWELL [facility] [address] 07-30-2019 patient visit Work Phone: [facility] ([id number]) End: 07-30-2019 Start: Emergency department AGUEDA MCDOWELL DO [facility] [address] 07-30-2019 patient visit [facility] ([id number]) End: 07-30-2019 Start: Patient encounter AGUEDA MCDOWELL [facility] [address] [facility] 07-30-2019 procedure [facility] ([id number]) Start: Emergency department AIDAN CANES [facility] [address] 06-02-2019 patient visit Work Phone: [facility] ([id number]) End: 06-02-2019 Start: Emergency department AIDAN ROSALES [facility] [address] 06-02-2019 patient visit [facility] ([id number]) End: 06-02-2019 Start: Patient encounter AIDAN ROSALES [facility] 06-02-2019 procedure [facility] ([id number]) Start: Telephone encounter CLEO MAY [facility] [place] 03-08-2019 MAIN End: 03-08-2019 Start: Telephone encounter CLEO MAY [facility] [place] 02-07-2019 MAIN End: 02-07-2019 Start: Nursing evaluation of Paroxysmal atrial TATIANNA PORTER [facility] JAS[facility] ROB 01-31-2019 patient and report fibrillation MAIN End: 01-31-2019 Start: Patient encounter NA NA [facility] 01-31-2019 procedure [facility] ([id number]) Start: Patient encounter NA NA [facility] 01-31-2019 procedure [facility] (86348) Start: Patient encounter STEVE MORRIS Not Availab le ([id number]) 01-25-2019 procedure Start: Patient encounter STEVE MORRIS [facility] 01-25-2019 [facility] ([id number]) Start: Patient encounter NA NA Community [facility] 01-22-2019 procedure [facility] ([id number]) Start: [facility] Paroxysmal atrial CLEO MAY [facility] 01-22-2019 MAIN fibrillation MAIN End: 01-22-2019 Start: Telephone encounter CLEO MAY [facility] 12-12-2018 End: 12-12-2018 Start: Telephone encounter Doctor Migration [facility] 11-12-2018 End: 11-12-2018 Start: [facility] Doctor Migration [facility] 09-25-2018 End: 09-25-2018 Start: [facility] Doctor Migration [facility] 09-12-2018 End: 09-12-2018 Start: [facility] Doctor Migration [facility] 09-07-2018 End: 09-07-2018 Start: [facility] Doctor Migration [facility] 02-03-2018 End: 02-03-2018 Start: Patient encounter ANGELA ANTONIO Not [facility]ail[facility] ([id number]) 06-01-2016 procedure Start: Patient encounter ANGELA ANTONIO [facility] ([id number]) 05-13-2015 procedure Start: Patient encounter ANGELA ANTONIO [facility] 05-13-2015 [facility] (86125) Start: Patient encounter ANGELA ANTONIO Not [facility]ail[facility] ([id number]) 06-04-2014 procedure Start: Patient encounter ANGELA ANTONIO [facility] 06-04-2014 procedure [facility] ([id number]) Patient encounter NA NA [facility] Via [facility] (18786) Medical Equipment The data below is from unstructured sourcesNo Medical Equipment Information available Goals Date Patient Goal Desired Activity/St ate Immunizations Immunizatio Immunization Notes Care Provider Facility n Date 10-30-2019 influenza, high dose NA NA [facility] Med ical [place] seasonal, Internal Medicine - preservative-free [facility] (01453) 06-02-2019 tetanus toxoid, NA NA [facility] toxoid, and acellular (46812) pertussis vaccine, adsorbed 08-09-2018 influenza, high dose NA NA [facility] Med ical [place] seasonal, Internal Medicine - preservative-free [facility] (68570) 05-02-2018 pneumococcal conjugate NA NA [facility] vaccine, 13 valent [facility] ([id number]) 01-12-2016 tetanus and diphtheria NA [facility] edical [place] toxoids, adsorbed, Internal Medicine - preservative free, for [facility] adult use (5 Lf of (63850) tetanus toxoid and 2 Lf of diphtheria toxoid) 11-30-2011 influenza, high dose NA NA [facility] Med ical [place] seasonal, Internal Medicine - preservative-free [facility] (08402) 08-14-2010 influenza, high dose NA NA [facility] Med ical [place] seasonal, Internal Medicine - preservative-free [facility] (93135) 11-13-2009 influenza, high dose NA NA [facility] Med ical [place] seasonal, Internal Medicine - preservative-free [facility] ([id number]) 07-31-2009 influenza, high dose NA NA [facility] Med ical [place] seasonal, Internal Medicine - preservative-free [facility] (30912) 11-14-2002 tetanus and diphtheria NA [facility] M edical [place] toxoids, adsorbed, Internal Medicine - preservative free, for [facility] adult use (5 Lf of (60601) tetanus toxoid and 2 Lf of diphtheria toxoid) Interventions No Information Medications Current Medications Medication Drug Dates Sig Sig (Original) Class(es) (Normalized) albuterol 0.83 mg/ml beta2-Adre Start: Albuterol Sulfate Active 2.5 RESPIRATORY inhalant solution nergic 11-21-2019 (INHALATION) Every 4HRS as needed for (6 sources) Agonist Wheezing November 21, 2019 5:43pm Start: 11-21-2019 take 1 Albuterol puff(s) by Sulfate Active inhalation 2 RESPIRATORY every four (INHALATION) hours Every 4HRS November 21, 2019 5:43pm 1 PUFF = 90 MCG Albuterol Active NOT APPLICABLE Albuterol NOT APPLICABLE take 2 Albuterol puff(s) by Sulfate HFA inhalation 108 (90 Base) every six MCG/ACT hours as Inhalation needed every 6 hrs 2 puffs as needed 6h Active Albuterol Sulfate Hfa 90 Start: Albuterol [place]ar lfate Hfa 90 McG/Actuation McG/Actuation Aerosol 02-06-2018 Aerosol Inhaler Jan, Active Inhaler (1 source) allopurinol 300 mg oral Xanthine Allopurinol Ac tive NOT APPLICABLE tablet Oxidase (4 sources) Inhibitor ALPRAZolam 0.25 mg oral Benzodiaze take 1 tablet Xanax 0.25 MG Orally at bedtime 1 tablet tablet pine by mouth at Active (1 source) bedtime amiodarone hydrochloride Antiarrhyt Amiodarone Hc l Active NOT APPLICABLE 200 mg oral tablet hmic (4 sources) apixaban 5 mg oral Factor Xa Apixaban Active NOT APPLICABLE tablet Inhibitor (4 sources) Apixaban (Eliquis) 5 Mg Tablet NOT APPLICABLE azithromycin 250 mg oral Macrolide Start: Azith romycin Active 250 ORAL As Directed tablet Antimicrob 11-21-2019November 21, 2019 5:35pm TAKE 2 (1 source) ial TABLETS TODAY, THEN TAKE 1 TABLET DAILY FOR 4 MORE DAYS benzonatate 100 mg oral Non-narcot Start: Benzon atate Active 100 ORAL Three Times capsule ic 11-21-2019 A Day as needed for Cough 27 November (1 source) Antitussiv 2019 5:35pm e betamethasone 3 mg/ml / Corticoste Start: Betame thasone Sod Phos & Acet 6 (3-3) betamethasone acetate 3 roid 07-13-2016 MG/ML Jun, Active mg/ml injectable suspension (1 source) 120 actuat budesonide Corticoste take 2 puff(s) Symbicor t 160-4.5 MCG/ACT Inhalation 0.16 mg/actuat / roid, by inhalation Twice a day 2 puffs 12h Active formoterol fumarate beta2-Adre twice daily 0.0045 mg/actuat metered nergic dose inhaler Agonist (1 source) busPIRone hydrochloride take 1 tablet BusPIRone HC l 5 MG Orally Three times a 5 mg oral tablet by mouth three day 1 tablet 8h Act heike (1 source) times daily donepezil hydrochloride Start: Donepezil HCl 5 MG Sep, Active 5 mg oral tablet 10-04-2018 (1 source) ezetimibe 10 mg oral Dietary take 1 tablet Zetia 10 MG Orally Once a day 1 tablet tablet Cholestero by mouth once 24h 30 day(s) A ctive (1 source) l daily Absorption Inhibitor furosemide 40 mg oral Loop take 1 tablet Lasix 40 MG Orally Once a day 1 tablet tablet Diuretic by mouth once 24h 30 day(s) A ctive (1 source) daily hydroCHLOROthiazide 25 Thiazide Losartan/Hydroc hlorothiazide Active NOT mg / losartan potassium Diuretic, APPLICABLE 100 mg oral tablet Angiotensi (3 sources) n 2 Receptor Hailee Losartan/[place] chlorothiazide (Losartan-Hctz 100-25 Mg Tab) 1 Each Tablet NOT APPLICABLE meloxicam 15 mg oral Nonsteroid Meloxicam Active NOT APPLICABLE tablet al (4 sources) Anti-infla mmatory Drug 24 hr metoprolol beta-Adren take 1 tablet Toprol XL 25 MG Orally 2 times a day 1 succinate 25 mg extended ergic by mouth twice table t 12h 30 day(s) Active release oral tablet Hailee daily (1 source) montelukast 10 mg oral Leukotrien take 1 tablet Singula ir 10 MG Orally Once a day 1 tablet e Receptor by mouth once tablet 24h 30 d ay(s) Active (1 source) Antagonist daily olmesartan medoxomil 40 Angiotensi take 1 tablet Ben[place] r 40 MG Orally Once a day 1 tablet mg oral tablet n 2 by mouth once 24h 30 day(s) A ctive (1 source) Receptor daily Hailee Olmesartan 40 Start: Olmesartan 40 Mg-Hy drochlorothiazide 25 Mg-Hydrochlorothiazide 10-02-2018 Mg Tablet 19 N 2017 Active 25 Mg Tablet (1 source) omeprazole 20 mg delayed Proton take 1 capsule Omepr azole 20 MG Orally Once a day 1 release oral capsule Pump by mouth once capsule 2 4h 30 day(s) Active (1 source) Inhibitor daily predniSONE 20 mg oral Start: Prednisone Acti ve 40 ORAL Daily 8 tablet 11-21-2019 November 21, 2019 5 :35pm (1 source) Psyllium Fiber 0.52 GM Psyllium Fiber 0.52 GM Ora lly Three (1 source) times a day 2 capsules with 8 ounces of liquid 8h 30 day(s) Active rosuvastatin calcium 20 HMG-CoA take 1 tablet Cresto r 20 MG Orally Once a day 1 tablet mg oral tablet Reductase by mouth once 24h 30 day(s) A ctive (1 source) Inhibitor daily sertraline 25 mg oral Serotonin Start: Sertrali ne HCl 25 MG Oct, Active tablet Reuptake 11-06-2018 (1 source) Inhibitor Completed/Discontinued Medications Medication Drug Dates Sig Sig (Original) Class(es) (Normalized) acetaminophen 325 mg / Opioid Start: Hydroco done/Acetaminophen ([place] 5-325 HYDROcodone bitartrate 5 Agonist 07-30-2019 Table t) 1 Each Tablet 1 Tab ORAL Every 6 mg oral tablet Hours for Pain 7 Days 10 Tab 07/30/19 (2 sources) End: 08-06-2019 ondansetron 4 mg Serotonin- Start: take 1 tablet Ondanse chadd (Ondansetron Odt) 4 Mg disintegrating oral 3 Receptor 07-30-2019 by mouth every Tab .rapdis 4 Mg ORAL Every 6 Hours as tablet Antagonist six hours as needed for Naus ea/Vomiting-1ST Line 10 (2 sources) needed for Tab 07/30/19 nausea Start: 07-30-2019 Ondansetron Active 4 ORAL Every 6 Hours as needed for Nausea/Vomitin g-1ST Line 10 July 30, 2019 8:44am Payers Date Payer Normalized Payer [id number] Plan of Treatment Date Care Activity Detail Author Start: [facility] Start: Electrocardiographic Tracing only of [facility] [address] 11-21-2019 procedure electrocardiogram [facility] ([id number] 000) Bacteria [Presence] in Urine [facility] [address] sediment by Light [facility] (36354) Bacteria identified in Blood [facility] [address] by [facility] (17150) Bilirubin.total [Presence] [facility] [address] in Urine by Test [facility] (61290) Casts [Presence] in Urine [facility] [address] sediment by [facility] (06003) Clarity of Urine [facility] (62963) Color of Urine [facility] (33191) Crystals [Presence] in Urine [facility] [address] sediment by [facility] (62136) Erythrocytes [#/area] in [facility] [address] Urine sediment by [facility] (91805) high power field Erythrocytes [Presence] in [facility] [address] Urine sediment by [facility] (75156) microscopy Glucose [Presence] in Urine [facility] [address] by Automated test strip [facility] (79691) Ketones [Presence] in Urine [facility] [address] by Automated test strip [facility] (91034) Leukocyte esterase [facility] [address] [Presence] in Urine by [facility] (53744) strip Leukocytes [#/area] in Urine [facility] [address] sediment by Microscopy [facility] (18568) power field Mucus [Presence] in Urine [facility] [address] sediment by Light [facility] (92273) Nitrite [Presence] in Urine [facility] [address] by Test strip [facility] (59772) pH of Urine by Test strip [facility] (08533) Protein [Presence] in Urine [facility] [address] by Test strip [facility] (70630) Specific gravity of Urine by [facility] [address] Test strip [facility] (88743) Urinalysis complete W Reflex [facility] Culture panel - Urine [facility] (87249) Urobilinogen [Mass/volume] [facility] [address] in Urine by Automated test [facility] (15358) strip Patient Education Viral Upper Respiratory [facility] Infection, Adult ([place]) [facility] (85425) Patient referral [facility] (24617) Problems Active Problems Problem Problem Date Last Documented Episodic/Chr Provider Classificati Recorded Date onic on Allergic Allergy status to other drugs, Episodic AGUEDA reactions medicaments and biological JEREMIAS DO (9 sources) substances status Anxiety Anxiety disorder, unspecified Chronic PETER ROSALES disorders (13 sources) Asthma Unspecified asthma, uncomplicated Chronic AGUEDA JEREMIAS DO (4 sources) 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 (2 sources) Cancer of Personal history of malignant Episodic ANGELA ANTONIO breast neoplasm of breast ; Transl ations: [Personal history of primary (18 malignant neoplasm of breas t] sources) Cardiac Paroxysmal atrial fibrillation ; Chronic CLEO dysrhythmias Translations: [Paroxysmal atrial GNANI (20 sources) fibrillation] Other Phone: Delirium, Primary degenerative dementia of Chronic CLEO dementia, the Alzheimer type, senile onset, G UGNANI and amnestic uncomplicated ; Translations: Other Phone: and other [Dementia associated with another [phone] cognitive disease] 0 disorders (8 sources) Diabetes Type 2 diabetes mellitus ; Chronic P ANKAJ mellitus Translations: [Type 2 diabetes GUGN ANI with mellitus with other specified Other Phone: complication complication] [phone] 0 (2 sources) Diabetes Type 2 diabetes mellitus without Chronic CLEO mellitus complication ; Translations: [Type GUGNANI without 2 diabetes mellitus without Other P heidi: complication complications] [phone] (17 sources) 0 Disorders of Pure hypercholesterolemia ; Chronic BOBJAIRO ANTONIO lipid Translations: [Pure metabolism hypercholesterolemia] (6 sources) E Codes: Unspecified fall, initial encounter Episodic STEVE MORRIS Fall ; Translations: [Fall on sa me level (14 sources) from slipping, tripping and stumbling with subsequent striking against other object, initial encounter] E Codes: Unspecified place in unspecified Episodic PETER ROSALES Place of non-institutional (private) occurrence residence as the place of (4 sources) occurrence of the external cause Essential Unspecified essential hypertension Chronic ANGELA ANTONIO hypertension ; Translations: [Essential (12 sources) (primary) hypertension] Mood Depressive disorder, not elsewhere Chronic ANGELA ANTONIO disorders classified ; Translations: (4 sources) [Reactive depression (situa tional)] Nutritional Vitamin D deficiency ; Chronic PANKA J deficiencies Translations: [Vitamin D GUGNANI (2 sources) deficiency, unspecified] Other Phon e: [phone] Open wounds Laceration without foreign body of Episodic PETER ROSALES of head; right eyelid and periocular area, neck; and initial encounter trunk (4 sources) Osteoarthrit Primary osteoarthritis, left Chronic STEVE MORRIS is shoulder (5 sources) Other Contracture, left shoulder Chronic G REGNEGIN ALEXANDRA acquired deformities (5 sources) 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 anticoagulants (9 sources) Other Unspecified injury of face, initial Episodic PETER ROSALES injuries and encounter conditions due to external causes (4 sources) Other Unspecified injury of head, initial Episodic AGUEDA injuries and encounter JEREMIAS DO conditions due to external causes (10 sources) Other Unspecified 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 (2 sources) Residual 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 ROSALES codes; uterus unclassified (13 sources) Residual Acquired absence of other organs Episodic PETER ROSALES codes; unclassified (13 sources) Residual Acquired absence of other specified Episodic PETER ROSALES codes; parts of digestive tract unclassified (13 sources) Spondylosis; Degeneration of intervertebral disc Chronic CLEO intervertebr ; Translations: [DDD (degenerative GUGNANI al disc disc disease), lumbar] Other Phone: disorders; [phone] other back 0 problems (2 sources) Superficial Contusion of left shoulder, initial Episodic STEVE MORRIS injury; encounter ; Translations: contusion [Contusion of other part of head, (9 sources) initial encounter] Past or Other Problems Problem Problem Date Last Documented Episodic/Chr Provider Classificati Recorded Date onic on Abdominal Inguinal hernia ; Translations: Episodic CLEO hernia [Inguinal hernia without mention of GUGNANI obstruction or gangrene, unilateral Other Phone: (2 sources) or unspecified, (not specified as ( [phone] recurrent)] 0 Nutritional Deficiency of other specified B Episodic CLEO deficiencies group vitamins ; Translations: GUGN ANI (7 sources) [Vitamin B12 deficiency (non Other Phone: anemic)] Other Acquired spondylolisthesis ; Episodic CLEO acquired Translations: [Spondylolisthesis at GUGNANI deformities L4-L5 level] Other Phone: (2 sources) [phone] Other Follow-up examination, following Episodic BOBAN PACO aftercare radiotherapy (5 sources) Other Long-term (current) use of other Episodic BOBAN PACO aftercare medications (5 sources) Other Long-term (current) use of aspirin Episodic BOBAN PACO aftercare (3 sources) Other Complete rotator cuff tear or Episodic STEVE ALEXANDRA connective rupture of left shoulder, n ot tissue specified as traumatic disease (5 sources) Other Trochanteric bursitis of left hip ; Episodic CLEO connective Translations: [Trochanteric GUGNANI tissue bursitis, left hip] Other Phone: disease [phone] (3 sources) 0 Other Personal history of other diseases Episodic AGUEDA gastrointest of the digestive system JEREMIAS DO inal disorders (4 sources) Other Closed injury of head Episodic CLEO injuries and GUGNANI conditions Work Phone: due to [phone] external 0 causes (1 source) Other lower Cough Episodic AGUEDA respiratory JEREMIAS DO disease (4 sources) Other Unsteadiness on feet ; Episodic PANKA J nervous Translations: [ - Gait instability netomat system R26.81] Other Phone: disorders [phone] (2 sources) 0 Other Unsteady gait ; Translations: [Gait Episodic CLEO nervous instability] netomat system Other Phone: disorders [phone] (2 sources) 0 Other Other specified abnormal findings Episodic AGUEDA screening of blood chemistry ; Translations: JEREMIAS DO for [Encounter for screening ma mmogram suspected for malignant neoplasm of b reast] conditions (not mental disorders or infectious disease) (5 sources) Other upper Acute upper respiratory infection, Episodic AGUEDA respiratory unspecified JEREMIAS DO infections (4 sources) Residual Personal history of other specified Episodic ANGELA ANTONIO codes; diseases unclassified (2 sources) Spondylosis; Sciatica ; Translations: [Left Episodic CLEO intervertebr sided sciatica] GUGNANI al disc Other Phone: disorders; [phone] other back 0 problems (3 sources) Unclassified CLEO (1 source) GUGNANI Work Phone: Unclassified Chronic atrial fibrillation, CLEO (1 source) unspecified ; Translations: [ - YAMIL WADE Chronic atrial fibrillation, Other Phone: unspecified I48.20] Procedures Date Procedure Procedure Detail Performing Cl inician Start: Mammography SUSANNAH BORGES 12-03-2019 Start: Computerized axial AIDAN ROSALES 06-02-2019 tomography of Work Phone: brain Start: [facility] visit sveta MAY 01-22-2019 patient Other Phone: Results Test Name Value Interpreta Reference Facilit Date tion Range y Time not yet categorized on null BLO Negative Communi ty [facility] (46047) KET 01/2021~clear~dark Invalid Communi yellow~no~negative~negative~negative Interpreta t y tion Code [facility] (98747) Lot # [id number] Invalid Communi Interpreta ty tion Code [facility] (58765) SG 1.020 Invalid Communi Interpreta ty tion Code [facility] (67202) URO 7.5~30~0.2 Invalid Communi Interpreta ty tion Code [facility] (08999) laboratory on 2020-01-24 Calcium [Mass/Vol] 9.9 mg/dL Normal 8.6-10.4 Communi mg/dL ty [facility] (20814) Chloride [Moles/Vol] 102 mmol/L Normal 98-110 Commu ni mmol/L ty [facility] (60419) CO2 [Moles/Vol] 35 mmol/L High 20-32 Communi mmol/L ty [facility] (49178) Creatinine 1.23 mg/dL High 0.60-0.88 Communi [Mass/Vol] mg/dL ty [facility] (49395) GFR/1.73 sq 48 mL/min/{1.73_m2} Low > OR = 60 Commun i M.predicted among mL/min/1.7 ty blacks MDRD 3m2 Health (S/P/Bld) [Vol Center rate/Area] [facility] (71533) GFR/1.73 sq 41 mL/min/{1.73_m2} Low > OR = 60 Commun i M.predicted MDRD mL/min/1.7 ty (S/P/Bld) [Vol 3m2 Health rate/Area] [facility] (58419) Glucose [Mass/Vol] 98 mg/dL Normal 65-99 Communi mg/dL ty [facility] (51484) Potassium 3.5 mmol/L Normal 3.5-5.3 Communi [Moles/Vol] mmol/L ty [facility] (38234) Sodium [Moles/Vol] 140 mmol/L Normal 135-146 Communi mmol/L ty [facility] (95311) Urea nitrogen 13 mg/dL Normal 7-25 mg/dL Communi [Mass/Vol] ty [facility] (74561) Urea 11 mg/mg Normal 6-22 Communi nitrogen/Creatinine (calc) ty [Mass ratio] [facility] (04898) laboratory on 2020-01-14 Albumin [Mass/Vol] 3.6 g/dL Normal 3.6-5.1 Communi g/dL [facility] (13669) Albumin/Globulin 2.3 {ratio} Normal 1.0-2.5 Communi [Mass ratio] (calc) [facility] (67194) ALP [Catalytic 74 U/L Normal 37-153 U/L Communi activity/Vol] [facility] (13804) ALT [Catalytic 5 U/L Low 6-29 U/L Communi activity/Vol] [facility] (39051) AST [Catalytic 10 U/L Normal 10-35 U/L Communi activity/Vol] [facility] (28525) Basophils (Bld) 0.028 10*3/uL Normal 0-200 Communi [#/Vol] cells/uL ty [facility] (60200) Basophils/100 WBC 0.6 % Normal % Communi (Bld) [facility] (51761) Bilirubin [Mass/Vol] 1.2 mg/dL Normal 0.2-1.2 Commu ni mg/dL [facility] (58018) Calcium [Mass/Vol] 10.1 mg/dL Normal 8.6-10.4 Communi mg/dL [facility] (67000) Chloride [Moles/Vol] 104 mmol/L Normal 98-110 Commu ni mmol/L ty [facility] (41290) CO2 [Moles/Vol] 30 mmol/L Normal 20-32 Communi mmol/L ty [facility] (29793) Creatinine 1.29 mg/dL High 0.60-0.88 Communi [Mass/Vol] mg/dL ty [facility] (11332) Eosinophils (Bld) 0.099 10*3/uL Normal 15-500 Commun i [#/Vol] cells/uL ty [facility] (27928) Eosinophils/100 WBC 2.1 % Normal % Commun i (Bld) ty [facility] (44098) Erythrocyte 15.4 % High 11.0-15.0 Communi distribution width % ty (RBC) [Ratio] [facility] (75473) GFR/1.73 sq 45 mL/min/{1.73_m2} Low > OR = 60 Commun i M.predicted among mL/min/1.7 ty blacks MDRD 3m2 Health (S/P/Bld) [Vol Center rate/Area] [facility] (01742) GFR/1.73 sq 39 mL/min/{1.73_m2} Low > OR = 60 Commun i M.predicted MDRD mL/min/1.7 ty (S/P/Bld) [Vol 3m2 Health rate/Area] [facility] () Globulin (S) 1.6 g/dL Low 1.9-3.7 Communi [Mass/Vol] g/dL ty (calc) [facility] (83620) Glucose [Mass/Vol] 106 mg/dL High 65-99 Communi mg/dL ty [facility] (95451) Hematocrit (Bld) 31.2 % Low 35.0-45.0 Communi [Volume fraction] % ty [facility] (23304) Hemoglobin (Bld) 10.6 g/dL Low 11.7-15.5 Communi [Mass/Vol] g/dL ty [facility] () Lymphocytes (Bld) 1.203 10*3/uL Normal 850-3900 Commun i [#/Vol] cells/uL [facility] (04210) Lymphocytes/100 WBC 25.6 % Normal % Commun i (Bld) [facility] (17346) MCH (RBC) [Entitic 29.4 pg Normal 27.0-33.0 Communi mass] pg [facility] (17821) MCHC (RBC) 34.0 g/dL Normal 32.0-36.0 Communi [Mass/Vol] g/dL [facility] (82576) MCV (RBC) [Entitic 86.7 fL Normal 80.0-100.0 Communi vol] fL [facility] (38938) Monocytes (Bld) 0.677 10*3/uL Normal 200-950 Communi [#/Vol] cells/uL [facility] (58427) Monocytes/100 WBC 14.4 % Normal % Communi (Bld) [facility] (09390) Neutrophils (Bld) 2.693 10*3/uL Normal 7641-1630 Commun i [#/Vol] cells/uL [facility] (11184) Neutrophils/100 WBC 57.3 % Normal % Commun i (Bld) [facility] (36710) Platelet mean volume 11.7 fL Normal 7.5-12.5 Commu ni (Bld) [Entitic vol] fL [facility] (64427) Platelets (Bld) 188 10*3/uL Normal 140-400 Communi [#/Vol] Thousand/u ty L [facility] (03196) Potassium 3.8 mmol/L Normal 3.5-5.3 Communi [Moles/Vol] mmol/L [facility] (11069) Protein [Mass/Vol] 5.2 g/dL Low 6.1-8.1 Communi g/dL [facility] (48344) RBC (Bld) [#/Vol] 3.60 10*6/uL Low 3.80-5.10 Communi Million/uL ty [facility] (29216) Sodium [Moles/Vol] 138 mmol/L Normal 135-146 Communi mmol/L [facility] (23221) TSH Qn 0.63 m[IU]/L Normal 0.40-4.50 Communi mIU/L ty [facility] (63532) Urea nitrogen 15 mg/dL Normal 7-25 mg/dL Communi [Mass/Vol] ty [facility] (03366) Urea 12 mg/mg Normal 6-22 Communi nitrogen/Creatinine (calc) ty [Mass ratio] [facility] (24138) WBC (Bld) [#/Vol] 4.7 10*3/uL Normal 3.8-10.8 Communi Thousand/u ty [facility] () laboratory on 2019-01-31 Albumin [Mass/Vol] 4.0 g/dL Normal 3.6-5.1 Communi g/dL ty [facility] (83468) Albumin DL <= 20 1.2 mg/dL Normal See Note: Communi mg/L (U) [Mass/Vol] mg/dL [facility] () Albumin/Creatinine 35 High <30 mcg/mg Communi (U) [Mass ratio] creat ty [facility] (92795) Albumin/Globulin 2.1 {ratio} Normal 1.0-2.5 Communi [Mass ratio] (calc) ty [facility] (74741) ALP [Catalytic 79 U/L Normal 33-130 U/L Communi activity/Vol] [facility] (03980) ALT [Catalytic 9 U/L Normal 6-29 U/L Communi activity/Vol] [facility] (54699) AST [Catalytic 11 U/L Normal 10-35 U/L Communi activity/Vol] [facility] (12142) Basophils (Bld) 0.05 10*3/uL Normal 0-200 Communi [#/Vol] cells/uL [facility] (24387) Basophils/100 WBC 0.8 % Normal % Communi (Bld) [facility] (01212) Bilirubin [Mass/Vol] 0.7 mg/dL Normal 0.2-1.2 Commu ni mg/dL [facility] (69623) Calcium [Mass/Vol] 9.2 mg/dL Normal 8.6-10.4 Communi mg/dL [facility] (67716) Chloride [Moles/Vol] 106 mmol/L Normal 98-110 Commu ni mmol/L [facility] (03917) Cholesterol 165 mg/dL Normal <200 mg/dL Communi [Mass/Vol] [facility] (02914) Cholesterol in HDL 55 mg/dL Normal >50 mg/dL Communi [Mass/Vol] [facility] (86158) Cholesterol in LDL 89 mg/dL Normal mg/dL Communi [Mass/Vol] (calc) [facility] (57198) Cholesterol non HDL 110 mg/dL Normal <130 mg/dL Commun i [Mass/Vol] (calc) [facility] (00471) Cholesterol.total/Ch 3.0 {ratio} Normal <5.0 Commu ni olesterol in HDL (calc) ty [Mass ratio] [facility] (03292) CO2 [Moles/Vol] 31 mmol/L Normal 20-32 Communi mmol/L [facility] (47077) Cobalamin (Vitamin 409 pg/mL Normal 200-1100 Communi B12) [Mass/Vol] pg/mL [facility] (99686) Creatinine (U) 34 mg/dL Normal 20-275 Communi [Mass/Vol] mg/dL [facility] (47303) Creatinine 1.00 mg/dL High 0.60-0.88 Communi [Mass/Vol] mg/dL [facility] (92971) Eosinophils (Bld) 0.088 10*3/uL Normal 15-500 Commun i [#/Vol] cells/uL [facility] (60301) Eosinophils/100 WBC 1.4 % Normal % Commun i (Bld) ty [facility] (17057) Erythrocyte 13.1 % Normal 11.0-15.0 Communi distribution width % ty (RBC) [Ratio] [facility] (13331) GFR/1.73 sq 62 mL/min/{1.73_m2} Normal > OR = 60 Commun i M.predicted among mL/min/1.7 ty blacks MDRD 3m2 Health (S/P/Bld) [Vol Center rate/Area] [facility] (69654) GFR/1.73 sq 53 mL/min/{1.73_m2} Low > OR = 60 Commun i M.predicted MDRD mL/min/1.7 ty (S/P/Bld) [Vol 3m2 Health rate/Area] [facility] (57547) Globulin (S) 1.9 g/dL Normal 1.9-3.7 Communi [Mass/Vol] g/dL ty (calc) [facility] (59302) Glucose [Mass/Vol] 111 mg/dL High 65-99 Communi mg/dL ty [facility] (67577) HbA1c (Bld) [Mass 6.1 High <5.7 % of Communi fraction] total Hgb ty [facility] (48221) Hematocrit (Bld) 38.8 % Normal 35.0-45.0 Communi [Volume fraction] % ty [facility] (08156) Hemoglobin (Bld) 12.3 g/dL Normal 11.7-15.5 Communi [Mass/Vol] g/dL ty [facility] (53841) Lymphocytes (Bld) 1.065 10*3/uL Normal 850-3900 Commun i [#/Vol] cells/uL ty [facility] (66201) Lymphocytes/100 WBC 16.9 % Normal % Commun i (Bld) ty [facility] (99478) MCH (RBC) [Entitic 29.7 pg Normal 27.0-33.0 Communi mass] pg ty [facility] (47967) MCHC (RBC) 31.7 g/dL Low 32.0-36.0 Communi [Mass/Vol] g/dL ty [facility] (05503) MCV (RBC) [Entitic 93.7 fL Normal 80.0-100.0 Communi vol] fL [facility] (35287) Monocytes (Bld) 0.485 10*3/uL Normal 200-950 Communi [#/Vol] cells/uL [facility] (80691) Monocytes/100 WBC 7.7 % Normal % Communi (Bld) [facility] (75752) Neutrophils (Bld) 4.612 10*3/uL Normal 7239-5140 Commun i [#/Vol] cells/uL [facility] (75346) Neutrophils/100 WBC 73.2 % Normal % Commun i (Bld) [facility] (92345) Platelet mean volume 10.7 fL Normal 7.5-12.5 Commu ni (Bld) [Entitic vol] fL [facility] (78696) Platelets (Bld) 284 10*3/uL Normal 140-400 Communi [#/Vol] Thousand/u ty L [facility] (60484) Potassium 3.7 mmol/L Normal 3.5-5.3 Communi [Moles/Vol] mmol/L [facility] (74028) Protein [Mass/Vol] 5.9 g/dL Low 6.1-8.1 Communi g/dL [facility] (57411) RBC (Bld) [#/Vol] 4.14 10*6/uL Normal 3.80-5.10 Communi Million/uL [facility] (95696) Sodium [Moles/Vol] 143 mmol/L Normal 135-146 Communi mmol/L [facility] (90153) Triglyceride 115 mg/dL Normal <150 mg/dL Communi [Mass/Vol] [facility] (08455) Urea nitrogen 15 mg/dL Normal 7-25 mg/dL Communi [Mass/Vol] ty [facility] (82859) Urea 15 mg/mg Normal 6-22 Communi nitrogen/Creatinine (calc) ty [Mass ratio] [facility] (34421) WBC (Bld) [#/Vol] 6.3 10*3/uL Normal 3.8-10.8 Communi Thousand/u ty L [facility] (92092) Social History Date Type Detail Facility Start: Tobacco smoking status NHIS Never smoked tobac co [facility] 11-21-2019 (finding) [facility] (94992) Start: Denies Use [facility] 11-21-2019 [facility] (91178) Start: No [facility] 11-21-2019 [facility] (53054) Start: Never a Smoker [facility] 11-21-2019 [facility] (21259) Start: Sex Assigned At Female [facility] 1940 [facility] (18703) Unknown if ever smoked [facility] (36791) Vital Signs Date Time Vital Sign Value Performing Clinician Facil ity 01-22-2019 Body height 162.6 cm [facility] ealt 14:150400 Other Phone: [facility] (47535) 01-22-2019 Body mass index 29.16 kg/m2 [facility] 14:15-0400 (BMI) [Ratio] Other Phone: [facility] (17827) 01-22-2019 Body weight [facility] h 14:150400 Other Phone: [facility] (37912) Functional Status The data below is from unstructured sourcesNo functional status information available.No functional status information available.No functional status information available.No Functional Status information availableNo Functional Status information available Mental Status The data below is from unstructured sourcesNo Mental Status Information Available Evaluation note Note Date & Note Facility Type Evaluation No Assessments Information Available [facility] note [facility] (64318) History general Narrative - Reported Note Date & Note Facility Type History general Narrative - Reported Type Medical malignant neoplasm of breas t History Medical trochanteric bursitis, left hip History Medical spondylolisthesis at l4-l5 level History Medical degenerative disc diseae, l umbar History Medical late onset of alzheimers History Medical Type 2 diabetes mellitus History Medical Hypertension History Medical Hypercholesteremia History Medical B12 deficiency History Medical Reactive depression History Medical Left sided sciatica History Surgical breast cancer History Surgical colon resection x2 History Surgical cardiac cath History Surgical hysterectomy History Hospitalizatio surgeries n History [facility] (07443) Advance Directives Directive Response Recor ded Date/Time Advance Directives No 4:26pm Resuscitation Status Full Code 06/02/19 4:26pm Directive Response Recor ded Date/Time Advance Directives No 4:26pm Advance Directive Response Recorded Date/Time Advance Directives No Ja 2019 4:25pm Resuscitation Status Full Code November 21, 2019 4:25pm Chief Complaint and Reason for Visit Chief Complaint Trauma-Non Activatio n Reason for Visit [id number] Chief Complaint Trauma-Non Activatio n Reason for Visit [id number] Chief Complaint Cough/Cold/Flu Sympt oms Reason for Visit [id number] Discharge Instructions No hospital discharge instruction information available.No hospital discharge instruction information available. Additional Source Comments This clinical document has been generated using [employer] software that has been certified by the Office of the National Coordinator for Health Information Technology (ONC 15.99.04.3023.Diam.31.00.0.495547) and the National Committee for Skin Lifter [employer] (NCQA, as an eMeasure certified technology). FOR RECORDS PERTAINING TO PATIENTS WHO ARE OR HAVE BEEN ENROLLED IN A CHEMICAL D EPENDENCY/SUBSTANCE ABUSE PROGRAM, SOME INFORMATION MAY BE OMITTED. This clinica l summary was aggregated from multiple sources. Caution should be exercised in using it in the provision of clinical care. This summary normalizes information from multiple sources, and as a consequence, information in this document may ma terially change the coding, format and clinical context of patient data. In scot tion, data may be omitted in some cases. CLINICAL DECISIONS SHOULD BE BASED ON T HE PRIMARY CLINICAL RECORDS. [employer] provides no warranty or guara ntee of the accuracy or completeness of information in this document.The followi ng information is based on time limited clinical information UNRECOGNIZED CONTENT PROVIDED BELOW FOR UNRECOGNIZED SECTION REASON FOR VISIT Establish [facility] # FOR CARDIO
--- OUTSIDE RECORDS SUMMARY | 2020-05-28 08:33 | XMS REPORT ---
Author Author Zee MAY Organization [facility] Address [address] [place] [address] Care Team Providers Care Vortex Operator Name Role Phone CLEO MAY Unavailable PROBLEMS Type Condition ICD9-CM Code VVS74-EF Code Onset Dates Condition S tatus SNOMED Code Problem Spondylolisthesis at L4-L5 level M43.16 May, 0 [id number] Problem Pure hypercholesterolemia E78.00 0 263081364 Problem Left sided sciatica M54.32 May, 0 81886474 Problem Inguinal hernia without ment ion of obstruction or gangrene, unilateral or unspecified, (not specified as recurrent) K40.90 0 278277343 Problem Essential hypertension I10 0 85535370 Problem Personal history of malignant neoplasm of breast Z 85.3 0 400297814 Problem Trochanteric bursitis, left hip M70.62 May, 0 [id number] Problem Type 2 diabetes mellitus wit h other specified complication, without long-term current use of insulin E11.69 Active 50157457 Problem B12 deficiency E53.8 Aug, 0 64 381099 Problem Vitamin D deficiency E55.9 Active 39936460 Problem DDD (degenerative disc disease), lumbar M51.36 May, 0 04789978 Problem Paroxysmal atrial fibrillation I48.0 Active 049768627 Problem Dementia in other diseases c lassified elsewhere without behavioral disturbance F02.80 Active 894057466 Problem Alzheimer''s disease with late onset G30.1 Active 97600374 Problem Gait instability R26.81 Active 394 309905 ALLERGIES No Information ENCOUNTERS Encounter Location Date Diagnosis [address] [place] [address] Dec, [address] [place] [address] Nov, Screening mammogram, encount er for Z12.31 [facility] [address] [place] [address] Nov, [address] [place] [address] Nov, B12 deficiency E53.8 ; Type 2 diabetes mellitus with other specified complication, without long-term current use of insulin E11.69 ; Vitamin D deficiency E55.9 ; Paroxysmal atrial fibrillation I48.0 and Chronic atrial fibrillation, unspecified I48.20 [id number] [place] [address] Nov, [facility] [address] [place] [address] Feb, [address] [place] [address] Jan, [address] [place] [address] Jan, Paroxysmal atrial fibrillati on I48.0 ; B12 deficiency E53.8 and Essential hypertension I10 [facility] [address] [place] [address] Jan, Paroxysmal atrial fibrillati on I48.0 ; B12 deficiency E53.8 ; Essential hypertension I10 ; Pure hypercholesterolemia E78.00 ; Alzheimer''s disease with late onset G30.1 ; Dementia in other diseases clas sified elsewhere without behavioral disturbance F02.80 ; Type 2 diabetes mellitus without complication, without long-term current use of insulin E11.9 and Gait instability R26.81 [id number] [place] [address] Nov, [facility] [address] [address] Oct, [facility] [id number] [place] [address] Sep, [facility] [address] [address] Aug, [facility] [address] [facility] [id number] [place] [address] Aug, [facility] [address] [facility] [place] [address] Jan, IMMUNIZATIONS No Known Immunizations SOCIAL HISTORY Never Assessed REASON FOR VISIT FAX # FOR CARDIO PLAN OF CARE VITAL SIGNS MEDICATIONS Unknown Medications RESULTS No Results PROCEDURES No Known procedures INSTRUCTIONS MEDICATIONS ADMINISTERED No Known Medications MEDICAL [...]
--- OUTSIDE RECORDS SUMMARY | 2020-05-28 08:33 | XMS REPORT | Continuity of Care Document ---
Author Organization Unknown Address Unknown Phone Unavailable Allergies Active Description Code Type Severity Reaction Onset Reported/Identified Relationship to Patient Clinical Status Yes No Known Drug Allergies [id number] Drug Allergy Unknown N/A 06/02/2019 Yes amiodarone [id number] Drug Allerg y Moderate TREMORS 07/30/2019 Medications There is no data. Problems Date [...] Ot 786.2 COUGH 05/11/2016 Ot V10.3 HX O F BREAST MALIGNANCY 05/11/2016 Ot V58.66 GM G-TERM (CURRENT) USE OF ASPIRIN 05/11/2016 Ot V58.69 OTH MED,LT,CURRENT USE 05/11/2016 Ot V67.1 RADI OTHERAPY FOLLOW-UP 05/11/2016 Ot 311 DEPRES SIVE DISORDER NEC 05/11/2016 Ot 782.3 EDEMA 05/11/2016 Ot 785.1 PALP ITATIONS 05/11/2016 Ot V10.3 HX O F BREAST MALIGNANCY 05/11/2016 Ot V15.88 HIS TORY OF FALL 05/11/2016 Ot V58.69 OTH MED,LT,CURRENT USE 05/11/2016 Ot V67.1 RADI OTHERAPY FOLLOW-UP 05/11/2016 Ot 250.00 JAH B KAYLEIGH WO COMPL, TYPE II OR UNSPEC TY 05/11/2016 Ot 311 DEPRES SIVE DISORDER NEC 05/11/2016 Ot 356.9 IDIO PERIPH NEURPTHY NOS 05/11/2016 Ot V10.3 HX O F BREAST MALIGNANCY 05/11/2016 Ot V58.66 GM G-TERM (CURRENT) USE OF ASPIRIN 05/11/2016 Ot V58.69 OTH MED,LT,CURRENT USE 05/11/2016 Ot V67.1 RADI OTHERAPY FOLLOW-UP 05/11/2016 Ot V10.3 HX O F BREAST MALIGNANCY 05/11/2016 Ot V67.1 RADI OTHERAPY FOLLOW-UP 05/11/2016 ANGELA ANTONIO N Ot 311 DEPRESSIVE DISORDER NEC 05/11/2016 ANGELA ANTONIO N Ot 356.9 IDIO PERIPH NEURPTHY NOS 05/11/2016 ANGELA ANTONIO N Ot 786.2 COUGH 05/11/2016 ANGELA ANTONIO N Ot V13.89 PERSONAL HISTORY OF OTHER SPECIFIED DISE 05/11/2016 PACOANGELA JIMENEZ N Ot V58.66 LONG-TERM (CURRENT) USE OF ASPIRIN 05/11/2016 ANGELA ANTONIO N Ot V58.69 OTH MED,LT,CURRENT USE 05/11/2016 PACO BOBAN N Ot V67.1 RADIOTHERAPY FOLLOW-UP 05/11/2016 ANGELA ANTONIO N Ot V10.3 HX OF BREAST MALIGNANCY 05/11/2016 ANGELA ANTONIO N Ot V58.66 LONG-TERM (CURRENT) USE OF ASPIRIN 05/11/2016 ANGELA ANTONIO N Ot V58.69 OTH MED,LT,CURRENT USE 05/11/2016 PACO BOBJAIRO N Ot V67.1 RADIOTHERAPY FOLLOW-UP 05/11/2016 ANGELA ANTONIO N Ot 272.0 PURE HYPERCHOLESTEROLEM 05/11/2016 PACO BOBAN N Ot 311 DEPRESSIVE DISORDER NEC 05/11/2016 PACO BOBAN N Ot 356.9 IDIO PERIPH NEURPTHY NOS 05/11/2016 PACO BOBJAIRO N Ot 401.9 HYPERTENSION NOS 05/11/2016 ANGELA ANTONIO N Ot V13.89 PERSONAL HISTORY OF OTHER SPECIFIED DISE 05/11/2016 ANGELA ANTONIO Danny Ot V58.69 OTH MED,LT,CURRENT USE 05/11/2016 ANGELA ANTONIO N Ot V67.1 RADIOTHERAPY FOLLOW-UP 06/02/2016 ANGELA ANTONIO N Ot 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 06/25/2016 ANGELA ANTONIO N Ot 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 07/05/2016 ANGELA ANTONIO N Ot 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 01/25/2019 ANGELA ANTONIO N Ot V10.3 HX OF BREAST MALIGNANCY 01/25/2019 ANGELA ANTONIO N Ot V58.66 LONG-TERM (CURRENT) USE OF ASPIRIN 01/25/2019 ANGELA ANTONIO N Ot V58.69 OTH MED,LT,CURRENT USE 01/25/2019 ANGELA ANTONIO N Ot V67.1 RADIOTHERAPY FOLLOW-UP 01/25/2019 ANGELA ANTONIO N Ot 272.0 PURE HYPERCHOLESTEROLEM 01/25/2019 ANGELA ANTONIO N Ot 311 DEPRESSIVE DISORDER NEC 01/25/2019 ANGELA ANTONIO N Ot 356.9 IDIO PERIPH NEURPTHY NOS 01/25/2019 ANGELA ANTONIO N Ot 401.9 HYPERTENSION NOS 01/25/2019 ANGELA ANTONIO N Ot V13.89 PERSONAL HISTORY OF OTHER SPECIFIED DISE 01/25/2019 ANGELA ANTONIO N Ot V58.69 OTH MED,LT,CURRENT USE 01/25/2019 ANGELA ANTONIO N Ot V67.1 RADIOTHERAPY FOLLOW-UP 01/25/2019 ANGELA ANTONIO N Ot D05.11 INTRADUCTAL CARCINOMA IN SITU OF [...] MORRIS Ot M24.512 CONTRACTURE, LEFT SHOULDER 03/12/2019 STEVE MORRIS Ot M75.122 COMPLETE ROTATR-CUFF TEAR/RUPTR [...] MORRIS Ot W19.XXXA UNSPECIFIED FALL, INITIAL ENCOUNTER 06/02/2019 AIDAN ROSALES APRN Ot E11 .9 TYPE 2 DIABETES MELLITUS WITHOUT COMPLIC 06/02/2019 AIDAN ROSALES APRN Ot F41 .9 ANXIETY DISORDER, UNSPECIFIED 06/02/2019 AIDAN ROSALES APRN Ot I48.91 UNSPECIFIED ATRIAL FIBRILLATION 06/02/2019 AIDAN ROSALES APRN Ot S00.83XA CONTUSION OF OTHER PART OF HEAD, INITIAL 06/02/2019 AIDAN ROSALES APRN Ot S01.111A LACERATION W/O FB OF RIGHT EYELID AND PE 06/02/2019 AIDAN ROSALES APRN Ot S09.93XA UNSPECIFIED INJURY OF FACE, INITIAL ENCO 06/02/2019 AIDAN ROSALES APRN Ot W01.198A FALL SAME LEV FROM SLIP/TRIP W STRIKE AG 06/02/2019 AIDAN ROSALES APRN Ot Y92.[address] IN [facility] 06/02/2019 AIDAN ROSALES APRN Ot Z79.01 LONG-TERM (CURRENT) USE OF ANTICOAGULANT 06/02/2019 AIDAN ROSALES APRN Ot Z85 .3 PERSONAL HISTORY OF MALIGNANT NEOPLASM O 06/02/2019 AIDAN ROSALES APRN Ot Z90.49 ACQUIRED ABSENCE OF OTHER SPECIFIED PART 06/02/2019 AIDAN ROSALES APRN Ot Z90.710 ACQUIRED ABSENCE OF BOTH CERVIX AND UTER 06/02/2019 AIDAN ROSALES APRN Ot Z90.89 ACQUIRED ABSENCE OF OTHER ORGANS 06/09/2019 AIDAN ROSALES APRN Ot E11 .9 TYPE 2 DIABETES MELLITUS WITHOUT COMPLIC 06/09/2019 AIDAN ROSALES APRN Ot F41 .9 ANXIETY DISORDER, UNSPECIFIED 06/09/2019 AIDAN ROSALES APRN Ot I48.91 UNSPECIFIED ATRIAL FIBRILLATION 06/09/2019 AIDAN ROSALES APRN Ot S00.83XA CONTUSION OF OTHER PART OF HEAD, INITIAL 06/09/2019 AIDAN ROSALES APRN Ot S01.111A LACERATION W/O FB OF RIGHT EYELID AND PE 06/09/2019 AIDAN ROSALES APRN Ot S09.93XA UNSPECIFIED INJURY OF FACE, INITIAL ENCO 06/09/2019 AIDAN ROSALES APRN Ot W01.198A FALL SAME LEV FROM SLIP/TRIP W STRIKE AG 06/09/2019 AIDAN ROSALES APRN Ot Y92.[address] IN [facility] NON[facility] ([facility] 06/09/2019 AIDAN ROSALES APRN Ot Z79.01 LONG-TERM (CURRENT) USE OF ANTICOAGULANT 06/09/2019 AIDAN ROSALES APRN Ot Z85 .3 PERSONAL HISTORY OF MALIGNANT NEOPLASM O 06/09/2019 AIDAN ROSALES APRN Ot Z90.49 ACQUIRED ABSENCE OF OTHER SPECIFIED PART 06/09/2019 AIDAN ROSALES APRN Ot Z90.710 ACQUIRED ABSENCE OF BOTH CERVIX AND UTER 06/09/2019 ROSALESAIDAN LEE BRANNON Ot Z90.89 ACQUIRED ABSENCE OF OTHER ORGANS 07/30/2019 AGUEDA MCDOWELL DO Ot E11 .9 TYPE 2 DIABETES MELLITUS WITHOUT COMPLIC 07/30/2019 AGUEDA MCDOWELL DO, Ot F41 .9 ANXIETY DISORDER, UNSPECIFIED 07/30/2019 AGUEDA MCDOWELL DO Ot I48.91 UNSPECIFIED ATRIAL FIBRILLATION 07/30/2019 AGUEDA MCDOWELL DO, Ot S09.90XA UNSPECIFIED INJURY OF HEAD, INITIAL ENCO 07/30/2019 AGUEDA MCDOWELL DO Ot W01.198A FALL SAME LEV FROM SLIP/TRIP W STRIKE AG 07/30/2019 AGUEDA MCDOWELL DO, Ot 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 07/30/2019 AGUEDA MCDOWELL DO Ot Z85 .3 PERSONAL HISTORY OF MALIGNANT NEOPLASM O 07/30/2019 AGUEDA MCDOWELL DO Ot Z88 .8 ALLERGY STATUS TO OTH DRUG/MEDS/BIOL SUB 07/30/2019 AGUEDA MCDOWELL DO Ot Z90.49 ACQUIRED ABSENCE OF OTHER SPECIFIED PART 07/30/2019 AGUEDA MCDOWELL DO Ot Z90.710 ACQUIRED ABSENCE OF BOTH CERVIX AND UTER 07/30/2019 AGUEDA MCDOWELL DO Ot Z90.89 ACQUIRED ABSENCE OF OTHER ORGANS 07/30/2019 ANGELA ANTONIO Ot V10.3 HX OF BREAST MALIGNANCY 07/30/2019 ANGELA ANTONIO Ot V58.66 LONG-TERM (CURRENT) USE OF ASPIRIN 07/30/2019 ANGELA ANTONIO Ot V58.69 OTH MED,LT,CURRENT USE 07/30/2019 ANGELA ANTONIO Ot V67.1 RADIOTHERAPY FOLLOW-UP 07/30/2019 ANGELA ANTONIO Ot 272.0 PURE HYPERCHOLESTEROLEM 07/30/2019 ANGELA ANTONIO Ot 311 DEPRESSIVE DISORDER NEC 07/30/2019 ANGELA ANTONIO Ot 356.9 IDIO PERIPH NEURPTHY NOS 07/30/2019 ANGELA ANTONIO Ot 401.9 HYPERTENSION NOS 07/30/2019 ANGELA ANTONIO Ot V13.89 PERSONAL HISTORY OF OTHER SPECIFIED DISE 07/30/2019 ANGELA ANTONIO Ot V58.69 OTH MED,LT,CURRENT USE 07/30/2019 MAXIMO ANTONIOAN N Ot V67.1 RADIOTHERAPY FOLLOW-UP 07/30/2019 PACO ANGELA Delgado Ot 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 07/30/2019 STEVE MORRIS Ot M19.012 PRIMARY OSTEOARTHRITIS, LEFT SHOULDER 07/30/2019 STEVE MORRIS Ot M24.512 CONTRACTURE, LEFT SHOULDER 07/30/2019 STEVE MORRIS Ot M75.122 COMPLETE ROTATR-CUFF TEAR/RUPTR OF LEFT 07/30/2019 STEVE MORRIS Ot S40.012A CONTUSION OF LEFT SHOULDER, INITIAL ENCO 07/30/2019 STEVE MORRIS Ot W19.XXXA UNSPECIFIED FALL, INITIAL ENCOUNTER 08/01/2019 AGUEDA MCDOWELL DO, Ot E11 .9 TYPE 2 DIABETES MELLITUS WITHOUT COMPLIC 08/01/2019 AGUEDA MCDOWELL DO, Ot F41 .9 ANXIETY DISORDER, UNSPECIFIED 08/01/2019 AGUEDA MCDOWELL DO, Ot I48.91 UNSPECIFIED ATRIAL FIBRILLATION 08/01/2019 AGUEDA MCDOWELL DO, Ot S09.90XA UNSPECIFIED INJURY OF HEAD, INITIAL ENCO 08/01/2019 AGUEDA MCDOWELL DO, Ot W01.198A FALL SAME LEV FROM SLIP/TRIP W STRIKE AG 08/01/2019 AGUEDA MCDOWELL DO, Ot 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 DRUG/MEDS/BIOL SUB 08/01/2019 AGUEDA MCDOWELL DO, Ot Z90.49 ACQUIRED ABSENCE OF OTHER SPECIFIED PART 08/01/2019 AGUEDA MCDOWELL DO Ot Z90.710 ACQUIRED ABSENCE OF BOTH CERVIX AND UTER 08/01/2019 AGUEDA MCDOWELL DO, Ot Z90.89 ACQUIRED ABSENCE OF OTHER ORGANS 11/21/2019 AGUEDA MCDOWELL DO, Ot E11 .9 TYPE 2 DIABETES MELLITUS WITHOUT COMPLIC 11/21/2019 AGUEDA MCDOWELL DO, Ot F41 .9 ANXIETY DISORDER, UNSPECIFIED 11/21/2019 AGUEDA MCDOWELL DO Ot I10 ESSENTIAL (PRIMARY) HYPERTENSION 11/21/2019 AGUEDA MCDOWELL DO, Ot I48.91 UNSPECIFIED ATRIAL FIBRILLATION [facility] .9 ACUTE UPPER RESPIRATORY INFECTION, UNSPE 11/21/2019 [facility], AGUEDA Nieto Ot J45.909 UNSPECIFIED ASTHMA, UNCOMPLICATED 11/21/2019 [facility] R05 COUGH 11/21/2019 [facility], AGUEDA Nieto Ot R79.89 OTHER SPECIFIED ABNORMAL FINDINGS OF BLO 11/21/2019 [facility] Z85 .3 PERSONAL HISTORY OF MALIGNANT NEOPLASM O 11/21/2019 [facility] Ot Z87.19 PERSONAL HISTORY OF OTHER DISEASES OF TH 11/21/2019 [facility], AGUEDA Nieto Ot Z88 .8 ALLERGY STATUS TO OTH DRUG/MEDS/BIOL SUB 11/21/2019 [facility] Ot Z90.49 ACQUIRED ABSENCE OF OTHER SPECIFIED PART 11/21/2019 [facility] Ot Z90.710 ACQUIRED ABSENCE OF BOTH CERVIX AND UTER 11/21/2019 [facility] Z90.89 ACQUIRED ABSENCE OF OTHER ORGANS 11/27/2019 [facility] E11 .9 TYPE 2 DIABETES MELLITUS WITHOUT COMPLIC 11/27/2019 [facility] F41 .9 ANXIETY DISORDER, UNSPECIFIED 11/27/2019 [facility] I10 ESSENTIAL (PRIMARY) HYPERTENSION 11/27/2019 JEREMIAS AGUEDA Ot I48.91 UNSPECIFIED ATRIAL FIBRILLATION 11/27/2019 [facility] J06 .9 ACUTE UPPER RESPIRATORY INFECTION, UNSPE 11/27/2019 [facility] Ot J45.909 UNSPECIFIED ASTHMA, UNCOMPLICATED 11/27/2019 [facility] R05 COUGH 11/27/2019 [facility], AGUEDA Nieto Ot R79.89 OTHER SPECIFIED ABNORMAL FINDINGS OF BLO 11/27/2019 [facility], AGUEDA Nieto Ot Z85 .3 PERSONAL HISTORY OF MALIGNANT NEOPLASM O 11/27/2019 [facility] Ot Z87.19 PERSONAL HISTORY OF OTHER DISEASES OF TH 11/27/2019 JEREMIAS DOAGUEDA Ot Z88 .8 ALLERGY STATUS TO OTH DRUG/MEDS/BIOL SUB 11/27/2019 [facility] Ot Z90.49 ACQUIRED ABSENCE OF OTHER SPECIFIED PART 11/27/2019 [facility] Ot Z90.710 ACQUIRED ABSENCE OF BOTH CERVIX AND UTER 11/27/2019 [facility] Z90.89 ACQUIRED ABSENCE OF OTHER ORGANS 11/29/2019 AGUEDA MCDOWELL DO Ot E11 .9 TYPE 2 DIABETES MELLITUS WITHOUT COMPLIC 11/29/2019 [facility] F41 .9 ANXIETY DISORDER, UNSPECIFIED 11/29/2019 AGUEDA MCDOWELL DO Ot I10 ESSENTIAL (PRIMARY) HYPERTENSION 11/29/2019 [facility] Ot I48.91 UNSPECIFIED ATRIAL FIBRILLATION 11/29/2019 [facility] Ot J06 .9 ACUTE UPPER RESPIRATORY INFECTION, UNSPE 11/29/2019 [facility] Ot J45.909 UNSPECIFIED ASTHMA, UNCOMPLICATED 11/29/2019 AGUEDA MCDOWELL DO Ot R05 COUGH 11/29/2019 [facility] R79.89 OTHER SPECIFIED ABNORMAL FINDINGS OF BLO 11/29/2019 AGUEDA MCDOWELL DO Ot Z85 .3 PERSONAL HISTORY OF MALIGNANT NEOPLASM O 11/29/2019 JEREMIAS AGUEDA Ot Z87.19 PERSONAL HISTORY OF OTHER DISEASES OF TH 11/29/2019 AGUEDA MCDOWELL DO, Ot Z88 .8 ALLERGY STATUS TO OTH DRUG/MEDS/BIOL SUB 11/29/2019 JEREMIAS AGUEDA Ot Z90.49 ACQUIRED ABSENCE OF OTHER SPECIFIED PART 11/29/2019 AGUEDA MCDOWELL DO, Ot Z90.710 ACQUIRED ABSENCE OF BOTH CERVIX AND UTER 11/29/2019 [facility] Z90.89 ACQUIRED ABSENCE OF OTHER ORGANS Procedures There is no data. Results Test Result Range VITAMIN B12 - 01/31/19 08:59 VITAMIN B12 409 pg/mL 200-1100 LIPID PANEL - 01/31/19 08:59 CHOLESTEROL, TOTAL 165 mg/dL <200 HDL CHOLESTEROL 55 mg/dL >50 TRIGLYCERIDES 115 mg/dL <150 LDL-CHOLESTEROL 89 mg/dL (calc) NRG CHOL/HDLC RATIO 3.0 (calc) <5.0 NON HDL CHOLESTEROL 110 mg/dL (calc) <13 0 MICROALBUMIN/CREATININE RATIO, URINE - 0 01/31/19 08:59 CREATININE, RANDOM URINE 34 mg/dL 20-27 5 MICROALBUMIN 1.2 mg/dL See Note: MICROALBUMIN/CREATININE RATIO, RANDOM URINE 35 mcg /mg creat <30 CMP - 01/31/19 08:59 GLUCOSE 111 mg/dL 65-99 UREA NITROGEN (BUN) 15 mg/dL 7-25 CREATININE 1.00 mg/dL 0.60-0.88 eGFR NON-AFR. BRUNEIAN 53 mL/min/1.73m2 > OR = 60 eGFR 62 mL/min/1.73m2 > OR = 60 BUN/CREATININE RATIO 15 (calc) 6-22 SODIUM 143 mmol/L 135-146 POTASSIUM 3.7 mmol/L 3.5-5.3 CHLORIDE 106 mmol/L 98-110 CARBON DIOXIDE 31 mmol/L 20-32 CALCIUM 9.2 mg/dL 8.6-10.4 PROTEIN, TOTAL 5.9 g/dL 6.1-8.1 ALBUMIN 4.0 g/dL 3.6-5.1 GLOBULIN 1.9 g/dL (calc) 1.9-3.7 ALBUMIN/GLOBULIN RATIO 2.1 (calc) 1.0-2. 5 BILIRUBIN, TOTAL 0.7 mg/dL 0.2-1.2 ALKALINE PHOSPHATASE 79 U/L 33-130 AST 11 U/L 10-35 ALT 9 U/L 6-29 CBC - 01/31/19 08:59 WHITE BLOOD CELL COUNT 6.3 Thousand/uL 3 .8-10.8 RED BLOOD CELL COUNT 4.14 Million/uL 3.8 0-5.10 HEMOGLOBIN 12.3 g/dL 11.7-15.5 HEMATOCRIT 38.8 % 35.0-45.0 MCV 93.7 fL 80.0-100.0 MCH 29.7 pg 27.0-33.0 MCHC 31.7 g/dL 32.0-36.0 RDW 13.1 % 11.0-15.0 PLATELET COUNT 284 Thousand/uL 140-400 MPV 10.7 fL 7.5-12.5 ABSOLUTE NEUTROPHILS 4612 cells/uL 1500- 7800 ABSOLUTE LYMPHOCYTES 1065 cells/uL 850-3 900 ABSOLUTE MONOCYTES 485 cells/uL 200-950 ABSOLUTE EOSINOPHILS 88 cells/uL 15-500 ABSOLUTE BASOPHILS 50 cells/uL 0-200 NEUTROPHILS 73.2 % NRG LYMPHOCYTES 16.9 % NRG MONOCYTES 7.7 % NRG EOSINOPHILS 1.4 % NRG BASOPHILS 0.8 % NRG Complete blood count (CBC) with automate d white blood cell (WBC) differential - 11/21/19 16:35 Blood leukocytes automated count (number/volume) 5.5 10*3/uL 4.3-11.0 Blood erythrocytes automated count (number/volume) 4.93 10*6/uL 4.35-5.85 Venous blood hemoglobin measurement (mass/volume) 13.9 g/dL 11.5-16.0 Blood hematocrit (volume fraction) 43 % 35-52 Automated erythrocyte mean corpuscular volume 87 [ foz_us] 80-99 Automated erythrocyte mean corpuscular h emoglobin (mass per erythrocyte) 28 pg 25-34 Automated erythrocyte mean corpuscular h emoglobin concentration measurement (mass/volume) 33 g/dL 32-36 Automated erythrocyte distribution width ratio 15. 0 % 10.0- 14.5 Automated blood platelet count (count/volume) 159 10*3/uL 130-400 Automated blood platelet mean volume measurement 11.6 [foz_us] 7.4-10.4 Automated blood neutrophils/100 leukocytes 69 % 42-75 Automated blood lymphocytes/100 leukocytes 17 % 12-44 Blood monocytes/100 leukocytes 12 % 0-12 Automated blood eosinophils/100 leukocytes 1 % 0-10 Automated blood basophils/100 leukocytes 1 % 0-10 Blood neutrophils automated count (number/volume) 3.8 10*3 1.8-7.8 Blood lymphocytes automated count (number/volume) 1.0 10*3 1.0-4.0 Blood monocytes automated count (number/volume) 0. 7 10*3 0.0-1.0 Automated eosinophil count 0.0 10*3/uL 0 .0-0.3 Automated blood basophil count (count/volume) 0.0 10*3/uL 0.0-0.1 Influenza virus A and B antigen detectio n - 11/21/19 16:35 FLU RESULT NEGATIVE FOR INFLUENZA A AND B ANTIGENS BY IA NRG Blood lactic acid measurement (moles/vol ume) - 11/21/19 16:35 Blood lactic acid measurement (moles/volume) 1.42 mmol/L 0.50-2.00 PT panel in platelet poor plasma by coag ulation assay - 11/21/19 16:35 Prothrombin time (PT) in platelet poor plasma by coagu lation assay 17.3 s 12.2-14.7 INR in platelet poor plasma or blood by coagulation as say 1.4 0.8-1.4 Activated partial thromboplastin time (a PTT) in platelet poor plasma bycoagulation assay - 11/21/19 16:35 Activated partial thromboplastin time (a PTT) in platelet poor plasma bycoagulation assay 34 s 24-35 Comprehensive metabolic panel - 11/21/19 16:35 Serum or plasma sodium measurement (moles/volume) 136 mmol/L 135-145 Serum or plasma potassium measurement (moles/volume) 3.8 mmol/L 3.6-5.0 Serum or plasma chloride measurement (moles/volume) 98 mmol/L 98-107 Carbon dioxide 23 mmol/L 21-32 Serum or plasma anion gap determination (moles/volume) 15 mmol/L 5-14 Serum or plasma urea nitrogen measurement (mass/volume ) 11 mg/dL 7-18 Serum or plasma creatinine measurement (mass/volume) 0.84 mg/dL 0.60-1.30 Serum or plasma urea nitrogen/creatinine mass ratio 13 NRG Serum or plasma creatinine measurement w ith calculation of estimated glomerular filtration rate > NRG Serum or plasma glucose measurement (mass/volume) 106 mg/dL 70-105 Serum or plasma calcium measurement (mass/volume) 9.1 mg/dL 8.5-10.1 Serum or plasma total bilirubin measurement (mass/volu me) 1.4 mg/dL 0.1-1.0 Serum or plasma alkaline phosphatase caleb surement (enzymatic activity/volume) 98 U/L 40-136 Serum or plasma aspartate aminotransfera se measurement (enzymatic activity/volume) 18 U/L 5-34 Serum or plasma alanine aminotransferase measurement (enzymatic activity/volume) 9 U/L 0-55 Serum or plasma protein measurement (mass/volume) 6.7 g/dL 6.4-8.2 Serum or plasma albumin measurement (mass/volume) 4.1 g/dL 3.2-4.5 CALCIUM CORRECTED 9.0 mg/dL 8.5-10.1 Magnesium - 11/21/19 16:35 Magnesium 1.6 mg/dL 1.6-2.4 TROPONIN I FS - 11/21/19 16:35 TROPONIN I FS < 0.30 <0.30 PROBNP FS - 11/21/19 16:35 PROBNP FS 3838.0 pg/mL <75.0 Bacterial blood culture - 11/21/19 16:44 Bacterial blood culture NG NRG CMP - 01/14/20 16:29 GLUCOSE 106 mg/dL 65-99 UREA NITROGEN (BUN) 15 mg/dL 7-25 CREATININE 1.29 mg/dL 0.60-0.88 eGFR NON-AFR. BRUNEIAN 39 mL/min/1.73m2 > OR = 60 eGFR 45 mL/min/1.73m2 > OR = 60 BUN/CREATININE RATIO 12 (calc) 6-22 SODIUM 138 mmol/L 135-146 POTASSIUM 3.8 mmol/L 3.5-5.3 CHLORIDE 104 mmol/L 98-110 CARBON DIOXIDE 30 mmol/L 20-32 CALCIUM 10.1 mg/dL 8.6-10.4 PROTEIN, TOTAL 5.2 g/dL 6.1-8.1 ALBUMIN 3.6 g/dL 3.6-5.1 GLOBULIN 1.6 g/dL (calc) 1.9-3.7 ALBUMIN/GLOBULIN RATIO 2.3 (calc) 1.0-2. 5 BILIRUBIN, TOTAL 1.2 mg/dL 0.2-1.2 ALKALINE PHOSPHATASE 74 U/L 37-153 AST 10 U/L 10-35 ALT 5 U/L 6-29 CBC - 01/14/20 16:29 WHITE BLOOD CELL COUNT 4.7 Thousand/uL 3 .8-10.8 RED BLOOD CELL COUNT 3.60 Million/uL 3.8 0-5.10 HEMOGLOBIN 10.6 g/dL 11.7-15.5 HEMATOCRIT 31.2 % 35.0-45.0 MCV 86.7 fL 80.0-100.0 MCH 29.4 pg 27.0-33.0 MCHC 34.0 g/dL 32.0-36.0 RDW 15.4 % 11.0-15.0 PLATELET COUNT 188 Thousand/uL 140-400 MPV 11.7 fL 7.5-12.5 ABSOLUTE NEUTROPHILS 2693 cells/uL 1500- 7800 ABSOLUTE LYMPHOCYTES 1203 cells/uL 850-3 900 ABSOLUTE MONOCYTES 677 cells/uL 200-950 ABSOLUTE EOSINOPHILS 99 cells/uL 15-500 ABSOLUTE BASOPHILS 28 cells/uL 0-200 NEUTROPHILS 57.3 % NRG LYMPHOCYTES 25.6 % NRG MONOCYTES 14.4 % NRG EOSINOPHILS 2.1 % NRG BASOPHILS 0.6 % NRG TSH - 01/14/20 16:29 TSH 0.63 mIU/L 0.40-4.50 BMP - 01/24/20 10:02 GLUCOSE 98 mg/dL 65-99 UREA NITROGEN (BUN) 13 mg/dL 7-25 CREATININE 1.23 mg/dL 0.60-0.88 eGFR NON-AFR. BRUNEIAN 41 mL/min/1.73m2 > OR = 60 eGFR 48 mL/min/1.73m2 > OR = 60 BUN/CREATININE RATIO 11 (calc) 6-22 SODIUM 140 mmol/L 135-146 POTASSIUM 3.5 mmol/L 3.5-5.3 CHLORIDE 102 mmol/L 98-110 CARBON DIOXIDE 35 mmol/L 20-32 CALCIUM 9.9 mg/dL 8.6-10.4 Encounters ACCT No. Visit Date/Time Discharge Status Pt. Type Provider Facility Loc./Unit Complaint [id number] 12/10/2019 13:30:00 12/10/2019 23:59: 59 C[facility] Out[facility] [id number] 01/24/2020 17:45:00 Document Registration [id number] 01/14/2020 15:00:00 Document Registration [id number] 01/31/2019 09:40:00 Document Registration [id number] 11/21/2019 16:18:00 17:45:00 DIS Emergency AGUEDA MCDOWELL DO [facility] ER FS FLU LIKE SYMPTOMS [id number] 07/30/2019 07:45:00 09:06:00 DIS Emergency AGUEDA MCDOWELL DO [facility] ER FS FALL; HEAD INJ [id number] 06/02/2019 16:21:00 17:46:00 DIS Emergency AIDAN ROSALES APRN [facility] ER FALL/HIT HEAD/ON BLOOD THINNERS [id number] 01/25/2019 12:42:00 23:59:59 CLS Outpatient STEVE MORRIS [facility] RAD FS ICD-718.41;VUY50-F89.512;QPX80-V35.122;ICD-906.3 [id number] 12/19/2018 12:00:00 23:59:59 CLS Preadmit TONIA HENDERSON, STEVE [facility] CARD HTN [id number] 06/07/2017 15:37:00 017 23:59:59 CLS Preadmit ANGELA ANTONIO [facility] FS [id number] 06/01/2016 10:40:00 016 23:59:59 CLS Outpatient PACO ANGELA Delgado G[facility] FS [id number] 05/13/2015 10:40:00 015 23:59:59 CLS Outpatient PACO ANGELA Nieto [facility] FS [id number] 06/04/2014 11:07:00 014 23:59:59 CLS Outpatient PACO ANGELA Nieto [facility] FS [id number] 05/22/2013 11:09:00 013 23:59:59 CLS Outpatient PACO ANGELA Nieto [facility] [id number] 05/28/2020 08:13:[address] Emergency GO BASILIA RIVERA [facility] FS NEAR SYNCOPE, DIZZINESS [id number] 12/26/2012 14:14:00 Document Registration [id number] 08/15/2012 14:28:00 Document Registration [id number] 06/13/2012 13:41:00 Document Registration [id number] 05/04/2011 15:24:00 Document Registration
[2020-05-28 08:45] LABS: BASOPHILS # (AUTO) 0.1 10^3/uL (0.0-0.1); BASOPHILS % (AUTO) 1 % (0-10); EOSINOPHILS # (AUTO) 0.1 10^3/uL (0.0-0.3); EOSINOPHILS % (AUTO) 4 % (0-10); HEMATOCRIT 37 % (35-52); HEMOGLOBIN 12.5 G/DL (11.5-16.0); LYMPHOCYTES # (AUTO) 1.1 X 10^3 (1.0-4.0); LYMPHOCYTES % (AUTO) 28 % (12-44); MEAN CORPUSCULAR HEMOGLOBIN 31 PG (25-34); MEAN CORPUSCULAR HGB CONC 34 G/DL (32-36); MEAN CORPUSCULAR VOLUME 94 FL (80-99); MEAN PLATELET VOLUME 11.5 FL (7.4-10.4); MONOCYTES # (AUTO) 0.4 X 10^3 (0.0-1.0); MONOCYTES % (AUTO) 9 % (0-12); NEUTROPHILS # (AUTO) 2.3 X 10^3 (1.8-7.8); NEUTROPHILS % (AUTO) 58 % (42-75); PLATELET COUNT 174 10^3/uL (130-400); RED CELL DISTRIBUTION WIDTH 13.9 % (10.0-14.5)
[2020-05-28] MEDS ORDERED: FURO40TA4 (08:52)
[2020-05-28] MEDS ORDERED: LOSA50TA63 (08:52)
[2020-05-28] MEDS ORDERED: DONE5TAB30 (08:52)
[2020-05-28] MEDS ORDERED: MONT10TA26 (08:52)
[2020-05-28] MEDS ORDERED: OMEP20CA18 (08:52)
[2020-05-28] MEDS ORDERED: CARB1TAB19 (08:52)
[2020-05-28] MEDS ORDERED: CITA20TA9 (08:52)
[2020-05-28] MEDS ORDERED: BUDE10.2 (08:52)
[2020-05-28] MEDS ORDERED: EZET10TA49 (08:52)
[2020-05-28] MEDS ORDERED: ALPR0.254 (08:52)
[2020-05-28] MEDS ORDERED: APIX2.5T (08:52)
--- NOTE | 2020-05-28 09:01 | NUR ---
EKG completed, patient is in A Fib controlled rate 92.
[2020-05-28 09:07] VITALS: BP_SYST 125; BP_SYST 130; BP_SYST 132; BP_DIAS 66; BP_DIAS 69; BP_DIAS 91
[2020-05-28 09:07] LABS: CARBON DIOXIDE 26 MMOL/L (21-32); CHLORIDE 104 MMOL/L (98-107); POTASSIUM 3.6 MMOL/L (3.6-5.0); SODIUM 140 MMOL/L (135-145)
[2020-05-28 09:08] LABS: ALANINE AMINOTRANSFERASE 5 U/L (0-55); ALBUMIN 3.8 GM/DL (3.2-4.5); ALKALINE PHOSPHATASE 58 U/L (40-136); BILIRUBIN,TOTAL 0.8 MG/DL (0.1-1.0); BUN/CREATININE RATIO 18; CALCIUM 9.3 MG/DL (8.5-10.1); GFR ESTIMATED 53; GLUCOSE 107 MG/DL (70-105); MAGNESIUM 1.8 MG/DL (1.6-2.4); TOTAL PROTEIN 5.3 GM/DL (6.4-8.2)
--- NOTE | 2020-05-28 09:08 | Diagnostic Imaging Report ---
EXAM: CHEST 1 VIEW AP/PA ONLY INDICATION: Dizziness. Fall. COMPARISON: 11/21/2019. FINDINGS: Heart size upper limits normal. Normal central pulmonary vascularity. No focal pulmonary opacity, pleural effusion or pneumothorax. Surgical clips in the right axilla. No acute osseous findings. IMPRESSION: Heart size upper limits of normal. No acute cardiopulmonary findings. Dictated by: Dictated on workstation # [id number]
--- NOTE | 2020-05-28 09:22 | ED General ---
General Chief Complaint: Dizziness/Syncope Stated Complaint: NEAR SYNCOPE, DIZZINESS Nursing Triage Note: Pt arrival per EMS for fall in yard and unable to get self up. Pt reports she had been outside for approx 30 min doing yard work and bending over putting out mulch and watering. Pt was bent over turning off water and and stood up becoming dizzy and fell. No LOC, reports no injuries. Nursing Sepsis Screen: No Definite Risk Source of Information: Patient History of Present Illness Date Seen by Provider: May 28, 2020 Time Seen by Provider: 08:45 Initial Comments Patient is a 79-year-old female with history of atrial fibrillation presents with near-syncope while watering her garden this morning. Patient had not ate breakfast, taken medications and had a near-syncopal episode after being outdoors lifting mulch and watering the yard. Symptoms occurred after patient leaned over to turn off water hose and then abruptly stood up. Patient states he merely felt dizzy and slipped backwards landing on her back here head. Denies headache, loss of consciousness, neck pain. Patient is currently on Eliquis. Denies pain or injury complaint at this time. Patient was unable to stand without assist and a neighbor contacted EMS. No other acute symptoms or complaints. No recent illnesses. No missed medications. Timing/Duration: 1 Hour Severity: Moderate Modifying Factors: improves with Other (standing) Associated Systoms: Weakness Allergies and Home Medications Allergies Coded Allergies: amiodarone (Verified Adverse Reaction, Intermediate, TREMORS, 07/30/19) Home Medications Albuterol Sulfate 2.5 Mg/3 Ml Vial.neb, 2.5 MG INH Q4H PRN for WHEEZING Prescribed by: AGUEDA MCDOWELL on 11/21/191742 Albuterol Sulfate 1 Puff Puff, 2 PUFF IH Q4H 1 PUFF = 90 MCG Prescribed by: AGUEDA MCDOWELL on 11/21/191742 Patient Home Medication List Home Medication List Reviewed: Yes Review of Systems Review of Systems Constitutional: see HPI EENTM: see HPI Respiratory: see HPI Gastrointestinal: see HPI Genitourinary: see HPI Musculoskeletal: see HPI Skin: see HPI Psychiatric/Neurological: See HPI Hematologic/Lymphatic: See HPI Immunological/Allergic: see HPI All Other Systems Reviewed Negative Unless Noted: Yes Past Hczidtb-Uqptzu-Uuwcyt Hx Past Med/Social Hx: Reviewed Nursing Past Med/Soc Hx Patient Social History Alcohol Use: Denies Use Recreational Drug Use: No 2nd Hand Smoke Exposure: No Recent Foreign Travel: No Contact w/Someone Who Travel: No Recent Infectious Disease Expo: No Recent Hopitalizations: No Physical Abuse: No Sexual Abuse: No Mistreated: No Fear: No Seasonal Allergies Seasonal Allergies: No Past Medical History Surgeries: Yes (CARDIAC ABLATION, COLON RESECTION) Adenoidectomy, Appendectomy, Breast, Hysterectomy, Tonsillectomy Respiratory: No Cardiac: Yes Atrial Fibrillation, Hypertension Neurological: No Genitourinary: No Gastrointestinal: Yes Diverticulosis Musculoskeletal: No Endocrine: Yes Diabetes, Non-Insulin dep HEENT: No Cancer: Yes Breast Psychosocial: Yes Anxiety Integumentary: No Blood Disorders: No Physical Exam Vital Signs Vital Signs - First Documented 05/28/20 08:12 Temp 36.3 Pulse 79 Resp 16 B/P (MAP) 148/82 (104) Pulse Ox 100 O2 Delivery Room Air Capillary Refill : Less Than 3 Seconds Height, Weight, BMI Height: 5'4.00" Weight: 160lbs. oz. [id number]; 23.00 BMI Method:Stated General Appearance: No Apparent Distress Eyes: Bilateral Eye Normal Inspection, Bilateral Eye PERRL HEENT: PERRL/EOMI, Normal ENT Inspection, Pharynx Normal Neck: Full Range of Motion, Non Tender, Supple Respiratory: Lungs Clear Cardiovascular: Irregularly Irregular, Other Gastrointestinal: Normal Bowel Sounds, Non Tender, Soft Back: Normal Inspection, No CVA Tenderness Extremity: Normal Capillary Refill, Non Tender Neurologic/Psychiatric: Alert, Oriented x3, Normal Mood/Affect, cloth picker II-XII Norm as Tested, Other Skin: Normal Color Focused Exam Sepsis Stage: Ruled Out Progress/Results/Core Measures Suspected Sepsis Recent Fever Within 48 Hours: No Infection Criteria Present: None New/Unexplained Altered Menta: No Sepsis Screen: No Definite Risk SIRS Temperature: Pulse: 139 Respiratory Rate: 16 Laboratory Tests 05/28/20 08:35: White Blood Count 4.0L Blood Pressure 125 /91 Mean: 102 Laboratory Tests 05/28/20 08:35: Creatinine 1.00, Platelet Count 174, Total Bilirubin 0.8 Results/Orders Lab Results Laboratory Tests Test 05/28/20 08:35 05/28/20 09:40 Range/Units White Blood Count 4.0 L 4.3-11.0 10^3/uL Red Blood Count 3.99 L 4.35-5.85 10^6/uL Hemoglobin 12.5 11.5-16.0 G/DL Hematocrit 37 35-52 % Mean Corpuscular Volume 94 80-99 FL Mean Corpuscular Hemoglobin 31 25-34 PG Mean Corpuscular Hemoglobin Concent 34 32-36 G/DL Red Cell Distribution Width 13.9 10.0-14.5 % Platelet Count 174 130-400 10^3/uL Mean Platelet Volume 11.5 H 7.4-10.4 FL Neutrophils (%) (Auto) 58 42-75 % Lymphocytes (%) (Auto) 28 12-44 % Monocytes (%) (Auto) 9 0-12 % Eosinophils (%) (Auto) 4 0-10 % Basophils (%) (Auto) 1 0-10 % Neutrophils # (Auto) 2.3 1.8-7.8 X 10^3 Lymphocytes # (Auto) 1.1 1.0-4.0 X 10^3 Monocytes # (Auto) 0.4 0.0-1.0 X 10^3 Eosinophils # (Auto) 0.1 0.0-0.3 10^3/uL Basophils # (Auto) 0.1 0.0-0.1 10^3/uL Sodium Level 140 135-145 MMOL/L Potassium Level 3.6 3.6-5.0 MMOL/L Chloride Level 104 98-107 MMOL/L Carbon Dioxide Level 26 21-32 MMOL/L Anion Gap 10 5-14 MMOL/L Blood Urea Nitrogen 18 7-18 MG/DL Creatinine 1.00 0.60-1.30 MG/DL Estimat Glomerular Filtration Rate 53 BUN/Creatinine Ratio 18 Glucose Level 107 H 70-105 MG/DL Calcium Level 9.3 8.5-10.1 MG/DL Corrected Calcium 9.5 8.5-10.1 MG/DL Magnesium Level 1.8 1.6-2.4 MG/DL Total Bilirubin 0.8 0.1-1.0 MG/DL Aspartate Amino Transf (AST/SGOT) 13 5-34 U/L Alanine Aminotransferase (ALT/SGPT) 5 0-55 U/L Alkaline Phosphatase 58 40-136 U/L Troponin I < 0.30 <0.30 NG/ML Total Protein 5.3 L 6.4-8.2 GM/DL Albumin 3.8 3.2-4.5 GM/DL Urine Color YELLOW Urine Clarity CLEAR Urine pH 8.0 5-9 Urine Specific [place] 1.015 L 1.016-1.022 Urine Protein TRACE H NEGATIVE Urine Glucose (UA) NEGATIVE NEGATIVE Urine Ketones NEGATIVE NEGATIVE Urine Nitrite NEGATIVE NEGATIVE Urine Bilirubin NEGATIVE NEGATIVE Urine Urobilinogen 1.0 < = 1.0 MG/DL Urine Leukocyte Esterase TRACE H NEGATIVE Urine RBC (Auto) NEGATIVE NEGATIVE Urine RBC NONE /HPF Urine WBC 2-5 /HPF Urine Squamous Epithelial Cells 10-25 H /HPF Urine Crystals NONE /LPF Urine Bacteria FEW H /HPF Urine Casts NONE /LPF Urine Mucus SMALL H /LPF Urine Culture Indicated YES My Orders Orders - BASILIA GO DO Ua Culture If Indicated (05/28/20 08:35) Cbc With Automated Diff (05/28/20 08:35) Comprehensive Metabolic Panel (05/28/20 08:35) Chest 1 View Ap/Pa Only (05/28/20 08:35) Magnesium (05/28/20 08:35) Troponin I Fs (05/28/20 08:35) Orthostatic Vital Signs (Adult (05/28/20 08:35) Ekg Tracing (05/28/20 09:06) Urine Culture (05/28/20 09:40) Vital Signs/I&O 05/28/20 05/28/20 08:12 09:07 Temp 36.3 Pulse 79 90 96 139 Resp 16 B/P (MAP) 148/82 (104) 130/66 (87) 132/69 (90) 125/91 (102) Pulse Ox 100 O2 Delivery Room Air Capillary Refill : Less Than 3 Seconds Blood Pressure Mean: 102 Departure Communication (Admissions) EKG, A. fib, rate 92. Chest x-ray: No acute cardiopulmonary changes per radiology report Labs reviewed and reassuring. Vital signs stable. Patient's able to ambulate with steady gait. Suspect near-syncopal episode was combination of environmental conditions, chronic medical conditions and orthostatic hypotension. Patient ambu lates with steady gait prior to departure. Recommend supportive care and continue medications and PCP/cardiology follow-up. Home safety precautions reviewed. Impression Primary Impression: Syncope Additional Impression: A-fib Disposition: 01 HOME, SELF-CARE Condition: Stable Departure-Patient Inst. Decision time for Depature: 10:03 Referrals: CLEO MAY MD (PCP/Family) Primary Care Physician Patient Instructions: Syncope (Fainting) (DC), Atrial Fibrillation (DC) Add. Discharge Instructions: Please avoid outdoor heat exposure for exercise with bending and standing after being outdoors for prolonged periods of time. Please increase fluids and take medications as directed. Follow-up with your PCP and mule tender as scheduled. Return to the ED if new or worsening symptoms. All discharge instructions reviewed with patient and/or family. Voiced understanding. BASILIA GO DO May 28, 2020 09:22
--- NOTE | 2020-05-28 09:30 | NUR ---
Pt had orthostats done and it is noted patient had an activity induced A Fib rate increase to 139 with standing. Pt denies dizziness/lightheadedness/shortness of breathe. is aware. It was discussed with patient that states she is not currently in A Fib to her knowledge as cardioverted twice in past hx. Pt also off Amiodarone r/t moderate adverse effect as they were increasing dosage earlier in yr and had to discontinue.
--- NOTE | 2020-05-28 09:40 | NUR ---
Ambulated pt to bathroom with her using ER's walker. Pt tolerating activity and states no dizziness or shortness of breathe.
[2020-05-28 09:56] LABS: COLOR,URINE YELLOW
[2020-05-28 09:57] LABS: BACTERIA,URINE FEW /HPF; BILIRUBIN,URINE NEGATIVE (NEGATIVE); CLARITY,URINE CLEAR; GLUCOSE, URINE (UA) NEGATIVE (NEGATIVE); KETONES,URINE NEGATIVE (NEGATIVE); LEUKOCYTE ESTERASE ,URINE TRACE (NEGATIVE); NITRITE,URINE NEGATIVE (NEGATIVE); PROTEIN,URINE TRACE (NEGATIVE)
--- NOTE | 2020-05-28 10:00 | NUR ---
Discussing with patient the plan to release per Dr Donis and some discharge recommendations about hydration, avoid heat/humidty, and change positions very slowly. Dr Donis to room to talk with patient.
[2020-05-28 10:10] VITALS: BP 129/71
--- NOTE | 2020-05-28 10:10 | NUR ---
Discharged patient to private vehicle walking as stand by. Pt used walker with steady gait and then a short distance of no walker to get into the car. Pt states. "I feel fine now." Pt has no further questions and verbalized understanding of instructions.
== END 2020-05-28 10:10 | disposition home or self-care (01) ==
LOC: EDUNIT# 08:12 → ER FS 08:13
DX: R55 Syncope and collapse (principal); I48.91 Unspecified atrial fibrillation; Z88.8 Allergy status to other drugs, medicaments and biological substances; Z85.3 Personal history of malignant neoplasm of breast
CPT/HCPCS: 36415; 71045; 80053; 81000; 83735; 84484; 85025; 87088; 93005

== ENCOUNTER → 2020-06-18 | Outpatient (CLI) | payer MEDICARE ==
[~2020-06-18] MED LIST changes: +ALPR0.254; +APIX2.5T; +BUDE10.2; +CARB1TAB19; +CITA20TA9; +DONE5TAB30; +EZET10TA49; +FURO40TA4; +LOSA50TA63; +MONT10TA26; +OMEP20CA18
== END ==
LOC: LAB FS 10:00
PROVIDERS: ATTEND Family Medicine
DX: Z20.828 Contact with and (suspected) exposure to other viral communicable diseases (principal)
CPT/HCPCS: 87635

== ENCOUNTER → 2021-11-11 | Outpatient (CLI) | payer OTHER, MEDICARE ==
[~2021-11-11] MED LIST changes: +ALPR.25T; -ALPR0.254; -AMIO200T4; +AMIO200T65; +MONT-40; -MONT10TA26
[2021-11-11 17:31] LABS: BILIRUBIN,URINE NEGATIVE (NEGATIVE); CLARITY,URINE CLEAR; COLOR,URINE YELLOW; GLUCOSE, URINE (UA) NEGATIVE (NEGATIVE); KETONES,URINE NEGATIVE (NEGATIVE); LEUKOCYTE ESTERASE ,URINE NEGATIVE (NEGATIVE); NITRITE,URINE NEGATIVE (NEGATIVE); PROTEIN,URINE NEGATIVE (NEGATIVE)
[2021-11-11 17:38] LABS: BACTERIA,URINE NEGATIVE /HPF; HYALINE CASTS, URINE 0-2 /LPF; SQUAMOUS EPITHELIAL CELL,UR 0-2 /HPF; WBC,URINE RARE /HPF
== END ==
LOC: PVFS 17:19
PROVIDERS: ATTEND Family Medicine
DX: R82.90 Unspecified abnormal findings in urine (principal)
CPT/HCPCS: 81000

== ENCOUNTER 2022-03-18 17:28 | Emergency (ER) | payer OTHER, MEDICARE ==
[~2022-03-18] VITALS: Ht 162 cm; Wt 65.0 kg
[2022-03-18] MEDS ORDERED: cloNIDine 0.2 MG (CATAPRES) TAB PO ONE ×2 (18:00→18:30)
--- NOTE | 2022-03-18 18:41 | Diagnostic Imaging Report ---
EXAMINATION: Chest 1 view HISTORY: Chest pain COMPARISON: 05/28/2020 FINDINGS: Heart size and pulmonary vasculature are upper limits of normal. Mild interstitial opacities within the mid and lower lungs. No pleural effusion or pneumothorax. The osseous structures are intact. IMPRESSION: 1. Mild interstitial opacities within the mid and lower lungs which can be seen with atelectasis, pulmonary edema, or atypical infection. Dictated by: Dictated on workstation # [id number]
--- NOTE | 2022-03-18 18:45 | ED Cardiac General ---
History of Present Illness General Chief Complaint: Cardiac/General Problems Stated Complaint: HIGH BLOOD PRESSURE Nursing Triage Note: Patient has presented to ER with cc of elevated blood pressure. Patient reports a long day she has been to [place] for a doctors appointment. Cipriano the home was checking blood pressures and he blood pressure was 164/110 the village called EMS and she really did not want to come to ER. She reports that he normal blood pressure is about 150/80. Source: patient Exam Limitations: no limitations History of Present Illness Date Seen by Provider: March 18, 2022 Time Seen by Provider: 19:30 Initial Comments Patient is an 81-year-old female with history of hypertension who presents with complaints of hypertension and chest fullness for the past several hours. Patient states her blood pressure at assisted living was 164/110. She denies exertional chest pain shortness of breath but does report palpitations. No leg pain or swelling. No headache, blurred vision neck pain. No other acute symptoms or complaints. Timing/Duration: 1-3 hours Severity: mild Location: other Activities at Onset: sleep Prior CP/Workup: other Modifying Factors: improves with other Allergies and Home Medications Allergies Coded Allergies: amiodarone (Verified Adverse Reaction, Intermediate, TREMORS, 07/30/19) Patient Home Medication List Home Medication List Reviewed: Yes ALPRAZolam (Xanax Tablet) 0.25 Mg Tablet, (Reported) Entered as Reported by: MABLE WALKER on 05/28/20851 Albuterol Sulfate (Albuterol Sulfate) 2.5 Mg/3 Ml Vial.neb, 2.5 MG INH Q4H PRN for WHEEZING Prescribed by: AGUEDA MCDOWELL on 11/21/191742 Albuterol Sulfate (Proair Hfa) 1 Puff Puff, 2 PUFF IH Q4H Prescribed by: AGUEDA MCDOWELL on 11/21/191742 Allopurinol (Allopurinol) 300 Mg Tablet, (Reported) Entered as Reported by: KRYSTAL CRUZ on 06/02/191647 Apixaban (Eliquis) 2.5 Mg Tablet, (Reported) Entered as Reported by: MABLE WALKER on 05/28/2052 Budesonide/Formoterol Fumarate (Symbicort 160-4.5 Mcg Inhaler) 10.2 Gm Hfa.aer.ad, (Reported) Entered as Reported by: MABLE WALKER on 05/28/20851 Carbidopa/Levodopa (Carbidopa-Levodopa 25-100 Tab) 1 Each Tablet, (Reported) Entered as Reported by: MABLE WALKER on 05/28/20851 Citalopram Hydrobromide (Citalopram HBr) 20 Mg Tablet, (Reported) Entered as Reported by: MABLE WALKER on 05/28/20851 Donepezil HCl (Donepezil HCl) 5 Mg Tablet, (Reported) Entered as Reported by: MABLE WALKER on 05/28/20851 Ezetimibe (Ezetimibe) 10 Mg Tablet, (Reported) Entered as Reported by: MABLE WALKER on 05/28/20851 Furosemide (Furosemide) 40 Mg Tablet, (Reported) Entered as Reported by: MABLE WALKER on 05/28/20851 Losartan Potassium (Losartan Potassium) 50 Mg Tablet, (Reported) Entered as Reported by: MABLE WALKER on 05/28/20851 Montelukast Sodium (Montelukast Sodium) 10 Mg Tablet, (Reported) Entered as Reported by: MABLE WALKER on 05/28/20851 Omeprazole (Omeprazole) 20 Mg Capsule., (Reported) Entered as Reported by: MABLE WALKER on 05/28/20851 Review of Systems Review of Systems Constitutional: see HPI EENTM: See HPI Respiratory: See HPI Cardiovascular: See HPI Gastrointestinal: See HPI Genitourinary: See HPI Musculoskeletal: see HPI Skin: see HPI Psychiatric/Neurological: See HPI Endocrine: See HPI Hematologic/Lymphatic: See HPI All Other Systems Reviewed Negative Unless Noted: Yes Past Cqwuush-Hdvzmn-Pkhkkj Hx Patient Social History Tobacco Use?: No Use of E-Cig and/or Vaping dev: No Substance use?: No Alcohol Use?: No Pt feels they are or have been: No Seasonal Allergies Seasonal Allergies: No Past Medical History Surgeries: Yes (CARDIOVERSION x 2, COLON RESECTION) Adenoidectomy, Appendectomy, Breast, Hysterectomy, Tonsillectomy Respiratory: No Cardiac: Yes Atrial Fibrillation, Hypertension Neurological: No Genitourinary: No Gastrointestinal: Yes Diverticulosis Musculoskeletal: No Endocrine: Yes Diabetes, Non-Insulin dep HEENT: No Cancer: Yes Breast Psychosocial: Yes Anxiety Integumentary: No Blood Disorders: No Physical Exam Vital Signs Vital Signs - First Documented 03/18/22 17:44 Temp 36.7 Pulse 94 Resp 16 B/P (MAP) 175/104 (127) Pulse Ox 99 Capillary Refill : Height, Weight, BMI Height: 5'4.00" Weight: 160lbs. oz. [id number]; 24.00 BMI Method:Stated General Appearance: No Apparent Distress, WD/WN HEENT: PERRL/EOMI, Pharynx Normal, Moist Mucous Membranes Neck: Full Range of Motion, Non Tender, Supple Respiratory: Chest Non Tender, Lungs Clear Cardiovascular: Regular Rate, Rhythm Gastrointestinal: Non Tender, Soft Extremity: Non Tender Neurologic/Psychiatric: Alert, Oriented x3, Normal Mood/Affect Focused Exam Sepsis Stage: Ruled Out Progress/Results/Core Measures Results/Orders Lab Results Laboratory Tests Test 03/18/22 18:46 03/18/22 20:36 Range/Units White Blood Count 12.3 H 4.3-11.0 10^3/uL Red Blood Count 4.87 3.80-5.11 10^6/uL Hemoglobin 14.5 11.5-16.0 g/dL Hematocrit 45 35-52 % Mean Corpuscular Volume 92 80-99 fL Mean Corpuscular Hemoglobin 30 25-34 pg Mean Corpuscular Hemoglobin Concent 32 32-36 g/dL Red Cell Distribution Width 14.3 10.0-14.5 % Platelet Count 238 130-400 10^3/uL Mean Platelet Volume 10.9 9.0-12.2 fL Immature Granulocyte % (Auto) 1 % Neutrophils (%) (Auto) 84 H 42-75 % Lymphocytes (%) (Auto) 9 L 12-44 % Monocytes (%) (Auto) 7 0-12 % Eosinophils (%) (Auto) 0 0-10 % Basophils (%) (Auto) 0 0-10 % Neutrophils # (Auto) 10.3 H 1.8-7.8 10^3/uL Lymphocytes # (Auto) 1.1 1.0-4.0 10^3/uL Monocytes # (Auto) 0.8 0.0-1.0 10^3/uL Eosinophils # (Auto) 0.0 0.0-0.3 10^3/uL Basophils # (Auto) 0.0 0.0-0.1 10^3/uL Immature Granulocyte # (Auto) 0.1 0.0-0.1 10^3/uL Sodium Level 138 135-145 MMOL/L Potassium Level 4.4 3.6-5.0 MMOL/L Chloride Level 104 98-107 MMOL/L Carbon Dioxide Level 24 21-32 MMOL/L Anion Gap 10 5-14 MMOL/L Blood Urea Nitrogen 26 H 7-18 MG/DL Creatinine 0.85 0.60-1.30 MG/DL Estimat Glomerular Filtration Rate 68 BUN/Creatinine Ratio 31 Glucose Level 104 70-105 MG/DL Calcium Level 9.2 8.5-10.1 MG/DL Corrected Calcium 9.1 8.5-10.1 MG/DL Total Bilirubin 0.4 0.1-1.0 MG/DL Aspartate Amino Transf (AST/SGOT) 10 5-34 U/L Alanine Aminotransferase (ALT/SGPT) 5 0-55 U/L Alkaline Phosphatase 105 40-136 U/L Troponin I < 0.30 < 0.30 <0.30 NG/ML Pro-B-Type Natriuretic Peptide 3288.0 H <75.0 PG/ML Total Protein 6.4 6.4-8.2 GM/DL Albumin 4.1 3.2-4.5 GM/DL My Orders Orders - BASILIA GO DO Clonidine Tablet (Catapres Tablet) (03/18/22 18:00) Clonidine Tablet (Catapres Tablet) (03/18/22 18:30) Cbc With Automated Diff (03/18/22 18:29) Comprehensive Metabolic Panel (03/18/22 18:29) Ekg Tracing (03/18/22 18:29) Chest 1 View Ap/Pa Only (03/18/22 18:29) Probnp Fs (03/18/22 18:29) Troponin I Fs (03/18/22 19:41) Troponin I Fs (03/18/22 19:42) Furosemide Tablet (Lasix Tablet) (03/18/22 20:45) Medications Given in ED Current Medications Medications Dose Ordered Sig/Sandra Route Start Time Stop Time Status Last Admin Dose Admin Clonidine HCl 0.2 mg ONCE ONCE PO 03/18/22 18:00 03/18/22 18:01 DC 03/18/22 17:55 0.2 MG Clonidine HCl 0.2 mg ONCE ONCE PO 03/18/22 18:30 03/18/22 18:31 DC 03/18/22 18:40 0.2 MG Furosemide 40 mg ONCE ONCE PO 03/18/22 20:45 03/18/22 20:46 DC 03/18/22 20:53 40 MG Vital Signs/I&O 03/18/22 17:44 Temp 36.7 Pulse 94 Resp 16 B/P (MAP) 175/104 (127) Pulse Ox 99 Blood Pressure Mean: 127 Departure Communication (Admissions) CXR: NAD EKG: NSR, no acute ST T wave changes. Clonidine given with improved blood pressure. EKG, chest x-ray reviewed. Impression Primary Impression: Labile hypertension Additional Impression: Congestive heart failure Disposition: HOME, SELF-CARE Condition: Stable Departure-Patient Inst. Decision time for Depature: 21:08 Referrals: CLEO MAY MD (PCP/Family) Primary Care Physician Patient Instructions: High Blood Pressure ED, Heart Failure, Adult (DC) Add. Discharge Instructions: You were evaluated in the emergency department for chest heaviness and high blood pressure. Your symptoms are consistent with congestive heart failure. Please double daily dose of Lasix for the next 3 days and continue all other medications as directed. Follow-up with your PCP and/or wrapper stripper in 5 to 7 days for reevaluation. Return to the ED if new or worsening symptoms All discharge instructions reviewed with patient and/or family. Voiced understanding. BASILIA GO DO March 18, 2022 18:45
[2022-03-18 19:02] LABS: BASOPHILS % (AUTO) 0 % (0-10); EOSINOPHILS % (AUTO) 0 % (0-10); HEMATOCRIT 45 % (35-52); HEMOGLOBIN 14.5 g/dL (11.5-16.0); LYMPHOCYTES # (AUTO) 1.1 10^3/uL (1.0-4.0); LYMPHOCYTES % (AUTO) 9 % (12-44); MEAN CORPUSCULAR HEMOGLOBIN 30 pg (25-34); MEAN CORPUSCULAR HGB CONC 32 g/dL (32-36); MEAN CORPUSCULAR VOLUME 92 fL (80-99); MEAN PLATELET VOLUME 10.9 fL (9.0-12.2); MONOCYTES # (AUTO) 0.8 10^3/uL (0.0-1.0); MONOCYTES % (AUTO) 7 % (0-12); NEUTROPHILS # (AUTO) 10.3 10^3/uL (1.8-7.8); NEUTROPHILS % (AUTO) 84 % (42-75); PLATELET COUNT 238 10^3/uL (130-400); WHITE BLOOD COUNT 12.3 10^3/uL (4.3-11.0)
[2022-03-18 19:27] LABS: POTASSIUM 4.4 MMOL/L (3.6-5.0)
[2022-03-18 19:28] LABS: BILIRUBIN,TOTAL 0.4 MG/DL (0.1-1.0); CALCIUM 9.2 MG/DL (8.5-10.1); CREATININE SERUM 0.85 MG/DL (0.60-1.30)
[2022-03-18 19:29] LABS: ALBUMIN 4.1 GM/DL (3.2-4.5); TOTAL PROTEIN 6.4 GM/DL (6.4-8.2)
[2022-03-18] MEDS ORDERED: FUROSEMIDE 40 MG/4 ML INJ (LASIX) IVP ONE (20:45)
[2022-03-18] MEDS ORDERED: FUROSEMIDE 20 MG (LASIX) TAB PO ONE (20:45)
[2022-03-18 21:23] VITALS: BP 150/85
== END 2022-03-18 21:36 | disposition home or self-care (01) ==
LOC: EDUNIT# 17:28 → ER FS 17:28
DX: I11.0 Hypertensive heart disease with heart failure (principal); I50.9 Heart failure, unspecified
CPT/HCPCS: 36415; 71045; 80053; 83880; 84484; 85025; 93005

== ENCOUNTER 2022-08-04 18:22 | Emergency (ER) | payer MEDICARE ==
[~2022-08-04 18:22] MED LIST changes: -CARB1TAB19; +CARB1TAB32
--- NOTE | 2022-08-04 18:36 | ED General ---
General Chief Complaint: General Problems/Pain Stated Complaint: AFIB,LETHARGIC Nursing Triage Note: PT HAS BEEN MORE TIRED LATELY SINCE HER CHANGE IN HER LEVODOPA FROM 3 TIMES A DAY TO 4 TIMES A DAY. Source of Information: Patient, EMS, [facility] Records, Old Records History of Present Illness Date Seen by Provider: Aug 04, 2022 Time Seen by Provider: 18:28 Initial Comments 81-year-old female presenting from [facility] with EMS. She states that she has been having increased fatigue and lack of energy over the last 3 to 4 weeks. The talked with her neurologist that treats her Parkinson's and decided that with an increase in her carbidopa levodopa done about a month ago her symptoms may be related to that. They just decreased her dose 2 days ago. Today she was a little more active and had walked from one and depressed ambulance to the other for meeting. When she did that she came more fatigued and felt like she might pass out. With sitting and resting her symptoms improved however the staff had checked her out at the correction and felt that she needed to be evaluated in the emergency department. She does have a history of atrial fibrillation and takes medicine for that. She denies missing any doses of medication. She denies having any pain or burning with urination. She does have a dry cough that is mild and intermittent. She also had COVID in May and thinks that that may also be making her fatigued. Timing/Duration: Other (Least 2 to 3 weeks) Severity: Moderate Modifying Factors: worse with Movement (Activity makes it worse) Associated Systoms: No Chest Pain; Cough (Dry intermittent); No Diaphoresis, No Fever/Chills, No Headaches, No Loss of Appetite, No Malaise, No Nausea/Vomiting, No Rash, No Seizure, No Shortness of Air, No Syncope, No Weakness Allergies and Home Medications Allergies Coded Allergies: amiodarone (Verified Adverse Reaction, Intermediate, TREMORS, 07/30/19) Patient Home Medication List Home Medication List Reviewed: Yes ALPRAZolam (Xanax Tablet) 0.25 Mg Tablet, (Reported) Entered as Reported by: MABLE WALKER on 05/28/20 0852 Albuterol Sulfate (Albuterol Sulfate) 2.5 Mg/3 Ml Vial.neb, 2.5 MG INH Q4H PRN for WHEEZING Prescribed by: AGUEDA MCDOWELL on 11/21/191742 Albuterol Sulfate (Proair Hfa) 1 Puff Puff, 2 PUFF IH Q4H Prescribed by: AGUEDA MCDOWELL on 11/21/191742 Allopurinol (Allopurinol) 300 Mg Tablet, (Reported) Entered as Reported by: KRYSTAL CRUZ on 06/02/19 164 Apixaban (Eliquis) 2.5 Mg Tablet, (Reported) Entered as Reported by: MABLE WALKER on 05/28/20851 Budesonide/Formoterol Fumarate (Symbicort 160-4.5 Mcg Inhaler) 10.2 Gm Hfa.aer.ad, (Reported) Entered as Reported by: MABLE WALKER on 05/28/20851 Carbidopa/Levodopa (Carbidopa-Levodopa 25-100 Tab) 1 Each Tablet, (Reported) Entered as Reported by: MABLE WALKER on 05/28/20851 Citalopram Hydrobromide (Citalopram HBr) 20 Mg Tablet, (Reported) Entered as Reported by: MABLE WALKER on 05/28/20851 Donepezil HCl (Donepezil HCl) 5 Mg Tablet, (Reported) Entered as Reported by: MABLE WALKER on 05/28/20851 Ezetimibe (Ezetimibe) 10 Mg Tablet, (Reported) Entered as Reported by: MABLE WALKER on 05/28/20851 Furosemide (Furosemide) 40 Mg Tablet, (Reported) Entered as Reported by: MABLE WALKER on 05/28/20851 Losartan Potassium (Losartan Potassium) 50 Mg Tablet, (Reported) Entered as Reported by: MABLE WALKER on 05/28/20851 Montelukast Sodium (Montelukast Sodium) 10 Mg Tablet, (Reported) Entered as Reported by: MABLE WALKER on 05/28/20851 Omeprazole (Omeprazole) 20 Mg Capsule., (Reported) Entered as Reported by: MABLE WALKER on 05/28/20851 Review of Systems Review of Systems Constitutional: No chills, No fever EENTM: no symptoms reported Respiratory: no symptoms reported Cardiovascular: no symptoms reported Gastrointestinal: no symptoms reported Genitourinary: no symptoms reported Musculoskeletal: no symptoms reported Skin: No rash Psychiatric/Neurological: Denies Headache, Denies Numbness Hematologic/Lymphatic: Denies Blood Clots Past [employer]-Cwcjyl-Jjifmh Hx Patient Social History Tobacco Use?: No Use of E-Cig and/or Vaping dev: No Substance use?: No Alcohol Use?: No Pt feels they are or have been: No Immunizations Up To Date First/Initial COVID19 Vaccinat: 2020 Second COVID19 Vaccination Rojas: 2020 COVID19 Vaccine Inventory Control Coordinator: MODERNA Seasonal Allergies Seasonal Allergies: No Past Medical History Surgery/Hospitalization HX: Parkinson's, atrial fibrillation, hypertension Surgeries: Yes (CARDIOVERSION x 2, COLON RESECTION) Adenoidectomy, Appendectomy, Breast, Hysterectomy, Tonsillectomy Respiratory: No Cardiac: Yes Atrial Fibrillation, Hypertension Neurological: No Genitourinary: No Gastrointestinal: Yes Diverticulosis Musculoskeletal: No Endocrine: Yes Diabetes, Non-Insulin dep HEENT: No Cancer: Yes Breast Psychosocial: Yes Anxiety Integumentary: No Blood Disorders: No Physical Exam Vital Signs Vital Signs - First Documented 08/04/22 18:22 Temp 35.8 Pulse 104 Resp 16 B/P (MAP) 100/62 (75) Pulse Ox 98 O2 Delivery Room Air Capillary Refill : Less Than 3 Seconds Height, Weight, BMI Height: 5'4.00" Weight: 160lbs. oz. 72.165117cr; 24.00 BMI Method:Stated General Appearance: No Apparent Distress, WD/WN HEENT: PERRL/EOMI, Pharynx Normal, Moist Mucous Membranes Neck: Full Range of Motion, Normal Inspection, Non Tender, Supple Respiratory: Chest Non Tender, Lungs Clear, Normal Breath Sounds, No Accessory Muscle Use, No Respiratory Distress Cardiovascular: Regular Rate, Rhythm, Normal Peripheral Pulses Gastrointestinal: Normal Bowel Sounds, No Pulsatile Mass, Non Tender, Soft Rectal: Deferred Extremity: Normal Capillary Refill, Normal Inspection, No Pedal Edema Neurologic/Psychiatric: Alert, Oriented x3, hyperion essbase developer II-XII Norm as Tested Skin: Normal Color, Warm/Dry Progress/Results/Core Measures Suspected Sepsis SIRS Temperature: Pulse: 104 Respiratory Rate: 16 Laboratory Tests 08/04/22 18:26: White Blood Count 7.1 Blood Pressure 100 /62 Mean: 75 Laboratory Tests 08/04/22 18:26: Creatinine 1.28, INR Comment 1.0, Platelet Count 226, Total Bilirubin 0.9 Results/Orders Lab Results Laboratory Tests Test 08/04/22 18:26 Range/Units White Blood Count 7.1 4.3-11.0 10^3/uL Red Blood Count 5.06 3.80-5.11 10^6/uL Hemoglobin 15.3 11.5-16.0 g/dL Hematocrit 46 35-52 % Mean Corpuscular Volume 91 80-99 fL Mean Corpuscular Hemoglobin 30 25-34 pg Mean Corpuscular Hemoglobin Concent 33 32-36 g/dL Red Cell Distribution Width 14.3 10.0-14.5 % Platelet Count 226 130-400 10^3/uL Mean Platelet Volume 12.8 H 9.0-12.2 fL Immature Granulocyte % (Auto) 0 % Neutrophils (%) (Auto) 69 42-75 % Lymphocytes (%) (Auto) 21 12-44 % Monocytes (%) (Auto) 8 0-12 % Eosinophils (%) (Auto) 1 0-10 % Basophils (%) (Auto) 1 0-10 % Neutrophils # (Auto) 4.9 1.8-7.8 10^3/uL Lymphocytes # (Auto) 1.5 1.0-4.0 10^3/uL Monocytes # (Auto) 0.6 0.0-1.0 10^3/uL Eosinophils # (Auto) 0.1 0.0-0.3 10^3/uL Basophils # (Auto) 0.1 0.0-0.1 10^3/uL Immature Granulocyte # (Auto) 0.0 0.0-0.1 10^3/uL Prothrombin Time 13.6 12.2-14.7 SEC INR Comment 1.0 0.8-1.4 Activated Partial Thromboplast Time 28 24-35 SEC Sodium Level 138 135-145 MMOL/L Potassium Level 3.8 3.6-5.0 MMOL/L Chloride Level 98 98-107 MMOL/L Carbon Dioxide Level 25 21-32 MMOL/L Anion Gap 15 H 5-14 MMOL/L Blood Urea Nitrogen 27 H 7-18 MG/DL Creatinine 1.28 0.60-1.30 MG/DL Estimat Glomerular Filtration Rate 42 BUN/Creatinine Ratio 21 Glucose Level 96 70-105 MG/DL Calcium Level 9.5 8.5-10.1 MG/DL Corrected Calcium 9.4 8.5-10.1 MG/DL Magnesium Level 1.8 1.6-2.4 MG/DL Total Bilirubin 0.9 0.1-1.0 MG/DL Aspartate Amino Transf (AST/SGOT) 9 5-34 U/L Alanine Aminotransferase (ALT/SGPT) < 5 0-55 U/L Alkaline Phosphatase 109 40-136 U/L Troponin I < 0.30 <0.30 NG/ML Pro-B-Type Natriuretic Peptide 2522.0 H <450.0 PG/ML Total Protein 6.7 6.4-8.2 GM/DL Albumin 4.1 3.2-4.5 GM/DL My Orders Orders - VIRGINIA KENT MD Cbc With Automated Diff (08/04/22 19:01) Magnesium (08/04/22 19:01) Ekg Tracing (08/04/22 19:) Comprehensive Metabolic Panel (08/04/22 19:01) Protime With Inr (08/04/22 19:01) Partial Thromboplastin Time (08/04/22 19:01) O2 (08/04/22 19:01) Monitor-Rhythm Ecg Trace Only (08/04/22 19:01) Ed Iv/Invasive Line Start (08/04/22 19:01) Troponin I Fs (08/04/22 19:01) Probnp Fs (08/04/22 19:01) Vital Signs/I&O 08/04/22 08/04/22 08/04/22 18:22 19:30 19:55 Temp 35.8 35.8 Pulse 104 93 91 Resp 16 20 16 B/P (MAP) 100/62 (75) 106/73 (84) 125/74 Pulse Ox 98 93 98 O2 Delivery Room Air Room Air Room Air Capillary Refill : Less Than 3 Seconds Blood Pressure Mean: 75 Progress Note #1: Progress Note Patient states that she did not really want to come to the emergency department and only did it because the staff at [facility] insisted. She feels like she is just more fatigued and is not sure if it is from her recent COVID infection, change in medicine for her Parkinson's, or "just getting old". Will obtain basic labs and look for signs of anemia, electrolyte imbalance, kidney failure, renal failure, liver failure. Progress Note #2: Progress Note Labs are stable without acute significant abnormality. Blood pressure of the patient improved while resting in the room. Encouraged to drink plenty of fluids and stay well-hydrated. Give a little more time for the decreased dose of her Parkinson's medicine to see if it would help with her increased fatigue that she has had recently. Departure Impression Primary Impression: Fatigue Qualified Codes: R53.83 - Other fatigue Additional Impression: Near syncope Disposition: HOME, SELF-CARE Condition: Stable Departure-Patient Inst. Decision time for Depature: 19:32 Referrals: CLEO MAY MD (PCP/Family) Primary Care Physician Patient Instructions: Fatigue ED, Near Fainting (DC) Add. Discharge Instructions: Give a little more time to see if dropping your Carbidopa/Levodopa dose helps with your symptoms. In the meantime, try to not over exert yourself. Stay well hydrated and drink plenty of fluids. Check with your regular providers for continued concerns. All discharge instructions reviewed with patient and/or family. Voiced understanding. VIRGINIA KENT MD Aug 04, 2022 18:35
[2022-08-04 19:14] LABS: BASOPHILS # (AUTO) 0.1 10^3/uL (0.0-0.1); BASOPHILS % (AUTO) 1 % (0-10); EOSINOPHILS # (AUTO) 0.1 10^3/uL (0.0-0.3); EOSINOPHILS % (AUTO) 1 % (0-10); HEMATOCRIT 46 % (35-52); HEMOGLOBIN 15.3 g/dL (11.5-16.0); LYMPHOCYTES # (AUTO) 1.5 10^3/uL (1.0-4.0); LYMPHOCYTES % (AUTO) 21 % (12-44); MEAN CORPUSCULAR HEMOGLOBIN 30 pg (25-34); MEAN CORPUSCULAR HGB CONC 33 g/dL (32-36); MEAN CORPUSCULAR VOLUME 91 fL (80-99); MEAN PLATELET VOLUME 12.8 fL (9.0-12.2); MONOCYTES # (AUTO) 0.6 10^3/uL (0.0-1.0); MONOCYTES % (AUTO) 8 % (0-12); NEUTROPHILS # (AUTO) 4.9 10^3/uL (1.8-7.8); NEUTROPHILS % (AUTO) 69 % (42-75); PLATELET COUNT 226 10^3/uL (130-400); WHITE BLOOD COUNT 7.1 10^3/uL (4.3-11.0)
[2022-08-04 19:27] LABS: PROTHROMBIN TIME PATIENT 13.6 SEC (12.2-14.7)
[2022-08-04 19:28] LABS: SODIUM 138 MMOL/L (135-145)
[2022-08-04 19:29] LABS: ALANINE AMINOTRANSFERASE < 5 U/L (0-55); ALBUMIN 4.1 GM/DL (3.2-4.5); ALKALINE PHOSPHATASE 109 U/L (40-136); BILIRUBIN,TOTAL 0.9 MG/DL (0.1-1.0); BUN/CREATININE RATIO 21; CALCIUM 9.5 MG/DL (8.5-10.1); CARBON DIOXIDE 25 MMOL/L (21-32); CHLORIDE 98 MMOL/L (98-107); CREATININE SERUM 1.28 MG/DL (0.60-1.30); GFR ESTIMATED 42; GLUCOSE 96 MG/DL (70-105); MAGNESIUM 1.8 MG/DL (1.6-2.4); POTASSIUM 3.8 MMOL/L (3.6-5.0); TOTAL PROTEIN 6.7 GM/DL (6.4-8.2)
[2022-08-04 19:55] VITALS: BP 125/74
== END 2022-08-04 19:50 | disposition home or self-care (01) ==
LOC: EDUNIT# 18:22 → ER FS 18:23
DX: R55 Syncope and collapse (principal); R53.83 Other fatigue; I48.91 Unspecified atrial fibrillation; Z86.16 Personal history of COVID-19; Z79.01 Long term (current) use of anticoagulants
CPT/HCPCS: 36415; 80053; 83735; 83880; 84484; 85025; 85610; 85730

== ENCOUNTER 2023-09-03 09:31 | Emergency (ER) | payer MEDICARE ==
[~2023-09-03 09:31] MED LIST changes: +ALBU8.5H6 IH; -RT-ALBUINH IH
--- NOTE | 2023-09-03 09:39 | ED Upper Extremity ---
General Stated Complaint: SHOULDER PAIN; FALL History of Present Illness Date Seen by Provider: Sep 03, 2023 Time Seen by Provider: 09:34 Initial Comments 82 yr F with PMH of A-Fib/ HTN/ BA, is here with right shoulder pain after she had a fall in her driveway. Denies sensory loss, head strike, LOC, nausea, vomiting, neck pain. Allergies and Home Medications Allergies Coded Allergies: amiodarone (Verified Adverse Reaction, Intermediate, TREMORS, 07/30/19) Patient Home Medication List Home Medication List Reviewed: Yes ALPRAZolam (Xanax Tablet) 0.25 Mg Tablet, (Reported) Entered as Reported by: MABLE WALKER on 05/28/20851 Albuterol Sulfate (Albuterol Sulfate) 2.5 Mg/3 Ml Vial.neb, 2.5 MG INH Q4H PRN for WHEEZING Prescribed by: AGUEDA MCDOWELL on 11/21/191742 Albuterol Sulfate (Ventolin Hfa) 1 Puff Puff, 2 PUFF IH Q4H Prescribed by: AGUEDA MCDOWELL on 11/21/191742 Allopurinol (Allopurinol) 300 Mg Tablet, (Reported) Entered as Reported by: KRYSTAL CRUZ on 06/02/19 1648 Apixaban (Eliquis) 2.5 Mg Tablet, (Reported) Entered as Reported by: MABLE WALKER on 05/28/20851 Budesonide/Formoterol Fumarate (Symbicort 160-4.5 Mcg Inhaler) 10.2 Gm Hfa.aer.ad, (Reported) Entered as Reported by: MABLE WALKER on 05/28/20851 Carbidopa/Levodopa (Carbidopa-Levodopa 25-100 Tab) 1 Each Tablet, (Reported) Entered as Reported by: MABLE WALKER on 05/28/20851 Citalopram Hydrobromide (Citalopram HBr) 20 Mg Tablet, (Reported) Entered as Reported by: MABLE WALKER on 05/28/20851 Donepezil HCl (Donepezil HCl) 5 Mg Tablet, (Reported) Entered as Reported by: MABLE WALKER on 05/28/20851 Ezetimibe (Ezetimibe) 10 Mg Tablet, (Reported) Entered as Reported by: MABLE WALKER on 05/28/20851 Furosemide (Furosemide) 40 Mg Tablet, (Reported) Entered as Reported by: MABLE WALKER on 05/28/20851 Losartan Potassium (Losartan Potassium) 50 Mg Tablet, (Reported) Entered as Reported by: MABLE WALKER on 05/28/20851 Montelukast Sodium (Montelukast Sodium) 10 Mg Tablet, (Reported) Entered as Reported by: MABLE WALKER on 05/28/20851 Omeprazole (Omeprazole) 20 Mg Capsule.dr (Reported) Entered as Reported by: MABLE WALKER on 05/28/20851 Review of Systems Constitutional: no symptoms reported Musculoskeletal: see HPI, joint pain Past Srcmqtb-Izgpgi-Ccrmpq Hx Immunizations Up To Date First/Initial COVID19 Vaccinat: 2020 Second COVID19 Vaccination Rojas: 2020 Seasonal Allergies Seasonal Allergies: No Past Medical History Surgery/Hospitalization HX: Parkinson's, atrial fibrillation, hypertension Surgeries: Yes (CARDIOVERSION x 2, COLON RESECTION) Adenoidectomy, Appendectomy, Breast, Hysterectomy, Tonsillectomy Respiratory: No Cardiac: Yes Atrial Fibrillation, Hypertension Neurological: No Genitourinary: No Gastrointestinal: Yes Diverticulosis Musculoskeletal: No Endocrine: Yes Diabetes, Non-Insulin dep HEENT: No Cancer: Yes Breast Psychosocial: Yes Anxiety Integumentary: No Blood Disorders: No Physical Exam Vital Signs Vital Signs - First Documented 09/03/23 09:33 Temp 36.8 Pulse 80 Resp 16 B/P (MAP) 188/107 (134) Pulse Ox 98 O2 Delivery Room Air Capillary Refill : Height, Weight, BMI Height: 5'4.00" Weight: 160lbs. oz. 72.632218ir; 24.00 BMI Method:Stated General Appearance: mild distress HEENT: PERRL/EOMI Neck: non-tender, full range of motion, supple, normal inspection Cardiovascular: regular rate, rhythm Respiratory: lungs clear Shoulder: bone tenderness, deformity, ecchymosis, limited ROM (N/V bundle intact, strong pulses), pain, soft tissue tenderness, swelling Elbow/Forearm: normal inspection, non-tender, no evidence of injury, normal ROM, Right Neurologic/Psychiatric: alert, oriented x 3 Progress/Results/Core Measures Results/Orders My Orders Orders - WALE IGNACIO MD Shoulder 3 View Right (09/03/23 09:34) Hydromorphone Injection (Hydromorphone (09/03/23 09:45) Ketorolac Injection (Ketorolac Injection (09/03/23 12:15) Medications Given in ED Current Medications Medications Dose Ordered Sig/Sandra Route Start Time Stop Time Status Last Admin Dose Admin Hydromorphone HCl 0.5 mg ONCE ONCE IV 09/03/23 09:45 09/03/23 09:46 DC 09/03/23 09:50 0.5 MG Vital Signs/I&O 09/03/23 09:33 Temp 36.8 Pulse 80 Resp 16 B/P (MAP) 188/107 (134) Pulse Ox 98 O2 Delivery Room Air Progress Progress Note : Progress Note 1. RIGHT HUMERUS HEAD & HUMERUS NECK FRACTURE: - XR RIGHT SHOULDER: Comminuted slightly impacted fracture right humeral head and neck. - EMS gave pt Fentanyl 50mcg iv in the ambulance - Dilaudid 0.5mg iv given in ER, with resulting drop in O2 sat to 85-86% requiring 2L of O2 via NC. Pt will be a risk for sedation/ anesthesia. - Due to this, pain control with right shoulder intra-articular injection of 1% Lidocaine, 8mL injected. Successful pain control with this. - [facility] in [place] does not have Ortho this weekend , so discussed via phone with [facility] Orthopedic consult, Dr. Michelle and Neda Gaxiola. No surgery or admission advised. Advised non-surgical, and coaptation splint and follow up with Ortho. Pt will be following up with Neda Stewart. - Ice application advised. - Ketorolac prescription given. No narcotics since patient may develop respiratory depression without as evidenced in the ER. Advised extra strength Tylenol every 4 hours as well for pain. -The patient was seen in the ED, and treated appropriately to presentation at a specific point in time. Patient is informed that there is a possibility that disease and illness can evolve and change in acuity rapidly or slowly after patient is discharged from the ER. Precautionary advice given to the patient for immediate return to ER if symptoms worsen or do not resolve, and to seek emergency care sooner rather than later. Pt also advised on the importance of PCP follow up and compliance with management and follow up plan with PCP and/or specialist, as this is part of the management plan. Pt verbally expressed understanding. Diagnostic Imaging Diagonstic Imaging: Xray Plain Films/CT/US/NM/MRI: other Comments NAME: DUY ROB [facility] REC#: [id number] PT STATUS: REG ER : 1940 PHYSICIAN: WALE IGNACIO MD ADMIT DATE: 09/03/23/ER FS Draft Date of Exam:09/03/23 SHOULDER 3 VIEW RIGHT INDICATION: Shoulder deformity. FINDINGS: There is a comminuted slightly impacted fracture of the right humeral head and neck. Bones are diffusely osteopenic. There are degenerative changes of glenohumeral joint. Right lung is clear. IMPRESSION: Comminuted slightly impacted fracture right humeral head and neck. Dictated on workstation # [id number] Dict: 09/03/2354 Trans: 09/03/23 0956 [facility] [id number] Interpreted by: KEKE HDEZ MD Electronically signed by: Departure Impression Primary Impression: Fracture of humeral head, right, closed Qualified Codes: S42.291A - Other displaced fracture of upper end of right humerus, initial encounter for closed fracture Additional Impression: Fracture of neck of right humerus Qualified Codes: S42.211A - Unspecified displaced fracture of surgical neck of right humerus, initial encounter for closed fracture Disposition: XF [facility] HOSP Condition: Stable Departure-Patient Inst. Referrals: CLEO MAY MD (PCP/Family) Primary Care Physician Patient Instructions: Shoulder Fracture (DC) Add. Discharge Instructions: - [facility] in [place] does not have Ortho this weekend , so discussed via phone with [facility] Orthopedic consult, Dr. Michelle and Neda Gaxiola. No surgery or admission advised. Advised non-surgical, and coaptation splint and follow up with Ortho. Pt will be following up with Neda Stewart. - Ice application advised. - Ketorolac prescription given. No narcotics since patient may develop respiratory depression without as evidenced in the ER. Advised extra strength Tylenol every 4 hours as well for pain. Scripts Ketorolac Tromethamine (Ketorolac Tromethamine) 10 Mg Tablet 10 MG PO Q6H for Pain for 3 Days, #14 TAB Prov: WALE IGNACIO MD 09/03/23 WALE IGNACIO MD Sep 03, 2023 09:39
[2023-09-03] MEDS ORDERED: HYDROmorphone INJECTION 2 MG/ML VIAL IV ONE (09:45)
--- NOTE | 2023-09-03 09:57 | Diagnostic Imaging Report ---
INDICATION: Shoulder deformity. FINDINGS: There is a comminuted slightly impacted fracture of the right humeral head and neck. Bones are diffusely osteopenic. There are degenerative changes of glenohumeral joint. Right lung is clear. IMPRESSION: Comminuted slightly impacted fracture right humeral head and neck. Dictated by: Dictated on workstation # [id number]
[2023-09-03] MEDS ORDERED: TRM50T PO (12:11)
[2023-09-03] MEDS ORDERED: KETO10TA PO (12:12)
[2023-09-03] MEDS ORDERED: KETOROLAC INJ 15 MG/ML VIAL IVP ONE (12:15)
[2023-09-03 12:21] VITALS: BP 132/84
== END 2023-09-03 12:21 | disposition home or self-care (01) ==
LOC: EDUNIT# 09:31 → ER FS 09:32
DX: S42.291A Other displaced fracture of upper end of right humerus, initial encounter for closed fracture (principal); S42.211A Unspecified displaced fracture of surgical neck of right humerus, initial encounter for closed fracture; W19.XXXA Unspecified fall, initial encounter; Y92.89 Other specified places as the place of occurrence of the external cause
CPT/HCPCS: 73030